=== PATIENT | male | born 1940 | race Caucasian/White ===

== ENCOUNTER 2020-12-01 15:01 | Outpatient (REF) | payer MEDICARE, SELFPAY ==
[2020-12-01 16:00] LABS: Blood Urea Nitrogen 22 mg/dL (9-16); Estimated Glomerular Filt Rate > 60
== END 2020-12-01 15:02 | disposition home or self-care (01) ==
LOC: HO.LAB 15:01
PROVIDERS: PCP Family Medicine; Visit Provider Dentist Pediatric Dentistry
DX: Z13.89 Encounter for screening for other disorder (principal)
CPT/HCPCS: 36415; 82565; 84520

== ENCOUNTER 2020-12-02 18:48 | Outpatient (REF) | payer MEDICARE, SELFPAY ==
--- NOTE | ~2020-12-02 | MR_ITS ---
EXAMINATION: MRI ABDOMEN WITH AND WITHOUT CONTRAST CLINICAL INFORMATION: OTHER SPECIFIED DISEASES OF PANCREAS COMPARISON: Compared to the 10/17/2018 CT scan TECHNIQUE: Multiple routine MRI sequences through the abdomen were obtained on a high-field 1.5Tesla MRI. Pre-and postcontrast images with 7 mL of Gadavist intravenous contrast were obtained. This included a dynamic contrast-enhanced technique. FINDINGS: Visualized lung bases unremarkable. Liver is homogeneous in signal with a small partially exophytic simple appearing 1.5 cm cyst from the lower aspect of segment 5 of the liver. No suspicious hepatic lesions nor biliary ductal dilatation. Gallbladder is partially contracted but otherwise unremarkable. Specific attention was given to the pancreas. Pancreatic parenchyma demonstrates homogeneous precontrast T1 bright signal. There are small T2 bright nonenhancing simple appearing cystic changes seen within the pancreas includes a 1.5 cm cysts along the superior pancreatic neck region, a 0.8 cm cyst in the pancreatic head abutting the pelvic bowel duct and a 1.3 cm cyst in the uncinate process measuring up to 1.3 cm in diameter. In retrospect, these tiny cysts and likely not significantly changed in size from the 2019 CT scan. No intraluminal filling defects, nodularity, or enhancement. The small cyst in the uncinate process does appear to be contiguous with the adjacent pancreatic duct. The cyst in the pancreatic head and neck are in close proximity to the common bile duct but appear to be separate from the hepatic duct. Pancreatic duct in the pancreatic head region measures up to 0.6 cm extending up to the ampulla. I do not appreciate any discrete obstructive changes to the duct in the pancreatic head region. No peripancreatic inflammatory changes or fluid. Negative spleen. Negative adrenals. The left kidney is surgically absent. T2 bright nonenhancing simple appearing cysts incidentally seen in the upper pole of the right kidney. No obstructive changes seen. No bulky retroperitoneal adenopathy. MR/MR abdomen wo/w con IMPRESSION: There are 3 simple appearing small cyst within the pancreas as described above. In retrospect these have likely not significantly changed from the [address] scan although are better delineated on the current MRI. The lesion in the anterior aspect of the uncinate process does appear to be contiguous with the pancreatic duct in this region and a tiny branch duct type IPMN cannot be excluded. Alternatively with the multiplicity, sequela of prior pancreatitis could also have this appearance. The pancreatic duct again measures up to 0.6 cm in the region the pancreatic head extending up to the ampulla without intraluminal filling defects or obvious obstructive changes. Appears similar to the 2019 CT scan as well. Status post left nephrectomy. No obvious mass lesion or adenopathy in the left nephrectomy bed.
== END 2020-12-02 18:49 | disposition home or self-care (01) ==
LOC: HO.MRI 18:48
PROVIDERS: Visit Provider Family Medicine
DX: K86.89 Other specified diseases of pancreas (principal); Z90.5 Acquired absence of kidney
CPT/HCPCS: 74183; A9585

== ENCOUNTER 2022-10-11 17:16 | Emergency (ER) | payer MEDICARE, SELFPAY ==
--- NOTE | 2022-10-11 17:26 | ED_ITS ---
HPI - Eye Problem General Chief complaint: Eye Problems Stated complaint: right eye inj Time Seen by Provider: 10/11/22 19:38 Source: patient and RN notes reviewed Mode of arrival: ambulatory Limitations: no limitations History of Present Illness HPI Narrative: This is a 82-year-old male presenting to the emergency department for right eye irritation which occurred this afternoon. Patient reports that his son was mowing the lawn when suddenly something came up and struck patient into his right eye. He states that his eye watered for several minutes. Patient denies any eye pain, visual changes, blurred vision, or pain to his eye. He noticed some redness in his eye and wanted to ensure he did not have any foreign bodies into his eye. Patient denies any fevers or chills. No headaches or dizziness. No other complaints or concerns at this time. MD chief complaint: eye redness Onset (ago): hour(s) Onset description: sudden Location: right eye Eye Symptoms: redness Place: home Mechanism: none Severity: moderate Associated symptoms: none Treatments Prior to Arrival: none Related Data Patient tetanus UTD: No Previous Rx's Medication Instructions Recorded erythromycin 5 mg/gram (0.5 %) eye 1 appl ophthalmic (eye) QID 7 days 10/11/22 ointment #3.5 grams sulfacetamide sodium 10 % eye drops 1 drp ophthalmic (eye) Q3H 7 days 10/11/22 #15 mL Allergies Allergy/AdvReac Type Severity Reaction Status Date / Time No Known Allergies Allergy Unverified 01/14/20 18:56 [No Known Allergies*] Review of Systems Review of Systems: Constitutional: No Weight loss, No Fever, No Chills, No Night Sweats, No Fatigue, No Malaise ENT/Mouth: No Hearing loss, No Ear Pain, No Nasal Congestion, No Sinus Pain, No Hoarseness, No sore throat, No Rhinorrhea, No Swallowing Difficulty Eyes: No Eye Pain, No Swelling, + Redness, No Foreign Body, No Discharge, No Vision Changes Cardiovascular: No Chest Pain, No SOB, No Dyspnea on Exertion, No Orthopnea, No Edema, No Palpitations Respiratory: No Cough, No Sputum, No Wheezing, No Smoke Exposure, No Dyspnea Gastrointestinal: No Nausea, No Vomiting, No Diarrhea, No Constipation, No Abdominal pain, No Hematochezia, No Melena Genitourinary: No irregular bleeding, No Dysuria, No Urinary Frequency, No Hematuria, No Urinary Incontinence/retention, No Urgency, No Flank Pain, No Urinary Flow Changes, No Hesitancy Musculoskeletal: No joint pain, No Myalgias, No Joint Swelling Skin: No Skin Lesions, No rash Neuro: No Weakness, No Numbness, No Paresthesias, No Loss of Consciousness, No Dizziness, No Headache Psych: No Anxiety/Panic, No Depression, No SI/HI/AH/VH, No Social Issues, Heme/Lymph: No Bruising, No Bleeding,No Lymphadenopathy Endocrine: No Polyuria, No Polydipsia, No Temperature Intolerance [facility] Social History Social History Advance Directives: Yes Advance Directives Information Provided: No Advance Directives on File: No Physical Exam Vital Signs: Vital Signs: Last Vital Signs Temp 97.9 F 10/11/22 17:27 Pulse 79 10/11/22 17:27 Resp 16 10/11/22 17:27 BP 130/76 10/11/22 17:27 Pulse Ox 96 10/11/22 17:27 O2 Del Method Room Air 10/11/22 17:27 BMI result Body Mass Index 25.1 Const: Other: General: Awake, alert, and oriented X3. No acute distress. HEENT: Normal inspection, right eye with subconjunctiva hemorrhage, and conjunctiva injected on the inner portion, just lateral to the medial canthus. No active bleeding or drainage. No foreign body noted. No fluorescein uptake noted. Pupils are equal and reactive. No pain with EOM. CVS: Normal heart rate and rhythm. Pulses normal. Respiratory: No respiratory distress Skin: Warm, dry, no rashes noted to exposed skin. Normal skin color. Normal skin turgor. Extremities: Normal inspection Neuro: Oriented X 3. No motor deficit. No sensory deficit. Course Course Course Narrative: This is a rapid medical exam. Deferred additional HPI, ROS, PE to primary provider. 82 yo male with history of CKD, CAD with stent here with right eye pain, tearing after a piece of wood hit his eye 1 hr [employer]LY[employer]. Tetanus UTD Will need visual exam, eye exam VSS Medications Administered Discontinued Medications Generic Name Dose Route Start Last Admin Trade Name Freq PRN Reason Stop Dose Admin Diphtheria/Tetanus/Acell Pertussis 0.5 ml 10/11/22 20:09 10/11/22 20:14 Naveen Reeves(Acell),Tet Adult 0.5 Ml Syringe IM 10/11/22 20:10 0.5 ml .ONCE ONE Administration Fluorescein Sodium 1 strip 10/11/22 17:28 10/11/22 19:50 Fluorescein Sodium Strip EYE-RIGHT 10/11/22 17:29 1 strip ONCE ONE Administration Tetracaine HCl 1 drop 10/11/22 17:28 10/11/22 19:50 Tetracaine Hcl/Pf 0.5% Oph Sis 4 Ml Drops EYE-RIGHT 10/11/22 17:29 1 drop ONCE ONE Administration Medical Decision Making Medical Decision Making MDM Narrative: 82-year-old male presenting to the emergency department for evaluation of right eye injury. On examination patient has subconjunctiva hemorrhage noted to the inner portion of his right eye. Pupils are reactive. No pain with EOM. Patient has no visual changes. Fluorescein stain achieved with no uptake. Likely consistent with subconjunctiva hemorrhage. Will treat with antibiotic eyedrops for prevention. Patient on lantoprost for chronic glaucoma. Discussed with pharmacist that patient can use antibiotic eyedrops with an hour in between administrations. Tetanus is not up-to-date, will update in department today. Visual acuity intact. Patient does not wear contact lenses. All vital signs within normal limits. Patient is stable for discharge. Differential Diagnosis Differential Diagnoses: The differential diagnosis associated with the presentation includes Subconjunctival hemorrhage, corneal abrasion, corneal laceration, foreign body Discharge Plan Discharge Clinical Impression: Subconjunctival hemorrhage Patient Disposition: Home, Self-Care Instructions: Subconjunctival Hemorrhage (ED) Additional Instructions: No foreign body was seen on your exam today. We are placing you on antibiotic eyedrops for prevention of infection. Please use these eyedrops spacing 1 hour between Lantoprost eyedrops. We updated your tetanus vaccine today. Please call your eye doctor tomorrow for follow-up. If any new or worsening symptoms occur, including visual changes, eye pain, or any other concerning symptoms, please return for re-evaluation. Prescriptions: New sulfacetamide sodium 10 % drops 1 drp ophthalmic (eye) Q3H 7 Days Qty: 15 0RF erythromycin 5 mg/gram (0.5 %) ointment 1 appl ophthalmic (eye) QID 7 Days Qty: 3.5 0RF Interventions: ED Discharge Assessment Last Done: 10/11/22 20:22 Discharge Date/Time: 10/11/22 20:25
[2022-10-11 17:27] VITALS: BP 130/76; PULSE 79; RESP 16; TEMP 36.6; O2SAT 96; BMI 25.1
[2022-10-11] MEDS: Fluorescein Sodium STRIP 1 STRIP EYE-RIGHT (19:50)
[2022-10-11] MEDS: Tetracaine HCl/PF 0.5% Oph Sol 4 ML DROPS 1 DROP EYE-RIGHT (19:50)
[2022-10-11] MEDS: Diphth,Pertus(ACell),Tet Adult 0.5 ML SYRINGE IM (20:14)
== END 2022-10-11 20:25 | disposition home or self-care (01) ==
PROVIDERS: Emergency Provider Student in an Organized Health Care Education/Training Program; PCP Family Medicine
DX: S05.01XA Injury of conjunctiva and corneal abrasion without foreign body, right eye, initial encounter (principal); H11.31 Conjunctival hemorrhage, right eye; X58.XXXA Exposure to other specified factors, initial encounter; Y93.9 Activity, unspecified; Y92.9 Unspecified place or not applicable; Y99.9 Unspecified external cause status; Z79.899 Other long term (current) drug therapy; Z23 Encounter for immunization
CPT/HCPCS: 90471; 90715; 99284

== ENCOUNTER 2023-09-27 10:00 | Outpatient (RCR) | payer MEDICARE, SELFPAY | END 2023-10-02 06:54 | disposition home health service (06) | LOC: HO.CR 10:00 | PROVIDERS: PCP Family Medicine; Visit Provider Internal Medicine Cardiovascular Disease | DX: Z95.5 Presence of coronary angioplasty implant and graft (principal) | CPT/HCPCS: 93798 ==

== ENCOUNTER 2023-09-29 10:57 | Emergency (ER) | payer MEDICARE, SELFPAY ==
--- NOTE | ~2023-09-29 | CT_ITS ---
EXAMINATION: CT HEAD WITHOUT CONTRAST CLINICAL INFORMATION: Fall. Anticoagulated. COMPARISON: None available. TECHNIQUE: Contiguous axial imaging was performed from the skull base to vertex without intravenous administration of contrast. This CT examination was performed using dose optimization techniques as appropriate, variously including the following: *Automated exposure control *Adjustment of mA and/or kV according to patient size (this includes techniques or standardized protocols for targeted exams where dose is matched to indication/reason for exam; i.e. extremities or head) *Use of iterative reconstruction technique DLP: 674 mGy-cm FINDINGS: There is no evidence of an extra-axial collection. There is no evidence of intra or extra-axial hemorrhage. The ventricles and extra-axial CSF spaces are prominent suggestive of mild generalized atrophy. There is nonspecific periventricular white matter disease. No mass, mass effect or infarct. No skull fracture. Visualized sinuses and mastoid air cells and middle ears are clear. Degenerative changes of the left temporomandibular joint. CT/CT head/brain wo IV con IMPRESSION: No acute findings. Mild generalized atrophy and nonspecific periventricular white matter disease.
--- NOTE | ~2023-09-29 | XR_ITS ---
EXAMINATION: XR TIBIA AND FIBULA, RIGHT CLINICAL INFORMATION: Fall COMPARISON: None available. TECHNIQUE: AP and lateral views of the right tibia and fibula were obtained. FINDINGS: The bones and soft tissues are normal. No fracture. No osseous lesions. XR/XR tibia fibula RT 2V IMPRESSION: Normal right tibia and fibula.
--- NOTE | ~2023-09-29 | CT_ITS ---
EXAMINATION: CT CERVICAL SPINE WITHOUT CONTRAST CLINICAL INFORMATION: Fall COMPARISON: None available. TECHNIQUE: Axial images through the cervical spine without contrast. Sagittal and coronal reconstructions. This CT examination was performed using dose optimization techniques as appropriate, variously including the following: *Automated exposure control *Adjustment of mA and/or kV according to patient size (this includes techniques or standardized protocols for targeted exams where dose is matched to indication/reason for exam; i.e. extremities or head) *Use of iterative reconstruction technique DLP: 398 mGy-cm FINDINGS: Well corticated transverse lucency of the dens suggestive of old ununited fracture versus ununited accessory ossification center. No acute fracture or dislocation. There is mild curvature of the lower cervical and upper thoracic spine to the left. Bone alignment is otherwise normal. There are degenerative changes at the C1 dens articulation. There is thickening of the atlantoaxial ligament. There is mild multilevel degenerative spondylosis. There is disc space narrowing at C6-C7. There is mild bilateral facet arthritis, left side greater than right. Prevertebral soft tissues are normal. Visualized lung apices are clear. CT/CT cervical spine wo IV con IMPRESSION: Well corticated transverse lucency in the dens suggestive of old ununited fracture versus accessory ossification center. No acute fracture or dislocation. Degenerative changes. Fleischner guidelines were followed.
--- NOTE | ~2023-09-29 | CT_ITS ---
EXAMINATION: CT FOOT WITHOUT CONTRAST, RIGHT CT ANKLE WITHOUT CONTRAST, RIGHT CLINICAL INFORMATION: Calcaneal fracture. COMPARISON: None available. TECHNIQUE: Multidetector volumetric imaging was obtained through the right ankle and right foot without contrast. Multiplanar reformatted images in coronal and sagittal orientations were submitted. This CT examination was performed using dose optimization techniques as appropriate, variously including the following: *Automated exposure control *Adjustment of mA and/or kV according to patient size (this includes techniques or standardized protocols for targeted exams where dose is matched to indication/reason for exam; i.e. extremities or head) *Use of iterative reconstruction technique DLP: 334 mGy-cm FINDINGS: There is a nondisplaced fracture of the calcaneal body and tuberosity with a dominant oblique coronal component. The fracture line extends into the sustentaculum talus to the articular surface of the middle facet without articular cortical step-off. No no appreciable involvement of the posterior facet of the calcaneocuboid joint. Minimal osteoarthritis in the talocrural, subtalar, and Chopart joint is characterized primarily by small marginal osteophytes. Joint spaces appear well-preserved. No erosions. 3 small avulsion fracture is suspected at the dorsolateral margin of the cuboid at the fourth TMT joint. No additional fractures are identified at the TMT joint. Lisfranc joint alignment is appropriate. There is mild osteoarthritis at the first MTP joint and a few interphalangeal joints. There is soft tissue swelling at the ankle diffusely with associated subcutaneous edema. Tendons are intact. Small ankle joint effusion. No atrophy of the intrinsic foot musculature. CT/CT ankle RT wo IV con IMPRESSION: 1. Nondisplaced fracture of the calcaneal body and tuberosity with a dominant oblique coronal component. The fracture line extends to the articular surface of the middle facet without articular cortical step-off. 2. Small avulsion fracture at the dorsolateral margin of the cuboid at the fourth TMT joint. No additional fractures of the TMT joints. Lisfranc alignment is normal. 3. Minimal osteoarthritis in the hindfoot and midfoot.
--- NOTE | ~2023-09-29 | XR_ITS ---
EXAMINATION: XR ANKLE, RIGHT CLINICAL INFORMATION: Right ankle pain after injury. COMPARISON: None available. TECHNIQUE: AP, lateral, and mortise views of the right ankle. FINDINGS: Ankle mortise is intact. As seen on the on the lateral view note is made of a an obliquely oriented linear lucency through the mid body of the calcaneus extending into the subtalar joint space, highly concerning for nondisplaced fracture. No additional acute fractures are noted. Ankle mortise is intact. Mild soft tissue swelling is noted over the lateral malleolus. Arterial calcification is seen. Normal osseous mineralization. Posterior calcaneal spur at the insertion of Achilles tendon. Mild degenerative changes are noted at talonavicular and mid tarsal articulations. XR/XR ankle RT min 3V IMPRESSION: Oblique nondisplaced fracture of the right calcaneus with intra-articular extension is suspected as detailed above. Ankle mortise is intact.
--- NOTE | ~2023-09-29 | XR_ITS ---
EXAMINATION: XR FEMUR, LEFT CLINICAL INFORMATION: Fall COMPARISON: None available. TECHNIQUE: AP and lateral views of the left femur were obtained. FINDINGS: Bone alignment is normal. No fracture or dislocation. Mild degenerative changes at the left hip joint and knee joint with small osteophytes. Soft tissues are unremarkable. XR/XR femur LT 2V IMPRESSION: No fracture or dislocation. Mild degenerative changes.
--- NOTE | ~2023-09-29 | CT_ITS ---
EXAMINATION: CT ABDOMEN AND PELVIS WITH CONTRAST CLINICAL INFORMATION: Fall COMPARISON: Previous CT of the abdomen and pelvis October 2018 and MR of the abdomen 2020 TECHNIQUE: Multidetector volumetric images were obtained from the superior aspect of the liver through the pubic symphysis following administration 85 mL of Omnipaque 350 intravenous contrast. Sagittal and coronal reformatted images were obtained on the technologist's workstation. Oral contrast: Yes This CT examination was performed using dose optimization techniques as appropriate, variously including the following: *Automated exposure control *Adjustment of mA and/or kV according to patient size (this includes techniques or standardized protocols for targeted exams where dose is matched to indication/reason for exam; i.e. extremities or head) *Use of iterative reconstruction technique DLP: 490 mGy-cm FINDINGS: LUNG BASES: The visualized lung bases are unremarkable. LIVER, GALLBLADDER, AND BILIARY TREE: The liver is normal in size, shape, and attenuation. No focal hepatic lesion or biliary ductal dilatation is present. The gallbladder is unremarkable with no evidence of radiopaque gallstones, gallbladder wall thickening, or obvious pericholecystic inflammatory changes. PANCREAS: There is a 1.4 cm cyst seen in the uncinate process of the head of the pancreas. 1 cm cyst exophytic to the anterior head of the pancreas. There is mild dilatation of the main pancreatic duct measuring up to 7 mm in the head of the pancreas. These findings are similar to previous exams. SPLEEN: Unremarkable. ADRENAL GLANDS: Unremarkable. 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 There is mild right hydronephrosis and right ureteral dilatation. This may be secondary to well-distended bladder. BLADDER: The bladder is very dilated. The prostate gland is enlarged and protrudes into the base of the bladder. There may be mild diffuse bladder wall thickening. GASTROINTESTINAL TRACT: The small and large bowel are unremarkable. The appendix is unremarkable. ABDOMINAL WALL: Small left inguinal hernia containing fat. There is asymmetric enlargement of the left gluteal muscles compared to the right. There is a high attenuation soft tissue mass and stranding of the subcutaneous fat in the left buttock suggestive of hematoma. There is extension of the hematoma into the lower left extraperitoneal pelvis and perineal region. LYMPH NODES: Normal. VASCULAR: Atherosclerotic disease. No aneurysm. PELVIC VISCERA: The prostate gland is enlarged and protrudes into the base of the bladder. The prostate gland measures 6 cm in AP and transverse dimension. OSSEOUS STRUCTURES: Degenerative changes of the spine and bilateral hip joints. No fracture seen. CT/CT abdomen pelvis w IV con IMPRESSION: Large left buttock hematoma and small amount of blood in the left lower extraperitoneal pelvis. No fracture seen. Enlarged prostate gland that protrudes into the base of the bladder. The bladder is very distended. Mild right hydronephrosis and ureteral dilatation. This may be due to bladder distention. Post left nephrectomy. Small cysts in the head of the pancreas and prominence of the main pancreatic duct. These findings are similar to previous exams. Fleischner guidelines were followed.
--- NOTE | ~2023-09-29 | CT_ITS ---
EXAMINATION: CT CHEST WITH CONTRAST CLINICAL INFORMATION: Fall COMPARISON: None available. TECHNIQUE: Multidetector volumetric CT imaging of the chest was obtained after the administration of 85 mL of Omnipaque 350 intravenous contrast without immediate adverse reactions. Axial MIP volume rendering provided. Sagittal and coronal reformatted images were obtained. This CT examination was performed using dose optimization techniques as appropriate, variously including the following: *Automated exposure control *Adjustment of mA and/or kV according to patient size (this includes techniques or standardized protocols for targeted exams where dose is matched to indication/reason for exam; i.e. extremities or head) *Use of iterative reconstruction technique DLP: 264 mGy-cm FINDINGS: LUNGS: The lungs are clear with no evidence of inflammation or nodules. MEDIASTINUM: Enlarged heart. No pericardial effusion. Mild coronary artery calcification. Normal caliber thoracic aorta. No enlarged hilar or mediastinal lymph nodes. PLEURA: There is no pleural effusion. No pleural mass or thickening. No pneumothorax. AXILLA: No lymphadenopathy. No chest wall mass. UPPER ABDOMEN: See abdominal and pelvic CT from the same day OSSEOUS STRUCTURES: Degenerative changes of the spine. No fracture. CT/CT chest w IV con IMPRESSION: No acute posttraumatic findings. Enlarged heart. Fleischner guidelines were followed.
--- NOTE | ~2023-09-29 | XR_ITS ---
EXAMINATION: XR FEMUR, RIGHT CLINICAL INFORMATION: Fall COMPARISON: None available. TECHNIQUE: AP and lateral views of the right femur were obtained. FINDINGS: Bone alignment is normal. No fracture or dislocation. Mild degenerative changes at the right hip joint and patellofemoral joint. Atherosclerotic disease. XR/XR femur RT 2V IMPRESSION: No fracture or dislocation seen.
[2023-09-29 11:00] VITALS: BP 98/49; PULSE 81; RESP 20; TEMP 36.7; O2SAT 98; BMI 25.4
[2023-09-29 13:19] VITALS: BP 123/63; PULSE 82; RESP 17; RESP 18
--- NOTE | 2023-09-29 13:20 | ED_ITS ---
HPI - Fall General Chief Complaint: Fall Stated Complaint: R foot inj/L buttock pain Time Seen by Provider: 09/29/23 13:20 Source: patient, RN notes reviewed and old records reviewed Mode of arrival: ambulatory Limitations: no limitations History of Present Illness ED Provider: DANA KENT PA-C HPI Narrative: 83-year-old male with past medical history significant for atrial fibrillation on both Eliquis and Plavix presents to the emergency department today for evaluation of right ankle pain after falling off ladder approximately 8 ft yesterday at 3:00 p.m.. Patient states that he was attempting to clean his gutters when the ladder slipped down along side of the house. Reports landing on his right foot and falling back onto his buttocks. Denies head strike or LOC. reports immediate pain to right ankle/foot. He has been icing it with minimal relief. Took 1 dose of Motrin yesterday at present admits to continued right ankle/foot pain and neck stiffness. He also endorses large area of bruising to his left buttock. Denies headache, dizziness, vision changes, confusion, numbness/tingling/weakness of LEs, bowel/bladder incontinence, saddle anesthesia. Related Data Previous Rx's ?Medication ?Instructions ?Recorded erythromycin 5 mg/gram (0.5 %) eye 1 appl ophthalmic (eye) QID 7 days 10/11/22 ointment #3.5 grams sulfacetamide sodium 10 % eye drops 1 drp ophthalmic (eye) Q3H 7 days 10/11/22 #15 mL Allergies Allergy/AdvReac Type Severity Reaction Status Date / Time No Known Allergies Allergy Verified 09/29/23 11:05 [No Known Allergies*] Review of Systems 2 Review of Systems: Constitutional: No fever, chills, fatigue, night sweats, weight changes ENT/Mouth: No ear pain, hearing loss, nasal congestion, sinus pain, rhinorrhea, sore throat Eyes: No eye pain, swelling, redness, vision changes, discharge Cardio: No chest pain, palpitations, KENNEDY, orthopnea, peripheral edema Pulm: No SOB, cough, sputum, wheezing, dyspnea, hemoptysis GI: No nausea, vomiting, hematemesis, abdominal pain, diarrhea, constipation, hematochezia, melena : No irregular bleeding, dysuria, frequency, urgency, hesitancy, hematuria, flank pain, urinary flow changes, urinary incontinence or retention MSK: No back pain, neck pain, joint pain, myalgias, +heel pain Skin: No lesions, rashes Neuro: No weakness, numbness, paresthesias, LOC, dizziness, headache Psych: No anxiety/panic, depression, SI/HI, AH/VH All other systems reviewed and are negative. [facility] Past Medical History Attestation statement: The following information was validated with the patient. Source: old records reviewed and nursing notes reviewed Social History Social History Unable to assess alcohol history related to: Unable to respond Alcohol intake: current Alcohol intake frequency: 0-2 drinks per day Alcohol type: wine Smoked in Last 30 Days: No Use of substances other than those prescribed or required for medical reasons: No Advance Directives: No Advance Directives Information Provided: Yes Physical Exam 2 Vital Signs: Vital Signs: Last Vital Signs Temp 97.4 F 09/29/23 18:59 Pulse 100 09/29/23 18:59 Resp 16 09/29/23 18:59 BP 125/60 09/29/23 18:59 Pulse Ox 97 09/29/23 18:59 O2 Del Method Room Air 09/29/23 18:59 BMI result Body Mass Index 25.4 Vital signs stable Const: General: cooperative, healthy appearing, comfortable and no acute distress Orientation/consciousness: patient oriented x3 Limitations: no limitations HEENT: Head: Yes normal to inspection, Yes No palpable skull fracture present, Yes normocephalic, Yes atraumatic, No Lomax's sign, No palpable skull fracture, No raccoon eyes and No periorbital ecchymosis Eyes: General: appearance normal, both eyes and all related structures C onjunctivae: conjunctivae normal Sclerae: sclerae normal Pupils: Equal, round and reactive pupils present EOM: EOMs intact bilaterally Neck: Other: No midline cervical spinous tenderness or step-off deformity. Full ROM intact Neck: Yes normal visual inspection, Yes full ROM and Yes no lymphadenopathy Chest: Chest palpation & inspection: normal inspection of the chest, normal palpation of entire chest wall, no crepitus, localized rib tenderness with anteroposterior compression and no tenderness Resp: Effort & Inspection: normal respiratory effort, able to speak in complete sentences and symmetric chest movement Auscultation: clear to auscultation bilaterally Cardio: Rate: regular rate Rhythm: regular rhythm GI: Inspection: Yes normal to inspection and No abdominal wall ecchymosis P alpation (GI): Soft to palpation and nontender : Meatus: meatus normal Scrotum: scrotum normal Back/Spine/Pelvis: Other: No midline spinous tenderness or step off deformity. No paraspinal muscle tenderness. Pelvis: no pain with anterior-posterior compression and no pain with lateral compression Back/spine/pelvis image: 1. Large hematoma noted to left buttock, TTP, minimal firmness Skin: Other: + see above Neuro: Other: Strength 5/5 intact throughout.? No saddle anesthesia.? Sensation intact to light touch.? Neurovascular intact distally.?unable to assess gait due to heel pain General: patient oriented x3, tone normal, no focal motor deficits and deep tendon reflexes 2+ bilaterally Cranial nerves: Yes Equal, round and reactive pupils present Motor exam (neuro): 5/5 motor strength present throughout P upils: Normal pupillary reactivity/response: bilateral Extrem: Other: + unable to assess gait d/t heel pain. r ight ankle with noted swelling, ttp. no palpable deformity, warmth, fluctuance, crepitus. ROM of ankle limited. 2+ pt/dp pulses intact. Course Course Course Narrative: 1810-- X-ray of right ankle showing oblique nondisplaced fracture of the right calcaneus with intra-articular extension. Mortise intact. I did discuss these findings with orthopedic IDALMIS Major who recommended CT of right ankle/foot. CT showing redemonstration of right calcaneal fracture extending to articular surface of the middle facet without articular cortical step-off. There is also a small avulsion fracture at the dorsal lateral margin of the cuboid at the 4th TMT joint without any additional fractures of the TMT joint. Lisfranc alignment is normal. Patient splinted with posterior and stirrup splint. status is NWB. he has been provided with crutches. > CT head/brain does not demonstrate bleed. CT cervical spine does not demonstrate new fracture. CT chest without intrathoracic bleed. CT abdomen showing large left buttock hematoma and small amount of blood in the left lower extraperitoneal pelvis. I discussed this finding with my my attending Dr. Villa who, after review of CT scan, recommends repeat H&H. XRs of bilateral femurs and right tib/fib are normal. 1844-- Repeat CBC showing H&H of 12.2/37.4. No concern for acute blood loss. Patient is stable for discharge. Patient has remained stable throughout ED visit today. Discussed worrisome signs and symptoms and when to return to the ED. All questions answered at this time. Patient is agreeable with disposition and stable for discharge. Medications Administered Discontinued Medications Generic Name Dose Route Start Last Admin Trade Name Freq PRN Reason Stop Dose Admin Sodium Chloride 1,000 mls @ 999 mls/hr 09/29/23 13:30 09/29/23 16:51 Ns IV 09/29/23 14:30 Infused .Q1H1M CECILIA Infusion Procedures Orthopedic Splinting/Casting Injury #1: Side: right Lower Extremity Injury Location: ankle and foot Lower Extremity Immobilizer: posterior splint and stirrup splint Other Orthopedic Equipment: crutches Medical Decision Making Medical Decision Making [facility] Narrative: 83-year-old male with past medical history significant for atrial fibrillation on both Eliquis and Plavix presents to the emergency department today for evaluation of right ankle pain after falling off ladder approximately 8 ft yesterday at 3:00 p.m.. exam non focal. perrla. unable to assess gait d/t heel pain. right ankle with noted swelling, ttp. no palpable deformity, warmth, fluctuance, crepitus. ROM of ankle limited. 2+ pt/dp pulses intact. no abdominal ecchymosis. No midline spinous tenderness or step off deformity. No paraspinal muscle tenderness. Strength 5/5 intact throughout.? No saddle anesthesia.? Sensation intact to light touch.? Neurovascular intact distally.?large hematoma noted to left buttock, slightly firm. ttp. Differential diagnosis includes contusion, fracture, MSK sprain/strain, dislocation, ICH, concussion, hematoma. Unlikely cord compression, cauda equina, epidural abscess, NV compromise, threat to limb, compartment syndrome. Plan for panscan, labs, coags, re-evaluation. Differential Diagnosis Differential Diagnoses: The differential diagnosis associated with the presentation includes as above Admission/Observation Consideration of admission/observation: Escalation of care including admission/observation considered Admission considered on presentation Lab Data [facility] Lab Attestation statement: I reviewed the patient's lab results. As above 09/29/23 18:18 09/29/23 13:46 Labs: Lab Results 09/29/23 09/29/23 09/29/23 Range/Units 13:46 15:43 18:18 WBC 8.4 6.7 (4.8-10.8) X10*3/uL RBC 3.93 L 3.91 L (4.60-5.80) X10*6/uL Hgb 12.3 L 12.2 L (14.0-18.0) g/dl Hct 37.6 L 37.4 L (42.0-52.0) % MCV 95.7 95.7 (80.0-98.0) fL MCH 31.3 31.2 (27.0-33.0) pg MCHC 32.7 32.6 (31.0-36.0) g/dl RDW 13.5 13.5 (11.0-16.0) % Plt Count 145 L 124 L (160-400) X10*3/uL MPV 10.8 10.4 (9.4-12.4) fL Immature Gran % (Auto) 0.4 0.3 (0.0-0.4) % Neut % (Auto) 83.9 H 74.4 H (45-73) % Lymph % (Auto) 6.6 L 12.8 L (20-40) % Page % (Auto) 8.8 11.6 H (2-11) % Eos % (Auto) 0.1 0.6 (0-4) % Baso % (Auto) 0.2 0.3 (0-2) % Lymph # (Auto) 0.6 L 0.9 L (1.2-4.9) X10*3/uL Page # (Auto) 0.7 0.8 (0.1-1.2) X10*3/uL Eos # (Auto) 0.0 0.0 (0.0-0.4) X10*3/uL Baso # (Auto) 0.0 0.0 (0.0-0.2) X10*3/uL Abs Immat Gran (auto) 0.03 0.02 (0.00-0.03) X10*3/uL Absolute Neuts (auto) 7.0 5.0 (2.0-8.3) x10*3/uL Absolute Nucleated RBC 0.000 0.000 (0.0-0.012) X10*3/uL Nucleated RBC % (auto) 0.0 0.0 (0.0-0.2) /100WBC Hold Purple Top SEE NOTE PT 13.7 H (11.1-13.3) SEC INR 1.1 (0.9-1.1) Sodium 140 (135-145) mmol/L Potassium 4.2 (3.3-5.1) mmol/L Chloride 107 (96-108) mmol/L Carbon Dioxide 25 (22-29) mmol/L Anion Gap 12 (12-20) BUN 15 (9-16) mg/dL Creatinine 1.00 (0.5-1.4) mg/dL Estim Creat Clear Calc 52.3 Estimated GFR > 60 Random Glucose 112 (60-115) mg/dL Calcium 9.1 (8.4-10.2) mg/dL Magnesium 1.9 (1.6-2.6) mg/dL Total Bilirubin 1.0 (0.0-1.0) mg/dL AST 30 (5-37) U/L ALT 20 (0-40) U/L Alkaline Phosphatase 89 (39-117) U/L Total Protein 6.8 (6.5-8.0) g/dL Albumin 4.0 (3.5-5.0) g/dL Lipase 48 (8-78) U/L Urine Color Yellow Urine Appearance Clear Urine pH 7.0 (5.0-9.0) Ur Specific [place] 1.020 (1.005-1.025) Urine Protein Negative (Neg-Trace) mg/dL Urine Glucose (UA) Negative (Negative) mg/dL Urine Ketones Negative (Negative) mg/dL Urine Blood Negative (Negative) Urine Nitrite Positive H (Negative) Ur Leukocyte Esterase Moderate (2+) H (Negative) Urine RBC 0-2 (0-2) /HPF Urine WBC 6-10 H (0-5) /HPF Ur Squamous Epith Cells 0-2 (0-2) /HPF Urine Bacteria 4+ (None Seen) Hyaline Casts 0-2 (0-2) /LPF Independent Interpretation I performed an independent interpretation of an: Plain X-Ray and CT Scan Interpretation: XR right ankle with calcaneal fracture, agree with radiologist's interpretation. XR right femur and right tib/fib without fracture, agree with radiologist's interpretation. XR left femur without fracture, agree with radiologist's interpretation. CT head/brain without bleed, agree with radiologist's interpretation. CT c spine without acute fracture, agree with radiologist's interpretation. CT chest without intrathoracic bleed, agree with radiologist's interpretation. CT abd/pelvis without acute extravisation, agree with radiologist's interpretation. Radiology Impression Discussion of test interpretation with radiology: I have reviewed the radiologist's reading. Radiologist Impression: EXAMINATION: CT HEAD WITHOUT CONTRAST CLINICAL INFORMATION: Fall. Anticoagulated. COMPARISON: None available. TECHNIQUE: Contiguous axial imaging was performed from the skull base to vertex without intravenous administration of contrast. This CT examination was performed using dose optimization techniques as appropriate, variously including the following: *Automated exposure control *Adjustment of mA and/or kV according to patient size (this includes techniques or standardized protocols for targeted exams where dose is matched to indication/reason for exam; i.e. extremities or head) *Use of iterative reconstruction technique DLP: 674 mGy-cm FINDINGS: There is no evidence of an extra-axial collection. There is no evidence of intra or extra-axial hemorrhage. The ventricles and extra-axial CSF spaces are prominent suggestive of mild generalized atrophy. There is nonspecific periventricular white matter disease. No mass, mass effect or infarct. No skull fracture. Visualized sinuses and mastoid air cells and middle ears are clear. Degenerative changes of the left temporomandibular joint. CT/CT head/brain wo IV con IMPRESSION: No acute findings. Mild generalized atrophy and nonspecific periventricular white matter disease. EXAMINATION: CT CERVICAL SPINE WITHOUT CONTRAST CLINICAL INFORMATION: Fall COMPARISON: None available. TECHNIQUE: Axial images through the cervical spine without contrast. Sagittal and coronal reconstructions. This CT examination was performed using dose optimization techniques as appropriate, variously including the following: *Automated exposure control *Adjustment of mA and/or kV according to patient size (this includes techniques or standardized protocols for targeted exams where dose is matched to indication/reason for exam; i.e. extremities or head) *Use of iterative reconstruction technique DLP: 398 mGy-cm FINDINGS: Well corticated transverse lucency of the dens suggestive of old ununited fracture versus ununited accessory ossification center. No acute fracture or dislocation. There is mild curvature of the lower cervical and upper thoracic spine to the left. Bone alignment is otherwise normal. There are degenerative changes at the C1 dens articulation. There is thickening of the atlantoaxial ligament. There is mild multilevel degenerative spondylosis. There is disc space narrowing at C6-C7. There is mild bilateral facet arthritis, left side greater than right. Prevertebral soft tissues are normal. Visualized lung apices are clear. CT/CT cervical spine wo IV con IMPRESSION: Well corticated transverse lucency in the dens suggestive of old ununited fracture versus accessory ossification center. No acute fracture or dislocation. Degenerative changes. Fleischner guidelines were followed. EXAMINATION: CT CHEST WITH CONTRAST CLINICAL INFORMATION: Fall COMPARISON: None available. TECHNIQUE: Multidetector volumetric CT imaging of the chest was obtained after the administration of 85 mL of Omnipaque 350 intravenous contrast without immediate adverse reactions. Axial MIP volume rendering provided. Sagittal and coronal reformatted images were obtained. This CT examination was performed using dose optimization techniques as appropriate, variously including the following: *Automated exposure control *Adjustment of mA and/or kV according to patient size (this includes techniques or standardized protocols for targeted exams where dose is matched to indication/reason for exam; i.e. extremities or head) *Use of iterative reconstruction technique DLP: 264 mGy-cm FINDINGS: LUNGS: The lungs are clear with no evidence of inflammation or nodules. MEDIASTINUM: Enlarged heart. No pericardial effusion. Mild coronary artery calcification. Normal caliber thoracic aorta. No enlarged hilar or mediastinal lymph nodes. PLEURA: There is no pleural effusion. No pleural mass or thickening. No pneumothorax. AXILLA: No lymphadenopathy. No chest wall mass. UPPER ABDOMEN: See abdominal and pelvic CT from the same day OSSEOUS STRUCTURES: Degenerative changes of the spine. No fracture. CT/CT chest w IV con IMPRESSION: No acute posttraumatic findings. Enlarged heart. Fleischner guidelines were followed. EXAMINATION: CT ABDOMEN AND PELVIS WITH CONTRAST CLINICAL INFORMATION: Fall COMPARISON: Previous CT of the abdomen and pelvis October 2018 and MR of the abdomen 2020 TECHNIQUE: Multidetector volumetric images were obtained from the superior aspect of the liver through the pubic symphysis following administration 85 mL of Omnipaque 350 intravenous contrast. Sagittal and coronal reformatted images were obtained on the technologist's workstation. Oral contrast: Yes This CT examination was performed using dose optimization techniques as appropriate, variously including the following: *Automated exposure control *Adjustment of mA and/or kV according to patient size (this includes techniques or standardized protocols for targeted exams where dose is matched to indication/reason for exam; i.e. extremities or head) *Use of iterative reconstruction technique DLP: 490 mGy-cm FINDINGS: LUNG BASES: The visualized lung bases are unremarkable. LIVER, GALLBLADDER, AND BILIARY TREE: The liver is normal in size, shape, and attenuation. No focal hepatic lesion or biliary ductal dilatation is present. The gallbladder is unremarkable with no evidence of radiopaque gallstones, gallbladder wall thickening, or obvious pericholecystic inflammatory changes. PANCREAS: There is a 1.4 cm cyst seen in the uncinate process of the head of the pancreas. 1 cm cyst exophytic to the anterior head of the pancreas. There is mild dilatation of the main pancreatic duct measuring up to 7 mm in the head of the pancreas. These findings are similar to previous exams. SPLEEN: Unremarkable. ADRENAL GLANDS: Unremarkable. 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 There is mild right hydronephrosis and right ureteral dilatation. This may be secondary to well-distended bladder. BLADDER: The bladder is very dilated. The prostate gland is enlarged and protrudes into the base of the bladder. There may be mild diffuse bladder wall thickening. GASTROINTESTINAL TRACT: The small and large bowel are unremarkable. The appendix is unremarkable. ABDOMINAL WALL: Small left inguinal hernia containing fat. There is asymmetric enlargement of the left gluteal muscles compared to the right. There is a high attenuation soft tissue mass and stranding of the subcutaneous fat in the left buttock suggestive of hematoma. There is extension of the hematoma into the lower left extraperitoneal pelvis and perineal region. LYMPH NODES: Normal. VASCULAR: Atherosclerotic disease. No aneurysm. PELVIC VISCERA: The prostate gland is enlarged and protrudes into the base of the bladder. The prostate gland measures 6 cm in AP and transverse dimension. OSSEOUS STRUCTURES: Degenerative changes of the spine and bilateral hip joints. No fracture seen. CT/CT abdomen pelvis w IV con IMPRESSION: Large left buttock hematoma and small amount of blood in the left lower extraperitoneal pelvis. No fracture seen. Enlarged prostate gland that protrudes into the base of the bladder. The bladder is very distended. Mild right hydronephrosis and ureteral dilatation. This may be due to bladder distention. Post left nephrectomy. Small cysts in the head of the pancreas and prominence of the main pancreatic duct. These findings are similar to previous exams. Fleischner guidelines were followed. EXAMINATION: CT FOOT WITHOUT CONTRAST, RIGHT CT ANKLE WITHOUT CONTRAST, RIGHT CLINICAL INFORMATION: Calcaneal fracture. COMPARISON: None available. TECHNIQUE: Multidetector volumetric imaging was obtained through the right ankle and right foot without contrast. Multiplanar reformatted images in coronal and sagittal orientations were submitted. This CT examination was performed using dose optimization techniques as appropriate, variously including the following: *Automated exposure control *Adjustment of mA and/or kV according to patient size (this includes techniques or standardized protocols for targeted exams where dose is matched to indication/reason for exam; i.e. extremities or head) *Use of iterative reconstruction technique DLP: 334 mGy-cm FINDINGS: There is a nondisplaced fracture of the calcaneal body and tuberosity with a dominant oblique coronal component. The fracture line extends into the sustentaculum talus to the articular surface of the middle facet without articular cortical step-off. No no appreciable involvement of the posterior facet of the calcaneocuboid joint. Minimal osteoarthritis in the talocrural, subtalar, and Chopart joint is characterized primarily by small marginal osteophytes. Joint spaces appear well-preserved. No erosions. 3 small avulsion fracture is suspected at the dorsolateral margin of the cuboid at the fourth TMT joint. No additional fractures are identified at the TMT joint. Lisfranc joint alignment is appropriate. There is mild osteoarthritis at the first MTP joint and a few interphalangeal joints. There is soft tissue swelling at the ankle diffusely with associated subcutaneous edema. Tendons are intact. Small ankle joint effusion. No atrophy of the intrinsic foot musculature. CT/CT ankle RT wo IV con IMPRESSION: 1. Nondisplaced fracture of the calcaneal body and tuberosity with a dominant oblique coronal component. The fracture line extends to the articular surface of the middle facet without articular cortical step-off. 2. Small avulsion fracture at the dorsolateral margin of the cuboid at the fourth TMT joint. No additional fractures of the TMT joints. Lisfranc alignment is normal. 3. Minimal osteoarthritis in the hindfoot and midfoot. EXAMINATION: XR FEMUR, LEFT CLINICAL INFORMATION: Fall COMPARISON: None available. TECHNIQUE: AP and lateral views of the left femur were obtained. FINDINGS: Bone alignment is normal. No fracture or dislocation. Mild degenerative changes at the left hip joint and knee joint with small osteophytes. Soft tissues are unremarkable. XR/XR femur LT 2V IMPRESSION: No fracture or dislocation. Mild degenerative changes. EXAMINATION: XR FEMUR, RIGHT CLINICAL INFORMATION: Fall COMPARISON: None available. TECHNIQUE: AP and lateral views of the right femur were obtained. FINDINGS: Bone alignment is normal. No fracture or dislocation. Mild degenerative changes at the right hip joint and patellofemoral joint. Atherosclerotic disease. XR/XR femur RT 2V IMPRESSION: No fracture or dislocation seen. EXAMINATION: XR TIBIA AND FIBULA, RIGHT CLINICAL INFORMATION: Fall COMPARISON: None available. TECHNIQUE: AP and lateral views of the right tibia and fibula were obtained. FINDINGS: The bones and soft tissues are normal. No fracture. No osseous lesions. XR/XR tibia fibula RT 2V IMPRESSION: Normal right tibia and fibula. EXAMINATION: XR ANKLE, RIGHT CLINICAL INFORMATION: Right ankle pain after injury. COMPARISON: None available. TECHNIQUE: AP, lateral, and mortise views of the right ankle. FINDINGS: Ankle mortise is intact. As seen on the on the lateral view note is made of a an obliquely oriented linear lucency through the mid body of the calcaneus extending into the subtalar joint space, highly concerning for nondisplaced fracture. No additional acute fractures are noted. Ankle mortise is intact. Mild soft tissue swelling is noted over the lateral malleolus. Arterial calcification is seen. Normal osseous mineralization. Posterior calcaneal spur at the insertion of Achilles tendon. Mild degenerative changes are noted at talonavicular and mid tarsal articulations. XR/XR ankle RT min 3V IMPRESSION: Oblique nondisplaced fracture of the right calcaneus with intra-articular extension is suspected as detailed above. Ankle mortise is intact. Critical Care Time Critical Care Time Critical Care Time: No Discharge Plan Discharge Clinical Impression: Closed right calcaneal fracture, Hematoma of left buttock, Fall (on)(from) incline, initial encounter Patient Disposition: Home, Self-Care Instructions: Crutch Instructions (ED), Calcaneal Fracture (ED), Splint Care (ED), Fall Prevention (ED) Additional Instructions: You were seen in the ED today following a fall. The CT of your head/brain does not demonstrate bleed or fracture. The CT of your neck does not demonstrate new fracture. The CT of your chest does not demonstrate acute intrathoracic bleed. The CT of your abdomen/pelvis shows The x-rays of both femurs and right tibia/fibia are normal. The x-ray of your right ankle showed fracture of your calcaneus (heel bone) which was redmonstrated on CT scan. A splint was placed. Keep this clean dry and intact until you follow-up with our orthopedic team. You were also provided with crutches to ambulate. You are to be non weight bearing on the right leg. Take tylenol at home for pain control. Please follow up [facility] [place] Ortho team. [phone] Call them tomorrow morning to schedule an appointment this week. As discussed, please return with new or worsening symptoms such as increased swelling, increased pain, inability to move the toes or fever. In the case of an emergency. Prescriptions: No Action sulfacetamide sodium 10 % drops 1 drp ophthalmic (eye) Q3H 7 Days Qty: 15 0RF erythromycin 5 mg/gram (0.5 %) ointment 1 appl ophthalmic (eye) QID 7 Days Qty: 3.5 0RF Referrals: [facility] [place] Orthopedic Surgeons [Provider Group] Gertrude Kendall MD [Primary Care Provider] - Interventions: ED Discharge Assessment Last Done: 09/29/23 18:59 Discharge Date/Time: 09/29/23 19:01 Print Language: Korean
[2023-09-29] MEDS: 0.9 % Sodium Chloride 1,000 ML 999 ML IV (13:52)
[2023-09-29 13:53] LABS: MANUAL DIFF FLAG NO
[2023-09-29 13:59] LABS: Basophils Percent Auto 0.2 % (0-2); Eosinophils Percent Auto 0.1 % (0-4); Hematocrit 37.6 % (42.0-52.0); Hemoglobin 12.3 g/dl (14.0-18.0); INTERNATIONAL NORM RATIO 1.1 (0.9-1.1); Imm Gran Abs Auto 0.03 X10*3/uL (0.00-0.03); Imm Gran Pct Auto 0.4 % (0.0-0.4); Lymphocytes Absolute Auto 0.6 X10*3/uL (1.2-4.9); Lymphocytes Percent Auto 6.6 % (20-40); Mean Corpuscular HGB Conc 32.7 g/dl (31.0-36.0); Mean Corpuscular Hemoglobin 31.3 pg (27.0-33.0); Mean Corpuscular Volume 95.7 fL (80.0-98.0); Mean Platelet Volume 10.8 fL (9.4-12.4); Monocytes Absolute Auto 0.7 X10*3/uL (0.1-1.2); Monocytes Percent Auto 8.8 % (2-11); Neutrophils Percent Auto 83.9 % (45-73); Platelet Count 145 X10*3/uL (160-400); Prothrombin Time 13.7 SEC (11.1-13.3); Red Blood Count 3.93 X10*6/uL (4.60-5.80); Red Cell Distribution Width 13.5 % (11.0-16.0); White Blood Count 8.4 X10*3/uL (4.8-10.8)
[2023-09-29 14:09] LABS: Alanine Aminotransferase 20 U/L (0-40); Alkaline Phosphatase 89 U/L (39-117); Anion Gap 12 (12-20); Aspartate Amino Transferase 30 U/L (5-37); Blood Urea Nitrogen 15 mg/dL (9-16); Calcium 9.1 mg/dL (8.4-10.2); Carbon Dioxide 25 mmol/L (22-29); Chloride 107 mmol/L (96-108); Creatinine Clr Calc Pharmacy 52.3; Estimated Glomerular Filt Rate > 60; Glucose Random 112 mg/dL (60-115); Lipase 48 U/L (8-78); Magnesium 1.9 mg/dL (1.6-2.6); Potassium 4.2 mmol/L (3.3-5.1); Sodium 140 mmol/L (135-145); Total Protein 6.8 g/dL (6.5-8.0)
[2023-09-29 15:40] VITALS: BP 123/60; PULSE 95; RESP 16; TEMP 36.6; O2SAT 97
--- NOTE | 2023-09-29 15:44 | MHC.EDTECH ---
THIS PCT ASSUMED CARE OF PATIENT AT 1500 ,VITALS TAKEN ,URINE SAMPLE COLLECTED AND SENT TO LAB ,PATIENT AT BED SIDE ,CALL EVANS WITHIN PATIENT REACH .
[2023-09-29 15:55] LABS: Appearance Urine Clear; Color Urine Yellow; Glucose Urine UA Negative (Negative); Leukocyte Esterase Urine Moderate (2+) (Negative); Nitrite Urine Positive (Negative); UMIC TRIGGER UACC YES; Urine Blood Negative (Negative); Urine Ketones Negative (Negative); Urine Protein Negative (Neg-Trace)
[2023-09-29 15:59] LABS: Bacteria Urine 4+ (None Seen); Hyaline Casts Urine 0-2 /LPF (0-2); RBC Urine 0-2 /HPF (0-2); Squamous Epithelial Cell Urine 0-2 /HPF (0-2); UACC Culture Trigger YES
[2023-09-29 18:00] VITALS: BP 125/60; PULSE 100; RESP 16; TEMP 36.3; O2SAT 97
[2023-09-29 18:21] LABS: MANUAL DIFF FLAG NO
[2023-09-29 18:33] LABS: Basophils Percent Auto 0.3 % (0-2); Eosinophils Percent Auto 0.6 % (0-4); Hematocrit 37.4 % (42.0-52.0); Hemoglobin 12.2 g/dl (14.0-18.0); Imm Gran Abs Auto 0.02 X10*3/uL (0.00-0.03); Imm Gran Pct Auto 0.3 % (0.0-0.4); Lymphocytes Absolute Auto 0.9 X10*3/uL (1.2-4.9); Lymphocytes Percent Auto 12.8 % (20-40); Mean Corpuscular HGB Conc 32.6 g/dl (31.0-36.0); Mean Corpuscular Hemoglobin 31.2 pg (27.0-33.0); Mean Corpuscular Volume 95.7 fL (80.0-98.0); Mean Platelet Volume 10.4 fL (9.4-12.4); Monocytes Absolute Auto 0.8 X10*3/uL (0.1-1.2); Monocytes Percent Auto 11.6 % (2-11); Neutrophils Percent Auto 74.4 % (45-73); Platelet Count 124 X10*3/uL (160-400); Red Blood Count 3.91 X10*6/uL (4.60-5.80); Red Cell Distribution Width 13.5 % (11.0-16.0); White Blood Count 6.7 X10*3/uL (4.8-10.8)
[2023-09-29 18:59] VITALS: BP 125/60; PULSE 100; RESP 16; TEMP 36.3; O2SAT 97
== END 2023-09-29 19:01 | disposition home or self-care (01) ==
PROVIDERS: Physician Assistant Medical; Emergency Provider Emergency Medicine; PCP Family Medicine
DX: S92.041A Displaced other fracture of tuberosity of right calcaneus, initial encounter for closed fracture (principal); S30.0XXA Contusion of lower back and pelvis, initial encounter; W11.XXXA Fall on and from ladder, initial encounter; Y93.H9 Activity, other involving exterior property and land maintenance, building and construction; Y92.007 Garden or yard of unspecified non-institutional (private) residence as the place of occurrence of the external cause; Y99.9 Unspecified external cause status; R35.0 Frequency of micturition; R30.0 Dysuria; M25.571 Pain in right ankle and joints of right foot; I48.91 Unspecified atrial fibrillation; Z79.01 Long term (current) use of anticoagulants
CPT/HCPCS: 36415; 70450; 71260; 72125; 73552; 73590; 73610; 73700; 74177; 80053; 81001; 83690; 83735; 85025; 85610; 87086; 87088; 87186; 96360; 96361; 99284

== ENCOUNTER 2023-10-02 09:27 | Outpatient (AMB) | payer MEDICARE, SELFPAY ==
--- NOTE | 2023-10-02 09:31 | A.OFFVIS_ITS ---
Intake Visit Reasons: ER F/U Closed r calcaneal fracture Intake Note: Jax an 83 year old male who presents today for an ER follow up of right calcaneal fracture, DOI 09/28/23. Patient reports right ankle pain and swelling after falling off ladder, approximately 8 ft. Patient states that he was attempting to clean his gutters when the ladder slipped causing him to fall landing on his right foot and falling back onto his buttocks. He presented to [facility] the following day where xrays were taken and placed in a splint. Currently pain wiht laying down radiating pain in her small toe that radiates up the lateral aspect of leg. States avoiding bearing weight on his heel. Finds relief with Tylenol. Allergies shellfish derived Allergy (Verified 10/02/23 09:36) Unknown Medication List - Last Reconciled 10/02/23 by Moriah Angel PA-C alfuzosin ER 10 mg PO DAILY apixaban (Eliquis) 2.5 mg PO BID atorvastatin 40 mg PO DAILY clopidogrel 75 mg PO DAILY digoxin PO diltiazem HCl CD 240 mg PO DAILY erythromycin 1 appl ophthalmic (eye) QID 7 days latanoprost 0.005% drps ophthalmic (eye) nitroglycerin mg sublingual sulfacetamide sodium 10% 1 drp ophthalmic (eye) Q3H 7 days HPI HPI ER F/U Closed r calcaneal fracture: Details: 83-year-old male who presents to the office today for an ER follow-up of right foot injury while attempting to clean his gutters when the ladder slipped causing him to fall landing on his right foot and falling back onto his buttocks, 09/28/23. He was seen at ER the following day where x-rays were performed and he was placed in a splint. He currently states he has pain in his foot with laying down that radiates from his small toe to the lateral aspect of his leg. He denies any numbness or tingling. He reports he is avoiding to weight bear on his heel. He finds relief with Tylenol. 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 Review of Systems Const All systems reviewed & are unremarkable except as noted in HPI and below Physical Exam Const General: cooperative, healthy appearing, comfortable, no acute distress, well developed and alert Orientation/consciousness: patient oriented x3 HEENT Head: Yes normal to inspection, Yes normocephalic and Yes atraumatic Eyes General: appearance normal, both eyes and all related structures Resp Effort & Inspection: normal respiratory effort and able to speak in complete sentences Cardio Rate: regular rate Peripheral pulses: Peripheral pulses 2+ throughout GI Palpation (GI): Soft to palpation Skin Lesions: no lesions Rashes: no rashes Neuro General: patient oriented x3 Extrem Other: Right foot: Normal to inspection. He has diffused swelling through the foot. No tenderness to palpation over the foot or body of the calcaneus. He has slight bruising over the body of the heel. NVI. Office Procedures Casting/Splints 68143-Rwahr Leg Cast Application Procedure code (CPT) selection complete Fracture Care Fracture Billing Code: Fracture Billing Code Results Reviewed Results Reviewed: XR RT ankle 08/29/23 IMPRESSION: Oblique nondisplaced fracture of the right calcaneus with intra-articular extension is suspected as detailed above. Ankle mortise is intact. CT scan Rt fooot IMPRESSION: 1. Nondisplaced fracture of the calcaneal body and tuberosity with a dominant oblique coronal component. The fracture line extends to the articular surface of the middle facet without articular cortical step-off. 2. Small avulsion fracture at the dorsolateral margin of the cuboid at the fourth TMT joint. No additional fractures of the TMT joints. Lisfranc alignment is normal. 3. Minimal osteoarthritis in the hindfoot and midfoot. Assessment & Plan Assessment & Plan (1) Closed right calcaneal fracture: Code(s): S92.001A - Unspecified fracture of right calcaneus, initial encounter for closed fracture Category: Medical Plan We discussed the extent of her injury and given the articular surface of calcaneus is not significantly depressed, we can treat this without surgery in a short leg cast which he placed today. He will remain non weight bearing for 12 weeks and see me back in 6 weeks with cast off and x-rays for reevaluation. An order for kneeling scooter was also placed today. If symptoms persist or worsen, he will contact the office, otherwise follow-up as needed. Patient Instructions: Scribed for Moriah Angel PA-C, by Luis Alberto Rivers medical auditor, on 10/02/2023 at 9:30 AM EST.? I, Moriah Angel PA-C, have personally reviewed and agree with the information entered by the scribe. Coding Level of Care Code New Pt Level 3 (80704) Diagnoses Closed right calcaneal fracture S92.001A CPT Codes Casting - CPT: 83648-Jnvjh Leg Cast Application ([id number]) Fracture Care - Fracture Billing Code: Fracture Billing Code ([id number])
== END 2023-10-02 10:46 | disposition home or self-care (01) ==
PROVIDERS: PCP Family Medicine; Visit Provider Physician Assistant
DX: S92.001A Unspecified fracture of right calcaneus, initial encounter for closed fracture (principal)
CPT/HCPCS: 28400; 99203

== ENCOUNTER → 2023-10-02 09:27 | Outpatient (BNVA) | payer MEDICARE, SELFPAY | PROVIDERS: PCP Family Medicine; Visit Provider Physician Assistant | DX: S92.001A Unspecified fracture of right calcaneus, initial encounter for closed fracture (principal) | CPT/HCPCS: 28400; 99202 ==

== ENCOUNTER 2023-11-13 09:21 | Outpatient (AMB) | payer MEDICARE, SELFPAY ==
--- NOTE | 2023-11-13 09:25 | MHC.OFFVIS ---
Intake Visit Reasons: OV-6wk f/u Rt calcaneus fx-cast off w xrays Intake Note: Jax an 83 year old male who presents today for a follow up of right calcaneal fracture, DOI 09/28/23. Cast off and xrays updated. Patient reports he is doing well, he denies any pain or discomfort. Allergies shellfish derived Allergy (Verified 11/13/23 09:53) Unknown HPI HPI OV-6wk f/u Rt calcaneus fx-cast off w xrays: Details: 83-year-old male who returns to the office today for a follow-up of right foot fracture, 09/28/23. He currently states he has no pain or discomfort and is doing well overall. He has no concerns today. 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 No swelling, no ecchymosis, no tenderness over the body of calcaneus. He has full sensation and pulses are intact. Office Procedures Casting/Splints [id number] Leg Cast Application Procedure code (CPT) selection complete Results Reviewed Results Reviewed: Xrays were obtained in the office today and personally reviewed by me of the right calcaneus show stable fracture through thebody of the calcaneus Assessment & Plan Assessment & Plan (1) Closed right calcaneal fracture: Code(s): S92.001A - Unspecified fracture of right calcaneus, initial encounter for closed fracture Category: Medical Qualifiers: Encounter type: subsequent encounter Calcaneus location: body Fracture alignment: nondisplaced Fracture healing: with routine healing Qualified Code(s): S92.014D - Nondisplaced fracture of body of right calcaneus, subsequent encounter for fracture with routine healing Plan I stressed the importance of non-weight bearing with the cast to ensure full healing over the next 6 weeks. He does express understanding but he is noncompliant, states he is walking on the toes of his feet. He was also placed in a short leg cast and I again stress the importance of non-weight bearing. I would like to see him back in 6 weeks with cast off and new x-rays, sooner if needed. Orders: Orders XR calcaneus RT min 2V Today S92.001A - Unspecified fracture of right calcaneus, initial encounter for closed fracture Patient Instructions: Scribed for Moriah Angel PA-C, by Luis Alberto Rivers medical billing supervisor, on 11/13/2023 at 9:30 AM EST.? I, Moriah Angel PA-C, have personally reviewed and agree with the information entered by the scribe. Coding Level of Care Code Global (47742) Diagnoses Closed nondisplaced fracture of body of right calcaneus with routine healing, subsequent encounter S92.014D Encounter type: subsequent encounter Calcaneus location: body Fracture alignment: nondisplaced Fracture healing: with routine healing CPT Codes Casting - CPT: 66260-Qujnw Leg Cast Application ([id number])
== END 2023-11-13 10:41 | disposition home or self-care (01) ==
PROVIDERS: PCP Family Medicine; Visit Provider Physician Assistant
DX: S92.014D Nondisplaced fracture of body of right calcaneus, subsequent encounter for fracture with routine healing (principal)
CPT/HCPCS: 29405; 99024

== ENCOUNTER 2023-11-13 10:02 | Outpatient (REF) | payer MEDICARE, SELFPAY ==
--- NOTE | ~2023-11-13 | XR_ITS ---
EXAMINATION: XR CALCANEUS, RIGHT CLINICAL INFORMATION: Unspecified fracture of right calcaneus. COMPARISON: CT right foot and ankle 09/29/2023, right ankle x-ray 09/29/2023. TECHNIQUE: Lateral and axial views of the right calcaneus were obtained. FINDINGS: Extensive vascular calcifications. Soft tissue swelling. Joint effusion. Diffuse demineralization. Redemonstration of oblique nondisplaced fracture of the calcaneal body and tuberosity. Degenerative changes in the midfoot. Avulsion fracture at the dorsal lateral margin of the cuboid at the fourth TMT joint was better characterized on the CT scan. XR/XR calcaneus RT min 2V IMPRESSION: 1. Redemonstration of oblique nondisplaced fracture of the calcaneal body and tuberosity. 2. Avulsion fracture at the dorsal lateral margin of the cuboid at the fourth TMT joint was better characterized on the CT scan.
== END 2023-11-13 10:03 | disposition home or self-care (01) ==
LOC: HO.HOSX 10:02
PROVIDERS: Visit Provider Physician Assistant
DX: S92.041D Displaced other fracture of tuberosity of right calcaneus, subsequent encounter for fracture with routine healing (principal)
CPT/HCPCS: 29405; 73650; 99212

== ENCOUNTER 2023-11-20 09:38 | Outpatient (REF) | payer MEDICARE, SELFPAY ==
--- NOTE | ~2023-11-20 | US_ITS ---
EXAMINATION: US PELVIS LIMITED (BLADDER) CLINICAL INFORMATION: History of malignant neoplasm of the bladder and renal pelvis. COMPARISON: CT 09/29/2023. TECHNIQUE: Real-time imaging of the bladder. FINDINGS: BLADDER: The bladder is moderately distended. Prevoid bladder volume 251.0 mL and postvoid volume 215.7 mL. Bilateral ureteral jets are demonstrated. Diffuse thickening and trabeculation of the bladder wall. Per drying room operator, patient states he self-catheterizes 3 times a day. Enlarged prostate with volume of 65.2 mL. US/US bladder IMPRESSION: 1. Diffuse thickening and trabeculation of the bladder wall. Per drying room operator, patient states he self-catheterizes 3 times a day. 2. Enlarged prostate with volume of 65.2 mL.
== END 2023-11-20 09:39 | disposition home or self-care (01) ==
LOC: HO.US 09:38
PROVIDERS: Visit Provider Physician Assistant
DX: N13.39 Other hydronephrosis (principal); R33.8 Other retention of urine; Z85.51 Personal history of malignant neoplasm of bladder; Z85.53 Personal history of malignant neoplasm of renal pelvis; Z87.442 Personal history of urinary calculi
CPT/HCPCS: 76857

== ENCOUNTER 2023-12-17 10:11 | Outpatient (REF) | payer MEDICARE, SELFPAY ==
--- NOTE | ~2023-12-17 | US_ITS ---
EXAMINATION: US RETROPERITONEAL COMPLETE (RENAL) CLINICAL INFORMATION: Malignant neoplasm of bladder, renal and pelvis. COMPARISON: Bladder ultrasound 11/20/2023, CT abdomen and pelvis of 09/29/2023 and 10/17/2018. MRI abdomen 12/02/2020. Ultrasound kidneys 08/03/2016. TECHNIQUE: Real-time imaging of the kidneys and bladder. Limited visualization due to bowel gas. FINDINGS: RIGHT KIDNEY: 12.1 x 5.3 x 6.2 cm (SAG x AP x TRV). No hydronephrosis. No renal calculi. Renal cortical thickness is normal. Limited visualization. A 1.3 cm lower pole, 0.6 cm upper pole and 5.0 cm upper pole cysts with benign features. There is no indication for additional imaging at this time. LEFT KIDNEY: The left kidney is surgically absent. US/US renal BI IMPRESSION: 1. Left kidney is surgically absent. 2. No right renal calculi. No hydronephrosis. Electronically signed by: Elenita Alvarado MD 01/01/2024 05:34 AM EDT
== END 2023-12-17 10:12 | disposition home or self-care (01) ==
LOC: HO.US 10:11
PROVIDERS: PCP Family Medicine; Visit Provider Physician Assistant
DX: N13.39 Other hydronephrosis (principal); R33.8 Other retention of urine; Z85.51 Personal history of malignant neoplasm of bladder; Z85.53 Personal history of malignant neoplasm of renal pelvis; Z87.442 Personal history of urinary calculi
CPT/HCPCS: 76775

== ENCOUNTER 2023-12-26 09:01 | Outpatient (REF) | payer MEDICARE, SELFPAY ==
--- NOTE | ~2023-12-26 | XR_ITS ---
EXAMINATION: XR CALCANEUS, RIGHT CLINICAL INFORMATION: Calcaneal fracture COMPARISON: Radiographs 11/13/2023 TECHNIQUE: Lateral and axial views of the right calcaneus were obtained. FINDINGS: Increased sclerosis along the fracture extending along the posterior superior aspect of the calcaneus. Persistent lucency of the longitudinal fracture extending obliquely toward the calcaneal sulcus. No new abnormality. XR/XR calcaneus RT min 2V IMPRESSION: Partial healing of the calcaneal fractures. Stable alignment. Electronically signed by: Cheng Davis MD 01/01/2024 10:00 AM EDT
== END 2023-12-26 09:02 | disposition home or self-care (01) ==
LOC: HO.HOSX 09:01
PROVIDERS: Visit Provider Physician Assistant
DX: S92.014D Nondisplaced fracture of body of right calcaneus, subsequent encounter for fracture with routine healing (principal); X58.XXXD Exposure to other specified factors, subsequent encounter
CPT/HCPCS: 73650; 99212

== ENCOUNTER 2023-12-26 09:36 | Outpatient (AMB) | payer MEDICARE, SELFPAY ==
--- NOTE | 2023-12-26 09:40 | MHC.OFFVIS ---
Intake Visit Reasons: OV-6wk f/u Rt calcaneus fx-cast off w xrays Intake Note: Jax an 83 year old male who presents today for a follow up of right calcaneal fracture, DOI 09/28/23. Cast off and xrays updated. Patient reports he is doing well, he denies any pain or discomfort. Allergies shellfish derived Allergy (Verified 12/26/23 09:46) Unknown Medication List - Last Reconciled 12/26/23 by Moriah Angel PA-C alfuzosin ER 10 mg PO DAILY apixaban (Eliquis) 2.5 mg PO BID atorvastatin 40 mg PO DAILY clopidogrel 75 mg PO DAILY digoxin PO diltiazem HCl CD 240 mg PO DAILY erythromycin 1 appl ophthalmic (eye) QID 7 days [Kneeling Scooter As directed] latanoprost 0.005% drps ophthalmic (eye) nitroglycerin mg sublingual sulfacetamide sodium 10% 1 drp ophthalmic (eye) Q3H 7 days HPI HPI OV-6wk f/u Rt calcaneus fx-cast off w xrays: Details: 83-year-old male who returns to the office today for a follow-up of right calcaneus fracture, 09/28/23. He denies any pain or discomfort however he is doing well overall. He has no concerns today. 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 No swelling, no ecchymosis, no tenderness over the body of calcaneus. He has full sensation and pulses are intact. Results Reviewed Results Reviewed: Xrays were obtained today and personally reviewed by me of the right calcaneus show stable fracture through thebody of the calcaneus Assessment & Plan Assessment & Plan (1) Closed right calcaneal fracture: Code(s): S92.001A - Unspecified fracture of right calcaneus, initial encounter for closed fracture Category: Medical Qualifiers: Calcaneus location: body Encounter type: subsequent encounter Fracture alignment: nondisplaced Fracture healing: with routine healing Qualified Code(s): S92.014D - Nondisplaced fracture of body of right calcaneus, subsequent encounter for fracture with routine healing Plan He was transitioned to a short boot weight bearing as tolerated. He should wear this at all times and weight bearing as tolerated. He can remove the boot for hygiene, resting, showering, and driving. He will also begin a course of physical therapy to work on ROM, strength training and gait training. I would like to see him back in 4-6 weeks with new x-rays, sooner if needed. Orders: Orders XR calcaneus RT min 2V Today S92.001A - Unspecified fracture of right calcaneus, initial encounter for closed fracture PT Evaluation and Treatment Today S92.014D - Nondisplaced fracture of body of right calcaneus, subsequent encounter for fracture with routine healing Patient Instructions: Scribed for Moriah Angel PA-C, by Luis Alberto Rivers regional medical director, on 12/26/2023 at 9:30 AM EST.? I, Moriah Angel PA-C, have personally reviewed and agree with the information entered by the scribe. Coding Level of Care Code Global (21646) Diagnoses Closed nondisplaced fracture of body of right calcaneus with routine healing, subsequent encounter S92.014D Calcaneus location: body Encounter type: subsequent encounter Fracture alignment: nondisplaced Fracture healing: with routine healing
== END 2023-12-26 10:28 | disposition home or self-care (01) ==
PROVIDERS: PCP Family Medicine; Visit Provider Physician Assistant
DX: S92.014D Nondisplaced fracture of body of right calcaneus, subsequent encounter for fracture with routine healing (principal)
CPT/HCPCS: 99024

== ENCOUNTER 2023-12-31 09:51 | Outpatient (AMB) | payer MEDICARE, SELFPAY ==
--- NOTE | 2023-12-31 10:01 | MHC.OFFVIS ---
Intake Visit Reasons: ov-RT calcaneal fracture, DOI 09/28/23 Intake Note: Jax a 83 year old male who presents today for a boot check of his right calcaneal fracture, DOI 09/28/23. Patient reports his boot is irritating his leg and the right side won't inflate. He has a red sore on the medial aspect of his right lower leg. He would like to adjust or replaced this boot. Allergies shellfish derived Allergy (Verified 01/03/24 11:22) Unknown HPI HPI ov-RT calcaneal fracture, DOI 09/28/23: Details: Patient is an 83 YO M who presents for boot change s/p right calcaneal fracture DOI 09/28/23 after he noticed that the inflation button on the right side does not work. Patient reports that the boot has been causing irritation on his lateral ankle and RLE. No other acute complaints or concerns at this time. 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 Some very mild erythema just around the abrasion No edema, ecchymosis noted No drainage noted No evidence of infection Patient is able to dorsiflex and plantar flex the R foot without difficulty Able to flex and extend toes without difficulty Distal sensation intact Capillary refill brisk Assessment & Plan Assessment & Plan (1) Right calcaneal fracture: Code(s): S92.001A - Unspecified fracture of right calcaneus, initial encounter for closed fracture Category: Medical Plan Boot exchanged today Patient advised to wear some padding over the abrasion site to prevent further irritation and encourage healing Patient is advised to keep previously scheduled f/u for right calcaneal fracture Patient is amenable to this plan Patient will follow up on 01/03/24 with TM for reassessment of R calcaneal fracture, sooner with any acute concerns. Coding Level of Care Code Est Pt Level 3 (17779) Diagnoses Right calcaneal fracture S92.001A
== END 2023-12-31 10:28 | disposition home or self-care (01) ==
LOC: HO.HOS 09:51
PROVIDERS: PCP Family Medicine
DX: S92.001A Unspecified fracture of right calcaneus, initial encounter for closed fracture (principal)
CPT/HCPCS: 99024

== ENCOUNTER → 2023-12-31 09:51 | Outpatient (BNVA) | payer MEDICARE, SELFPAY | PROVIDERS: PCP Family Medicine | DX: S92.001A Unspecified fracture of right calcaneus, initial encounter for closed fracture (principal) | CPT/HCPCS: 99212 ==

== ENCOUNTER 2024-01-03 10:55 | Outpatient (AMB) | payer MEDICARE, SELFPAY ==
--- NOTE | 2024-01-03 11:15 | MHC.OFFVIS ---
Intake Visit Reasons: ov-RT calcaneal fracture, DOI 09/28/23-open wound Intake Note: Jax an 83 year old male who presents today for a wound check s/p right calcaneal fracture, DOI 09/28/23. Patient reports a sore on the lateral aspect of his right lower leg, that may been caused from the boot rubbing. He notices a oozing discharge. He has concerns of redness around the wound. Allergies shellfish derived Allergy (Verified 01/03/24 11:22) Unknown HPI HPI ov-RT calcaneal fracture, DOI 09/28/23-open wound: Details: 83-year-old male who returns to the office today for a follow-up of right ankle fracture, 09/28/23. He reports his wound opened up and is oozing and his skin feels like tissue paper. He also states he has mild discomfort in his ankle. He is doing well otherwise and has no concerns today. 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 No swelling, no ecchymosis, no tenderness over the body of calcaneus. Superficial skin tear along the lateral side of the lara. He has full sensation and pulses are intact. Assessment & Plan Assessment & Plan (1) Closed right calcaneal fracture: Code(s): S92.001A - Unspecified fracture of right calcaneus, initial encounter for closed fracture Category: Medical Qualifiers: Calcaneus location: body Encounter type: subsequent encounter Fracture alignment: nondisplaced Fracture healing: with routine healing Qualified Code(s): S92.014D - Nondisplaced fracture of body of right calcaneus, subsequent encounter for fracture with routine healing Plan He does have a superficial skin tear with the use of boot. I did explain the importance of boot to support with ambulation but he states he has no pain with walking so I did give him an option to wear a regular street shoe with walking to avoid skin irritation. If he experiences any pain, he will use the boot with well-padded socks for skin protection. He will schedule an appointment as needed with repeat x-rays, sooner if needed. Patient Instructions: Scribed for Moriah Angel PA-C, by Luis Alberto Rivers nuclear medical tech, on 01/03/2024 at 11:15 AM EST.? I, Moriah Angel PA-C, have personally reviewed and agree with the information entered by the scribe. Coding Level of Care Code Est Pt Level 3 (17925) Complex EM visit Add On G2211 Diagnoses Closed nondisplaced fracture of body of right calcaneus with routine healing, subsequent encounter S92.014D Calcaneus location: body Encounter type: subsequent encounter Fracture alignment: nondisplaced Fracture healing: with routine healing
== END 2024-01-03 12:18 | disposition home or self-care (01) ==
LOC: HO.HOS 10:55
PROVIDERS: PCP Family Medicine; Visit Provider Physician Assistant
DX: S92.014D Nondisplaced fracture of body of right calcaneus, subsequent encounter for fracture with routine healing (principal)
CPT/HCPCS: 99213; G2211

== ENCOUNTER → 2024-01-03 10:55 | Outpatient (BNVA) | payer MEDICARE, SELFPAY | PROVIDERS: PCP Family Medicine; Visit Provider Physician Assistant | DX: S92.014D Nondisplaced fracture of body of right calcaneus, subsequent encounter for fracture with routine healing (principal); S91.311D Laceration without foreign body, right foot, subsequent encounter; L08.9 Local infection of the skin and subcutaneous tissue, unspecified; X50.3XXD Overexertion from repetitive movements, subsequent encounter | CPT/HCPCS: 99212 ==

== ENCOUNTER 2024-01-24 12:48 | Outpatient (REF) | payer MEDICARE, SELFPAY ==
--- NOTE | ~2024-01-24 | XR_ITS ---
EXAMINATION: XR CALCANEUS, RIGHT CLINICAL INFORMATION: S92.001A - Unspecified fracture of right calcaneus, initial encounter fo... COMPARISON: None available. TECHNIQUE: Lateral and axial views of the right calcaneus were obtained. FINDINGS: Normal bone mineralization. No acute fracture, dislocation, or suspicious bone lesion. Redemonstration of sclerotic transverse healing fracture traversing the calcaneus with very indistinct fracture lines in appearance most consistent with healing. Oblique component again noted traversing the calcaneal sulcus, less distinct when compared with the prior exam indicating continued healing. Small dorsal plantar spur. Mild dorsal spurring of the calcaneonavicular joint. Normal-appearing subtalar joints. Bohler's angle is normal. Vascular calcifications in the soft tissues. XR/XR calcaneus RT min 2V IMPRESSION: Continued healing of calcaneal fractures. Stable alignment. Electronically signed by: Larry Sun MD 04/05/2024 02:45 PM GOGO
== END 2024-01-24 12:49 | disposition home or self-care (01) ==
LOC: HO.XRAY 12:48
PROVIDERS: PCP Family Medicine; Visit Provider Physician Assistant
DX: S92.001A Unspecified fracture of right calcaneus, initial encounter for closed fracture (principal)
CPT/HCPCS: 73650; 99212

== ENCOUNTER → 2024-01-24 12:53 | Outpatient (BNV) | payer MEDICARE, SELFPAY | PROVIDERS: PCP Family Medicine; Visit Provider Radiology Diagnostic Radiology | DX: S92.001A Unspecified fracture of right calcaneus, initial encounter for closed fracture (principal) | CPT/HCPCS: 73650 ==

== ENCOUNTER 2024-01-24 13:21 | Outpatient (AMB) | payer MEDICARE, SELFPAY ==
--- NOTE | 2024-01-24 13:30 | A.OFFVIS_ITS ---
Vital Signs 01/24/24 13:32 Height 5 ft 7 in Weight 160 lb BMI 25.1 Intake Visit Reasons: OV-f/u Rt calcaneus fx w xrays Intake Note: Jax an 83 year old male who presents today for a wound check s/p right calcaneal fracture, DOI 09/28/23. Patient reports he is doing well, he does complain of intermittent heel pain. Allergies shellfish derived Allergy (Verified 01/24/24 13:34) Unknown Medication List - Last Reconciled 01/24/24 by Moriah Angel PA-C alfuzosin ER 10 mg PO DAILY apixaban (Eliquis) 2.5 mg PO BID ascorbate calcium (vitamin C) 500 mg PO BID atorvastatin 40 mg PO DAILY clopidogrel 75 mg PO DAILY digoxin PO diltiazem HCl CD 240 mg PO DAILY erythromycin 1 appl ophthalmic (eye) QID 7 days [Kneeling Scooter As directed] latanoprost 0.005% drps ophthalmic (eye) methenamine hippurate 1 g PO BID nitrofurantoin monohyd/m-cryst 100 mg 1 cap PO BID nitroglycerin mg sublingual sulfacetamide sodium 10% 1 drp ophthalmic (eye) Q3H 7 days HPI HPI OV-f/u Rt calcaneus fx w xrays: Details: 83-year-old male who returns to the office today for a follow-up of right ankle fracture, 09/28/23. He continues to have intermittent pain in his heel that comes with getting up to go to the bathroom and disappears till he gets back to bed. He has been working on foot exercises with benefits. He has no other concerns today. 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 No swelling, no ecchymosis, no tenderness over the body of calcaneus. Superficial skin tear along the lateral side of the lara. He has full sensation and pulses are intact. Results Reviewed Results Reviewed: Xrays were obtained today and personally reviewed by me of the right calcaneus show stable fracture through thebody of the calcaneus Assessment & Plan Assessment & Plan (1) Closed right calcaneal fracture: Code(s): S92.001A - Unspecified fracture of right calcaneus, initial encounter for closed fracture Category: Medical Qualifiers: Calcaneus location: body Encounter type: subsequent encounter Fracture alignment: nondisplaced Fracture healing: with routine healing Qualified Co de(s): S92.014D - Nondisplaced fracture of body of right calcaneus, subsequent encounter for fracture with routine healing Plan He will resume all activities as tolerated without limitations. If symptoms persist or worsen, patient will contact the office, otherwise follow-up as needed. Orders: Orders XR calcaneus RT min 2V Today S92.001A - Unspecified fracture of right calcaneus, initial encounter for closed fracture Patient Instructions: Scribed for Moriah Angel PA-C, by Luis Alberto Rivers medical front desk coordinator, on 01/24/2024 at 1:15 PM EST.? I, Moriah Angel PA-C, have personally reviewed and agree with the information entered by the scribe. Coding Level of Care Code Est Pt Level 3 (77716) Complex EM visit Add On G2211 Diagnoses Closed nondisplaced fracture of body of right calcaneus with routine healing, subsequent encounter S92.014D Calcaneus location: body Encounter type: subsequent encounter Fracture alignment: nondisplaced Fracture healing: with routine healing
[2024-01-24 13:32] VITALS: BMI 25.1
== END 2024-01-24 13:50 | disposition home or self-care (01) ==
PROVIDERS: PCP Family Medicine; Visit Provider Physician Assistant
DX: S92.014D Nondisplaced fracture of body of right calcaneus, subsequent encounter for fracture with routine healing (principal)
CPT/HCPCS: 99213

== ENCOUNTER 2024-02-17 10:00 | Outpatient (RCR) | payer MEDICARE, SELFPAY ==
--- NOTE | 2024-01-10 13:36 | MHC.PT.EP ---
[facility] [place] Office [place] Office [place] Office [address] [phone] F: [phone] F: [phone] F: [phone] F: [phone] Physical Therapy Plan of Care Date of Evaluation: 01/10/24 Date of Surgery: N/A Diagnosis: fracture of body of R calcaneus Assessment: Pt is an 83yo male referred to PT for fracture of body of R calcaneus s-p fall off of a ladder on 09/29/23. Pt presents to PT out of walking boot and reports minimal pain overall. Pt is limited in ankle range of motion, and lower extremity flexibility, shows some strength deficits, gait impairments, and limitations in his ability to access parts of his yard and perform his usual outdoor activities. He also presents with superficial abrasions from contact with walking boot. Erythema of periwound and scar tissue are present, indicating signs of healing. Pt instructed to continue using foam barrier in boot to protect skin. Pt is a good candidate for physical therapy due to his motivation to improve, prior level of activity, modifiable nature of his impairments, and typical prognosis of his condition. Pt would benefit from a progressive strengthening/stretching program, balance/proprioception training, gait/stair training, and functional task training for safety while performing yardwork. Frequency and Duration: The patient will be seen 2x/wk for 4 weeks Short Term Goals: Pt will increase DF by 10deg to improve anterior tibial translation during stair climbing Pt will be independent with [facility] for self management of condition [place] Goals: Pt will ambulate 100' on incline with <=2/10 pain to promote ease in hill climbing Pt will perform 10 SL calf raises with <=2/10 pain to demonstrate functional GS power for activities in yard Treatment Plan: Modalities to reduce pain, spasms and effusion. Manual therapy to restore motion and function. Therapeutic exercise to improve strength and flexibility. Neuromuscular re-education for posture and balance. Therapeutic activities to return to functional activities of daily living. Electronically signed by: Danay Winters, PT, DPT Please sign and return to therapist. Thank you for your referral.
--- NOTE | 2024-02-17 10:57 | MHC.PT.DC ---
[facility] [place] Office [place] Office [place] Office [address] [phone] F: [phone] F: [phone] F: [phone] F: [phone] Physical Therapy Discharge Report Diagnosis: fracture of body of R calcaneus Date of Surgery: N/A Date of Evaluation: 01/10/24 Date of Discharge: 02/17/24 Treatments to Date: 9 Cancellations to Date: 0 No Shows to Date: 0 Discharge Status: Improved Function Independent with HEP Discharge Summary: Overall, the patient has done very well regarding his physical therapy participation and improvement of symptoms. He has been pain free for several sessions. He is independent with his home exercise program. Updated handout provided at discharge. He is discharged from this physical therapy plan of care to his HEP. Electronically signed by: Danay Winters PT, DPT Please sign and return to therapist. Thank you for your referral.
== END 2024-02-17 10:57 | disposition home or self-care (01) ==
LOC: HO.PT 10:00
PROVIDERS: PCP Family Medicine; Visit Provider Physician Assistant
DX: S92.014D Nondisplaced fracture of body of right calcaneus, subsequent encounter for fracture with routine healing (principal)
CPT/HCPCS: 97110; 97161; 97530

== ENCOUNTER 2024-03-25 16:12 | Emergency (ER) | payer MEDICARE, SELFPAY ==
--- NOTE | ~2024-03-25 | XR_ITS ---
EXAMINATION: XR HAND/WRIST, LEFT CLINICAL INFORMATION: avulsion to index, middle fingers, r/o fracture COMPARISON: None available. TECHNIQUE: PA, lateral, and oblique views of the left hand and wrist. FINDINGS: There is absence of a portion of the distal tuft of the distal phalanx of the index finger. A soft tissue defect is seen. No other fractures are identified. XR/XR hand wrist LT IMPRESSION: Avulsion fracture distal tuft of the distal phalanx of the index finger. Electronically signed by: Rodrigo Cantu MD 03/25/2024 10:36 PM [facility]
[2024-03-25 16:56] VITALS: BP 128/62; PULSE 86; RESP 16; TEMP 36.6; O2SAT 97; BMI 26.0
--- NOTE | 2024-03-25 16:57 | ED_ITS ---
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 He is unsure of tetanus status. Related Data Home Medications ?Medication ?Instructions ?Recorded ?Confirmed alfuzosin 10 mg tablet,extended 10 mg PO DAILY 10/02/23 01/24/24 release 24 hr apixaban 2.5 mg tablet (Eliquis) 2.5 mg PO BID 10/02/23 01/24/24 atorvastatin 40 mg tablet 40 mg PO DAILY 10/02/23 01/24/24 clopidogrel 75 mg tablet 75 mg PO DAILY 10/02/23 01/24/24 digoxin 125 mcg (0.125 mg) tablet PO 10/02/23 01/24/24 diltiazem HCl 240 mg 240 mg PO DAILY 10/02/23 01/24/24 capsule,extended release 24 hr latanoprost 0.005 % eye drops drp ophthalmic (eye) 10/02/23 01/24/24 nitroglycerin 0.4 mg sublingual mg sublingual 10/02/23 01/24/24 tablet ascorbate calcium (vitamin C) 500 500 mg PO BID 01/03/24 01/24/24 mg tablet methenamine hippurate 1 gram tablet 1 g PO BID 01/03/24 01/24/24 nitrofurantoin 1 cap PO BID 01/24/24 01/24/24 monohydrate/macrocrystals 100 mg capsule Previous Rx's ?Medication ?Instructions ?Recorded erythromycin 5 mg/gram (0.5 %) eye 1 appl ophthalmic (eye) QID 7 days 10/11/22 ointment #3.5 grams sulfacetamide sodium 10 % eye drops 1 drp ophthalmic (eye) Q3H 7 days 10/11/22 #15 mL Kneeling Scooter #1 ea 10/02/23 cephalexin 500 mg capsule 500 mg PO TID 7 days #21 caps 11/27/24 Allergies Allergy/AdvReac Type Severity Reaction Status Date / Time shellfish derived Allergy Unknown Verified 03/25/24 16:59 Review of Systems Review of Systems: Constitutional: No fever, chills, fatigue, night sweats, weight changes ENT/Mouth: No ear pain, hearing loss, nasal congestion, sinus pain, rhinorrhea, sore throat Eyes: No eye pain, swelling, redness, vision changes, discharge Cardio: No chest pain, palpitations, KENNEDY, orthopnea, peripheral edema Pulm: No SOB, cough, sputum, wheezing, dyspnea, hemoptysis GI: No nausea, vomiting, hematemesis, abdominal pain, diarrhea, constipation, hematochezia, melena : No irregular bleeding, dysuria, frequency, urgency, hesitancy, hematuria, flank pain, urinary flow changes, urinary incontinence or retention MSK: No back pain, neck pain, joint pain, myalgias Skin: No lesions, rashes, +lacerations to left 2nd/3rd digits Neuro: No weakness, numbness, paresthesias, LOC, dizziness, headache Psych: No anxiety/panic, depression, SI/HI, AH/VH All other systems reviewed and are negative. [facility] Past Medical History Attestation statement: The following information was validated with the patient. Source: old records reviewed and nursing notes reviewed Medical History Bladder cancer Cancer of kidney A-fib High blood pressure Surgical History Stented coronary artery Social History Social History Unable to assess alcohol history related to: Unable to respond Alcohol intake: current Alcohol intake frequency: 0-2 drinks per day Alcohol type: wine Patient Tobacco Use Status: Former Tobacco user Smoked in Last 30 Days: No Use of substances other than those prescribed or required for medical reasons: No Advance Directives: No Advance Directives Information Provided: Yes Current occupational status: employed 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 Skin: +see below Head: Normocephalic, atraumatic. EENT: Hearing is intact b/l. Conjunctiva clear. PERRLA. EOM intact. Moist mucous membranes.? Cardiac: Chest wall symmetric. RRR Lungs: Normal respiratory effort without accessory muscle use. CTA bilaterally Back: No midline spinous or paraspinal tenderness. No step off deformity. Ext: +skin avulsion to left index and middle fingers, minimal active bleeding, FROM intact to MCP/PIP/DIP of all digits. Strength intact. Ihfjsh-pd-bphok opposition intact. 2+radial pulse intact. Neuro: AOx3. Normal speech. Ambulating with steady gait. Psych: Appropriate mood and affect. Responds appropriately to questions. Course Course Course Narrative: This is a Rapid Medical Exam performed in triage by Mary Dunham PA-C. Full HPI, ROS and PE to be performed by primary ED provider. 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 tetanus unknown PE: +avulsion to left index finger & lac to 3rd & 4th digits Plan: Tetanus, wound repair Reevaluation(s) Reevaluation #1: 1047 -- Avulsion injuries soaked in iodine and saline for 30 minutes. Surgicel applied to left 1st and 2nd digits. Noted coagulated blood. No active bleeding. Digits dressed with nonstick dressing. X-ray of left hand showing avulsion fracture to distal tuft of the distal phalanx of the index finger. No other fractures. patient treated with Tylenol for 4/10 pain with improvement. Dose of Keflex given in the ED for open fracture. Cephalexin pharmacy for treatment. Advised patient that he needs to follow up with our hand surgeon, Dr. Neri after the holiday. Advised him to call her Saturday morning to schedule an appointment. Patient has remained stable throughout ED visit today. Discussed worrisome signs and symptoms and when to return to the ED. All questions answered at this time. Patient is agreeable with disposition and stable for discharge. Medications Administered Discontinued Medications Generic Name Dose Route Start Last Admin Trade Name Juan PRN Reason Stop Dose Admin Acetaminophen 975 mg 03/25/24 19:48 03/25/24 19:56 Acetaminophen 325 Mg Tablet PO 03/25/24 19:49 975 mg ONCE ONE Administration Cephalexin HCl 500 mg 03/25/24 22:23 03/25/24 22:26 Cephalexin 500 Mg Capsule PO 03/25/24 22:24 500 mg ONCE ONE Administration Diphtheria/Tetanus/Acell Pertussis 0.5 ml 03/25/24 16:59 03/25/24 21:12 Diphth,Pertus(Acell),Tet Adult 0.5 Ml Syringe IM 03/25/24 17:00 0.5 ml .ONCE ONE Administration Silver Nitrate 1 appl 03/25/24 22:03 03/25/24 22:20 Silver Nitrate Applicator Stick..Ea. 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 Vital signs stable. he is nontoxic appearing and in NAD. on exam, there are skin avulsions to left index and middle fingers, minimal active bleeding, FROM intact to MCP/PIP/DIP of all digits. Strength intact. Rfrhtj-lk-ocpvn opposition intact. 2+radial pulse intact. Differential diagnosis includes avulsion skin injury, laceration, fracture, open fracture, retained foreign body Plan for tdap booster, xr, re-evaluation. Differential Diagnosis Differential Diagnoses: The differential diagnosis associated with the presentation includes as above. Admission/Observation not indicated Independent Interpretation I performed an independent interpretation of an: Plain X-Ray Interpretation: xr left hand with avulsion fracture to distal left 2nd phalanx Radiology Impression Discussion of test interpretation with radiology: I have reviewed the radiologist's reading. Radiologist Impression: EXAMINATION: XR HAND/WRIST, LEFT CLINICAL INFORMATION: avulsion to index, middle fingers, r/o fracture COMPARISON: None available. TECHNIQUE: PA, lateral, and oblique views of the left hand and wrist. FINDINGS: There is absence of a portion of the distal tuft of the distal phalanx of the index finger. A soft tissue defect is seen. No other fractures are identified. XR/XR hand wrist LT IMPRESSION: Avulsion fracture distal tuft of the distal phalanx of the index finger. Electronically signed by: Rodrigo Cantu MD 03/25/2024 10:36 PM [facility] External Record Review External record reviewed: Inpatient record Prescription Management I considered prescription management with: Pain Medication and Antibiotic (Keflex) Chronic Conditions Patient?s care impacted by: Other (AFib on Eliquis) Social Determinants Patient?s care significantly limited by Social Determinants of Health including: Other Social Determinant of Health Critical Care Time Critical Care Time Critical Care Time: No Discharge Plan Discharge Clinical Impression: Avulsion of skin of finger Avulsion fracture of distal phalanx of finger Qualifiers: Encounter type: initial encounter Fracture type: open Qualified Code(s): S62.639B - Displaced fracture of distal phalanx of unspecified finger, initial encounter for open fracture Patient Disposition: Home, Self-Care Instructions: Finger Fracture (ED), Finger Laceration (ED), Skin Avulsion (ED) Additional Instructions: You were evaluated in the ED today for avulsion injury to your 2-4th digit on your left hand. Bleeding controlled in the ED today. Xrays show an avulsion fracture at the tip of your left index finger. This is considered an open fracture and requires treatment with antibiotics. Keflex is an antibiotic that has been sent to your pharmacy. You received a dose of this in the ED today. A course has been sent to your pharmacy for you to take as directed at home. Do not skip any doses or stop taking these early. Your tetanus vaccine was updated today and will be valid for 10 years. You were given Tylenol in the ED today. I advised to take tylenol at home for pain. I also want to you to follow up with our hand surgeon, Dr. Neri. You have been provided with a referral. Call them Saturday morning to make an appointment. They will not call you. Return with new or worsening symptoms. In the case of an emergency call 911. Prescriptions: New cephalexin 500 mg capsule 500 mg PO TID 7 Days Qty: 21 0RF No Action sulfacetamide sodium 10 % drops 1 drp ophthalmic (eye) Q3H 7 Days Qty: 15 0RF erythromycin 5 mg/gram (0.5 %) ointment 1 appl ophthalmic (eye) QID 7 Days Qty: 3.5 0RF nitrofurantoin monohyd/m-cryst 100 mg capsule 1 cap PO BID diltiazem HCl 240 mg capsule,extended release 24hr 240 mg PO DAILY latanoprost 0.005 % drops ophthalmic (eye) atorvastatin 40 mg tablet 40 mg PO DAILY digoxin 125 mcg (0.125 mg) tablet PO Eliquis 2.5 mg tablet 2.5 mg PO BID clopidogrel 75 mg tablet 75 mg PO DAILY nitroglycerin 0.4 mg tablet, sublingual sublingual alfuzosin 10 mg tablet extended release 24 hr 10 mg PO DAILY (DME) Kneeling Scooter See Rx Instructions .ROUTE .MEDSUPPLY Qty: 1 0RF Rx Instructions: As directed methenamine hippurate 1 gram tablet 1 g PO BID ascorbate calcium (vitamin C) 500 mg tablet 500 mg PO BID Referrals: Gertrude Kendall MD [Primary Care Provider] - Jossy Neri MD [Physician] - 2 days (open avulsion fracture to distal tuft of 2nd phalanx ) Print Language: Estonian
[2024-03-25 19:50] VITALS: BP 129/74; PULSE 78; RESP 16; TEMP 36.8; O2SAT 96
[2024-03-25] MEDS: Acetaminophen 325 MG TABLET 975 MG PO (19:56)
[2024-03-25] MEDS: Diphth,Pertus(ACell),Tet Adult 0.5 ML SYRINGE IM (21:12)
[2024-03-25] MEDS: cephALEXin 500 MG CAPSULE PO (22:26)
[2024-03-25 22:53] VITALS: BP 132/66; PULSE 78; RESP 20; TEMP 36.9; O2SAT 97
== END 2024-03-25 22:56 | disposition home or self-care (01) ==
PROVIDERS: Emergency Provider Emergency Medicine; PCP Family Medicine
DX: S62.631B Displaced fracture of distal phalanx of left index finger, initial encounter for open fracture (principal); W31.2XXA Contact with powered woodworking and forming machines, initial encounter; Y93.89 Activity, other specified; Y92.9 Unspecified place or not applicable; Y99.9 Unspecified external cause status
CPT/HCPCS: 73110; 73130; 90471; 90715; 99284

== ENCOUNTER 2024-03-28 15:08 | Emergency (ER) | payer MEDICARE, SELFPAY ==
[2024-03-28 15:21] VITALS: BP 119/59; PULSE 74; RESP 20; TEMP 36.8; O2SAT 98; BMI 26.2
--- NOTE | 2024-03-28 15:33 | ED_ITS ---
HPI - Wound/Laceration General Chief Complaint: Wound/Laceration Stated Complaint: left finger(s) wound check/injury Time Seen by Provider: 03/28/24 16:28 Source: patient Mode of arrival: ambulatory Limitations: no limitations History of Present Illness ED Provider: Savannah Villegas NP HPI narrative: Patient is an 83-year-old male who presents emergency department for a wound check with avulsion injuries to the distal tips of the left 2nd and 3rd digit. He is right-hand dominant. He was seen in the emergency department 03/25/24. Found to have an avulsion fractures of the distal tuft of the left 2nd digit. Tetanus vaccine was updated, Surgicel had to be placed to the 2nd digit for hemostasis, he was given a prescription for Keflex and advised to follow up outpatient with hand surgery. He reports upon returning home the dressing fell off. He rewrap the fingers and covered them with a plastic bag and had not looked at it since. states that she checked it today and was concerned based on its appearance that it should be re-evaluated. On Saturday due to the holiday the orthopedic office was closed and they were unable to make a follow- up appointment. Denies any pus-like drainage, fevers, chills, inability to bend the fingers, pain. No active bleeding He has been taking Keflex 500 mg 3 times daily as prescribed though as mentioned in the initial RME note there was a delay in picking up his own personal prescription for 2 days due to the holiday (his had full prescription of Keflex at home from a prior treatment that her doctor ultimately advised her to stop taking but she never got rid of it. Therefore he has had adequate antibiotic coverage Related Data Home Medications ?Medication ?Instructions ?Recorded ?Confirmed alfuzosin 10 mg tablet,extended 10 mg PO DAILY 10/02/23 01/24/24 release 24 hr apixaban 2.5 mg tablet (Eliquis) 2.5 mg PO BID 10/02/23 01/24/24 atorvastatin 40 mg tablet 40 mg PO DAILY 10/02/23 01/24/24 clopidogrel 75 mg tablet 75 mg PO DAILY 10/02/23 01/24/24 digoxin 125 mcg (0.125 mg) tablet PO 10/02/23 01/24/24 diltiazem HCl 240 mg 240 mg PO DAILY 10/02/23 01/24/24 capsule,extended release 24 hr latanoprost 0.005 % eye drops drp ophthalmic (eye) 10/02/23 01/24/24 nitroglycerin 0.4 mg sublingual mg sublingual 10/02/23 01/24/24 tablet ascorbate calcium (vitamin C) 500 500 mg PO BID 01/03/24 01/24/24 mg tablet methenamine hippurate 1 gram tablet 1 g PO BID 01/03/24 01/24/24 nitrofurantoin 1 cap PO BID 01/24/24 01/24/24 monohydrate/macrocrystals 100 mg capsule Previous Rx's ?Medication ?Instructions ?Recorded erythromycin 5 mg/gram (0.5 %) eye 1 appl ophthalmic (eye) QID 7 days 10/11/22 ointment #3.5 grams sulfacetamide sodium 10 % eye drops 1 drp ophthalmic (eye) Q3H 7 days 10/11/22 #15 mL Kneeling Scooter #1 ea 10/02/23 cephalexin 500 mg capsule 500 mg PO TID 7 days #21 caps 03/25/24 Allergies Allergy/AdvReac Type Severity Reaction Status Date / Time shellfish derived Allergy Unknown Verified 03/28/24 15:24 Review of Systems Review of Systems: Yes all other systems are reviewed and are negative PMFSH Past Medical History Attestation statement: The following information was validated with the patient. 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 No acute distress.?Normal affect.? CVS: Heart sounds normal. Normal heart rate and rhythm.? Pulses normal.?? Respiratory: No respiratory distress.? Lung sounds clear to auscultation bilaterally?? Skin: Skin warm and dry.? Normal skin color.? ??Scabbed avulsion to the distal tip of the left 2nd in 3rd digit, no active bleeding, full range of motion to MCP/PIP/IP. No surrounding erythema or warmth. No purulence. Extremities: No lower extremity edema.? Neuro: Moves all extremities spontaneously. Sensation intact bilaterally. Ambulates with normal steady gait. Course Course Course Narrative: This is a Rapid Medical Examination (RME) performed by Lyndon Greenberg PA-C in triage. Full HPI, ROS, assessment and treatment plan per primary provider in the Main ED. 83 yo male on eliquis here for wound check. pt seen in ED 3 days ago w/ avulsion injuries to left 2/3 digits sustained while using a table saw. diagnosed w/ avulsion fx to distal tuft of 2nd digit. given abx, tetanus. discharged w/ abx and hand surgery f/u. states that upon returning home, his dressing immediately fell off. he attempted to redress the fingers and placed a plastic baggy around them. has not looked at them since. was unable to worm picker his prescription for 2 days d/t the holiday. has been taking his 's old keflex prescription. called dr. leonard office yesterday however was unable to make an appointment. Plan: further eval in back Medical Decision Making Medical Decision Making MDM Narrative: Patient is an 83-year-old male who presents emergency department for wound evaluation due to avulsion injury of the digits of the left hand as per HPI. Pertinent physical exam findings per PE portion of this note. Avulsion injury appears well his healing, there is slight maceration to the skin just below the avulsion on the finger pad of the left 2nd digit. Full range of motion, no erythema or warmth. Does not appear to be evidence of septic joints or localized cellulitis. Neurovascularly intact distally. Advised to continue remainder of course of antibiotics. Recommend outpatient follow-up with hand specialist as previously recommended, advised to contact their office 1st thing Saturday morning to arrange for follow-up. Discussed worrisome signs and symptoms that would warrant re-evaluation in the emergency department. All questions answered. Differential Diagnosis Differential Diagnoses: The differential diagnosis associated with the presentation includes (See narrative above) Independent Historian Clinical information obtained from an independent historian. History obtained from or confirmed by: Spouse External Record Review External record reviewed: Outpatient record Prescription Management I considered prescription management with: Antibiotic (As previously prescribed) Discharge Plan Discharge Clinical Impression: Avulsion of fingertip Patient Disposition: Home, Self-Care Instructions: Finger Laceration (ED) Additional Instructions: I advised that you stay the current course. Complete your entire course of an tibiotics. Monitor for signs of infection including redness, pain, swelling, pus-like discharge, foul smell, fevers, chills. On Saturday with the orthopedic office is open I recommend that you contact their office to arrange for follow-up with hand specialist; Dr. Leonard. Apply new clean dry dressing twice daily Return to emergency department any new or worsening symptoms or concerns. Prescriptions: No Action sulfacetamide sodium 10 % drops 1 drp ophthalmic (eye) Q3H 7 Days Qty: 15 0RF erythromycin 5 mg/gram (0.5 %) ointment 1 appl ophthalmic (eye) QID 7 Days Qty: 3.5 0RF cephalexin 500 mg capsule 500 mg PO TID 7 Days Qty: 21 0RF nitrofurantoin monohyd/m-cryst 100 mg capsule 1 cap PO BID diltiazem HCl 240 mg capsule,extended release 24hr 240 mg PO DAILY latanoprost 0.005 % drops ophthalmic (eye) atorvastatin 40 mg tablet 40 mg PO DAILY digoxin 125 mcg (0.125 mg) tablet PO Eliquis 2.5 mg tablet 2.5 mg PO BID clopidogrel 75 mg tablet 75 mg PO DAILY nitroglycerin 0.4 mg tablet, sublingual sublingual alfuzosin 10 mg tablet extended release 24 hr 10 mg PO DAILY (DME) Kneeling Scooter See Rx Instructions .ROUTE .MEDSUPPLY Qty: 1 0RF Rx Instructions: As directed methenamine hippurate 1 gram tablet 1 g PO BID ascorbate calcium (vitamin C) 500 mg tablet 500 mg PO BID Referrals: Gertrude Kendall MD [Primary Care Provider] - Jossy Leonard MD [Physician] - Print Language: Polish
--- NOTE | 2024-03-28 17:19 | PC.NURSE ---
WOUNDS WERE CLEANSED WITH NS AND HYDROGEB PEROXIDE, LEFT OPEN TO AIR- NO ACTIVE BLEEDING. LEFT INDEX, MIDDLE AND RING FINGERS COVERED WITH BANDAIDS- EDUCATED PT ON IMPORTANCE OF CHANGING BANDAGES BID AND MONITORING FOR S/SX OF INFECTION
[2024-03-28 17:24] VITALS: BP 119/59; PULSE 74; RESP 20; TEMP 36.8; O2SAT 98
== END 2024-03-28 17:24 | disposition home or self-care (01) ==
PROVIDERS: Emergency Provider Emergency Medicine Emergency Medical Services; PCP Family Medicine
DX: Z48.01 Encounter for change or removal of surgical wound dressing (principal); S61.211D Laceration without foreign body of left index finger without damage to nail, subsequent encounter; S61.213D Laceration without foreign body of left middle finger without damage to nail, subsequent encounter; X58.XXXD Exposure to other specified factors, subsequent encounter
CPT/HCPCS: 99282

== ENCOUNTER 2024-03-31 09:49 | Outpatient (AMB) | payer MEDICARE, SELFPAY ==
[2024-03-31 09:53] VITALS: BMI 25.1
--- NOTE | 2024-03-31 09:53 | A.OFFVIS_ITS ---
Vital Signs 03/31/24 09:53 Height 5 ft 7 in Weight 160 lb BMI 25.1 Intake Visit Reasons: FC- LT index distal tuft avulsion fx, DOI 03/25/24 Intake Note: Jax 83 yr old right hand dominant male presents today with his Celeste for a new problem for his left index, middle finger and thumb. States while working with a table saw on 03/25/24, the wood he was working on kicked back and his hand was pulled forward into the blade. Seen in ED same day where xrays were taken and wounds were clean and wrapped. Reports he returned to ED on 03/28/24 due to his dressing falling off. Currently states he has numbness due to an old injury also some soreness. Currently taking ABX. Patient recalls about 50 yrs ago he had a similar injury with a table saw injury his left index finger. Allergies shellfish derived Allergy (Verified 03/31/24 09:58) Unknown HPI HPI FC- LT index distal tuft avulsion fx, DOI 03/25/24: Details: Jax is an 83 year old right hand dominant man who presents for a left index finger fracture, and finger lacerations, S/P table saw injury, DOI: 03/25/24. He was seen in the ED the same day and referred here. He says he is doing okay. He complains of some pain & soreness in his hand, but says this is tolerable with Tylenol. He has been taking his Abx as instructed. He denies any numbness or tingling. He says he had a previous injury to his index finger when in his 30's, from a table saw. He says he was missing a chunk of his index finger since this injury, and his current injury occurred in the same place. He is on Eliquis. His says they are planning a vacation in [place], starting next week. 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 Review of Systems Const All systems reviewed & are unremarkable except as noted in HPI and below Physical Exam Vital Signs: BMI result Body Mass Index 25.1 Const General: cooperative, healthy appearing and no acute distress Orientation/consciousness: patient oriented x3 HEENT Head: Yes normocephalic and Yes atraumatic Eyes EOM: EOMs intact bilaterally Resp Effort & Inspection: normal respiratory effort and able to speak in complete sentences Cardio Jugular venous distension: no JVD Skin General skin exam: turgor normal Rashes: no rashes Neuro General: patient oriented x3 Extrem Other: Evaluation of Left Upper Extremity: The patient is alert, oriented, and in no acute distress Neuro: Median, Ulnar, Radial nerves motor and sensory intact and sensation is normal to the tips of all digits Vascular: Cap refill brisk ROM: With encouragement can bring his fingers close towards a fist Skin: There is a wound on the ulnar side of the index finger, adjacent to the nail extending to the tip, along with a partial nail injury No exposed bone, and some granulation tissue already forming The nail is angled radially, however this was the result of the table saw injury he had about 50 years ago. The patient and his say that this is the way his nail has been for a long time. The nail appears to be a fixed to the underlying sterile matrix and beneath the eponychial fold proximally. There is a soft tissue wound to the middle fingertip. This appears to be healing, and likely does not extend to bone. No injury to the ring finger seen today, though he does report having had a small amount of bleeding the 1st few days. Radiographs: 3 views of the left hand from 03/25/24 were reviewed by me today in clinic. They show an open fracture of the ulnar side of the index finger distal phalanx tuft with some bone loss from this area. However, it is difficult to tell whether the bone loss is acute or chronic. Based on the wound, I would surmise that the bone losses more likely chronic. Psych Appearance: grossly normal Affect: normal affect Attitude: cooperative Office Procedures AMB Fracture Care Details: Fracture care [id number] Fracture Billing Code: Fracture Billing Code Assessment & Plan Assessment & Plan (1) Open fracture of distal phalanx of left index finger: Code(s): S62.631B - Displaced fracture of distal phalanx of left index finger, initial encounter for open fracture Category: Medical (2) Laceration of finger of left hand: Code(s): S61.219A - Laceration without foreign body of unspecified finger without damage to nail, initial encounter Category: Medical Plan Assessment & Plan: 1. Left index finger distal phalanx tuft fracture, open From a table saw injury, DOI: 03/25/24 Please note he suffered a previous finger injury ~50 years ago, which resulted in nailbed deviation 2. Left hand lacerations To the index & middle fingertips, From a table saw injury, DOI: 03/25/24 I educated him about this condition I believe we manage this non-operatively, and he is in agreement I explained the signs and symptoms of infection, if the patient develops any new or worsening erythema, drainage, pain, or warmth they should contact the clinic or attend the ED. He is travelling to [facility] on 04/09/24 for vacation. He will be on a [place] cruise with his to celebrate their anniversary. To treat the open fracture, out of an abundance of caution I ordered a new 7-day course of PO Augmentin for him to bring on his trip. He will finish his keflex and start Augmentin . Activity modification rather than splinting is best for the treatment of this fracture. I educated him on proper wound care, he will perform daily dressing changes at home I discussed activity modifications, he is to lift nothing heavier than a cellphone for the next 3 weeks He should wash his hands with soap & water daily, but avoid any underwater activities or dirty for at least the next week As he will be gone, he will follow up in 4-5 weeks for a wound check, range of motion check and to see how he is doing. No radiographs are necessary unless he is having difficulty. Please note that greater than 30 minutes was spent with this patient going over the history, evaluating the patient and radiographs, formulating possible treatment options, discussing them with the patient, and documenting the visit. Scribed for Jossy Neri MD by Diego Ortiz, medical donation professional, on 12/3/24 a t 10:20 AM, EST. Medications: New amoxicillin-pot clavulanate 875-125 mg 1 tab PO Q12H 14 tabs 0RF Coding Level of Care Code New Pt Level 4 (87181) Diagnoses Open fracture of distal phalanx of left index finger S62.631B Laceration of finger of left hand S61.219A CPT Codes Fracture Care - Fracture Billing Code: Fracture Billing Code ([id number])
== END 2024-03-31 11:01 | disposition home or self-care (01) ==
PROVIDERS: PCP Family Medicine; Visit Provider Orthopaedic Surgery
DX: S62.631B Displaced fracture of distal phalanx of left index finger, initial encounter for open fracture (principal)
CPT/HCPCS: 99214

== ENCOUNTER → 2024-03-31 09:49 | Outpatient (BNVA) | payer MEDICARE, SELFPAY | PROVIDERS: PCP Family Medicine; Visit Provider Orthopaedic Surgery | DX: S62.631B Displaced fracture of distal phalanx of left index finger, initial encounter for open fracture (principal); S61.213A Laceration without foreign body of left middle finger without damage to nail, initial encounter; W31.2XXA Contact with powered woodworking and forming machines, initial encounter; Y93.9 Activity, unspecified; Y92.9 Unspecified place or not applicable; Y99.9 Unspecified external cause status | CPT/HCPCS: 99212 ==

== ENCOUNTER 2024-04-28 08:26 | Outpatient (AMB) | payer MEDICARE, SELFPAY ==
--- OUTSIDE RECORDS SUMMARY | 2024-04-28 08:30 | XMS_ITS | Data Portability ---
Author Organization [place] [facility] Address [address] [place] [id number] Care Team Providers Care Chemical Production Engineer Name Role Phone SHALA CURRANFER Primary Care Provider [phone] Assessment Encounter Date Assessment Date Assessment LastModified by Organization Details LastModified Time 01/21/2022 01/21/2022 Overview/History : 81 yo m new to and this provider has a PMH of afib, hx bladder CA, CAD, HLD present with sore throat and body aches 2 days. Tested postive for COVID 19 today. Has been febrile as high as 103 but responsive to Tylenol. Had a few bouts of diarrhea that have subsided. Currently taking Vitamin C and Zinc lozenges, and emergen C. Exam: General Appearance: non-toxic, well appearing, in no acute distress Mental Status: active and alert, follows commands appropriately Head: normocephalic Ears: external ears normal, no discharge bilaterally, EAC occluded cerumen right Nose: nares patent, no nasal discharge, no septal deviation Sinuses: no sinus tenderness to palpation Mouth and Throat: moist mucous membranes, no hoarseness, no drooling, uvula midline, tonsils not enlarged, erythema posterior oropharynx right Neck: supple, FROM, no lymphadenopathy Pulmonary: normal effort, no respiratory distress, no tachypnea, no accessory muscle use, lungs sound clear to auscultation bilaterally Cardiovascular: no murmurs, no rubs, no gallops, no peripheral edema, irregular Gastrointestinal: no abdominal distention, normal bowels sounds, no tenderness to palpation, no guarding, no rigidity Urinary: no suprapubic tenderness Musculoskeletal: moves all extremities normally, no deformity, no extremity swelling, AROM WNL, normal muscle tone throughout Psychologic: normal mood, normal affect Skin: no rash, no lesions, no swelling, no ecchymosis, no erythema, no warmth Vital Signs:VSS DDx considered, but not limited to: viral syndrome, PNA, GAS, post nasal drip This is a 81 yo m who appears younger than stated age who has started to feel fatigue with body aches 2 days ago woke with a sore throat the next morning. Experience diarrhea and fever and tested positive for COVID 19. He has since developed a sore throat. The diarrhea has subsided. Wanted lungs to be evaluated as he has had an occasional cough no shortness of breath and assess his sore throat. Symptoms are consistent with COVID 19. LS are clear and VS are stable low suspicion of PNA. There is mild erythema to the right posterior oropharynx no exudate there is low suspicion of GAS. He has had some sinus/nasal congestion and post nasal drip contributing to his sore throat. Will recommend symptom treatment. Work up/Results: none Plan/Discussion: Patient advised: -cepacol sore throat throat lozenges 3x daily as needed -Tylenol 650 mg every 4 hours as needed -Flonase 50 mcg 1 spray each nostril twice a day -Zyrtec 10 mg daily -CDC quarantine guidelines discussed. The patient is advised to make an appt with PCP in 3-5 days to discuss ongoing symptoms/ further management. The patient is also advised to contact or go to the ED immediately for any worsening symptoms. The patient understood and agreed with this plan. The patient was given discharge instructions and all questions were answered prior to DH team departure. Proper Personal Protective Equipment (PPE), including gloves, eye protection, N95 mask, were donned and doffed appropriately and all equipment cleaned using approved technique with germicidal disposable wipes prior to and after care of this patient according to [facility]'s infection prevention protocols. [email or web address] Not available 01/21/2022 18:58:50 Plan of Treatment Reminders Order Date Submit Date Provider Last Modified By Organization Details Last Modified Time Details Appointments None record ed. Lab None record ed. Referral None record ed. Procedures None record ed. Surgeries None record ed. Imaging None record ed. Medication Orders None record ed. Patient TargetsNo targets recorded. Patient Instructions Encounter Date Encounter Id Patient Instructions Last Modified By Organization Details Last Modified Time 01/21/2022 [id number] sore throat: car e instructions lnovia Not available 01/21/2022 18:58:17 Viral Illness Discharge Instructions BASIC INFORMATION A viral infection can range anywhere between a common cold and influenza. Most viruses will respond to a combination of time and supportive care. Viruses are eliminated by the bodies immune system and do not respond to antibiotics. Viruses can cause many different symptoms including runny stuffy nose, sore throat, headache, fever, body aches, cough, nausea, vomiting,diarrhea. Most of the viral illnesses are spread by hand to face contact, and the rest are spread through sneezing and coughing which releases virus into the air. Over the counter medications can help to relieve annoying symptoms. Occasionally having a virus may cause a secondary bacterial infection such as ear infections, pneumonia, sinusitis. INSTRUCTIONS Keeping your body as healthy as possible will help to limit your illness. Get plenty of rest Drink lots of fluids (water, herbal tea, gatorade) Reduce your risk of getting or giving a cold by avoiding touching your face with your hands. When you cough and sneeze cover your mouth/nose by placing your elbow or upper arm over the area rather than using your hand. Use a teaspoon of honey(avoid organic honey in infants and small children < 1 year) at bedtime to soothe your throat and ease cough. Sleep with head of bed elevated to promote drainage of secretions. Hot showers and humidifiers can help to loosen secretions. Tylenol over the counter can be helpful for aches and fever. Suck on hard, sugar-free candy during the day to keep the throat moist. MEDICATIONS Over the counter remedies are not recommended for young children, but can help relieve symptoms temporarily in adults. In general it is better to take only the medication you need rather than using combination products that contain ingredients that are unnecessary and may cause side effects. 1. Antihistamines (Benadryl, Chlor-Trimeton, Zyrtec, Claritin, Tiffanie) reduce secretions, but can cause drowsiness and sedation, do not drink alcohol or drive while taking these medications. 2. Decongestants (Phenylephrine, Sudafed) can help to shrink swollen nasal passages and dry secretions, but may cause palpitations, anxiety,and are not safe for people with High blood pressure or heart arrhythmias. 3. Topical Decongestants (Afrin/Chris-synephr ine) can be very helpful for acute relief of nasal swelling and runny nose, HOWEVER they should not be used regularly for more than 3 days as they will cause rebound congestion if over-used. 4. Cough aids generally contain DM( Dextromethorphan) which is a cough suppressant and Guaifenesin which is an expectorant. While the DM portion can be helpful for suppressing the cough, guaifenesin, particularly as dosed in Mucinex like products has minimal effect and may cause nausea. 5. Tamiflu an anti-viral agent may be prescribed if you are diagnosed with influenza. Viral symptoms usually last between 5-10 days, it is not uncommon to have a mild cough for up to 6 weeks afterward. If you have been diagnosed with influenza you should minimize your contact with others. You may return to work/school after 24 hours of being fever free without medication (usually 5-10 days). FOLLOW UP if your symptoms are not improving in 7-10 days If you have severe ear pain, sinus pain, cough productive large amounts of mucus, wheezing. You have underlying medical problems that may become worse as a result of your viral illness (asthma, diabetes, COPD) and need to follow up to ensure you are improving. SEEK CARE IMMEDIATELY IF 1 Severe headache unresponsive to Tylenol or severe neck stiffness 2. Confusion 3. Severe chest pain 4. Difficulty breathing 5. Persistent vomiting 6. Cough productive large amounts of sputum or blood 7. Inability to keep liquids down 8. Fever unresponsive to medication over 102 If you develop any new or worsening symptoms and need after hours care, please go to nearest ER and/or call 911. If you have additional concerns or develop a change in your condition between 8am-10pm, please call [facility] at [phone] to help navigate your care. [email or web address] Not available 01/21/2022 18:57:04 Reason for Referral None Reported. Procedures Surgical History Date Name Laterality Status Provider Name and Address Organization Details Recorded Time total nephrectomy completed Elsi Stafford NP [facility] [address], [place], [address], [place] [facility] 01/21/2022 17:59:15 Imaging Results None recorded. Procedure Notes None recorded. Medical Equipment None Reported. Allergies Allergen ID Allergen Name Allergen Category Reaction Reaction Severity Criticality Documentation Date Start Date Code Code System Note Provider Name and Address Organization Details Recorded Time 668104 shellfish derived food,medi cation Not available Not available Not available 01/21/2022 Elsi Stafford NP [address], [place], [address], [place] [facility] 17:56:51 Medications Name Sig Start Date Stop Date Status Note LastModified by Organization Details LastModified Time latanoprost 0.005 % eye drops active Not Available Not Available Not Available atorvastatin 40 mg tablet active Not Available Not Available Not Available diltiazem CD 120 mg capsule,exten ded release 24 hr TAKE ONE CAPSULE BY MOUTH EVERY DAY active Not Available Not Available No t Available digoxin 125 mcg (0.125 mg) tablet active Not Available Not Available N ot Available alfuzosin ER 10 mg tablet,extend ed release 24 hr TAKE ONE TABLET BY MOUTH AT BEDTIME START WITH 1 TABLET EVERY OTHER NIGHT FOR 2 WEEKS THEN TAKE ONE TABLET BY MOUTH AT BEDTIME INSTRUCTE active Not Available Not Available No t Available Vitamin D3 active Not Available Not Av ailable Not Available multivitamin active Not Available Not Available Not Available ICaps AREDS active Not Available Not A vailable Not Available Eliquis 2.5 mg tablet active Not Available Not Available No t Available Vitals Date Recorded Body temperature Respiratory rate Oxygen saturation Oxygen saturation in Arterial blood by Pulse oximetry Heart rate Systolic blood pressure Diastolic blood pressure Provider Name and Address Organization Details Last Updated DateTime 98 [degF] 18 /min 98 % 98 % 86 /min 118 mm[Hg] 62 mm[Hg] Not Available [facility] 18:01:52 Social History Question Answer Notes LastModified by Organizat ion Details LastModified Time Tobacco Smoking Status Former Smoker Elsi Stafford NP [address], [place], [address], [place] [facility] 01/21/2022 18:00:12 What Is Your Level Of Alcohol Consumption? Moderate Daily Wine Information not available 01/21/2022 Within The Past 12 Months, Has It Happened That The Food You Bought Just Didn't Last And You Didn't Have Money To Get More. No Information not available 01/21/2022 Within The Past 12 Months, Have You Worried That Your Food Would Run Out Before You Got Money To Buy More. No Information not available 01/21/2022 Fall Risk: Do You Feel Unsteady When Standing Or Walking? No Information not available 01/21/2022 We Know That How And When People Interact With Friends And Family Can Be Very Different From Person To Person. How Often Do You Have The Opportunity To See Or Talk To People That You Care About And Feel Close To? (Ex: Talking To Friends On The Phone Or Visiting Friends Or Family Or Going To Temple Or Club Meetings) 3 Or 4 Times Per Week Information not available 01/21/2022 Excessive Alcohol Or Drug Use No Information not available 01/21/2022 Does This Patient Have A PCP? Yes Information not available 01/21/2022 Has The Patient Seen Their PCP In The Past 6 Months? Yes Information not available 01/21/2022 Is This Patient In Hospice? No Information not available 01/21/2022 We Know From Many Of Our Patients That Covering All Of Their Costs Can Be Difficult At Times. This Can Cause Stress And Impact Health. In The Past Year, Have You Been Unable To Get Any Of The Following When It Was Really Needed? No Information not available 01/21/2022 What Is Your Housing Situation Today? I Have Housing Information not available 01/21/2022 Would You Like Help Connecting To Resources? None Information not available 01/21/2022 How Many Years Have You Smoked Tobacco? 6 Information not available 01/21/2022 Sex: Unknown Functional Status None recorded. Mental Status None recorded. Family History Nothing Reported. Medical History Condition Response Coronary Artery Disease Y Cancer High Cholesterol Y A-fib Y Past Encounters Encounter ID Performer Location Encounter Start Date Encounter Closed Date Diagnosis/Indication Diagnosis SNOMED-CT Code Diagnosis ICD10 Code [id number] Elsi Stafford NP [facility] [address] [facility] [address] 01/21/2022 17:48:56 01/22/2022 10:25:02 COVID-19 [id number] U07.1 Posterior rhinorrhea 758 [id number] R09.82 Health Concerns Section Related Observation LastModified by Organization Detai ls LastModified Time None Recorded Concern Status LastModified by Organization Details LastModified Time None Recorded Advance Directives Directive None Recorded Payers Encounter Date Sequence Insurance Name Policy Number Policy Almendarez Covered Member ID Almendarez Member ID Guarantor Name 01/21/2022 1 [place]: [employer] Jax Márquez [id number] Jax Reich. 01/21/2022 2 [place] [id number] Jax Márquez [id number] Jax Reich. Notes Date Note Type Note Provider Name and Address Organization Details Recorded Time 01/21/2022 text/html 81 yo m started with sore throat and body aches 2 days ago. Tested postive for COVID 19 today. Has been febrile as high as 103 but responsive to Tylenol. Had a few bouts of diarrhea that have subsided. Currently taking Vitamin C and Zinc lozenges, and emergen CCharla Stafford NP [address], [place], [address], [place] [facility] 01/21/2022 19:08:09
--- NOTE | 2024-04-28 08:35 | MHC.OFFVIS ---
Intake Visit Reasons: O/V LT index distal tuft avulsion fx, DOI 03/25/24 Intake Note: Jax 83 yr old right hand dominant male presents today for a follow up visit for his left hand lacerations to the index & middle fingertips & left index distal tuft avulsion fx from a table saw injury, DOI: 03/25/24. States he has been working on his ROM and noticed it has approved. Allergies shellfish derived Allergy (Verified 04/28/24 08:35) Unknown HPI HPI O/V LT index distal tuft avulsion fx, DOI 03/25/24: Details: The patient is a very pleasant 83-year-old evzcj-ddyq-pkaablkv man who was seen today with his . He sustained a table saw injury to the left index finger on 03/25/2024. Of note, he had had a previous significant table saw injury to the tip of the same finger when he was in his 30s. At that time he reported that he had been missing a portion of the tip of the finger including part of the nail since that time. He was seen by me on 03/31/2024. At that time it was felt that he had some granulation tissue and soft tissue covering the bone and we have been treating this non operatively. He and his just returned from a river cruise through [place], where they had a good time. He feels like his fingers improving. 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 He can make a fist and extend all of his digits, including with the index finger. Again we see that he is missing some tissue from the ulnar tip of the index finger including some of the nail. Again, some of this was from his injury in his 30s, and some of this is from his newer injury. The wound is mostly healed, but not fully healed. There is a small sharp piece of something that measures a few mm on the volar aspect of this wound. It did not appear to be bone, and could be a thickened piece of skin versus possibly even a small piece of nail. He has no swelling or erythema. Finger is not painful, and he has full range of motion. There is a subungual hematoma which appears to be growing out. I can not say that the wound is well healed with skin that is ultimately going to be satisfactory. It may continue to heal and improve but I am not certain that it will definitely do so. Assessment & Plan Assessment & Plan (1) Open fracture of distal phalanx of left index finger: Code(s): S62.631B - Displaced fracture of distal phalanx of left index finger, initial encounter for open fracture Category: Medical (2) Laceration of finger of left hand: Code(s): S61.219A - Laceration without foreign body of unspecified finger without damage to nail, initial encounter Category: Medical Plan Assessment & Plan: 1. Left index finger distal phalanx tuft fracture, open From a table saw injury, DOI: 03/25/24 Please note he suffered a previous finger injury ~50 years ago, which resulted in nailbed deviation 2. Left hand more superficial lacerations To the index & middle fingertips, From a table saw injury, DOI: 03/25/24 These have healed fully I educated him about this condition We have thus far manage this non operatively. He has no evidence of infection at this time. He in his have returned from [place], and are headed to [place] for 4 weeks. Again he does appear to have some tissue healing over the ulnar aspect of the tip of the index finger, but it is not completely clear to me whether this is ultimately going to be successful. He is going to keep his finger clean and avoid dirty activities. If he does get into trouble with increasing pain redness etc. in [place] he knows to see a doctor there and get put on antibiotics. Follow up with me when he gets back in mid May. Hopefully the wound will be fully healed by then. However, If it has not healed well by that time, we might consider a revision amputation with some shortening of the bone for coverage, and possibly removal of the nail apparatus if needed. They are happy with the current plan. Coding Level of Care Code Global (20520) Diagnoses Open fracture of distal phalanx of left index finger S62.631B Laceration of finger of left hand S61.219A
== END 2024-04-28 09:30 | disposition home or self-care (01) ==
PROVIDERS: PCP Family Medicine; Visit Provider Orthopaedic Surgery
DX: S62.631B Displaced fracture of distal phalanx of left index finger, initial encounter for open fracture (principal)
CPT/HCPCS: 99213

== ENCOUNTER → 2024-04-28 08:26 | Outpatient (BNVA) | payer MEDICARE, SELFPAY | PROVIDERS: PCP Family Medicine; Visit Provider Orthopaedic Surgery | DX: S62.631D Displaced fracture of distal phalanx of left index finger, subsequent encounter for fracture with routine healing (principal); S61.219D Laceration without foreign body of unspecified finger without damage to nail, subsequent encounter | CPT/HCPCS: 99212 ==

== ENCOUNTER 2024-06-10 09:35 | Outpatient (REF) | payer MEDICARE, SELFPAY ==
--- OUTSIDE RECORDS SUMMARY | 2024-06-11 10:17 | XMS_ITS | Clinical Summary ---
Author Organization [facility] Address [address] [place] [address] Care Team Providers Care Pilot Can Router Name Role Phone Unavailable Primary Care Provider Unavailabl e Source Comments PLEASE NOTE, if this patient is a minor, it may be UNLAWFUL to discuss sensitive information that is contained in these records (such as FAMILY PLANNING, MENTAL HEALTH or SUBSTANCE ABUSE) with the minor patient's parent or other person without the patient's specific authorization.[facility] Medications sulfamethoxazole -trimethoprim (BACTRIM DS) 800-160 mg per tabletIndication s:Urine frequency Take 1 Tablet by mouth 2 (two) times daily 20 Tablet 08/26/2023 Active Social History Tobacco Use Types Packs/Day Years Used Date Smoking Tobacco: Never Assessed Social Connections Answer Date Recorded Connectedness 0 01/13/2024 Financial Resource Strain Answer Date R ecorded Financial Resource Strain 0 2023 Stress Answer Date Recorded Stress 0 08/26/2023 Physical Activity Answer Date Recorded Physical Activity 0 08/26/2023 Food Insecurity Answer Date Recorded Food 0 01/23/2024 Transportation Needs Answer Date Record ed Transportation 0 08/26/2023 Housing Stability Answer Date Recorded Housing 0 08/26/2023 Safety and Environment Answer Date Alex rded Safety 0 08/26/2023 Utilities Answer Date Recorded Utilities 0 08/26/2023 Employment Answer Date Recorded Stress 0 01/13/2024 Sex and Gender Information Value Date Recorded Sex Assigned at Not on file Legal Sex Male 9:49 AM PDT Gender Identity Not on file Sexual Orientation Not on file Plan of Treatment Health Maintenance Due Date Last Done Comments Tobacco Screening 1940 Advanced Care Planning 1940 Medicare Annual Wellness Visit 1958 Imm-Zoster, Recombinant (1 of 2) 1990 Falls Prevention 2005 [id number] ( season) 2023 021, 06/13/2020 Imm-Influenza (#1) 2023 04/04/2012, 0 01/23/2011, 03/20/2010, Additional history exists Alcohol and Drug Screen 04/29/2024 Depression Annual Screen 04/29/2024 Hypertension Screening (#1) 08/25/2024 Imm-DTaP/Tdap/Td (2 - Td or Tdap) 10/11/2032 10/11/2022, 04/10/2021, 08/06/2017, Additional history exists Imm-Pneumococcal 65+ Completed 07/19/2015, 03/31/20 10 Insurance [place]ICARE - [place] [facility] Member Subscriber Plan / Payer (Ef fective 2005-Present) Name:Jax Márquez Relation to Subscriber:Self Name:Jax Márquez Payer ID:[id number] Type:Indemnity Address: [facility] [address] [place] [id number]
--- OUTSIDE RECORDS SUMMARY | 2024-06-11 10:17 | XMS_ITS | Data Portability ---
Author Organization [place] [facility] Address [address] [place] [id number] Care Team Providers Care Safety Teacher Name Role Phone SHALA CURRANFER Primary Care Provider [phone] Assessment Encounter Date Assessment Date Assessment LastModified [...] after care of this patient according to [facility]'s infection prevention protocols. lnovia Not available [...] By Organization Details Last Modified Time 01/21/2022 [id number] sore throat: car e instructions lnovia Not [...] in your condition between 8am-10pm, please call [facility] at [phone] to help navigate your care. lnovia Not available 01/21/2022 18:57:04 Reason for Referral None Reported. Procedures Surgical History Date Name Laterality Status Provider Name and Address Organization Details Recorded Time total nephrectomy completed Elsi Stafford NP [facility] [address], [place], [address], [place] [facility] 01/21/2022 17:59:15 Imaging Results None recorded. Procedure Notes None recorded. Medical Equipment None Reported. Allergies Allergen ID Allergen Name Allergen Category Reaction Reaction Severity Criticality Documentation Date Start Date Code Code System Note Provider Name and Address Organization Details Recorded Time [id number] shellfish derived food,medi cation Not available Not available Not available 01/21/2022 [id number] UNK Elsi Stafford NP [address], [place], [address], [place] [facility] 17:56:51 Medications Name [...] /min 118 mm[Hg] 62 mm[Hg] Not Available [facility] 18:01:52 Social History Question Answer Notes LastModified by Organizat ion Details LastModified Time Tobacco Smoking Status Former Smoker Elsi Stafford NP [address], [place], [address], [place] [facility] 01/21/2022 18:00:12 What Is Your Level [...] Visiting Friends Or Family Or Going To [employer] Or Club Meetings) 3 Or 4 Times [...] History Condition Response Coronary Artery Disease Y A-fib Y Cancer High Cholesterol Y Past Encounters Encounter ID Performer Location Encounter Start Date Encounter Closed Date Diagnosis/Indication Diagnosis SNOMED-CT Code Diagnosis ICD10 Code Diagnosis Note [id number] Elsi Stafford NP [facility] [address] [place] [address] 01/21/2022 17:48:56 01/22/2022 10:25:02 COVID-19 [id number] U07.1 Posterior rhinorrhea [id number] R09.82 Health Concerns Section Related Observation LastModified by Organization Detai ls LastModified Time None Recorded Concern Status LastModified by Organization Details LastModified Time None Recorded Advance Directives Directive None Recorded Payers Encounter Date Sequence Insurance Name Policy Number Policy Almendarez Covered Member ID Almendarez Member ID Guarantor Name 01/21/2022 1 [place] [employer] Jax Márquez [id number] Jax Reich. 01/21/2022 2 [place] [id number] Jax Márquez [id number] Jax Reich. Notes Date Note Type [...] C and Zinc lozenges, and emergen C. Elsi Stafford NP [address], [place], [address], [place] [facility] 01/21/2022 19:08:09
== END 2024-06-10 09:36 | disposition home or self-care (01) ==
LOC: HO.HOSX 09:35
PROVIDERS: Visit Provider Orthopaedic Surgery
DX: Z13.89 Encounter for screening for other disorder (principal)

== ENCOUNTER 2024-06-20 19:03 | Emergency (ER) | payer MEDICARE, SELFPAY ==
[2024-06-20 19:06] VITALS: BP 138/70; PULSE 75; RESP 18; TEMP 36.7; O2SAT 99; BMI 25.1
--- NOTE | 2024-06-20 19:06 | ED_ITS ---
HPI - General Adult General Chief complaint: Urogenital-Male Stated complaint: unable to void/UTI-seems like meds aren't working Time Seen by Provider: 06/20/24 20:46 Source: patient Limitations: no limitations History of Present Illness ED Provider: Rajwinder Dawn PA-C HPI narrative: 83-year-old male now status post bladder biopsy 1 week ago, presents with urinary retention. Patient states that following his biopsy, he had a Dawn catheter in place which was removed a few days ago; it was supposed to be kept in place until Saturday the . Since, he has been having difficulty fully emptying his bladder, passing clots at times; the patient has been self catheterizing. The patient was also started on Bactrim yesterday. The patient was also advised to use an oaly-rqo-qamxqwu azo product for his bladder spasm. Denies fever. Related Data Home Medications ?Medication ?Instructions ?Recorded ?Confirmed alfuzosin 10 mg tablet,extended 10 mg PO DAILY 10/02/23 01/24/24 release 24 hr apixaban 2.5 mg tablet (Eliquis) 2.5 mg PO BID 10/02/23 01/24/24 atorvastatin 40 mg tablet 40 mg PO DAILY 10/02/23 01/24/24 digoxin 125 mcg (0.125 mg) tablet PO 10/02/23 01/24/24 diltiazem HCl 240 mg 240 mg PO DAILY 10/02/23 01/24/24 capsule,extended release 24 hr latanoprost 0.005 % eye drops drp ophthalmic (eye) 10/02/23 01/24/24 nitroglycerin 0.4 mg sublingual mg sublingual 10/02/23 01/24/24 tablet ascorbate calcium (vitamin C) 500 500 mg PO BID 01/03/24 01/24/24 mg tablet nitrofurantoin 1 cap PO BID 01/24/24 01/24/24 monohydrate/macrocrystals 100 mg capsule Previous Rx's ?Medication ?Instructions ?Recorded erythromycin 5 mg/gram (0.5 %) eye 1 appl ophthalmic (eye) QID 7 days 10/11/22 ointment #3.5 grams sulfacetamide sodium 10 % eye drops 1 drp ophthalmic (eye) Q3H 7 days 10/11/22 #15 mL Kneeling Scooter #1 ea 10/02/23 cephalexin 500 mg capsule 500 mg PO TID 7 days #21 caps 03/25/24 amoxicillin 875 mg-potassium 1 tab PO Q12H #14 tabs 03/31/24 clavulanate 125 mg tablet phenazopyridine 200 mg tablet 200 mg PO TID PRN pain #9 tabs 06/20/24 (Pyridium) sulfamethoxazole 800 1 tab PO BID #13 tabs 06/20/24 mg-trimethoprim 160 mg tablet (Bactrim DS) Allergies Allergy/AdvReac Type Severity Reaction Status Date / Time shellfish derived Allergy Unknown Verified 06/20/24 19:11 Review of Systems 2 Review of Systems: Yes all other systems are reviewed and are negative Constitutional: Constitutional: Denies fatigue and Denies fever(s) Cardiovascular: Cardiovascular: Denies chest pain Gastrointestinal: Gastrointestinal: Denies abdominal pain, Denies nausea and Denies vomiting Genitourinary: Genitourinary: Reports difficulty urinating, Reports dysuria and Reports urinary hesitancy Endocrine: Endocrine: Denies fatigue PMFSH Past Medical History Attestation statement: The following information was validated with the patient. 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 Physical Exam ED Vital Signs: Vital Signs - 24 hr 06/20/24 19:06 06/20/24 21:39 Temperature 98.0 F 99.5 F Pulse Rate 75 97 Respiratory Rate 18 16 Blood Pressure 138/70 112/61 Pulse Oximetry 99 97 Oxygen Delivery Method Room Air Room Air BMI result Body Mass Index 25.1 Const Other: Alert well-appearing Orientation/consciousness: patient oriented x3 Resp Effort & Inspection: normal respiratory effort Cardio Other: Normal peripheral perfusion Skin Other: Warm dry no rash Neuro General: patient oriented x3, gait normal, no focal motor deficits and CN's II- XI intact bilaterally Psych Other: Calm cooperative Course Course Course Narrative: RME performed by Yoly Martinez PA-C. Patient is an 83 year old assigned male at presenting to the emergency department with difficulty urinating. Patient states that he had a cancer biopsy 2 weeks ago and has been having issues with urinating ever since. Detailed physical exam and review of systems are deferred to the folder taper operator. Labs ordered. Patient placed back in the waiting room pending room availability and results. Reevaluation(s) Reevaluation #1: At the time of discharge, the patient started to discuss posterior head pain that has been going on for weeks, he rates the discomfort 4/10. The nurse relayed to the patient that he was already discharged, that she would be happy to let me know about his new medical complaint. He was advised that I would loop back around with him. Time: 21:55 Reevaluation #2: The patient was not happy about waiting, he wanted to be discharged, he did not want to wait until I was able to address his new medical complaint. His nurse relayed to him that I am seeing multiple patients simultaneously, and he was free to go if he so chooses. Time: 22:35 Medications Administered Discontinued Medications Generic Name Dose Route Start Last Admin Trade Name Juan PRN Reason Stop Dose Admin Phenazopyridine HCl 200 mg 06/20/24 21:15 06/20/24 21:37 Phenazopyridine Hcl 200 Mg Tablet PO 06/20/24 21:16 200 mg ONCE ONE Administration Trimethoprim/Sulfamethoxazole 1 tab 06/20/24 21:14 06/20/24 21:37 Sulfamethox/Trimeth 800/160 Tablet PO 06/20/24 21:15 1 tab ONCE ONE Administration Medical Decision Making Medical Decision Making MDM Narrative: 83-year-old male now status post bladder biopsy 1 week ago, presents with urinary retention. Patient states that following his biopsy, he had a Dawn catheter in place which was removed a few days ago; it was supposed to be kept in place until Saturday the . Since, he has been having difficulty fully emptying his bladder, passing clots at times; the patient has been self catheterizing. The patient was also started on Bactrim yesterday. The patient was also advised to use an udrh-pma-mfwgtoa azo product for his bladder spasm. Denies fever. Problem recent bladder biopsy History: Per patient I have considered the following differential diagnoses: Urinary retention, clot burden requiring CBI, urinary tract infection, urethral stricture Plan: The patient was retaining, we will place a Dawn catheter. The patient has evidence of a urinary tract infection. I reviewed his last culture and sensitivity, the patient is sensitive to Bactrim. I will make sure he has Bactrim double strength, this is the antibiotic that his urologist prescribed, his can not recall what the dosage was. They can confirm this tomorrow at their pharmacy, in the meantime I will send an additional script to the pharmacy and medicate him tonight. Also giving Pyridium, we will send a script to their pharmacy, we have explained to the patient and his that the qaws-yil-iatewgw product is not prescription strength. There was no issue passing the Dawn catheter, there was not excessive clot burden that would indicate need for CBI. The patient will keep the Dawn catheter in place until he follows up with his urologist this week. I have independently reviewed the following tests: Labs: Slight leukocytosis, not anemic, no electrolyte abnormality, creatinine subtly elevated from his baseline, urine infected Lab Data 06/20/24 20:15 06/20/24 20:15 Labs: Lab Results 06/20/24 Range/Units 20:15 WBC 12.3 H (4.8-10.8) X10*3/uL RBC 4.56 L (4.60-5.80) X10*6/uL Hgb 13.8 L (14.0-18.0) g/dl Hct 42.3 (42.0-52.0) % MCV 92.8 (80.0-98.0) fL MCH 30.3 (27.0-33.0) pg MCHC 32.6 (31.0-36.0) g/dl RDW 13.2 (11.0-16.0) % Plt Count 184 D (160-400) X10*3/uL MPV 10.0 (9.4-12.4) fL Immature Gran % (Auto) 0.3 (0.0-0.4) % Neut % (Auto) 83.8 H (45-73) % Lymph % (Auto) 5.5 L (20-40) % Early % (Auto) 9.2 (2-11) % Eos % (Auto) 0.8 (0-4) % Baso % (Auto) 0.4 (0-2) % Lymph # (Auto) 0.7 L (1.2-4.9) X10*3/uL Early # (Auto) 1.1 (0.1-1.2) X10*3/uL Eos # (Auto) 0.1 (0.0-0.4) X10*3/uL Baso # (Auto) 0.1 (0.0-0.2) X10*3/uL Abs Immat Gran (auto) 0.04 H (0.00-0.03) X10*3/uL Absolute Neuts (auto) 10.3 H (2.0-8.3) x10*3/uL Absolute Nucleated RBC 0.000 (0.0-0.012) X10*3/uL Nucleated RBC % (auto) 0.0 (0.0-0.2) /100WBC Sodium 142 (135-145) mmol/L Potassium 4.3 (3.3-5.1) mmol/L Chloride 110 H (96-108) mmol/L Carbon Dioxide 22 (22-29) mmol/L Anion Gap 14 (12-20) BUN 17 H (9-16) mg/dL Creatinine 1.35 (0.5-1.4) mg/dL Estim Creat Clear Calc 38.7 Estimated GFR 50 Random Glucose 111 (60-115) mg/dL Calcium 9.2 (8.4-10.2) mg/dL Magnesium 2.0 (1.6-2.6) mg/dL Total Bilirubin 0.7 (0.0-1.0) mg/dL AST 20 (5-37) U/L ALT 12 (0-40) U/L Alkaline Phosphatase 98 (39-117) U/L Total Protein 7.1 (6.5-8.0) g/dL Albumin 3.8 (3.5-5.0) g/dL Urine Color [place] Urine Appearance Cloudy Urine pH 6.0 (5.0-9.0) Ur Specific [place] 1.010 (1.005-1.025) Urine Protein 100 (2+) H (Neg-Trace) mg/dL Urine Glucose (UA) 100 H (Negative) mg/dL Urine Ketones Negative (Negative) mg/dL Urine Blood Large (3+) H (Negative) Urine Nitrite Positive H (Negative) Ur Leukocyte Esterase Large (3+) H (Negative) Urine RBC >20 H (0-2) /HPF Urine WBC >50 H (0-5) /HPF Ur Squamous Epith Cells 0-2 (0-2) /HPF Urine Bacteria None Seen (None Seen) Hyaline Casts 0-2 (0-2) /LPF Discharge Plan Discharge Clinical Impression: Acute urinary retention, Urinary tract infection Patient Disposition: Home, Self-Care Instructions: Urinary Retention in Men (ED), Urinary Tract Infection in Men (ED), Dawn Catheter Placement and Care (ED) Additional Instructions: You were found to have a urinary tract infection. A Dawn catheter was placed, keep it in place until you follow up with your urologist this week. I am sending you with an additional prescription for Bactrim DS; you can verify with the pharmacy tomorrow if this is the same prescription that you were given by your urologist. I am also giving you a prescription for prescription strength Pyridium, which is a urinary antispasmodic. To note this medication we will change your urine to a bright, orange fluorescent color, , this will resolve. Be sure to drink plenty of water. Prescriptions: New phenazopyridine [Pyridium] 200 mg tablet 200 mg PO TID PRN (Reason: pain) Qty: 9 0RF sulfamethoxazole-trimethoprim [Bactrim DS] 800-160 mg tablet 1 tab PO BID Qty: 13 0RF No Action sulfacetamide sodium 10 % drops 1 drp ophthalmic (eye) Q3H 7 Days Qty: 15 0RF erythromycin 5 mg/gram (0.5 %) ointment 1 appl ophthalmic (eye) QID 7 Days Qty: 3.5 0RF cephalexin 500 mg capsule 500 mg PO TID 7 Days Qty: 21 0RF nitrofurantoin monohyd/m-cryst 100 mg capsule 1 cap PO BID amoxicillin-pot clavulanate 875-125 mg tablet 1 tab PO Q12H Qty: 14 0RF diltiazem HCl 240 mg capsule,extended release 24hr 240 mg PO DAILY latanoprost 0.005 % drops ophthalmic (eye) atorvastatin 40 mg tablet 40 mg PO DAILY digoxin 125 mcg (0.125 mg) tablet PO Eliquis 2.5 mg tablet 2.5 mg PO BID nitroglycerin 0.4 mg tablet, sublingual sublingual alfuzosin 10 mg tablet extended release 24 hr 10 mg PO DAILY (DME) Kneeling Scooter See Rx Instructions .ROUTE .MEDSUPPLY Qty: 1 0RF Rx Instructions: As directed ascorbate calcium (vitamin C) 500 mg tablet 500 mg PO BID Print Language: Estonian
--- NOTE | 2024-06-20 20:16 | MHC.EDTECH ---
Patient brought into triage area,patient bladder scanned 347MLS,patient straight cathed himself,( pt straight cathes at home) 220MLS of orange urine,post void bladder scanned 84MLS, triage provider Yoly cerda, labs and urine obtained and sent to lab.
[2024-06-20 20:27] LABS: Basophils Absolute Auto 0.1 X10*3/uL (0.0-0.2); Basophils Percent Auto 0.4 % (0-2); Eosinophils Absolute Auto 0.1 X10*3/uL (0.0-0.4); Eosinophils Percent Auto 0.8 % (0-4); Hematocrit 42.3 % (42.0-52.0); Hemoglobin 13.8 g/dl (14.0-18.0); Imm Gran Abs Auto 0.04 X10*3/uL (0.00-0.03); Imm Gran Pct Auto 0.3 % (0.0-0.4); Lymphocytes Absolute Auto 0.7 X10*3/uL (1.2-4.9); Lymphocytes Percent Auto 5.5 % (20-40); MANUAL DIFF FLAG NO; Mean Corpuscular HGB Conc 32.6 g/dl (31.0-36.0); Mean Corpuscular Hemoglobin 30.3 pg (27.0-33.0); Mean Corpuscular Volume 92.8 fL (80.0-98.0); Monocytes Absolute Auto 1.1 X10*3/uL (0.1-1.2); Monocytes Percent Auto 9.2 % (2-11); Neutrophils Absolute Auto 10.3 x10*3/uL (2.0-8.3); Neutrophils Percent Auto 83.8 % (45-73); Platelet Count 184 X10*3/uL (160-400); Red Blood Count 4.56 X10*6/uL (4.60-5.80); Red Cell Distribution Width 13.2 % (11.0-16.0); White Blood Count 12.3 X10*3/uL (4.8-10.8)
[2024-06-20 20:34] LABS: Appearance Urine Cloudy; Color Urine Orange; Glucose Urine UA 100 mg/dL (Negative); Leukocyte Esterase Urine Large (3+) (Negative); Nitrite Urine Positive (Negative); UMIC TRIGGER UACC YES; Urine Blood Large (3+) (Negative); Urine Ketones Negative (Negative); Urine Protein 100 (2+) mg/dL (Neg-Trace)
[2024-06-20 20:46] LABS: Bacteria Urine None Seen (None Seen); Hyaline Casts Urine 0-2 /LPF (0-2); RBC Urine >20 /HPF (0-2); Squamous Epithelial Cell Urine 0-2 /HPF (0-2); UACC Culture Trigger YES; WBC Urine >50 /HPF (0-5)
[2024-06-20 20:49] LABS: Alanine Aminotransferase 12 U/L (0-40); Albumin Level 3.8 g/dL (3.5-5.0); Alkaline Phosphatase 98 U/L (39-117); Anion Gap 14 (12-20); Aspartate Amino Transferase 20 U/L (5-37); Bilirubin Total 0.7 mg/dL (0.0-1.0); Blood Urea Nitrogen 17 mg/dL (9-16); Calcium 9.2 mg/dL (8.4-10.2); Carbon Dioxide 22 mmol/L (22-29); Chloride 110 mmol/L (96-108); Creatinine Clr Calc Pharmacy 38.7; Estimated Glomerular Filt Rate 50; Glucose Random 111 mg/dL (60-115); Potassium 4.3 mmol/L (3.3-5.1); Sodium 142 mmol/L (135-145); Total Protein 7.1 g/dL (6.5-8.0)
--- OUTSIDE RECORDS SUMMARY | 2024-06-20 21:02 | XMS_ITS | Clinical Summary ---
Author Organization 299 [facility] Address [address] [place] [address] Phone Care Team Providers Care Lamp Mechanic Name Role Phone Physician, Pcp Unknown Primary Care Provider Jennifer vailable Encounters Date Type Department Care Team Description 06/18/2024 Lab Requisition [facility] - Main Lab [address] [facility] [place] [address] Gael Minor PA Gross hematuria; Dysuria from Last 3 Months Social History Tobacco Use Types Packs/Day Years Used Date Smoking Tobacco: Never Assessed Sex and Gender Information Value Date Recorded Sex Assigned at Not on file Legal Sex Male 10:36 AM EST Gender Identity Not on file Sexual Orientation Not on file Plan of Treatment Health Maintenance Due Date Last Done Comments DTaP,Tdap,and Td Vaccines (1 - Tdap) 06/30/1959 Pneumococcal Vaccine: 50+ Ye ars (1 of 1 - PCV) 1990 Zoster Vaccines (1 of 2) 1990 RSV Immunization Patients 60 + Years Old (1 - 1-dose 75+ series) 06/30/2015 COVID-19 Vaccine ( - 2023-2 5 season) 2023 Influenza Vaccine (#1) 2023 Cholesterol Screening (Lipid Panel) 06/18/2024 Depression Screening 06/18/2024 Falls Risk Assessment 06/18/2024 Medicare Annual Wellness Visit 06/18/2024 Social Influencers of Health Screening 06/18/2024 HIB Vaccines Aged Out No longer eligi ble based on patient's age to complete this topic HPV Vaccines Aged Out No longer eligi ble based on patient's age to complete this topic Hepatitis A Vaccines Aged Out No long er eligible based on patient's age to complete this topic Hepatitis B Vaccines Aged Out No long er eligible based on patient's age to complete this topic IPV Vaccines Aged Out No longer eligi ble based on patient's age to complete this topic MMR Vaccines Aged Out No longer eligi ble based on patient's age to complete this topic Meningococcal ACWY Vaccine Aged Out N o longer eligible based on patient's age to complete this topic Meningococcal B Vacine Aged Out No lo nger eligible based on patient's age to complete this topic RSV Immunization Patients Un elizabeth 20 months Aged Out No longer eligible b ased on patient's age to complete this topic Varicella Vaccines Aged Out No longer eligible based on patient's age to complete this topic Procedures Procedure Name Priority Date/Time Associated Diagnosis Comments URINALYSIS WITH REFLEX MICROSCOPIC Routine 06/18/2024 11:10 AM EST Gross hematuria Dysuria URINALYSIS WITH REFLEX MICROSCOPIC Routine 06/18/2024 11:10 AM EST Gross hematuria Dysuria CULTURE URINE Routine 06/18/2024 11:10 AM EST Gross hematuria Dysuria from Last 3 Months Results * (ABNORMAL) Urinalysis with reflex microscopic (06/18/2024 11:10 AM EST) Specific [place] Urine 1.017 1.003 - 1.030 LAB URINALYSIS - AUTOMATED METHOD 06/18/2024 3:01 PM [facility] pH, Urine 6.0 5.0 - 8.0 pH LAB URINALYSIS - AUTOMATED METHOD 06/18/2024 3:01 PM [facility] Leukocytes, Urine Large(A) Negative LAB URINALYSIS - AUTOMATED METHOD 06/18/2024 3:01 PM [facility] Nitrite, Urine Negative Negative LAB URINALYSIS - AUTOMATED METHOD 06/18/2024 3:01 PM [facility] Protein, Urine 300(A) <=Trace mg/dL LAB URINALYSIS - AUTOMATED METHOD 06/18/2024 3:01 PM [facility] Glucose, Urine Negative Negative mg/dL LAB URINALYSIS - AUTOMATED METHOD 06/18/2024 3:01 PM [facility] Ketones, Urine Negative Negative mg/dL LAB URINALYSIS - AUTOMATED METHOD 06/18/2024 3:01 PM [facility] Urobilinogen , Urine 0.2 0.2 - 1.0 mg/dL LAB URINALYSIS - AUTOMATED METHOD 06/18/2024 3:01 PM [facility] Bilirubin, Urine Negative Negative LAB URINALYSIS - AUTOMATED METHOD 06/18/2024 3:01 PM [facility] Blood, Urine Large(A) Negative LAB URINALYSIS - AUTOMATED METHOD 06/18/2024 3:01 PM [facility] RBC, Urine 3,958.6(H) 0 - 4 /HPF LAB URINALYSIS - AUTOMATED METHOD 06/18/2024 3:01 PM [facility] WBC, Urine 629.1(H) 0 - 4 /HPF LAB URINALYSIS - AUTOMATED METHOD 06/18/2024 3:01 PM [facility] Squamous Epithelial, Urine 0 0 - 60 /LPF LAB URINALYSIS - AUTOMATED METHOD 06/18/2024 3:01 PM [facility] Bacteria, Urine Negative Negative /HPF LAB URINALYSIS - AUTOMATED METHOD 06/18/2024 3:01 PM [facility] Hyaline Casts, Urine 0.0 0 - 3 /LPF LAB URINALYSIS - AUTOMATED METHOD 06/18/2024 3:01 PM [facility] Urine Urine specimen from urinary conduit / Unknown 06/18/2024 11:10 AM EST 06/18/2024 2:31 PM EST us Gael RAYGOZA LAB URINE ORDERABLES Final Resul t [facility] [address] [place] [address], * (ABNORMAL) Culture urine (06/18/2024 11:10 AM EST) Culture, Urine >100,000 CFU/mL Staphylococcus epidermidis(A) JAMES 06/20/2024 11:44 AM EST [facility] Comment: Edited result: Previously reported as Gram Positive Cocci on 06/19/2024 at 0843 EST. Urine Urine specimen from urinary conduit / Unknown 06/18/2024 11:10 AM EST 06/18/2024 2:31 PM EST Narrative Organism Antibiotic Method Susceptibility Staphylococcus epidermidis Benzylpenicillin JAMES >=0.5 ug/ml: Resistant Staphylococcus epidermidis Oxacillin JAMES >=4 ug/ml: Resistant Staphylococcus epidermidis Gentamicin JAMES <=0.5 ug/ml: Susceptible Staphylococcus epidermidis Ciprofloxacin JAMES >=8 ug/ml: Resistant Staphylococcus epidermidis Levofloxacin JAMES >=8 ug/ml: Resistant Staphylococcus epidermidis Quinupristin/Dalfopristin M IC <=0.25 ug/ml: Susceptible Staphylococcus epidermidis Linezolid JAMES 1 ug/ml: Susceptible Staphylococcus epidermidis Vancomycin JAMES 1 ug/ml: Susceptible Staphylococcus epidermidis Tetracycline JAMES >=16 ug/ml: Resistant Staphylococcus epidermidis Nitrofurantoin JAMES <=16 ug/ml: Susceptible Staphylococcus epidermidis Rifampin JAMES <=0.5 ug/ml: Susceptible Gael RAYGOZA LAB MICROBIOLOGY - GENERAL ORDER SANDIP Final Result [facility] [address] [place] [address], from Last 3 Months Insurance MEDICARE Member Subscriber Plan / Payer (Ef fective 2005-Present) Name:Jax Márquez Member ID:[id number] Relation to Subscriber:Self Name:Jax Márquez Subscriber ID:[id number] Payer ID:Not on file Group ID:Not on file Type:Medicare Address: [place] [phone] [facility] Care Teams Lamp Mechanic Relationship Specialty Start Date End Date Physician, Pcp Unknown PCP - General 06/18/24
--- OUTSIDE RECORDS SUMMARY | 2024-06-20 21:03 | XMS_ITS | Clinical Summary ---
Author Organization [facility] Address [address] [place] [address] Care Team Providers Care Manager Client Service Name Role Phone Unavailable Primary Care Provider [...] (1 of 2) 1990 Falls Prevention 2005 [id number] ( season) 2023 021, 06/13/2020 Imm-Influenza (#1) 2023 04/04/2012, 0 01/23/2011, 03/20/2010, Additional history exists Alcohol and Drug Screen 04/29/2024 Depression Annual Screen 04/29/2024 Hypertension Screening (#1) 08/25/2024 Imm-DTaP/Tdap/Td (2 - Td or Tdap) 10/11/2032 10/11/2022, 04/10/2021, 08/06/2017, Additional history exists Imm-Pneumococcal 65+ Completed 07/19/2015, 03/31/20 10 Insurance [place]ARE - [place] [facility] Member Subscriber Plan / Payer (Ef fective 2005-Present) Name:Jax Márquez Relation to Subscriber:Self Name:Jax Márquez Payer ID:[id number] Type:Indemnity Address: [facility] [address] [place] [id number]
[2024-06-20] MEDS: Phenazopyridine HCL 200 MG TABLET PO (21:37)
[2024-06-20] MEDS: Sulfamethox/Trimeth 800/160 TABLET 1 TAB PO (21:37)
[2024-06-20 21:39] VITALS: BP 112/61; PULSE 97; RESP 16; TEMP 37.5; O2SAT 97
--- NOTE | 2024-06-20 22:02 | PC.NURSE ---
Went into patient's room to discharge patient, upon entering, patient states he forgot to mention to PA that he's been having intermittent pain in the back of his head x weeks 08/06, denies head strike, requesting tylenol. No brusing, induration, or erethema noted. Informed patient he is currently discharged, will have to wait longer for provider to reassess him. Patient verbalized understanding. Provider Mabel RAYGOZA made aware, will assess patient.
--- NOTE | 2024-06-20 22:30 | PC.NURSE ---
Pt rang again. Now feels as if his head pain isn't that bad and the provider has not been quick enough in returning and I would just like to go home . Informed patient that provider is occupied seeing other patients, and this RN could not just discharge him after him an additional complaint was lodged. Confirmed with Mabel provider that he awas good to go. Discharge paperwork reviewed with patient, all questions answered, patient verbalized understanding.
[2024-06-20 22:34] VITALS: BP 112/61; PULSE 97; RESP 16; TEMP 37.5; O2SAT 97
== END 2024-06-20 22:35 | disposition home or self-care (01) ==
PROVIDERS: Physician Assistant Medical; Emergency Provider Emergency Medicine; PCP Family Medicine
DX: R33.9 Retention of urine, unspecified (principal); N39.0 Urinary tract infection, site not specified; B95.7 Other staphylococcus as the cause of diseases classified elsewhere; I10 Essential (primary) hypertension; I48.91 Unspecified atrial fibrillation; C67.9 Malignant neoplasm of bladder, unspecified; C79.00 Secondary malignant neoplasm of unspecified kidney and renal pelvis; Z87.891 Personal history of nicotine dependence
CPT/HCPCS: 36415; 51702; 51798; 80053; 81001; 83735; 85025; 87086; 87088; 87186; 99284

== ENCOUNTER 2024-06-30 09:57 | Outpatient (AMB) | payer MEDICARE, SELFPAY ==
--- NOTE | 2024-06-30 10:01 | MHC.OFFVIS ---
Vital Signs 06/30/24 10:24 Height 5 ft 7 in Weight 160 lb BMI 25.1 Intake Visit Reasons: O/V LT IF distal tuft avulsion DOI 03/25/24-w/xray Intake Note: Jax 84 yr old right hand dominant male presents today for a follow up visit for his left hand lacerations to the index & middle fingertips & left index distal tuft avulsion fx from a table saw injury, DOI: 03/25/24. States his ROM has improved and has no concerns for today. Allergies shellfish derived Allergy (Verified 06/30/24 10:02) Unknown HPI HPI O/V LT IF distal tuft avulsion DOI 03/25/24-w/xray: Details: Jax is an 84 year old right hand dominant man who was seen today with his . He sustained a table saw injury to the left index finger on 03/25/2024. Of note, he had had a previous significant table saw injury to the tip of the same finger when he was in his 30s. At that time he reported that he had been missing a portion of the tip of the finger including part of the nail since that time. He says he is doing well overall, without complaint, and his wound has healed. He had a good time on his trip to the [facility], and denies any symptoms of infection. His says they both had some other health issues while on vacation, which they are recovering from. 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 Vascular: Cap refill brisk ROM: He can make a fist and extend all of his digits, including with the index finger. Good soft tissue coverage Wound completely healed The nail is growing in well He has no swelling or erythema. Radiographs: 3 views of the left hand were taken and viewed by me today in clinic. They show a healed fracture of the ulnar side of the index finger distal phalanx tuft with some bone loss from this area. Based on the wound, I would surmise that the bone losses more likely chronic. Psych Appearance: grossly normal Affect: normal affect Attitude: cooperative Assessment & Plan Assessment & Plan (1) Open fracture of distal phalanx of left index finger: Code(s): S62.631B - Displaced fracture of distal phalanx of left index finger, initial encounter for open fracture Category: Medical (2) Laceration of finger of left hand: Code(s): S61.219A - Laceration without foreign body of unspecified finger without damage to nail, initial encounter Category: Medical Plan Assessment & Plan: 1. Left index finger distal phalanx tuft fracture, open From a table saw injury, DOI: 03/25/24 Please note he suffered a previous finger injury ~50 years ago, which resulted in nailbed deviation 2. Left hand more superficial lacerations To the index & middle fingertips, From a table saw injury, DOI: 03/25/24 These have healed fully I educated him about this condition He has gone on to heal well without any complications He can return to all normal activities He will follow up prn Scribed for Jossy Neri MD by Diego Ortiz, rn medical inpatient services, on 06/30/24 at 10:30 AM, EST. Orders: Orders XR hand LT min 3V Today M79.642 - Pain in left hand Coding Level of Care Code Est Pt Level 3 (93275) Diagnoses Open fracture of distal phalanx of left index finger S62.631B Laceration of finger of left hand S61.219A
[2024-06-30 10:24] VITALS: BMI 25.1
--- OUTSIDE RECORDS SUMMARY | 2024-06-30 11:52 | XMS_ITS | Clinical Summary ---
Author Organization 299 [facility] Address [address] [place] [address] Phone Care Team Providers Care Academic Support Director Name Role Phone Physician, Pcp Unknown Primary Care Provider Jennifer vailable Encounters Date Type Department Care Team Description 06/18/2024 Lab Requisition [facility] - Main Lab [address] [facility] [place] [address] Gael Minor PA Gross hematuria; [...] Health Maintenance Due Date Last Done Comments COVID-19 Vaccine (#1) 1945 DTaP,Tdap,and Td Vaccines (1 - Tdap) 06/30/1959 Pneumococcal Vaccine: 50+ Years (1 of 2 - PCV) 06/30/1959 Zoster Vaccines (1 of 2) 06/30/1959 RSV Immunization Patients 60 + Years Old (1 - 1-dose 75+ series) 06/30/2015 Influenza Vaccine (#1) 2023 Cholesterol Screening (Lipid Panel) 06/18/2024 Depression Screening 06/18/2024 Falls Risk Assessment 06/18/2024 Medicare Annual Wellness Visit 06/18/2024 Social Influencers of Health Screening 06/18/2024 Hypertension/CHF/CAD Annual BMP Blood Test 06/25/2024 07/02/2022, 10/25/2020, 11/18/2018 HIB Vaccines Aged Out No longer eligi [...] to complete this topic RSV Immunization Patients Under 20 months Aged Out No longer eligible [...] reflex microscopic (06/18/2024 11:10 AM EST) Specific [place] Urine 1.017 1.003 - 1.030 LAB URINALYSIS - AUTOMATED METHOD 06/18/2024 3:01 PM [facility] pH, Urine 6.0 5.0 - 8.0 pH LAB URINALYSIS - AUTOMATED METHOD 06/18/2024 3:01 PM [facility] Leukocytes, Urine Large(A) Negative LAB URINALYSIS - AUTOMATED METHOD 06/18/2024 3:01 PM [facility] Nitrite, Urine Negative Negative LAB URINALYSIS - AUTOMATED METHOD 06/18/2024 3:01 PM [facility] Protein, Urine 300(A) <=Trace mg/dL LAB URINALYSIS - AUTOMATED METHOD 06/18/2024 3:01 PM [facility] Glucose, Urine Negative Negative mg/dL LAB URINALYSIS - AUTOMATED METHOD 06/18/2024 3:01 PM [facility] Ketones, Urine Negative Negative mg/dL LAB URINALYSIS - AUTOMATED METHOD 06/18/2024 3:01 PM [facility] Urobilinogen , Urine 0.2 0.2 - 1.0 mg/dL LAB URINALYSIS - AUTOMATED METHOD 06/18/2024 3:01 PM [facility] Bilirubin, Urine Negative Negative LAB URINALYSIS - AUTOMATED METHOD 06/18/2024 3:01 PM [facility] Blood, Urine Large(A) Negative LAB URINALYSIS - AUTOMATED METHOD 06/18/2024 3:01 PM [facility] RBC, Urine 3,958.6(H) 0 - 4 /HPF LAB URINALYSIS - AUTOMATED METHOD 06/18/2024 3:01 PM [facility] WBC, Urine 629.1(H) 0 - 4 /HPF LAB URINALYSIS - AUTOMATED METHOD 06/18/2024 3:01 PM [facility] Squamous Epithelial, Urine 0 0 - 60 /LPF LAB URINALYSIS - AUTOMATED METHOD 06/18/2024 3:01 PM [facility] Bacteria, Urine Negative Negative /HPF LAB URINALYSIS - AUTOMATED METHOD 06/18/2024 3:01 PM [facility] Hyaline Casts, Urine 0.0 0 - 3 /LPF LAB URINALYSIS - AUTOMATED METHOD 06/18/2024 3:01 PM [facility] Urine Urine specimen from urinary conduit / Unknown 06/18/2024 11:10 AM EST 06/18/2024 2:31 PM EST us Gael RAYGOZA LAB URINE ORDERABLES Final Resul t [facility] [address] [place] [address], [place] [phone] * (ABNORMAL) Culture urine (06/18/2024 11:10 AM EST) Culture, Urine >100,000 CFU/mL Staphylococcus epidermidis(A) JAMES 06/20/2024 11:44 AM EST [facility] Comment: Edited result: Previously reported [...] MICROBIOLOGY - GENERAL ORDER SANDIP Final Result [facility] [address] [place] [address], [place] [phone] from Last 3 Months Insurance MEDICARE [facility] Care Teams Academic Support Director Relationship Specialty Start Date End Date Physician, Pcp Unknown PCP - General 06/18/24
--- OUTSIDE RECORDS SUMMARY | 2024-06-30 11:52 | XMS_ITS | Encounter Summary ---
Author Organization [facility] Address [address] [place] [address] Care Team Providers Care Natural Gas Basis Trader Name Role Phone Physician, Pcp Unknown Primary Care Provider Jennifer vailable Encounter Details Date Type Department Care Team (Late st Contact Info) Description 06/18/2024 Lab Requisition [facility] [address] [place] [address] Gael Minor PA [address] [facility] [address] [place] [address] Gross hematuria; Dysuria Social History Tobacco Use Types Packs/Day Years Used Date Smoking Tobacco: Never Assessed Sex and Gender Information Value Date Recorded Sex Assigned at Not on file Legal Sex Male 10:36 AM EST Gender Identity Not on file Sexual Orientation Not on file documented as of this encounter Plan of Treatment Not on file documented as of this encounter Procedures Procedure Name Priority Date/Time Associated Diagnosis Comments URINALYSIS WITH REFLEX MICROSCOPIC Routine 06/18/2024 11:10 AM EST Gross hematuria Dysuria URINALYSIS WITH REFLEX MICROSCOPIC Routine 06/18/2024 11:10 AM EST Gross hematuria Dysuria CULTURE URINE Routine 06/18/2024 11:10 AM EST Gross hematuria Dysuria documented in this encounter Results * (ABNORMAL) Urinalysis with reflex microscopic (06/18/2024 11:10 AM EST) Specific [place] Urine 1.017 1.003 - 1.030 LAB URINALYSIS - AUTOMATED METHOD 06/18/2024 3:01 PM EST [facility] pH, Urine 6.0 5.0 - 8.0 pH LAB URINALYSIS - AUTOMATED METHOD 06/18/2024 3:01 PM [facility] Leukocytes, Urine Large(A) Negative LAB URINALYSIS - AUTOMATED METHOD 06/18/2024 3:01 PM [facility] Nitrite, Urine Negative Negative LAB URINALYSIS - AUTOMATED METHOD 06/18/2024 3:01 PM [facility] Protein, Urine 300(A) <=Trace mg/dL LAB URINALYSIS - AUTOMATED METHOD 06/18/2024 3:01 PM [facility] Glucose, Urine Negative Negative mg/dL LAB URINALYSIS - AUTOMATED METHOD 06/18/2024 3:01 PM [facility] Ketones, Urine Negative Negative mg/dL LAB URINALYSIS - AUTOMATED METHOD 06/18/2024 3:01 PM [facility] Urobilinogen , Urine 0.2 0.2 - 1.0 mg/dL LAB URINALYSIS - AUTOMATED METHOD 06/18/2024 3:01 PM [facility] Bilirubin, Urine Negative Negative LAB URINALYSIS - AUTOMATED METHOD 06/18/2024 3:01 PM [facility] Blood, Urine Large(A) Negative LAB URINALYSIS - AUTOMATED METHOD 06/18/2024 3:01 PM [facility] RBC, Urine 3,958.6(H) 0 - 4 /HPF LAB URINALYSIS - AUTOMATED METHOD 06/18/2024 3:01 PM [facility] WBC, Urine 629.1(H) 0 - 4 /HPF LAB URINALYSIS - AUTOMATED METHOD 06/18/2024 3:01 PM [facility] Squamous Epithelial, Urine 0 0 - 60 /LPF LAB URINALYSIS - AUTOMATED METHOD 06/18/2024 3:01 PM [facility] Bacteria, Urine Negative Negative /HPF LAB URINALYSIS - AUTOMATED METHOD 06/18/2024 3:01 PM EST [facility] Hyaline Casts, Urine 0.0 0 - 3 /LPF LAB URINALYSIS - AUTOMATED METHOD 06/18/2024 3:01 PM EST [facility] Urine Urine specimen from urinary conduit / Unknown 06/18/2024 11:10 AM EST 06/18/2024 2:31 PM EST Gael RAYGOZA LAB URINE ORDERABLES Final Resul t Performing Organization Address [facility]/State/ZIP Co de Phone Number [facility] [address] [place] [address], [place] [phone] * (ABNORMAL) Culture urine (06/18/2024 11:10 AM EST) Culture, Urine >100,000 CFU/mL Staphylococcus epidermidis(A) JAMES 06/20/2024 11:44 AM EST [facility] Comment: Edited result: Previously reported [...] MICROBIOLOGY - GENERAL ORDER SANDIP Final Result [facility] [address] [place] [address], documented in this encounter Visit Diagnoses Diagnosis Gross hematuria Dysuria documented in this encounter Care Teams Natural Gas Basis Trader Relationship Specialty Start Date End Date Physician, Pcp Unknown PCP - General 06/18/24 documented as of this encounter
--- OUTSIDE RECORDS SUMMARY | 2024-06-30 11:53 | XMS_ITS | Clinical Summary ---
Author Organization [facility] Address [address] [place] [address] Care Team Providers Care Snack Bar Attendant Name Role Phone Unavailable Primary Care Provider [...] (1 of 2) 1990 Falls Prevention 2005 [id number] ( season) 2023 021, 06/13/2020 Imm-Influenza (#1) 2023 04/04/2012, 0 01/23/2011, 03/20/2010, Additional history exists Alcohol and Drug Screen 04/29/2024 Depression Annual Screen 04/29/2024 Hypertension Screening (#1) 08/25/2024 Imm-DTaP/Tdap/Td (2 - Td or Tdap) 10/11/2032 10/11/2022, 04/10/2021, 08/06/2017, Additional history exists Imm-Pneumococcal 65+ Completed 07/19/2015, 03/31/20 10 Insurance [place]ARE - [place] [facility] Member Subscriber Plan / Payer (Ef fective 2005-Present) Name:Jax Márquez Relation to Subscriber:Self Name:Jax Márquez Payer ID:[id number] Type:Indemnity Address: [facility] [address] [place] [id number]
== END 2024-06-30 10:45 | disposition home or self-care (01) ==
PROVIDERS: PCP Family Medicine; Visit Provider Orthopaedic Surgery
DX: S62.631B Displaced fracture of distal phalanx of left index finger, initial encounter for open fracture (principal)
CPT/HCPCS: 99213

== ENCOUNTER → 2024-06-30 10:03 | Outpatient (BNV) | payer MEDICARE, SELFPAY | PROVIDERS: Visit Provider Radiology Diagnostic Radiology | DX: M79.642 Pain in left hand (principal) | CPT/HCPCS: 73130 ==

== ENCOUNTER 2024-06-30 12:29 | Outpatient (REF) | payer MEDICARE, SELFPAY ==
--- NOTE | ~2024-06-30 | XR_ITS ---
EXAMINATION: XR HAND, LEFT CLINICAL INFORMATION: M79.642 - Pain in left hand COMPARISON: March 25, 2024. TECHNIQUE: PA, lateral, and oblique views of the left hand. FINDINGS: There is volume loss involving the soft tissues distal tip second digit and the ulnar aspect phalangeal tip of the second digit. No acute cortical disruption. No gross malalignment. Osteopenia versus osteoporosis. Soft tissue calcification in the radial aspect distal interphalangeal joint third digit. Mild joint space narrowing involving the distal and middle interphalangeal joints. XR/XR hand LT min 3V IMPRESSION: Stable appearance of the tip/distal phalanx second digit. Mild osteoarthrosis. Electronically signed by: Marquise Tipton MD 07/02/2024 11:20 AM [facility]
--- OUTSIDE RECORDS SUMMARY | 2024-07-01 14:49 | XMS_ITS | Encounter Summary ---
Author Organization [facility] Address [address] [place] [address] Care Team Providers Care Supplier Quality Manager Name Role Phone Physician, Pcp Unknown Primary Care Provider Jennifer vailable Encounter Details Date Type Department Care Team (Late st Contact Info) Description 06/18/2024 Lab Requisition [facility] Lab [address] [place] [address] Gael Minor PA [address] [facility] [address] [place] [address] Gross hematuria; Dysuria Social History Tobacco Use [...] reflex microscopic (06/18/2024 11:10 AM EST) Specific [place] Urine 1.017 1.003 - 1.030 LAB URINALYSIS - AUTOMATED METHOD 06/18/2024 3:01 PM EST [facility] pH, Urine 6.0 5.0 - [...] - AUTOMATED METHOD 06/18/2024 3:01 PM EST [facility] Hyaline Casts, Urine 0.0 0 - 3 /LPF LAB URINALYSIS - AUTOMATED METHOD 06/18/2024 3:01 PM EST [facility] Urine Urine specimen from urinary conduit / Unknown 06/18/2024 11:10 AM EST 06/18/2024 2:31 PM EST Gael RAYGOZA LAB URINE ORDERABLES Final Resul t Performing Organization Address [facility]/State/ZIP Co de Phone Number [facility] LAB [address] [place] [address], [place] [phone] * (ABNORMAL) Culture urine (06/18/2024 11:10 AM EST) Culture, Urine >100,000 CFU/mL Staphylococcus epidermidis(A) JAMES 06/20/2024 11:44 AM EST [facility] Comment: Edited result: Previously reported [...] MICROBIOLOGY - GENERAL ORDER SANDIP Final Result [facility] [address] [place] [address], documented in this encounter Visit Diagnoses Diagnosis Gross hematuria Dysuria documented in this encounter Care Teams Supplier Quality Manager Relationship Specialty Start Date End Date Physician, Pcp Unknown PCP - General 06/18/24 documented as of this encounter
--- OUTSIDE RECORDS SUMMARY | 2024-07-01 14:49 | XMS_ITS | Clinical Summary ---
Author Organization [facility] Address [address] [place] [address] Care Team Providers Care Ophthalmic Technologist Name Role Phone Unavailable Primary Care Provider [...] (1 of 2) 1990 Falls Prevention 2005 [id number] ( season) 2023 021, 06/13/2020 Imm-Influenza (#1) 2023 04/04/2012, 0 01/23/2011, 03/20/2010, Additional history exists Alcohol and Drug Screen 04/29/2024 Depression Annual Screen 04/29/2024 Hypertension Screening (#1) 08/25/2024 Imm-DTaP/Tdap/Td (2 - Td or Tdap) 10/11/2032 10/11/2022, 04/10/2021, 08/06/2017, Additional history exists Imm-Pneumococcal 65+ Completed 07/19/2015, 03/31/20 10 Insurance MEDICARE - [place] [facility] Member Subscriber Plan / Payer (Ef fective 2005-Present) Name:Jax Márquez Relation to Subscriber:Self Name:Jax Márquez Payer ID:[id number] Type:Indemnity Address: [facility] [address] [place] [id number]
--- OUTSIDE RECORDS SUMMARY | 2024-07-01 14:49 | XMS_ITS | Clinical Summary ---
Author Organization [address] [facility] Address [address] [place] [address] Phone Care Team Providers Care Secretary Name Role Phone Physician, Pcp Unknown Primary Care Provider Jennifer vailable Encounters Date Type Department Care Team Description 06/18/2024 Lab Requisition [facility] Lab [address] [facility] [place] [address] Gael Minor PA Gross hematuria; [...] reflex microscopic (06/18/2024 11:10 AM EST) Specific [place] Urine 1.017 1.003 - 1.030 LAB URINALYSIS - AUTOMATED METHOD 06/18/2024 3:01 PM [facility] LAB pH, Urine 6.0 5.0 - 8.0 pH LAB URINALYSIS - AUTOMATED METHOD 06/18/2024 3:01 PM [facility] LAB Leukocytes, Urine Large(A) Negative LAB URINALYSIS - AUTOMATED METHOD 06/18/2024 3:01 PM [facility] Nitrite, Urine Negative Negative LAB URINALYSIS - AUTOMATED METHOD 06/18/2024 3:01 PM [facility] Protein, Urine 300(A) <=Trace mg/dL LAB URINALYSIS - AUTOMATED METHOD 06/18/2024 3:01 PM [facility] Glucose, Urine Negative Negative mg/dL LAB URINALYSIS - AUTOMATED METHOD 06/18/2024 3:01 PM [facility] Ketones, Urine Negative Negative mg/dL LAB URINALYSIS - AUTOMATED METHOD 06/18/2024 3:01 PM [facility] Urobilinogen , Urine 0.2 0.2 - 1.0 mg/dL LAB URINALYSIS - AUTOMATED METHOD 06/18/2024 3:01 PM [facility] Bilirubin, Urine Negative Negative LAB URINALYSIS - AUTOMATED METHOD 06/18/2024 3:01 PM [facility] Blood, Urine Large(A) Negative LAB URINALYSIS - AUTOMATED METHOD 06/18/2024 3:01 PM [facility] RBC, Urine 3,958.6(H) 0 - 4 /HPF LAB URINALYSIS - AUTOMATED METHOD 06/18/2024 3:01 PM [facility] WBC, Urine 629.1(H) 0 - 4 /HPF LAB URINALYSIS - AUTOMATED METHOD 06/18/2024 3:01 PM [facility] Squamous Epithelial, Urine 0 0 - 60 /LPF LAB URINALYSIS - AUTOMATED METHOD 06/18/2024 3:01 PM [facility] Bacteria, Urine Negative Negative /HPF LAB URINALYSIS - AUTOMATED METHOD 06/18/2024 3:01 PM [facility] Hyaline Casts, Urine 0.0 0 - 3 /LPF LAB URINALYSIS - AUTOMATED METHOD 06/18/2024 3:01 PM [facility] Urine Urine specimen from urinary conduit / Unknown 06/18/2024 11:10 AM EST 06/18/2024 2:31 PM EST us Gael RAYGOZA LAB URINE ORDERABLES Final Resul t [facility] [address] [place] [address], [place] [phone] * (ABNORMAL) Culture urine (06/18/2024 11:10 AM EST) Culture, Urine >100,000 CFU/mL Staphylococcus epidermidis(A) JAMES 06/20/2024 11:44 AM EST [facility] Comment: Edited result: Previously reported as Gram Positive Cocci on 06/19/2024 at 0843 EST. Urine Urine specimen from urinary conduit / Unknown 06/18/2024 11:10 AM EST 06/18/2024 2:31 PM EST Narrative Organism Antibiotic Method Susceptibility Staphylococcus epidermidis Benzylpenicillin JAMES >=0.5 ug/ml: Resistant Staphylococcus epidermidis Oxacillin JAMES >=4 ug/ml: Resistant Staphylococcus epidermidis Gentamicin JMAES <=0.5 ug/ml: Susceptible Staphylococcus epidermidis Ciprofloxacin JAMES [...] MICROBIOLOGY - GENERAL ORDER SANDIP Final Result [facility] [address] [place] [address], [place] [phone] from Last 3 Months Insurance MEDICARE [facility] Care Teams Secretary Relationship Specialty Start Date End Date Physician, Pcp Unknown PCP - General 06/18/24
== END 2024-06-30 12:30 | disposition home or self-care (01) ==
LOC: HO.HOSX 12:29
PROVIDERS: Visit Provider Orthopaedic Surgery
DX: M79.672 Pain in left foot (principal); S62.631B Displaced fracture of distal phalanx of left index finger, initial encounter for open fracture
CPT/HCPCS: 73130; 99212

== ENCOUNTER 2024-12-25 16:15 | Inpatient (IN) | payer MEDICARE, SELFPAY ==
--- OUTSIDE RECORDS SUMMARY | 2024-12-24 11:13 | XMS_ITS | Encounter Summary ---
Author Organization [facility] Address [address] [facility] [address] [place] [address] Phone Care Team Providers Care Stretcher Leveler Operator Name Role Phone Margaret Chavis MD Unavailable Gertrude Kendall MD Primary Care Provider [phone] Encounter Details Date Type Department Care Team (Latest Contact Info) Description 12/24/2024 11:13 AM EDT - 12/24/2024 11:39 AM EDT Hospital Encounter [facility] [address] [place] [address] Margaret Chavis MD [address] [place] [address] [phone] Discharge Disposition: Home or Self Care Social History Tobacco Use Types Packs/Day Years Used Date Smoking Tobacco: Former Cigarettes 0.8 6 Smokeless Tobacco: Never Comments:quit 45 yrs ago Alcohol Use Standard Drinks/Week Comments Not Currently 7 (1 standard drink = 0.6 oz pur e alcohol) Education Answer Date Recorded Are you interested in more education? Not on drake e 08/27/2022 Are you concerned about learning? Not on file 08/27/2022 No 08/27/2022 No 08/27/2022 Digital Access Answer Date Recorded No 09/23/2022 No 09/23/2022 Reliable internet access at home? Not on file 09/23/2022 Device with a working camera? Not on file Intimate Partner Violence Answer Date R ecorded Are you denied basic needs s uch as food, clothing, or medical care? No 07/21/2022 In the past 12 months have y ou been in a relationship with a person who hurts, threatens, or tries to control you? No 07/21/2022 Are you denied basic needs s [facility] as food, clothing, or medical care? No 07/21/2022 In the past 12 months have y ou been in a relationship with a person who hurts, threatens, or tries to control you? No 07/21/2022 Sex and Gender Information Value Date Recorded Sex Assigned at Male 12/18/2018 12:56 PM EDT Legal Sex Male 5:22 PM EST Gender Identity Male 12/18/2018 12:56 PM EDT Sexual Orientation Straight 12/18/2018 12 :56 PM EDT documented as of this encounter Medications at Time of Discharge acetaminophen (TYLENOL) 325 mg tablet Take 2 tablets (650 mg total) by mouth every 6 (six) hours. 0 01/16/2019 alfuzosin (UROXATRAL) 10 mg 24 hr tablet Take 10 mg by mouth nightly at bedtime. at bedtime. apixaban (ELIQUIS) 5 mg tablet Take 5 mg by mouth 2 (two) times a day. atorvastatin (LIPITOR) 40 MG tablet Take 1 tablet by mouth nightly at bedtime. coenzyme Q10 100 mg capsule Take 100 mg by mouth daily. digoxin (LANOXIN) 125 mcg tablet Take 125 mcg by mouth every other day. Orally Once a day dilTIAZem (CARDIZEM LA) 240 mg 24 hr tablet Take 120 mg by mouth daily. tablet daily latanoprost (XALATAN) 0.005 % ophthalmic solution 1 drop into affected eye in the evening Ophthalmic Once a day methenamine (HIPREX) 1 gram tablet TAKE ONE TABLET BY MOUTH TWICE A DAY WITH VITAMINC TABLET. STOP IF ON ANY ANTIBIOTICS MULTIVITS/IRON FUM/FA/D3/LYCOP (MULTI FOR HIM ORAL) nitroglycerin (NITROSTAT) 0.4 MG SL tablet DISSOLVE ONE TABLET UNDER THE TOUNGE EVERY FIVE MINUTES FOR UP TO THREE DOSES NEEDED FOR CHEST PAIN. *CALL 911 IF PAIN PERSISTS tamsulosin (FLOMAX) 0.4 mg Cap Take 1 capsule (0.4 mg total) by mouth nightly at bedtime. 30 capsule 5 07/25/2022 vitamins A,C,G-eavj-cioye r (PRESERVISION AREDS) 14,320226-200 czws-ei-golj Cap Take 1 capsule by mouth 2 (two) times a day with meals. documented as of this encounter Plan of Treatment Upcoming Encounters Date Type Department Care Team (Late st Contact Info) Description 12/25/2024 Procedure Pass [facility] Echo Lab [address] [place] [address] 01/28/2025 1:30 PM EDT Appointment [facility] Echo Lab [address] [place] [address] Margaret Chavis MD [address] [address] documented as of this encounter Procedures Procedure Name Priority Date/Time Associated Diagnosis Comments COMPREHENSIVE METABOLIC PANEL Routine 12/24/2024 11:29 AM EDT Shortness of breath CBC AND DIFFERENTIAL Routine 12/24/2024 11:29 AM EDT Shortness of breath NT-PROBNP Routine 12/24/2024 11:29 AM EDT Shortness of breath documented in this encounter Results * (ABNORMAL) NT-proBNP (12/24/2024 11:29 AM EDT) NT-PROBNP 867(H) 0 - 450 pg/mL [facility] Blood 12/24/2024 11:2 9 AM EDT 12/24/2024 11:31 AM EDT us Margaret Chavis MD LAB BLOOD ORDERABLES Final R esult [facility] [address] [place] [address] * (ABNORMAL) CBC and differential (12/24/2024 11:29 AM EDT) WBC 4.87 4.00 - 11.00 K/uL [facility] RBC 4.63 4.50 - 5.90 M/uL [facility] HGB 13.5 13.5 - 17.5 g/dL [facility] HCT 43.9 41.0 - 53.0 % [facility] PLT 144(L) 150 - 450 K/uL [facility] MCV 94.8 80.0 - 100.0 fL [facility] MCH 29.2 27.0 - 31.0 pg [facility] MCHC 30.8(L) 32.0 - 36.0 g/dL [facility] RDW 14.0 11.5 - 14.5 % [facility] MPV 10.4 8.4 - 12.0 fL [facility] NRBC 0.00 0.00 /100 WBCs [facility] ABSOLUTE NRBC 0.00 0.00 K/uL [facility] DIFF METHOD Auto [facility] NEUTS 54.2 48.0 - 76.0 % [facility] LYMPHS 21.4 18.0 - 41.0 % [facility] MONOS 12.9(H) 4.0 - 11.0 % [facility] EOS 10.5(H) 0.0 - 5.0 % [facility] BASOS 0.6 0.0 - 1.5 % [facility] Granulocytes, immature (%) 0.4 0.0 - 0.9 % [facility] ABSOLUTE NEUTS 2.64 1.92 - 7.60 K/uL [facility] ABSOLUTE LYMPHS 1.04 0.72 - 4.10 K/uL [facility] ABSOLUTE MONOS 0.63 0.16 - 1.10 K/uL [facility] ABSOLUTE EOS 0.51(H) 0.00 - 0.50 K/uL [facility] ABSOLUTE BASOS 0.03 0.00 - 0.15 K/uL [facility] Granulocytes, immature 0.02 0.00 - 0.09 K/uL [facility] Blood 12/24/2024 11:2 9 AM EDT 12/24/2024 11:31 AM EDT us Margaret Chavis MD LAB BLOOD ORDERABLES Final R esult [address] [address] * Comprehensive metabolic panel (12/24/2024 11:29 AM EDT) SODIUM 142 133 - 146 mmol/L [facility] POTASSIUM 4.6 3.3 - 5.1 mmol/L [facility] CHLORIDE 106 96 - 108 mmol/L [facility] CO2 27 21 - 35 mmol/L [facility] BUN 17 6 - 19 mg/dL [facility] CREATININE 0.90 0.5 - 1.5 mg/dL [facility] GLUCOSE 97 70 - 99 mg/dL [facility] ALBUMIN 4.0 3.9 - 4.8 g/dL [facility] TOTAL PROTEIN 7.0 6.5 - 8.0 g/dL [facility] CALCIUM 9.5 8.4 - 10.3 mg/dL [facility] ALKALINE PHOSPHATASE 100 39 - 117 U/L [facility] TOTAL BILIRUBIN 0.5 0.0 - 1.2 mg/dL [facility] AST 19 0 - 37 U/L [facility] ALT 15 0 - 40 U/L [facility] GLOBULIN 3.0 1 - 4.8 g/dL [facility] EGFR 84 >59 mL/min/1.7 3m2 [facility] Comment:Estimated glomerular filtration rate calculated using the CKD-EPI refit equation. ANION GAP 14 10 - 20 mmol/L [facility] Blood 12/24/2024 11:2 9 AM EDT 12/24/2024 11:31 AM EDT us Margaret Chavis MD LAB BLOOD ORDERABLES Final R esult [address] [address] documented in this encounter Visit Diagnoses Diagnosis Shortness of breath documented in this encounter Care Teams Stretcher Leveler Operator Relationship Specialty Start Date End Date Gertrude Kendall MD [address] [place] [address] PCP - General Family Medicine 04/06/22 Margaret Chavis MD [address] [place] [address] Cardiology 01/07/19 documented as of this encounter Additional Source Comments The information contained in this document represents components of the legal health record. It is not the complete legal health record.[facility]
--- OUTSIDE RECORDS SUMMARY | 2024-12-24 11:40 | XMS_ITS | Encounter Summary ---
Author Organization [facility] Address [address] [facility] [address] [place] [address] Phone Care Team Providers Care Drawing Tender Name Role Phone Margaret Chavis MD Unavailable [phone] Gertrude Kendall MD Primary Care Provider [phone] Encounter Details Date Type Department Care Team (Latest Contact Info) Description 12/24/2024 11:40 AM EDT - 12/24/2024 11:59 PM EDT Hospital Encounter [facility], X-Ray - [address] [address] Margaret Chavis MD [address] [place] [phone] Arrived Discharge Disposition: Home or Self Care Social [...] ecorded Are you denied basic needs s [facility] as food, clothing, or medical care? No 07/21/2022 In the past 12 months have y ou been in a relationship with a person who hurts, threatens, or tries to control you? No 07/21/2022 Are you denied basic needs s [facility] as food, clothing, or medical care? No [...] at bedtime. 30 capsule 5 07/25/2022 vitamins A,C,S-ogjy-vyfwg r (PRESERVISION AREDS) 14320-731-200 pewn-cm-ejgf Cap Take 1 capsule by mouth 2 (two) times a day with meals. documented as of this encounter Plan of Treatment Upcoming Encounters Date Type Department Care Team (Late st Contact Info) Description 12/25/2024 Procedure Pass [facility] Echo Lab [address] [place] [address] 01/28/2025 1:30 PM EDT Appointment [facility] Echo Lab [address] [place] [address] Margaret Chavis MD [address] [place] [address] [phone] documented as of this encounter Procedures Procedure Name Priority Date/Time Associated Diagnosis Comments XR CHEST PA AND LATERAL 2 VIEWS Routine 12/24/2024 11:47 AM EDT H/O shortness of breath documented in this encounter Results * XR CHEST PA AND LATERAL 2 VIEWS (12/24/2024 11:47 AM EDT) Anatomical Region Laterality Modality Chest Computed Radiogr aphy 12/24/2024 12:2 8 PM EDT Impressions 12/24/2024 12:36 PM EDT No evidence of acute cardiopulmonary process. Narrative 12/24/2024 12:36 PM EDT XR CHEST PA AND LATERAL 2 VIEWS Referring clinician's provided indication for this examination in [facility]: Dyspnea (Shortness of Breath) COMPARISON: 07/08/2023, 07/21/2022 FINDINGS: Devices/Tubes/Lines: None. Lungs: Rounded opacity overlying the mid to lower lung zone bilaterally, favored to represent prominent nipple contour. No focal airspace consolidation or evidence of pulmonary edema. Pleura: No pleural effusion or pneumothorax. Heart/Mediastinum: Stable size and contour of the cardiomediastinal silhouette. Bones/Soft Tissues: Multilevel spondylosis. Right acromioclavicular arthropathy. Anterior wedging of several mid thoracic vertebral bodies. Procedure Note Dali Martin MD - 12/24/2024 XR CHEST PA AND LATERAL 2 VIEWS Referring clinician's provided indication for this examination in [facility]:Dyspnea (Shortness of Breath) COMPARISON: 07/08/2023, 07/21/2022 FINDINGS: Devices/Tubes/Lines: None. Lungs: Rounded opacity overlying the mid to lower lung zone bilaterally,favored to represent prominent nipple contour. No focal airspaceconsolidation or evidence of pulmonary edema. Pleura: No pleural effusion or pneumothorax. Heart/Mediastinum: Stable size and contour of the cardiomediastinalsilhouette. Bones/Soft Tissues: Multilevel spondylosis. Right acromioclaviculararthropathy. Anterior wedging of several mid thoracic vertebral bodies. IMPRESSION: No evidence of acute cardiopulmonary process. Margaret Chavis MD IMG XR CHEST Final Result documented in this encounter Visit Diagnoses Diagnosis H/O shortness of breath documented in this encounter Care Teams Drawing Tender Relationship Specialty Start Date End Date Gertrude Kendall MD [address] [place] [id number] PCP - General Family Medicine 04/06/22 Margaret Chavis MD [address] [place] [address] Cardiology 01/07/19 documented as of this encounter Additional Source Comments The information contained in this document represents components of the legal health record. It is not the complete legal health record.[facility]
[2024-12-25] VITALS (12 sets, daily range): BP systolic 91–115; BP diastolic 43–55; PULSE 68–100; RESP 12–22; TEMP 36.7–38.2; O2SAT 73–99; BMI 25.3
--- NOTE | ~2024-12-25 | XR_ITS ---
CLINICAL HISTORY: cough, fever 1 view chest x-ray Comparison: None provided Findings: Lungs are clear without acute infiltrates. No pneumothorax. Heart size normal. No acute bony abnormalities. Impression: No acute processes This document has been electronically signed by: Sher Chen MD on 12/25/2024 19:12:52
--- NOTE | 2024-12-25 16:22 | ECG_ITS ---
Test Reason : SOB Blood Pressure : */* mmHG Vent. Rate : 92 BPM Atrial Rate : * BPM P-R Int : * ms QRS Dur : 88 ms QT Int : 344 ms P-R-T Axes : * -30 -19 degrees QTcB Int : 425 ms Atrial fibrillation with premature ventricular or aberrantly conducted complexes Left axis deviation Anterior infarct , age undetermined Abnormal ECG When compared with ECG of 25-Dec-2014 23:22, Nonspecific T wave abnormality now evident in Lateral leads Referred By: Generic ED Physician Electronically Signed By: NORY HARRIS
--- OUTSIDE RECORDS SUMMARY | 2024-12-25 16:50 | XMS_ITS | Encounter Summary ---
Author Organization [facility] Address [address] [place] [address] Phone Care Team Providers Care Perishable Fruit Inspector Name Role Phone Shahab Perkins MD Primary Care Provider [phone] Margaret Chavis MD Unavailable [phone] Gertrude Kendall MD Primary Care Provider [phone] Encounter Details Date Type Department Care Team (Late st Contact Info) Description 12/26/2021 Procedure Pass [facility]-In[facility]iology [address] [place] [address] Social History Tobacco Use Types Packs/Day Years Used Date Smoking Tobacco: Former Cigarettes 0.8 6 Smokeless Tobacco: Never Comments:quit 45 yrs ago Alcohol Use Standard Drinks/Week Comments Yes 7 (1 standard drink = 0.6 oz pur e alcohol) Sex and Gender Information Value Date Recorded Sex Assigned at Male 12/18/2018 12:56 PM EDT Legal Sex Male 5:22 PM EST Gender Identity Male 12/18/2018 12:56 PM EDT Sexual Orientation Straight 12/18/2018 12 :56 PM EDT documented as of this encounter Plan of Treatment Upcoming Encounters Date Type Department Care Team (Late st Contact Info) Description 12/25/2024 Procedure Pass [facility] Echo Lab [address] [place] [address] 01/28/2025 1:30 PM EDT Appointment [facility] Lab [address] [place] [address] Margaret Chavis MD [address] [place] [address] documented as of this encounter Visit Diagnoses Not on filedocumented in this encounter Additional Health Concerns Infection Onset Date Last Indicated Resolved Time CoV-Risk 07/21/2022 07/21/2022 07/23/2022 9:59 AM EDT documented as of this encounter Care Teams Perishable Fruit Inspector Relationship Specialty Start Date End Date Shahab Perkins MD [address] [facility] [address] [place] [address] [email or web address] PCP - General Family Medicine 08/13/17 04/05/22 Gertrude Kendall MD [address] [place] [address] [email or web address] PCP - General Family Medicine 04/06/22 Margaret Chavis MD [address] [address] Cardiology 01/07/19 documented as of this encounter Additional Source Comments The information contained in this document represents components of the legal health record. It is not the complete legal health record.[facility]
--- OUTSIDE RECORDS SUMMARY | 2024-12-25 16:50 | XMS_ITS | Clinical Summary ---
Author Organization [facility] Address [address] [place] [address] Care Team Providers Care Store Person Name Role Phone Unavailable Primary Care Provider [...] (1 of 2) 1990 Falls Prevention 2005 Imm-RSV (adult) (1 - 1-dose 75+ series) 06/30/2015 [id number] ( - season) 2023 021, 06/13/2020 Alcohol and Drug Screen 04/29/2024 Depression Annual Screen 04/29/2024 Hypertension Screening (#1) 08/25/2024 Imm-Influenza (#1) 2024 04/04/2012, 0 01/23/2011, 03/20/2010, Additional history exists Imm-DTaP/Tdap/Td (2 - Td or Tdap) 10/11/2032 10/11/2022, 04/10/2021, 08/06/2017, Additional history exists Imm-Pneumococcal 50+ Completed 07/19/2015, 03/31/20 10 Insurance MEDICARE - [place] [facility]
--- OUTSIDE RECORDS SUMMARY | 2024-12-25 16:50 | XMS_ITS | Encounter Summary ---
Author Organization [facility] Address [address] [facility] [address] [place] [address] Phone Care Team Providers Care Aircraft Structural Repairer Name Role Phone Margaret Chavis MD Unavailable [phone] Gertrude Kendall MD Primary Care Provider [phone] Encounter Details Date Type Department Care Team (Late st Contact Info) Description 06/08/2024 Procedure Pass [place] Admitting Dept - Virtual Department [address] [place] [address] Social History Tobacco Use Types Packs/Day Years [...] 07/21/2022 Are you denied basic needs s uch [...] 12/25/2024 Procedure Pass [facility] Echo Lab [address] [place] [address] 01/28/2025 1:30 PM EDT Appointment [facility] Echo Lab [address] [place] [address] Margaret Chavis MD [address] [place] [address] documented as of this encounter Visit Diagnoses Not on filedocumented in this encounter Care Teams Aircraft Structural Repairer Relationship Specialty Start Date End Date Gertrude Kendall MD [address] [place] [address] PCP - General Family Medicine 04/06/22 Margaret Chavis MD [address] [place] [address] Cardiology 01/07/19 documented as of this encounter Additional Source Comments The information contained in this document represents components of the legal health record. It is not the complete legal health record.[facility]
--- OUTSIDE RECORDS SUMMARY | 2024-12-25 16:50 | XMS_ITS | Encounter Summary ---
Author Organization [facility] Address [address] [place] [address] Phone Care Team Providers Care Precision Lens Generator Name Role Phone Shahab Perkins MD Primary Care Provider [phone] Margaret Chavis MD Unavailable [phone] Gertrude Kendall MD Primary Care Provider + [phone] Encounter Details Date Type Department Care Team (Late Contact Info) Description 12/01/2019 Procedure Pass OR Admitting Dept - Virtual Department [address] [place] [address] Social History Tobacco Use Types Packs/Day Years Used Date Smoking Tobacco: Former Cigarettes Smokeless Tobacco: Never Comments:quit 45 yrs ago Alcohol Use Standard Drinks/Week Comments Yes 0 (1 standard drink = 0.6 oz pur e alcohol) 1-2 glasses of wine daily Sex and Gender Information Value Date Recorded Sex Assigned at Male 12/18/2018 12:56 PM EDT Legal Sex Male 5:22 PM EST Gender Identity Male 12/18/2018 12:56 PM EDT Sexual Orientation Straight 12/18/2018 12 :56 PM EDT documented as of this encounter Plan of Treatment Upcoming Encounters Date Type Department Care Team (Late Contact Info) Description 12/25/2024 Procedure Pass [facility] Echo Lab [address] [place] [address] 01/28/2025 1:30 PM EDT Appointment [facility] Echo Lab [address] [place] [address] Margaret Chavis MD [address] [place] [address], [place] [address] documented as of this encounter Visit Diagnoses Not on filedocumented in this encounter Additional Health Concerns Infection Onset Date Last Indicated Resolved Time CoV-Risk 07/21/2022 07/21/2022 07/23/2022 9:59 AM EDT documented as of this encounter Care Teams Precision Lens Generator Relationship Specialty Start Date End Date Shahab Perkins MD 230 [facility] [address] [place] [address] [email or web address] PCP - General Family Medicine 08/13/17 04/05/22 Gertrude Kendall MD [address] [place] [address] PCP - General Family Medicine 04/06/22 Margaret Chavis MD [address] [address] Cardiology 01/07/19 documented as of this encounter Additional Source Comments The information contained in this document represents components of the legal health record. It is not the complete legal health record.[facility]
--- OUTSIDE RECORDS SUMMARY | 2024-12-25 16:50 | XMS_ITS | Encounter Summary ---
Author Organization [facility] Address [address] [place] [address] Phone Care Team Providers Care Pipe Layer Name Role Phone Margaret Chavis MD Unavailable Gertrude Kendall MD Primary Care Provider [phone] Encounter Details Date Type Department Care Team (Late st Contact Info) Description 12/24/2024 Ancillary Orders [facility] [address] [place] [address] Margaret Chavis MD [address] [id number] H/O shortness of breath (Primary Dx) Social History Tobacco Use Types Packs/Day Years [...] 12/25/2024 Procedure Pass [facility] Echo Lab [address] [place] [address] 01/28/2025 1:30 PM EDT Appointment [facility] Echo Lab [address] [place] [address] Margaret Chavis MD [address] [address] documented as of this encounter Results * XR CHEST PA AND LATERAL 2 VIEWS (12/24/2024 11:47 AM EDT) Anatomical Region Laterality Modality Chest Computed Radiogr aphy 12/24/2024 12:2 8 PM EDT Impressions 12/24/2024 12:36 PM EDT No evidence of acute cardiopulmonary process. Narrative 12/24/2024 12:36 PM EDT XR CHEST PA AND LATERAL 2 VIEWS Referring clinician's provided indication for this examination in [facility]: Dyspnea (Shortness of Breath) COMPARISON: 07/08/2023, 07/21/2022 [...] clinician's provided indication for this examination in [facility]:Dyspnea (Shortness of Breath) COMPARISON: 07/08/2023, 07/21/2022 FINDINGS: [...] encounter Visit Diagnoses Diagnosis H/O shortness of breath- Primary H/O shortness of breath documented in this encounter Care Teams Pipe Layer Relationship Specialty Start Date End Date Gertrude Kendall MD [address] [place] [address] PCP - General Family Medicine 04/06/22 Margaret Chavis MD [address] [place] [address] Cardiology 01/07/19 documented as of this encounter Additional Source Comments The information contained in this document represents components of the legal health record. It is not the complete legal health record.[facility]
--- OUTSIDE RECORDS SUMMARY | 2024-12-25 16:50 | XMS_ITS | Encounter Summary ---
Author Organization [facility] Address [address] [place] [address] Care Team Providers Care Employment Appeals Examiner Name Role Phone Physician, Pcp Unknown Primary Care Provider Jennifer vailable Encounter Details Date Type Department Care Team (Late st Contact Info) Description 07/16/[address] [facility] [address] [facility] [place] [address] Yudy Lock PA [address] [facility] [address] [place] [address] Feeling of incomplete bladder emptying Social History Tobacco Use Types Packs/Day Years [...] Procedure Name Priority Date/Time Associated Diagnosis Comments BACTERIAL IDENTIFICATION AND SUSCEPTIBILITY, AEROBIC Routine 07/15/2024 12:00 AM EDT Feeling of incomplete bladder emptying documented in this encounter Results * (ABNORMAL) Bacterial identification and susceptibility, aerobic (07/15/2024 12:00 AM EDT) Culture, Bacterial ID and Sensitivity Klebsiella pneumoniae ssp pneumoniae(A) JAMES 07/17/2024 11:07 AM EDT [facility] Comment: This is an edited result. Previous organism was Gram negative bacilli on 07/16/2024 at 1413 EDT. Other Urinary bladder structure / Unknown 07/15/2024 07/16/2024 1:14 PM EDT Narrative Organism Antibiotic Method Susceptibility Klebsiella pneumoniae ssp pneumoniae Amoxicillin/Clavulanate JAMES 4 ug/ml: Susceptible Klebsiella pneumoniae ssp pneumoniae Ampicillin/Sulbactam JAMES 8 ug/ml: Susceptible Klebsiella pneumoniae ssp pneumoniae Piperacillin/Tazobactam JAMES 8 ug/ml: Susceptible Klebsiella pneumoniae ssp pneumoniae Cefazolin (Urine) JAMES 2 ug/ml: Susceptible Klebsiella pneumoniae ssp pneumoniae Cefoxitin JAMES <=4 ug/ml: Susceptible Klebsiella pneumoniae ssp pneumoniae Ceftazidime JAMES <=0.5 ug/ml: Susceptible Klebsiella pneumoniae ssp pneumoniae Ceftriaxone JAMES <=0.25 ug/ml: Susceptible Klebsiella pneumoniae ssp pneumoniae Cefepime JAMES <=0.12 ug/ml: Susceptible Klebsiella pneumoniae ssp pneumoniae Meropenem JAMES <=0.25 ug/ml: Susceptible Klebsiella pneumoniae ssp pneumoniae Amikacin JAMES 2 ug/ml: Susceptible Klebsiella pneumoniae ssp pneumoniae Gentamicin JAMES <=1 ug/ml: Susceptible Klebsiella pneumoniae ssp pneumoniae Ciprofloxacin JAMES 1 ug/ml: Resistant Klebsiella pneumoniae ssp pneumoniae Levofloxacin JAMES 1 ug/ml: Intermediate Klebsiella pneumoniae ssp pneumoniae Nitrofurantoin JAMES 128 ug/ml: Resistant Klebsiella pneumoniae ssp pneumoniae Trimethoprim/Sulfamethoxazo le JAMES 40 ug/ml: Susceptible us Yudy [facility] MICROBIOLOGY - GENERAL ORDER SANDIP Final Result [facility] [address] [place] [address], documented in this encounter Visit Diagnoses Diagnosis Feeling of incomplete bladder emptying documented in this encounter Care Teams Employment Appeals Examiner Relationship Specialty Start Date End Date Physician, Pcp Unknown PCP - General 06/18/24 documented as of this encounter
--- OUTSIDE RECORDS SUMMARY | 2024-12-25 16:50 | XMS_ITS | Encounter Summary ---
Author Organization [facility] Address [address] [place] [address] [place] [address] Phone Care Team Providers Care A Class Lineman Name Role Phone Shahab Perkins MD Primary Care Provider [phone] Margaret Chavis MD Unavailable [phone] Gertrude Kendall MD Primary Care Provider + [phone] Encounter Details Date Type Department Care Team (Late Contact Info) Description 11/15/2020 Procedure Pass OR Admitting Dept - Virtual Department [address] [place] [address] Social History Tobacco Use Types Packs/Day Years [...] (Late Contact Info) Description 12/25/2024 Procedure Pass [facility] Echo Lab [address] [place] [address] 01/28/2025 1:30 PM EDT Appointment [facility] Echo Lab [address] [place] [address] Margaret Chavis MD [address] [place] [address] documented as of this encounter Visit Diagnoses Not on filedocumented in this encounter Additional Health Concerns Infection Onset Date Last Indicated Resolved Time CoV-Risk 07/21/2022 07/21/2022 07/23/2022 9:59 AM EDT documented as of this encounter Care Teams A Class Lineman Relationship Specialty Start Date End Date Shahab Perkins MD 230 [facility] [address] [place] [address] [email or web address] PCP - General Family Medicine 08/13/17 04/05/22 Gertrude Kendall MD [address] [place] [address] PCP - General Family Medicine 04/06/22 Margaret Chavis MD [address] [address] Cardiology 01/07/19 documented as of this encounter Additional Source Comments The information contained in this document represents components of the legal health record. It is not the complete legal health record.[facility]
--- OUTSIDE RECORDS SUMMARY | 2024-12-25 16:50 | XMS_ITS | Encounter Summary ---
Author Organization [facility] Address [address] [place] [address] Phone Care Team Providers Care Jeep Mechanic Name Role Phone Shahab Perkins MD Primary Care Provider [phone] Margaret Chavis MD Unavailable [phone] Gertrude Kendall MD Primary Care Provider + [phone] Reason for Referral * MRI/CAT Scan - Closed Specialty Diagnoses / Procedures Referred By Contmaxim mac Referred To Contact Radiology Diagnoses LLQ pain Procedures CT Abdomen/Pelvis Shahab Perkins MD Phone: tel: fax: [email or web address] Referral ID Status Reason Start Date Expiration Date Visits Re quested Visits Authorized [id number] Closed 09/23/2019 09/22/2020 1 1 Encounter Details Date Type Department Care Team (Latest Contact Info) Description 09/23/2019 Transcribe Orders Virtual Department [address] [place] [address] Shahab Perkins MD 230 [facility] [address] [place] [phone] [email or web address] LLQ pain (Primary Dx) Social History Tobacco Use Types [...] Contact Info) Description 12/25/2024 Procedure Pass [facility] Echo Lab [address] [place] [address] 01/28/2025 1:30 PM EDT Appointment [facility] Echo Lab [address] [place] [address] Margaret Chavis MD [address] [place] [address] documented as of this encounter Results * CT ABDOMEN/PELVIS WITH CONTRAST (09/25/2019 4:15 PM EDT) Anatomical Region Laterality Modality Abdomen, Pelvis Computed Tomogra phy 09/25/2019 5:21 PM EDT Impressions 09/25/2019 5:36 PM EDT 1. No acute findings in the abdomen/pelvis. 2. Additional chronic findings as described above. TOTAL CTDIvol: 6.5 mGy POS - [id number] Narrative 09/25/2019 5:36 PM EDT EXAM: CT ABDOMEN/PELVIS WITH CONTRAST CT OF ABDOMEN AND PELVIS WITH INTRAVENOUS CONTRAST COMPARISON: March 16, 2019 INDICATION: LLQ PAIN , HX KIDNEY CANCER , S/P LEFT NEPHRECTOMY TECHNIQUE: CT scan of the abdomen and pelvis was performed following the intravenous administration of 100 cc of Omnipaque 240 and oral contrast. Coronal and sagittal reformatted images were generated. Automated exposure control utilized. FINDINGS: LOWER THORAX: Mild cardiomegaly. Stable focal peripheral atelectasis in the right middle lobe. No pleural effusion. HEPATOBILIARY: There is a 1.0 cm hypodensity at the inferior tip of the right hepatic lobe (6:30, 3:33) that is essentially stable from 2015. No extra- or intrahepatic ductal dilatation. Gallbladder is not distended. No calcified gallstones. SPLEEN: No splenomegaly. PANCREAS: Unremarkable. ADRENAL GLANDS: No mass. KIDNEYS AND URETERS: Right: No renal stone. No hydronephrosis. Stable Bosniak I cyst in the upper pole of the right kidney measures 4.8 x 3.7 cm. No solid renal masses identified. Left: Status post radical nephroureterectomy. STOMACH/GI TRACT: Oral contrast reaches the sigmoid colon without obstruction. Stomach is decompressed. Small bowel loops are unremarkable. Moderate amount of fecal load within the colonic loops. Normal appendix is identified on the axial 3:53. PELVIC ORGANS/BLADDER: Urinary bladder is partially distended and grossly unremarkable. Enlarged prostate gland. PERITONEUM AND RETROPERITONEUM: No free fluid, fluid collection or free air. LYMPH NODES: No enlarged retroperitoneal, mesenteric or pelvic lymph nodes. VESSELS: Abdominal aorta and iliac arteries are normal in caliber. Moderate amount of atherosclerotic calcifications. Inferior vena cava is unremarkable. BONES AND SOFT TISSUES: Very minimal residual soft tissue stranding in the left anterior abdominal wall. No acute or suspicious osseous abnormality. Degenerative changes throughout the spine, more prominent at L5-S1. Procedure Note Jessi Amaya MD - 09/25/2019 EXAM: CT ABDOMEN/PELVIS WITH CONTRAST CT OF ABDOMEN AND PELVIS WITH INTRAVENOUS CONTRAST COMPARISON: March 16, 2019 INDICATION: LLQ PAIN , HX KIDNEY CANCER , S/P LEFT NEPHRECTOMY TECHNIQUE: CT scan of the abdomen and pelvis was performed following theintravenous administration of 100 cc of Omnipaque 240 and oral contrast.Coronal and sagittal reformatted images were generated. Automatedexposure control utilized. FINDINGS: LOWER THORAX: Mild cardiomegaly. Stable focal peripheral atelectasis inthe right middle lobe. No pleural effusion. HEPATOBILIARY: There is a 1.0 cm hypodensity at the inferior tip of theright hepatic lobe (6:30, 3:33) that is essentially stable from 2015. Noextra- or intrahepatic ductal dilatation. Gallbladder is not distended.No calcified gallstones. SPLEEN: No splenomegaly. PANCREAS: Unremarkable. ADRENAL GLANDS: No mass. KIDNEYS AND URETERS: Right: No renal stone. No hydronephrosis. Stable Bosniak I cyst in theupper pole of the right kidney measures 4.8 x 3.7 cm. No solid renalmasses identified. Left: Status post radical nephroureterectomy. STOMACH/GI TRACT: Oral contrast reaches the sigmoid colon withoutobstruction. Stomach is decompressed. Small bowel loops are unremarkable.Moderate amount of fecal load within the colonic loops. Normal appendix isidentified on the axial 3:53. PELVIC ORGANS/BLADDER: Urinary bladder is partially distended and grosslyunremarkable. Enlarged prostate gland. PERITONEUM AND RETROPERITONEUM: No free fluid, fluid collection or freeair. LYMPH NODES: No enlarged retroperitoneal, mesenteric or pelvic lymphnodes. VESSELS: Abdominal aorta and iliac arteries are normal in caliber.Moderate amount of atherosclerotic calcifications. Inferior vena cava isunremarkable. BONES AND SOFT TISSUES: Very minimal residual soft tissue stranding inthe left anterior abdominal wall. No acute or suspicious osseousabnormality. Degenerative changes throughout the spine, more prominent atL5-S1. IMPRESSION: 1. No acute findings in the abdomen/pelvis. 2. Additional chronic findings as described above. TOTAL CTDIvol: 6.5 mGy POS - [id number] Shahab Perkins MD IM CT ABD/PELVIS Final Result documented in this encounter Visit Diagnoses Diagnosis LLQ pain- Primary Abdominal pain, left lower quadrant LLQ pain Abdominal pain, left lower quadrant documented in this encounter Additional Health Concerns Infection Onset Date Last Indicated Resolved Time CoV-Risk 07/21/2022 07/21/2022 07/23/2022 9:59 AM EDT documented as of this encounter Care Teams Jeep Mechanic Relationship Specialty Start Date End Date Shahab Perkins MD 230 [facility] [address] [place] [phone] [email or web address] PCP - General Family Medicine 08/13/17 04/05/22 Gertrude Kendall MD [address] [place] [address] PCP - General Family Medicine 04/06/22 Margaret Chavis MD [address] [place] [address] Cardiology 01/07/19 documented as of this encounter Additional Source Comments The information contained in this document represents components of the legal health record. It is not the complete legal health record.[facility]
--- OUTSIDE RECORDS SUMMARY | 2024-12-25 16:50 | XMS_ITS | Encounter Summary ---
Author Organization [facility] Address [address] [place] [address] Phone Care Team Providers Care Candlemaking Laborer Name Role Phone Margaret Chavis MD Unavailable [phone] Gertrude Kendall MD Primary Care Provider [phone] Encounter Details Date Type Department Care Team (Late st Contact Info) Description 10/13/2024 Procedure Pass [facility], Ct Scan - [facility] [address] [place] [address] Social History Tobacco Use Types Packs/Day Years [...] 12/25/2024 Procedure Pass [facility] Echo Lab [address] [place] [address] 01/28/2025 1:30 PM EDT Appointment [facility] Echo Lab [address] [place] [address] Margaret Chavis MD [address] [place] [address] documented as of this encounter Visit Diagnoses Not on filedocumented in this encounter Care Teams Candlemaking Laborer Relationship Specialty Start Date End Date Gertrude Kendall MD [address] [place] [address] PCP - General Family Medicine 04/06/22 Margaret Chavis MD [address] [place] [address] Cardiology 01/07/19 documented as of this encounter Additional Source Comments The information contained in this document represents components of the legal health record. It is not the complete legal health record.[facility]
--- OUTSIDE RECORDS SUMMARY | 2024-12-25 16:50 | XMS_ITS | Encounter Summary ---
Author Organization [facility] Address [address] [place] [address] [place] [address] Phone Care Team Providers Care Cheese Weigher Name Role Phone Margaret Chavis MD Unavailable [phone] Gertrude Kendall MD Primary Care Provider [phone] Encounter Details Date Type Department Care Team (Latest Contact Info) Description 05/08/2022 Transcribe Orders Virtual Department [address] [place] [address] Hosea Lao MD [address] [place] [address], [address] [place] [address] [email or web address] Personal history of malignant neoplasm of renal pelvis (Primary Dx) Social History Tobacco Use Types [...] 12/25/2024 Procedure Pass [facility] Echo Lab [address] [place] [address] 01/28/2025 1:30 PM EDT Appointment [facility] [address] [place] [address] Margaret Chavis MD [address] [address] documented as of this encounter Results * XR CHEST PA AND LATERAL 2 VIEWS (06/25/2022 10:56 AM EST) Anatomical Region Laterality Modality Chest Computed Radiogr aphy 06/25/2022 6:4 2 PM EST Impressions 06/25/2022 6:43 PM EST No acute findings. Please note that radiography is not the most sensitive modality to assess for pulmonary nodules. If there is continued clinical concern, then chest CT is advised. Narrative 06/25/2022 6:43 PM EST XR CHEST PA AND LATERAL 2 VIEWS COMPARISON: November 16, 2019 FINDINGS: Lungs: Clear lungs. Pleura: No pleural effusion. No pneumothorax Heart/Mediastinum: Heart size normal. Bones/Soft Tissues: No acute finding Procedure Note Nathan Daniels MD, JORGE LUIS - 06/25/2022 XR CHEST PA AND LATERAL 2 VIEWS COMPARISON: November 16, 2019 FINDINGS: Lungs: Clear lungs. Pleura: No pleural effusion. No pneumothorax Heart/Mediastinum: Heart size normal. Bones/Soft Tissues: No acute finding IMPRESSION: No acute findings. Please note that radiography is not the most sensitive modality to assessfor pulmonary nodules. If there is continued clinical concern, then chestCT is advised. us Hosea Lao MD IMG XR CHEST Final Result * US Kidneys (06/25/2022 10:35 AM EST) Anatomical Region Laterality Modality Abdomen, Kidney Ultrasound 06/25/2022 1:39 PM EST Impressions 06/25/2022 1:44 PM EST 1. Left kidney is surgically absent. 2. Redemonstration of a cyst arising from the upper pole the right kidney. Narrative 06/25/2022 1:44 PM EST US KIDNEYS History: Status post left nephrectomy TECHNIQUE: Kidney Ultrasound. COMPARISON: MRI abdomen 12/02/2020 FINDINGS: Right Kidney: Size: 13.0 cm Normal corticomedullary differentiation and cortical thickness. There is redemonstration of a 5.5 cm cyst arising from upper pole of the kidney. No stones or hydronephrosis. 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 No focal lesion demonstrated sonographically. Procedure Note Maine Rubio MD - 06/25/2022 US KIDNEYS History: Status post left nephrectomy TECHNIQUE: Kidney Ultrasound. COMPARISON: MRI abdomen 12/02/2020 FINDINGS: Right Kidney: Size: 13.0 cm Normal corticomedullary differentiation and cortical thickness. There isredemonstration of a 5.5 cm cyst arising from upper pole of the kidney. Nostones or hydronephrosis. 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 No focal lesiondemonstrated sonographically. IMPRESSION: 1. Left kidney is surgically absent. 2. Redemonstration of a cyst arising from the upper pole the rightkidney. Hosea Lao MD [facility] Final Result documented in this encounter Visit Diagnoses Diagnosis Personal history of malignant neoplasm of renal pelvis- Primary Personal history of malignant neoplasm, renal pelvis Personal history of malignant neoplasm of renal pelvis Personal history of malignant neoplasm, renal pelvis Personal history of malignant neoplasm of renal pelvis Personal history of malignant neoplasm, renal pelvis documented in this encounter Additional Health Concerns Infection Onset Date Last Indicated Resolved Time CoV-Risk 07/21/2022 07/21/2022 07/23/2022 9:59 AM EDT documented as of this encounter Care Teams Cheese Weigher Relationship Specialty Start Date End Date Gertrude Kendall MD [address] [place] [address] PCP - General Family Medicine 04/06/22 Margaret Chavis MD [address] [place] [address] Cardiology 01/07/19 documented as of this encounter Additional Source Comments The information contained in this document represents components of the legal health record. It is not the complete legal health record.[facility]
--- OUTSIDE RECORDS SUMMARY | 2024-12-25 16:50 | XMS_ITS | Encounter Summary ---
Author Organization [facility] Address [address] [place] [phone] Phone Care Team Providers Care Claim Processor Name Role Phone Margaret Chavis MD Unavailable [phone] Gertrude Kendall MD Primary Care Provider + [phone] Reason for Referral * MRI/CAT Scan - Closed Specialty Diagnoses / Procedures Referred By Chidi mac Referred To Contact Radiology Diagnoses Abnormal stress test Dyspnea, unspecified type Atrial fibrillation, unspecified type Procedures NC Stress Result for Nuclear Stress Test Margaret Chavis MD 780 [facility] [address] [place] [address] Phone: tel: fax: Referral ID Status Reason Start Date Expiration Date Visits Re quested Visits Authorized [id number] Closed 06/14/2022 06/14/2023 1 1 Encounter Details Date Type Department Care Team (Late st Contact Info) Description 06/14/2022 Ancillary Orders Non-Invasive Cardiology [address] [place], [place] [phone] Margaret Chavis MD 241 [facility] [address] [place], [place] [phone] Abnormal stress test; Dyspnea, unspecified type; Atrial fibrillation, unspecified type Social History Tobacco Use Types Packs/Day Years [...] st Contact Info) Description 12/25/2024 Procedure Pass [facility] [address] [place] [address] 01/28/2025 1:30 PM EDT Appointment [facility] [address] [place] [address] Margaret Chavis MD [address] [place] [phone] documented as of this encounter Results * NC Stress Result for Nuclear Stress Test (06/14/2022 10:53 AM EST) Max BP Systolic 142 mmHg [facility] Max BP Diastolic 64 mmHg [facility] Max HR 157 BPM [facility] Resting HR 137 BPM [facility] Resting BP Systolic 120 mmHg [facility] Resting BP Diastolic 62 mmHg [facility] Peak METS 4.2 METS [facility] Peak HR 146 BPM [facility] Peak BP Systolic 134 mmHg [facility] Peak BP Diastolic 62 mmHg [facility] Anatomical Region Laterality Modality Heart Other 06/14/2022 9:54 AM EST 06/14/2022 10:51 AM EST Narrative 06/15/2022 6:59 AM EST Response to Stress The patient exercised for minutes seconds, achieving 4.2 METS at peak exercise. Baseline blood pressure was 120/62 mmHg, and baseline heart rate was 137 bpm. Peak blood pressure was 134/62 mmHg. The patient achieved a peak heart rate of 146 bpm, which is% of their maximum predicted heart rate. Rate pressure product was [address]. REPORT- Patient exercised for 4:00 minutes on a STONE protocol achieving 4.6 METS. Test terminated due to tachycardia. Baseline resting heart rate was 113 bpm. Maximum heart rate achieved was 157 bpm (112% MPHR). 1. EKG - Baseline EKG showed atrial fibrillation with non-specific ST/T wave abnormalities. During exercise, there was an exaggeration of baseline abnormalities that did not meet strict criteria for ischemia. 2. SYMPTOMS - No chest pain. 3. EXERCISE PHYSIOLOGY - Average functional capacity for age. BP 118/62 at rest, 140/70 during exercise, and 122/60 upon discharge from stress lab. 4. ARRHYTHMIAS - Atrial fibrillation with rapid ventricular response both at rest and with exercise. Rare PVCs. Conclusion - No EKG evidence of ischemia or symptoms concerning for angina. Patient was tachycardic throughout testing (asymptomatic in this regard); he had held AM diltiazem dose as instructed prior to testing. Took his usual dose of diltiazem prior to leaving stress lab. Nuclear images pending and will be reported separately. Lydia Oneill MAGAZINE FILLER with Dr Bruno . Margaret Chavis MD CV NM CARDIAC Final Result documented in this encounter Visit Diagnoses Diagnosis Abnormal stress test Other nonspecific abnormal cardiovascular system function study Dyspnea, unspecified type Atrial fibrillation, unspecified type Abnormal stress test Other nonspecific abnormal cardiovascular system function study Dyspnea, unspecified type Atrial fibrillation, unspecified type documented in this encounter Additional Health Concerns Infection Onset Date Last Indicated Resolved Time CoV-Risk 07/21/2022 07/21/2022 07/23/2022 9:59 AM EDT documented as of this encounter Care Teams Claim Processor Relationship Specialty Start Date End Date Gertrude Kendall MD [address] [phone] [email or web address] PCP - General Family Medicine 04/06/22 Margaret Chavis MD [address] [phone] Cardiology 01/07/19 documented as of this encounter Additional Source Comments The information contained in this document represents components of the legal health record. It is not the complete legal health record.[facility]
--- OUTSIDE RECORDS SUMMARY | 2024-12-25 16:50 | XMS_ITS | Encounter Summary ---
Author Organization [facility] Address [address] [place] [address] Care Team Providers Care Salon Customer Experience Specialist Name Role Phone Physician, Pcp Unknown Primary Care Provider Jennifer vailable Encounter Details Date Type Department Care Team (Late st Contact Info) Description 08/04/2024 Lab Requisition [facility] [address] [facility] [place] [address] Cleo Griffin NP 36[address] [facility] [address] [place], [place] [phone] Frequency of micturition Social History Tobacco Use Types Packs/Day Years [...] Comments BACTERIAL IDENTIFICATION AND SUSCEPTIBILITY, AEROBIC Routine 08/03/2024 12:00 AM EDT Frequency of micturition documented in this encounter Results * (ABNORMAL) Bacterial identification and susceptibility, aerobic (08/03/2024 12:00 AM EDT) Culture, Bacterial ID and Sensitivity Klebsiella pneumoniae ssp pneumoniae(A) JAMES 08/05/2024 8:05 AM EDT [facility] Comment: This is an edited result. Previous organism was Gram negative bacilli on 08/04/2024 at 1117 EDT. Other Urine specimen from urethra / Unknown 08/03/2024 08/04/2024 10:00 AM EDT Narrative Organism Antibiotic Method Susceptibility Klebsiella pneumoniae ssp pneumoniae Amoxicillin/Clavulanate JAMES <=2 ug/ml: Susceptible Klebsiella pneumoniae ssp pneumoniae Ampicillin/Sulbactam [...] Susceptible Klebsiella pneumoniae ssp pneumoniae Amikacin JAMES <=1 ug/ml: Susceptible Klebsiella pneumoniae ssp pneumoniae Gentamicin JAMES <=1 ug/ml: Susceptible Klebsiella pneumoniae ssp pneumoniae Ciprofloxacin JAMES 1 ug/ml: Resistant Klebsiella pneumoniae ssp pneumoniae Levofloxacin JAMES 1 ug/ml: Intermediate Klebsiella pneumoniae ssp pneumoniae Nitrofurantoin JAMES 128 ug/ml: Resistant Klebsiella pneumoniae ssp pneumoniae Trimethoprim/Sulfamethoxazo le JAMES <=20 ug/ml: Susceptible us Cleo Griffin CERTIFIED MEDICATION TECHNICIAN LAB MICROBIOLOGY - GENERA L ORDERABLES Final Result [facility] [address] [place] [address], documented in this encounter Visit Diagnoses Diagnosis Frequency of micturition Urinary frequency documented in this encounter Care Teams Salon Customer Experience Specialist Relationship Specialty Start Date End Date Physician, Pcp Unknown PCP - General 06/18/24 documented as of this encounter
--- OUTSIDE RECORDS SUMMARY | 2024-12-25 16:50 | XMS_ITS | Encounter Summary ---
Author Organization [facility] Address [address] [place] [phone] Phone Care Team Providers Care Shactor Helper Name Role Phone Margaret Chavis MD Unavailable [phone] Gertrude Kendall MD Primary Care Provider [phone] Encounter Details Date Type Department Care Team (Latest Contact Info) Description 12/24/2024 Transcribe Orders [facility] [address] [place] [address] Margaret Chavis MD [address] [place] [phone] Shortness of breath (Primary Dx) Social History Tobacco [...] st Contact Info) Description 12/25/2024 Procedure Pass [facility] [address] [place] [phone] 01/28/2025 1:30 PM EDT Appointment [facility] [address] [place] [phone] Margaret Chavis MD [address] [place] [phone] documented as of this encounter Results * (ABNORMAL) NT-proBNP (12/24/2024 11:29 AM EDT) NT-PROBNP 867(H) 0 - 450 pg/mL [facility] Blood 12/24/2024 11:2 9 AM EDT 12/24/2024 11:31 AM EDT us Margaret Chavis MD LAB BLOOD ORDERABLES Final R esult [address] [address] * (ABNORMAL) CBC and differential (12/24/2024 11:29 AM EDT) WBC 4.87 4.00 - 11.00 K/uL [facility] RBC 4.63 4.50 - 5.90 M/uL [facility] HGB 13.5 13.5 - 17.5 g/dL [facility] HCT 43.9 41.0 - 53.0 % [facility] PLT 144(L) 150 - 450 K/uL [facility] MCV 94.8 80.0 - 100.0 fL [facility] MCH 29.2 27.0 - 31.0 pg [facility] MCHC 30.8(L) 32.0 - 36.0 g/dL [facility] RDW 14.0 11.5 - 14.5 % [facility] MPV 10.4 8.4 - 12.0 fL [facility] NRBC 0.00 0.00 /100 WBCs [facility] ABSOLUTE NRBC 0.00 0.00 K/uL [facility] DIFF METHOD Auto [facility] NEUTS 54.2 48.0 - 76.0 % [facility] LYMPHS 21.4 18.0 - 41.0 % [facility] MONOS 12.9(H) 4.0 - 11.0 % [facility] EOS 10.5(H) 0.0 - 5.0 % [facility] BASOS 0.6 0.0 - 1.5 % [facility] Granulocytes, immature (%) 0.4 0.0 - 0.9 % [facility] ABSOLUTE NEUTS 2.64 1.92 - 7.60 K/uL [facility] ABSOLUTE LYMPHS 1.04 0.72 - 4.10 K/uL [facility] ABSOLUTE MONOS 0.63 0.16 - 1.10 K/uL [facility] ABSOLUTE EOS 0.51(H) 0.00 - 0.50 K/uL [facility] ABSOLUTE BASOS 0.03 0.00 - 0.15 K/uL [facility] Granulocytes, immature 0.02 0.00 - 0.09 K/uL [facility] Blood 12/24/2024 11:2 9 AM EDT 12/24/2024 11:31 AM EDT us Margaret Chavis MD LAB BLOOD ORDERABLES Final R esult [facility] [address] [place] [address] * Comprehensive metabolic panel (12/24/2024 11:29 AM EDT) SODIUM 142 133 - 146 mmol/L [facility] POTASSIUM 4.6 3.3 - 5.1 mmol/L [facility] CHLORIDE 106 96 - 108 mmol/L [facility] CO2 27 21 - 35 mmol/L [facility] BUN 17 6 - 19 mg/dL [facility] CREATININE 0.90 0.5 - 1.5 mg/dL [facility] GLUCOSE 97 70 - 99 mg/dL [facility] ALBUMIN 4.0 3.9 - 4.8 g/dL [facility] TOTAL PROTEIN 7.0 6.5 - 8.0 g/dL [facility] CALCIUM 9.5 8.4 - 10.3 mg/dL [facility] ALKALINE PHOSPHATASE 100 39 - 117 U/L [facility] TOTAL BILIRUBIN 0.5 0.0 - 1.2 mg/dL [facility] AST 19 0 - 37 U/L [facility] ALT 15 0 - 40 U/L [facility] GLOBULIN 3.0 1 - 4.8 g/dL [facility] EGFR 84 >59 mL/min/1.7 3m2 [facility] Comment:Estimated glomerular filtration rate calculated using the CKD-EPI refit equation. ANION GAP 14 10 - 20 mmol/L [facility] Blood 12/24/2024 11:2 9 AM EDT 12/24/2024 11:31 AM EDT us Margaret Chavis MD LAB BLOOD ORDERABLES Final R esult [address] [address] documented in this encounter Visit Diagnoses Diagnosis Shortness of breath- Primary documented in this encounter Care Teams Shactor Helper Relationship Specialty Start Date End Date Gertrude Kendall MD [address] [place] [phone] PCP - General Family Medicine 04/06/22 Margaret Chavis MD [address] [place] [address] Cardiology 01/07/19 documented as of this encounter Additional Source Comments The information contained in this document represents components of the legal health record. It is not the complete legal health record.[facility]
--- OUTSIDE RECORDS SUMMARY | 2024-12-25 16:50 | XMS_ITS | Clinical Summary ---
Author Organization [facility] Address [address] [place] [id number] Phone Care Team Providers Care Casual Shoe Inspector Name Role Phone Margaret Chavis MD Unavailable [phone] Gertrude Kendall MD Primary Care Provider Allergies Active Allergy Reactions Criticality Noted Date Comments Other Nausea and/or Vomiting 10/02/2016 Clams; oysters; mussels, scallops Medications latanoprost (XALATAN) 0.005 % ophthalmic solution 1 drop into affected eye in the evening Ophthalmic Once a day Active atorvastatin (LIPITOR) 40 MG tablet Take 1 tablet by mouth nightly at bedtime. Active digoxin (LANOXIN) 125 mcg tablet Take 125 mcg by mouth every other day. Orally Once a day Active MULTIVITS/IRON FUM/FA/D3/LYCOP (MULTI FOR HIM ORAL) Active dilTIAZem (CARDIZEM LA) 240 mg 24 hr tablet Take 120 mg by mouth daily. tablet daily Active coenzyme Q10 100 mg capsule Take 100 mg by mouth daily. Active acetaminophen (TYLENOL) 325 mg tablet Take 2 tablets (650 mg total) by mouth every 6 (six) hours. 0 9 Active vitamins A,C,E-zinc-jeanne er (PRESERVISION AREDS) [id number],[id number] amah-jo-odcg Cap Take 1 capsule by mouth 2 (two) times a day with meals. Active apixaban (ELIQUIS) 5 mg tablet Take 5 mg by mouth 2 (two) times a day. Active tamsulosin (FLOMAX) 0.4 mg Cap Take 1 capsule (0.4 mg total) by mouth nightly at bedtime. 30 capsule 5 3 Active alfuzosin (UROXATRAL) 10 mg 24 hr tablet Take 10 mg by mouth nightly at bedtime. at bedtime. Active methenamine (HIPREX) 1 gram tablet TAKE ONE TABLET BY MOUTH TWICE A DAY WITH VITAMINC TABLET. STOP IF ON ANY ANTIBIOTICS Active nitroglycerin (NITROSTAT) 0.4 MG SL tablet DISSOLVE ONE TABLET UNDER THE TOUNGE EVERY FIVE MINUTES FOR UP TO THREE DOSES NEEDED FOR CHEST PAIN. *CALL 911 IF PAIN PERSISTS Active Active Problems Problem Noted Date Diagnosed Date History of bladder cancer 06/08/2024 History of urinary tract infection 06/08/2024 Urinary retention 06/08/2024 History of heart artery stent 06/06/2024 Anticoagulated 06/06/2024 Erythema 07/24/2022 Assessment & Plan (07/24/2022 7:07 PM EDT): New redness, warmth and pain left lara Appearance is concerning for cellulitis though he has been on ceftriaxone which would cover usual pathogens. There are no pustules, ulcerations or underlying fluctuance Would also wonder about the possibility of a contact reaction given localization of the redness to the anterior lara -- Continue IV ceftriaxone. 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 He is undergoing treatment with intravesicular BCG, last received several days prior to admission Presented to the ED with fever and lethargy. Patient reported temp to 104 at home. Blood and urine cultures have remained negative. He does have some pyuria suggesting UTI and clinically seems to be responding to antibiotics with defervescence and resolving leukocytosis. New left lower extremity redness raises concern for the possibility of cellulitis though he has been on IV ceftriaxone which would typically cover skinl pathogens. 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/01/2019 Coronary arteriosclerosis 11/19/2019 Urothelial carcinoma of kidney, left 01/14/2019 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 11/11/2018 Hydronephrosis of left kidney 11/11/2018 Laceration of right palm without complication Benign neoplasm of colon 09/02/2014 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 Mixed hyperlipidemia 04/04/2004 Benign neoplasm of skin of face 12/06/2003 Benign essential hypertension 03/16/2003 Congestive heart failure 12/16/2000 Encounters Date Type Department Care Team Description 12/25/2024 Transcribe Orders Virtual Department [address] [place] [address] Margaret Chavis MD Dyspnea, unspecified type (Primary Dx) 12/24/2024 11:40 AM EDT - 12/24/2024 11:59 PM EDT Hospital Encounter [facility], X-Ray - Main Hospital [address] [place] [address] Margaret Chavis MD Arrived Discharge Disposition: Home or Self Care 12/24/2024 11:13 AM EDT - 12/24/2024 11:39 AM EDT Hospital Encounter [facility] [address] [place] [address] Margaret Chavis MD Discharge Disposition: Home or Self Care 12/24/2024 Ancillary Orders [address] [address] Margaret Chavis MD H/O shortness of breath (Primary Dx) 12/24/2024 Transcribe Orders [facility] [address] [place] [address] Margaret Chavis MD Shortness of breath (Primary Dx) 10/26/2024 8:22 AM EDT - 10/26/2024 11:59 PM EDT Hospital Encounter [facility], [address] [address] Hosea Lao MD Discharge Disposition: Home or Self Care 10/13/2024 Procedure Pass [address] [address] 10/13/2024 Transcribe Orders Virtual Department [address] [place] [address] Hosea Lao MD Other specified disorders of bladder (Primary Dx); Personal history of malignant neoplasm of bladder; Personal history of malignant neoplasm of renal pelvis; Other retention of urine 10/13/2024 Transcribe Orders Virtual Department [address] [place] [address] Hosea Lao MD from Last 3 Months Immunizations Immunization Administration Dates Next Due Pneumococcal conjugate PCV13 01/15/2019(Deferred : Patient Refused) Social History Tobacco Use Types Packs/Day Years Used Date Smoking Tobacco: Former Cigarettes 0.8 6 Smokeless Tobacco: Never Tobacco Cessation:Counseling Given: Not Answered Comments:quit 45 yrs ago Alcohol Use Standard [...] Orientation Straight 12/18/2018 12 :56 PM EDT Last Filed Vital Signs Vital Sign Reading Time Taken Comments Blood Pressure 124/86 06/08/2024 9:45 AM EST Pulse 70 06/08/2024 9:45 AM EST Temperature 36.1 C (97 F) 06/08/2024 9:08 AM EST Respiratory Rate 13 06/08/2024 9:45 AM EST Oxygen Saturation 96% 06/08/2024 9:45 AM EST Inhaled Oxygen Concentration - - Weight 75.7 kg (166 lb 14.4 oz) 07/21/2022 7:05 PM EDT Height 170.2 cm (5' 7 ) 07/21/2022 7:05 PM EDT Body Mass Index 26.14 07/21/2022 7:05 PM EDT Plan of Treatment Upcoming Encounters Date Type Department Care Team (Late st Contact Info) Description 12/25/2024 Procedure Pass [facility] Echo Lab [address] [place] [address] 01/28/2025 1:30 PM EDT Appointment [facility] Echo [facility] [address] [place] [address] Margaret Chavis MD [address] [place] [address] Health Maintenance Due Date Last Done Comments DEPRESSION SCREENING 1952 ZOSTER VACCINES (1 of 2) 06/30/1959 RSV VACCINE (1 - 1-dose 75+ series) 06/30/2015 COVID-19 VACCINE ( season) 2023 07/05/2020, 06/13/2020 BLOOD PRESSURE 10/17/2024 04/18/2024 INFLUENZA VACCINE (#1) 2024 2, 01/23/2011, 03/20/2010, Additional history exists CREATININE LEVEL 12/24/2025 12/24/2024, , 07/23/2022, Additional history exists POTASSIUM LEVEL 12/24/2025 12/24/2024, 06/28, 07/23/2022, Additional history exists Adult Td,Tdap Booster 03/25/2034 03/25/2024 , 10/11/2022, 04/10/2021, Additional history exists PNEUMOCOCCAL VACCINES (50+ years) Completed 07/19/2015, 03/31/2010 HEPATITIS A VACCINES Aged Out No long er eligible based on patient's age to complete this topic HIB VACCINES Aged Out No longer eligi ble based on patient's age to complete this topic MENINGOCOCCAL VACCINES (ACWY) Aged Out No longer eligible based on patient's age to complete this topic MENINGOCOCCAL VACCINES (B) Aged Out N o longer eligible based on patient's age to complete this topic Medical Devices Implanted Type Area Cooking Chef Device Identifier Shelf Expiration Date Model / Serial / Lot Lens Lens Bilateral: Eye Stent Heart Explanted Type Area Cooking Chef Device Identifier Shelf Expiration Date Model / Serial / Lot Stent Ureteral 6fr 22 To 30cm Stretch Coated Kiana - [id number] Implanted:Qty: 1 on 11/11/2018 by Hosea Lao MD at [facility] Explanted:Qty: 1 on 01/14/2019 by Blaise Montes MD at [facility] Left: Ureter [employer] MELINDA 06/01/2021 [id number] / / [id number] Description:Out with Left ki dney and ureter Procedures Procedure Name Priority Date/Time Associated Diagnosis Comments XR CHEST PA AND LATERAL 2 VIEWS Routine 12/24/2024 11:47 AM EDT H/O shortness of breath NT-PROBNP Routine 12/24/2024 11:29 AM EDT Shortness of breath CBC AND DIFFERENTIAL Routine 12/24/2024 11:29 AM EDT Shortness of breath COMPREHENSIVE METABOLIC PANEL Routine 12/24/2024 11:29 AM EDT Shortness of breath CT ABDOMEN/PELVIS WITHOUT CONTRAST Routine 10/26/2024 8:35 AM EDT Other specified disorders of bladder Personal history of malignant neoplasm of bladder Personal history of malignant neoplasm of renal pelvis Other retention of urine from Last 3 Months Results * XR CHEST PA AND LATERAL 2 VIEWS (12/24/2024 11:47 AM EDT) Anatomical Region Laterality Modality Chest Computed Radiogr aphy 12/24/2024 12:2 8 PM EDT Impressions 12/24/2024 12:36 PM EDT No evidence of acute cardiopulmonary process. Narrative 12/24/2024 12:36 PM EDT XR CHEST PA AND LATERAL 2 VIEWS Referring clinician's provided indication for this examination in [facility]: Dyspnea (Shortness of Breath) COMPARISON: [...] clinician's provided indication for this examination in [facility]:Dyspnea (Shortness of Breath) COMPARISON: 07/08/2023, [...] Chavis MD IMG XR CHEST Final Result * Comprehensive metabolic panel (12/24/2024 11:29 AM EDT) SODIUM 142 133 - 146 mmol/L [facility] POTASSIUM 4.6 3.3 - 5.1 mmol/L [facility] CHLORIDE 106 96 - 108 mmol/L [facility] CO2 27 21 - 35 mmol/L [facility] BUN 17 6 - 19 mg/dL [facility] CREATININE 0.90 0.5 - 1.5 mg/dL [facility] GLUCOSE 97 70 - 99 mg/dL [facility] ALBUMIN 4.0 3.9 - 4.8 g/dL [facility] TOTAL PROTEIN 7.0 6.5 - 8.0 g/dL [facility] CALCIUM 9.5 8.4 - 10.3 mg/dL [facility] ALKALINE PHOSPHATASE 100 39 - 117 U/L [facility] TOTAL BILIRUBIN 0.5 0.0 - 1.2 mg/dL [facility] AST 19 0 - 37 U/L [facility] ALT 15 0 - 40 U/L [facility] GLOBULIN 3.0 1 - 4.8 g/dL [facility] EGFR 84 >59 mL/min/1.7 3m2 [facility] Comment:Estimated glomerular filtration rate calculated using the CKD-EPI refit equation. ANION GAP 14 10 - 20 mmol/L [facility] Blood 12/24/2024 11:2 9 AM EDT 12/24/2024 11:31 AM EDT Margaret Chavis MD LAB BLOOD ORDERABLES Final R esult [facility] [address] [place] [address] * (ABNORMAL) CBC and differential (12/24/2024 11:29 AM EDT) WBC 4.87 4.00 - 11.00 K/uL [facility] RBC 4.63 4.50 - 5.90 M/uL [facility] HGB 13.5 13.5 - 17.5 g/dL [facility] HCT 43.9 41.0 - 53.0 % [facility] PLT 144(L) 150 - 450 K/uL [facility] MCV 94.8 80.0 - 100.0 fL [facility] MCH 29.2 27.0 - 31.0 pg [facility] MCHC 30.8(L) 32.0 - 36.0 g/dL [facility] RDW 14.0 11.5 - 14.5 % [facility] MPV 10.4 8.4 - 12.0 fL [facility] NRBC 0.00 0.00 /100 WBCs [facility] ABSOLUTE NRBC 0.00 0.00 K/uL [facility] DIFF METHOD Auto [facility] NEUTS 54.2 48.0 - 76.0 % [facility] LYMPHS 21.4 18.0 - 41.0 % [facility] MONOS 12.9(H) 4.0 - 11.0 % [facility] EOS 10.5(H) 0.0 - 5.0 % [facility] BASOS 0.6 0.0 - 1.5 % [facility] Granulocytes, immature (%) 0.4 0.0 - 0.9 % [facility] ABSOLUTE NEUTS 2.64 1.92 - 7.60 K/uL [facility] ABSOLUTE LYMPHS 1.04 0.72 - 4.10 K/uL [facility] ABSOLUTE MONOS 0.63 0.16 - 1.10 K/uL [facility] ABSOLUTE EOS 0.51(H) 0.00 - 0.50 K/uL [facility] ABSOLUTE BASOS 0.03 0.00 - 0.15 K/uL [facility] Granulocytes, immature 0.02 0.00 - 0.09 K/uL [facility] Blood 12/24/2024 11:2 9 AM EDT 12/24/2024 11:31 AM EDT us Margaret Chavis MD LAB BLOOD ORDERABLES Final R esult Performing Organization Address [facility] Co de Phone Number [address] [address] * (ABNORMAL) NT-proBNP (12/24/2024 11:29 AM EDT) NT-PROBNP 867(H) 0 - 450 pg/mL [facility] Blood 12/24/2024 11:2 9 AM EDT 12/24/2024 11:31 AM EDT us Margaret Chavis MD LAB BLOOD ORDERABLES Final R esult Performing Organization Address [facility] de Phone Number [address] [address] * CT ABDOMEN/PELVIS WITHOUT CONTRAST (10/26/2024 8:35 AM EDT) Anatomical Region Laterality Modality Abdomen, Pelvis Computed Tomogra phy 10/27/2024 11:4 6 AM EDT Impressions 10/27/2024 12:13 PM EDT 1. Chronic right renal cortical cyst without hydronephrosis, perirenal stranding, or urinary calculi apparent on this non-contrast study. Left nephrectomy bed unremarkable. 2. Tiny gallbladder calculus. Chronic pancreatic cystic lesions better assessed on previous contrast-enhanced CT and MR studies. Narrative 10/27/2024 12:[address] ABDOMEN/PELVIS WITHOUT CONTRAST Referring clinician's provided indication for this examination in Epic: Outside Radiology Order; CRI, pt has lynn TECHNIQUE: Multidetector-row CT of the abdomen and pelvis was performed without intravenous contrast using tailored dose modulation techniques. Images were reconstructed in the axial, coronal, and sagittal planes. COMPARISON: 11/11/2020 CT and 12/02/2020 MR ABSENCE OF INTRAVENOUS CONTRAST DECREASES SENSITIVITY FOR DETECTION OF FOCAL LESIONS AND VASCULAR PATHOLOGY. FINDINGS: Lower Chest: Chronic pleural-parenchymal scarring at the base of the right middle lobe. No focal airspace infiltrate or pleural effusion. Liver: Stable in overall size and configuration. Biliary: No extrahepatic duct dilatation. Tiny gallbladder calculus versus wall calcification (3:102) without other interval change. Spleen: Stable in size and contour. Pancreas: No pancreatic enlargement or peripancreatic fatty infiltration. Grossly stable 1.5 cm cystic lesion in the superior pancreatic head and 1.3 cm cystic lesion along the ventral margin of the head/uncinate process, better visualized on MR. Adrenal Glands: No nodules. Kidneys/Ureters: Chronic right upper pole cortical cyst. No right-sided hydronephrosis, progressive perirenal stranding, or intrarenal or ureteral calculi. No mass lesion identified in the left nephrectomy bed. Bowel: No evidence of small bowel obstruction. Moderate colonic stool burden without paracolic fat infiltration. Peritoneum/Retroperitoneum: No free fluid or mass. Lymph Nodes: No pathologically enlarged mesenteric, para-aortic, iliac chain, or inguinal nodes detected. Pelvic Organs/Bladder: Bladder decompressed by indwelling balloontipped catheter. No free fluid or mass. Chronic prostate calcifications. Vessels: Aortoiliac atherosclerotic plaquing without focal aneurysm. Bones/Soft Tissues: No abdominal wall mass or bowel containing hernia. Small chronic left inguinal fat-containing hernia. Lumbar degenerative disc and facet changes with minimal grade 1 anterolisthesis of L3 on L4. No destructive bony abnormality. Procedure Note Chris Klein MD - 10/27/2024 CT ABDOMEN/PELVIS WITHOUT CONTRAST Referring clinician's provided indication for this examination in Epic:Outside Radiology Order; CRI, pt has lynn TECHNIQUE: Multidetector-row CT of the abdomen and pelvis was performedwithout intravenous contrast using tailored dose modulation techniques.Images were reconstructed in the axial, coronal, and sagittal planes. COMPARISON: 11/11/2020 CT and 12/02/2020 MR ABSENCE OF INTRAVENOUS CONTRAST DECREASES SENSITIVITY FOR DETECTION OFFOCAL LESIONS AND VASCULAR PATHOLOGY. FINDINGS: Lower Chest: Chronic pleural-parenchymal scarring at the base of the rightmiddle lobe. No focal airspace infiltrate or pleural effusion. Liver: Stable in overall size and configuration. Biliary: No extrahepatic duct dilatation. Tiny gallbladder calculus versuswall calcification (3:102) without other interval change. Spleen: Stable in size and contour. Pancreas: No pancreatic enlargement or peripancreatic fatty infiltration.Grossly stable 1.5 cm cystic lesion in the superior pancreatic head and1.3 cm cystic lesion along the ventral margin of the head/uncinateprocess, better visualized on MR. Adrenal Glands: No nodules. Kidneys/Ureters: Chronic right upper pole cortical cyst. No right-sidedhydronephrosis, progressive perirenal stranding, or intrarenal or ureteralcalculi. No mass lesion identified in the left nephrectomy bed. Bowel: No evidence of small bowel obstruction. Moderate colonic stoolburden without paracolic fat infiltration. Peritoneum/Retroperitoneum: No free fluid or mass. Lymph Nodes: No pathologically enlarged mesenteric, para-aortic, iliacchain, or inguinal nodes detected. Pelvic Organs/Bladder: Bladder decompressed by indwelling balloontippedcatheter. No free fluid or mass. Chronic prostate calcifications. Vessels: Aortoiliac atherosclerotic plaquing without focal aneurysm. Bones/Soft Tissues: No abdominal wall mass or bowel containing hernia.Small chronic left inguinal fat-containing hernia. Lumbar degenerativedisc and facet changes with minimal grade 1 anterolisthesis of L3 on L4.No destructive bony abnormality. IMPRESSION: 1. Chronic right renal cortical cyst without hydronephrosis, perirenalstranding, or urinary calculi apparent on this non-contrast study. Leftnephrectomy bed unremarkable. 2. Tiny gallbladder calculus. Chronic pancreatic cystic lesions betterassessed on previous contrast-enhanced CT and MR studies. Hosea Lao MD IM CT ABD/PELVIS Final Result from Last 3 Months Insurance MEDICARE PART A & B [employer] SUPPLEMENT MEDICARE PART A & B [employer] SUPPLEMENT MEDICARE PART A & B [employer] SUPPLEMENT MEDICARE PART A & B [employer] SUPPLEMENT MEDICARE PART A & B [employer] SUPPLEMENT MEDICARE PART A & B [employer] SUPPLEMENT MEDICARE PART A & B [employer] SUPPLEMENT MEDICARE PART A & B [employer] SUPPLEMENT MEDICARE PART A & B [employer] SUPPLEMENT Advance Directives For more information, please contact: [phone] (9AM - 5PM [facility], Saturday-Saturday) Documents on File Type Date Recorded Patient Sizing Machine Tender Expl anation Healthcare Proxy 06/09/2024 12:25 PM * Full Code (Latest Code Status on File) Date Activated Date Inactivated Comments 07/21/2022 7:55 PM Question Answer Comments Code Status Confirmed With: Patient * Full Code (Presumed) Date Activated Date Inactivated Comments 01/14/2019 3:24 PM 01/16/2019 5:36 PM Care Teams Casual Shoe Inspector Relationship Specialty Start Date End Date Gertrude Kendall MD [address] [place] [id number] PCP - General Family Medicine 04/06/22 Margaret Chavis MD [address] [address] Cardiology 01/07/19 Additional Source Comments The information contained in this document represents components of the legal health record. It is not the complete legal health record.[facility]
--- OUTSIDE RECORDS SUMMARY | 2024-12-25 16:50 | XMS_ITS | Encounter Summary ---
Author Organization [facility] Address [address] [address] Phone Care Team Providers Care Framing Mechanic Name Role Phone Margaret Chavis MD Unavailable [phone] Gertrude Kendall MD Primary Care Provider [phone] Reason for Referral * Outpatient Procedure - Authorized Specialty Diagnoses / Procedures Referred By Chidi mac Referred To Contact Diagnoses Dyspnea, unspecified type Procedures Adult Echo TTE Margaret Chavis MD [address] [address] Phone: tel: fax: Referral ID Status Reason Start Date Expiration Date V isits Requested Visits Authorized [id number] Authorized 12/25/2024 1 1 Encounter Details Date Type Department Care Team (Latest Contact Info) Description 12/25/2024 Transcribe Orders Virtual Department [address] [place] [address] Margaret Chavis MD [address] [id number] Dyspnea, unspecified type (Primary Dx) Social History Tobacco Use Types [...] 12/25/2024 Procedure Pass [facility] [address] [place] [address] 01/28/2025 1:30 PM EDT Appointment [facility] [address] [place] [address] Margaret Chavis MD [address] [place] [phone] Scheduled Orders Name Type Priority Associated Diagnoses Orde r Schedule Adult Echo TTE Echocardiography Routine Dyspnea, unspecified type Expected: 12/25/2024, Expires: 12/25/2025 documented as of this encounter Visit Diagnoses Diagnosis Dyspnea, unspecified type- Primary documented in this encounter Care Teams Framing Mechanic Relationship Specialty Start Date End Date Gertrude Kendall MD [address] [place] [id number] [email or web address] PCP - General Family Medicine 04/06/22 Margaret Chavis MD [address] [place] [phone] Cardiology 01/07/19 documented as of this encounter Additional Source Comments The information contained in this document represents components of the legal health record. It is not the complete legal health record.[facility]
--- OUTSIDE RECORDS SUMMARY | 2024-12-25 16:50 | XMS_ITS | Encounter Summary ---
Author Organization [facility] Address [address] [place] [address] Phone Care Team Providers Care Bag Bundler Name Role Phone Shahab Perkins MD Primary Care Provider Margaret Chavis MD Unavailable [phone] Gertrude Kendall MD Primary Care Provider + [phone] Encounter Details Date Type Department Care Team (Late Contact Info) Description 11/16/2019 Ancillary Orders Virtual Department [address] [place] [address] Hosea Lao MD [address] [place] [address], [address] [address] [email or web address] Personal history of malignant neoplasm of renal pelvis; Malignant neoplasm of left kidney Social History Tobacco Use Types Packs/Day Years [...] 12/25/2024 Procedure Pass [facility] [address] [place] [address] 01/28/2025 1:30 PM EDT Appointment [facility] [address] [place] [address] Margaret Chavis MD 241 [facility] [address] [place] [address] documented as of this encounter Results * XR CHEST PA AND LATERAL 2 VIEWS (11/16/2019 11:10 AM EDT) Anatomical Region Laterality Modality Chest Computed Radiogr aphy 11/16/2019 11:2 2 AM EDT Impressions 11/16/2019 11:22 AM EDT No evidence of active cardiopulmonary disease. POS [id number] Narrative 11/16/2019 11:22 AM EDT No comparison studies are available. Frontal and lateral views reveal the lungs to be well-expanded and overall clear without focal infiltrates or pleural effusions present. No metastatic nodules identified. The heart and pulmonary vessels are within normal limits in size and the visualized bony thorax appears intact. Procedure Note Chris Klein MD - 11/16/2019 No comparison studies are available. Frontal and lateral views reveal thelungs to be well-expanded and overall clear without focal infiltrates orpleural effusions present. No metastatic nodules identified. The heart andpulmonary vessels are within normal limits in size and the visualized bonythorax appears intact. IMPRESSION: No evidence of active cardiopulmonary disease. POS [id number] Hosea Lao MD IMG XR CHEST Final Result documented in this encounter Visit Diagnoses Diagnosis Personal history of malignant neoplasm of renal pelvis Personal history of malignant neoplasm, renal pelvis Malignant neoplasm of left kidney Personal history of malignant neoplasm of renal pelvis Personal history of malignant neoplasm, renal pelvis Malignant neoplasm of left kidney documented in this encounter Additional Health Concerns Infection Onset Date Last Indicated Resolved Time CoV-Risk 07/21/2022 07/21/2022 07/23/2022 9:59 AM EDT documented as of this encounter Care Teams Bag Bundler Relationship Specialty Start Date End Date Shahab ePrkins MD [address] [facility] [address] [place] [address] [email or web address] PCP - General Family Medicine 08/13/17 04/05/22 Gertrude Kendall MD [address] [place] [id number] PCP - General Family Medicine 04/06/22 Margaret Chavis MD [address] [place] [address] Cardiology 01/07/19 documented as of this encounter Additional Source Comments The information contained in this document represents components of the legal health record. It is not the complete legal health record.[facility]
--- OUTSIDE RECORDS SUMMARY | 2024-12-25 16:50 | XMS_ITS | Encounter Summary ---
Author Organization [facility] Address [address] [facility] [address] [place] [address] Phone Care Team Providers Care Manager Of Applications Development Name Role Phone Shahab Perkins MD Primary Care Provider [phone] Margaret Chavis MD Unavailable [phone] Gertrude Kendall MD Primary Care Provider + [phone] Encounter Details Date Type Department Care Team (Late Contact Info) Description 01/14/2019 Procedure Pass [facility] PER[facility]IVE DEPT [address] [place] [phone] Social History Tobacco Use Types Packs/Day Years [...] (Late Contact Info) Description 12/25/2024 Procedure Pass [facility] Echo [facility] [address] [place] [address] 01/28/2025 1:30 PM EDT Appointment [facility] Echo Lab [address] [place] [address] Margaret Chavis MD [address] [place] [address] documented as of this encounter Visit Diagnoses Not on filedocumented in this encounter Additional Health Concerns Infection Onset Date Last Indicated Resolved Time CoV-Risk 07/21/2022 07/21/2022 07/23/2022 9:59 AM EDT documented as of this encounter Care Teams Manager Of Applications Development Relationship Specialty Start Date End Date Shahab Perkins MD 230 [facility] [address] [place] [address] [email or web address] PCP - General Family Medicine 08/13/17 04/05/22 Gertrude Kendall MD [address] [place] [address] PCP - General Family Medicine 04/06/22 Margaret Chavis MD [address] [place] [address] Cardiology 01/07/19 documented as of this encounter Additional Source Comments The information contained in this document represents components of the legal health record. It is not the complete legal health record.[facility]
--- OUTSIDE RECORDS SUMMARY | 2024-12-25 16:50 | XMS_ITS | Encounter Summary ---
Author Organization [facility] Address [address] [place] [address] [place] [address] Phone Care Team Providers Care Business Editor Name Role Phone Shahab Perkins MD Primary Care Provider [phone] Margaret Chavis MD Unavailable [phone] Gertrude Kendall MD Primary Care Provider + [phone] Encounter Details Date Type Department Care Team (Late Contact Info) Description 10/26/2020 Procedure Pass [facility] - [facility] [address] [place] [address] Social History Tobacco Use Types Packs/Day Years [...] 12/25/2024 Procedure Pass [facility] [address] [place] [address] 01/28/2025 1:30 PM EDT Appointment [facility] [address] [place] [address] Margaret Chavis MD [address] [place] [address], [place] [address] documented as of this encounter Visit Diagnoses Not on filedocumented in this encounter Additional Health Concerns Infection Onset Date Last Indicated Resolved Time CoV-Risk 07/21/2022 07/21/2022 07/23/2022 9:59 AM EDT documented as of this encounter Care Teams Business Editor Relationship Specialty Start Date End Date Shahab Perkins MD 230 [facility] [address] [place] [address] [email or web address] PCP - General Family Medicine 08/13/17 04/05/22 Gertrude Kendall MD [address] [place] [address] PCP - General Family Medicine 04/06/22 Margaret Chavis MD [address] [address] Cardiology 01/07/19 documented as of this encounter Additional Source Comments The information contained in this document represents components of the legal health record. It is not the complete legal health record.[facility]
--- OUTSIDE RECORDS SUMMARY | 2024-12-25 16:50 | XMS_ITS | Encounter Summary ---
Author Organization [facility] Address [address] [place] [address] Phone Care Team Providers Care Spa Manager Name Role Phone Shahab Perkins MD Primary Care Provider [phone] Margaret Chavis MD Unavailable [phone] Gertrude Kendall MD Primary Care Provider + [phone] Encounter Details Date Type Department Care Team (Latest Contact Info) Description 12/18/2018 Ancillary Orders Non-Invasive Cardiology [address] [place] [address] Margaret Chavis MD [address] [place] [address] Pre-op exam; Atrial fibrillation, unspecified type; Coronary artery disease without angina pectoris, unspecified vessel or lesion type, unspecified whether northway or transplanted heart; Dyspnea, unspecified type Social History Tobacco Use Types [...] st Contact Info) Description 12/25/2024 Procedure Pass [facility] Echo Lab [address] [place] [address] 01/28/2025 1:30 PM EDT Appointment [facility] Echo Lab [address] [place] [address] Margaret Chavis MD [address] [address] documented as of this encounter Results * NC Stress Result for Nuclear Stress Test (12/18/2018 10:32 AM EDT) Max BP Systolic 166 mmHg [facility] Max BP Diastolic 44 mmHg [facility] Max HR 148 BPM [facility] Resting HR 71 BPM [facility] Resting BP Systolic 102 mmHg [facility] Resting BP Diastolic 50 mmHg [facility] Peak METS 10.1 METS [facility] Peak HR 142 BPM [facility] Anatomical Region Laterality Modality Heart Other 12/18/2018 9:44 AM EDT 12/18/2018 10:31 AM EDT Narrative 12/18/2018 1:23 PM EDT Response to Stress The patient exercised for minutes seconds, achieving 10.1 METS at peak exercise. Baseline blood pressure was 102/50 mmHg, and baseline heart rate was 71 bpm. The patient achieved a peak heart rate of 142 bpm, which is% of their maximum predicted heart rate. Patient exercised for 7:19 minutes on a standard Jaziel protocol achieving 10.1 METs and 104% MPHR (148 BPM). The test was terminated due to fatigue. SUMMARY: 1. RESTING ECG: Atrial fibrillation with a rate of 60 bpm 2. EXERCISE ECG: No ECG changes meeting criteria for ischemia 3. SYMPTOMS: No chest pain 4. PHYSIOLOGY: Appropriate exercise physiology. Resting heart rate of 60 bpm gladys to a max heart rate of 148 bpm, this represents 104% MPHR. Resting BP of 102/50 gladys to a max BP of 44. Vital signs stable and returned to baseline prior to discharge from the lab. Achieved 10.1 METs consistent with good functional capacity for age. 5. ARRHYTHMIA: No ectopy CONCLUSION: Normal ECG portion of exercise stress test without ECG changes suggestive of ischemia and without symptoms concerning for angina. Appropriate exercise physiology. Good functional capacity. Nuclear images and report to follow. See attached stress report for full details. Yash Rubin APRN with Dr. Amezcua . Margaret Chavis MD CV NM CARDIAC Final Result documented in this encounter Visit Diagnoses Diagnosis Pre-op exam Atrial fibrillation, unspecified type Coronary artery disease without angina pectoris, unspecified vessel or lesion type, unspecified whether northway or transplanted heart Dyspnea, unspecified type Pre-op exam Atrial fibrillation, unspecified type Coronary artery disease without angina pectoris, unspecified vessel or lesion type, unspecified whether northway or transplanted heart Dyspnea, unspecified type documented in this encounter Additional Health Concerns Infection Onset Date Last Indicated Resolved Time CoV-Risk 07/21/2022 07/21/2022 07/23/2022 9:59 AM EDT documented as of this encounter Care Teams Spa Manager Relationship Specialty Start Date End Date Shahab Perkins MD [address] [place] [address] [address] [place] [address] [email or web address] PCP - General Family Medicine 08/13/17 04/05/22 Gertrude Kendall MD [address] [address] [email or web address] PCP - General Family Medicine 04/06/22 Margaret Chavis MD [address] [address] Cardiology 01/07/19 documented as of this encounter Additional Source Comments The information contained in this document represents components of the legal health record. It is not the complete legal health record.[facility]
--- OUTSIDE RECORDS SUMMARY | 2024-12-25 16:50 | XMS_ITS | Encounter Summary ---
Author Organization [facility] Address [address] [place] [address] [place] [address] Phone Care Team Providers Care Dtp Operator Name Role Phone Shahab Perkins MD Primary Care Provider [phone] Margaret Chavis MD Unavailable [phone] Gertrude Kendall MD Primary Care Provider + [phone] Encounter Details Date Type Department Care Team (Late Contact Info) Description 12/26/2020 Procedure Pass [facility] [address] [place] [phone] Social History Tobacco Use Types Packs/Day Years [...] 12/25/2024 Procedure Pass [facility] [address] [place] [address] 01/28/2025 1:30 PM EDT Appointment [facility] Echo Lab [address] [place] [address] Margaret Chavis MD [address] [place] [address] documented as of this encounter Visit Diagnoses Not on filedocumented in this encounter Additional Health Concerns Infection Onset Date Last Indicated Resolved Time CoV-Risk 07/21/2022 07/21/2022 07/23/2022 9:59 AM EDT documented as of this encounter Care Teams Dtp Operator Relationship Specialty Start Date End Date Shahab Perkins MD [address] [facility] [address] [place] [address] [email or web address] PCP - General Family Medicine 08/13/17 04/05/22 Gertrude Kendall MD [address] [address] [email or web address] PCP - General Family Medicine 04/06/22 Margaret Chavis MD [address] [address] Cardiology 01/07/19 documented as of this encounter Additional Source Comments The information contained in this document represents components of the legal health record. It is not the complete legal health record.[facility]
--- OUTSIDE RECORDS SUMMARY | 2024-12-25 16:50 | XMS_ITS | Encounter Summary ---
Author Organization [facility] Address [address] [place] [address] Care Team Providers Care [employer] Application Developer Name Role Phone Physician, Pcp Unknown Primary Care Provider Jennifer vailable Encounter Details Date Type Department Care Team (Late st Contact Info) Description 10/09/[address] [facility] [address] [facility] [place] [address] Hosea Lao MD [address] [facility] [address] [place] [phone] Pyuria Social History Tobacco Use Types Packs/Day Years [...] Procedure Name Priority Date/Time Associated Diagnosis Comments CULTURE URINE Routine 10/09/2024 12:00 AM EDT Pyuria documented in this encounter Results * (ABNORMAL) Culture urine (10/09/2024 12:00 AM EDT) Culture, Urine >100,000 CFU/mL Klebsiella pneumoniae ssp pneumoniae(A) JAMES 10/13/2024 9:57 AM EDT [facility] ([facility]) [facility] Comment: This is an edited result. Previous organism was Gram negative bacilli on 10/11/2024 at 1230 EDT. This is an appended report. These results have been appended to a previously final verified report. Culture, Urine >100,000 CFU/mL Klebsiella pneumoniae ssp pneumoniae(A) JAMES 10/13/2024 9:57 AM EDT [facility] Comment: The organism value for this result has been updated. These results have been appended to the previously preliminary verified report. This is an edited result. Previous organism was Gram negative bacilli on 10/12/2024 at 0946 EDT. Culture, Urine 50,000-100,000 CFU/mL Pseudomonas aeruginosa(A) JAMES 10/13/2024 9:57 AM EDT [facility] Comment: The organism value for this result has been updated. These results have been appended to the previously preliminary verified report. Urine Urine specimen from urinary conduit / Unknown 10/09/2024 10/09/2024 6:52 PM EDT Narrative Organism Antibiotic Method Susceptibility [...] Intermediate Klebsiella pneumoniae ssp pneumoniae Nitrofurantoin JAMES 256 ug/ml: Resistant Klebsiella pneumoniae ssp pneumoniae Trimethoprim/Sulfamethoxazo le JAMES 40 ug/ml: Susceptible Klebsiella pneumoniae ssp pneumoniae Amoxicillin/Clavulanate JAMES 8 ug/ml: Susceptible Klebsiella pneumoniae ssp pneumoniae Ampicillin/Sulbactam JAMES 16 ug/ml: Intermediate Klebsiella pneumoniae ssp pneumoniae Piperacillin/Tazobactam JAMES 8 ug/ml: Susceptible Klebsiella pneumoniae ssp pneumoniae Cefazolin (Urine) JAMES 2 ug/ml: Susceptible Klebsiella pneumoniae ssp pneumoniae Cefoxitin JAMES 8 ug/ml: Susceptible Klebsiella pneumoniae ssp pneumoniae Ceftazidime [...] Resistant Klebsiella pneumoniae ssp pneumoniae Levofloxacin JAMES 2 ug/ml: Resistant Klebsiella pneumoniae ssp pneumoniae Nitrofurantoin JAMES 256 ug/ml: Resistant Klebsiella pneumoniae ssp pneumoniae Trimethoprim/Sulfamethoxazo le JAMES 40 ug/ml: Susceptible Pseudomonas aeruginosa Piperacillin/Tazobactam JAMES 16 ug/ml: Susceptible Pseudomonas aeruginosa Ceftazidime JAMES 4 ug/ml: Susceptible Pseudomonas aeruginosa Cefepime JAMES 2 ug/ml: Susceptible Pseudomonas aeruginosa Meropenem JAMES 1 ug/ml: Susceptible Pseudomonas aeruginosa Amikacin JAMES 2 ug/ml: Susceptible Pseudomonas aeruginosa Ciprofloxacin JAMES >=4 ug/ml: Resistant Pseudomonas aeruginosa Levofloxacin JAMES >=8 ug/ml: Resistant us Hosea Lao MD LAB MICROBIOLOGY - GENERAL ORDER SANDIP Final Result [facility] ([facility]) [facility] [address] [place] [address], documented in this encounter Visit Diagnoses Diagnosis Pyuria Other nonspecific finding on examination of urine documented in this encounter Care Teams [employer] Application Developer Relationship Specialty Start Date End Date Physician, Pcp Unknown PCP - General 06/18/24 documented as of this encounter
--- OUTSIDE RECORDS SUMMARY | 2024-12-25 16:50 | XMS_ITS | Encounter Summary ---
Author Organization [facility] Address [address] [place] [address] Care Team Providers Care Pediatric Acute Care Unit Nurse Name Role Phone Physician, Pcp Unknown Primary Care Provider Jennifer vailable Encounter Details Date Type Department Care Team (Late st Contact Info) Description 06/18/2024 Lab Requisition [facility] Lab [address] [place] [address] Gael Minor PA [address] [facility] [address] [place] [address] Gross hematuria; Dysuria Social History Tobacco Use [...] reflex microscopic (06/18/2024 11:10 AM EST) Specific [place] Urine 1.017 1.003 - 1.030 LAB URINALYSIS - AUTOMATED METHOD 06/18/2024 3:01 PM EST [facility] pH, Urine 6.0 5.0 - 8.0 pH LAB URINALYSIS - AUTOMATED METHOD 06/18/2024 3:[address] [facility] Leukocytes, Urine Large(A) Negative LAB URINALYSIS - AUTOMATED METHOD 06/18/2024 3:[address] [facility] Nitrite, Urine Negative Negative LAB URINALYSIS - AUTOMATED METHOD 06/18/2024 3:[address] [facility] Protein, Urine 300(A) <=Trace mg/dL LAB URINALYSIS - AUTOMATED METHOD 06/18/2024 3:[address] [facility] Glucose, Urine Negative Negative mg/dL LAB URINALYSIS - AUTOMATED METHOD 06/18/2024 3:[address] [facility] Ketones, Urine Negative Negative mg/dL LAB URINALYSIS - AUTOMATED METHOD 06/18/2024 3:[address] [facility] Urobilinogen , Urine 0.2 0.2 - 1.0 mg/dL LAB URINALYSIS - AUTOMATED METHOD 06/18/2024 3:[address] [facility] Bilirubin, Urine Negative Negative LAB URINALYSIS - AUTOMATED METHOD 06/18/2024 3:[address] [facility] Blood, Urine Large(A) Negative LAB URINALYSIS - AUTOMATED METHOD 06/18/2024 3:[address] [facility] RBC, Urine 3,958.6(H) 0 - 4 /HPF LAB URINALYSIS - AUTOMATED METHOD 06/18/2024 3:[address] [facility] WBC, Urine 629.1(H) 0 - 4 /HPF LAB URINALYSIS - AUTOMATED METHOD 06/18/2024 3:[address] [facility] Squamous Epithelial, Urine 0 0 - 60 /LPF LAB URINALYSIS - AUTOMATED METHOD 06/18/2024 3:[address] [facility] Bacteria, Urine Negative Negative /HPF LAB URINALYSIS - AUTOMATED METHOD 06/18/2024 3:01 PM EST [facility] Hyaline Casts, Urine 0.0 0 - 3 /LPF LAB URINALYSIS - AUTOMATED METHOD 06/18/2024 3:01 PM EST [facility] Urine Urine specimen from urinary conduit / Unknown 06/18/2024 11:10 AM EST 06/18/2024 2:31 PM EST Gael RAYGOZA LAB URINE ORDERABLES Final Resul t Performing Organization Address [facility]/State/ZIP Co de Phone Number [facility] [address] [place] [address], [place] [phone] * (ABNORMAL) Culture urine (06/18/2024 11:10 AM EST) Culture, Urine >100,000 CFU/mL Staphylococcus epidermidis(A) JAMES 06/20/2024 11:44 AM EST [facility] Comment: Edited result: Previously reported [...] MICROBIOLOGY - GENERAL ORDER SANDIP Final Result [facility] ([facility]) [facility] [address] [place] [address], documented in this encounter Visit Diagnoses Diagnosis Gross hematuria Dysuria documented in this encounter Care Teams Pediatric Acute Care Unit Nurse Relationship Specialty Start Date End Date Physician, Pcp Unknown PCP - General 06/18/24 documented as of this encounter
--- OUTSIDE RECORDS SUMMARY | 2024-12-25 16:50 | XMS_ITS | Encounter Summary ---
Author Organization [facility] Address [address] [place] [address] Phone Care Team Providers Care Cattle Sticker Name Role Phone Margaret Chavis MD Unavailable [phone] Gertrude Kendall MD Primary Care Provider + [phone] Reason for Referral * MRI/CAT Scan - Closed Specialty Diagnoses / Procedures Referred By Chidi mac Referred To Contact Radiology Diagnoses Abnormal stress test Dyspnea, unspecified type Atrial fibrillation, unspecified type Procedures NC Myocardial Perfusion Exercise Multiple Margaret Chavis MD [address] [place] [address] Phone: tel: fax: Referral ID Status Reason Start Date Expiration Date Visits Re quested Visits Authorized [id number] Closed 04/25/2022 04/25/2023 4 4 Encounter Details Date Type Department Care Team (Latest Contact Info) Description 04/25/2022 Transcribe Orders Virtual Department [address] [place] [address] Margaret Chavis MD [address] [id number] Abnormal stress test (Primary Dx); Dyspnea, unspecified type; Atrial fibrillation, unspecified type [...] st Contact Info) Description 12/25/2024 Procedure Pass [facility] Echo Lab [address] [place] [address] 01/28/2025 1:30 PM EDT Appointment [facility] Echo Lab [address] [place] [address] Margaret Chavis MD [address] [address] documented as of this encounter Results * NC Myocardial Perfusion Exercise Multiple (06/14/2022 11:44 AM EST) Anatomical Region Laterality Modality Heart, Vascular Nuclear Medicine 06/14/2022 12:2 5 PM EST Impressions 06/14/2022 12:34 PM EST 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 No new ischemic foci detected. The LVEF was calculated at approximately 51%. POS [id number] Narrative 06/14/2022 12:34 PM EST COMPARISON: 12/18/2018 cardiac scintigraphy DOSE: 10.1 mCi of technetium 99m sestamibi intravenously at rest and 30.7 mCi of technetium 99m sestamibi subsequently in the day during treadmill stress. The patient reportedly achieved 112% of MPHR during stress. SPECT images were obtained, gated at stress. FINDINGS: Left ventricular cavity size appears be upper limits normal. On the stress portion of the examination there is a chronic focus of moderately diminished tracer uptake in the apex which improves peripherally but does not completely normalize at rest. Tracer distribution throughout the remainder the left ventricular myocardium is essentially physiologic and unchanged between stress and rest. There is mild diffusely diminished myocardial thickening. The LVEF was calculated at 51% and the TID ratio at 0.95. Procedure Note Chris Klein MD - 06/14/2022 COMPARISON: 12/18/2018 cardiac scintigraphy DOSE: 10.1 mCi of technetium 99m sestamibi intravenously at rest and 30.7mCi of technetium 99m sestamibi subsequently in the day during treadmillstress. The patient reportedly achieved 112% of MPHR during stress. SPECTimages were obtained, gated at stress. FINDINGS: Left ventricular cavity size appears be upper limits normal. On the stressportion of the examination there is a chronic focus of moderatelydiminished tracer uptake in the apex which improves peripherally but doesnot completely normalize at rest. Tracer distribution throughout theremainder the left ventricular myocardium is essentially physiologic andunchanged between stress and rest. There is mild diffusely diminishedmyocardial thickening. The LVEF was calculated at 51% and the TID ratio at0.95. IMPRESSION: 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 No new ischemicfoci detected. The LVEF was calculated at approximately 51%. POS [id number] Margaret Chavis MD CV NM CARDIAC Final Result documented in this encounter Visit Diagnoses Diagnosis Abnormal stress test- Primary Other nonspecific abnormal cardiovascular system function study Dyspnea, unspecified type Atrial fibrillation, unspecified type Abnormal stress test Other nonspecific abnormal cardiovascular system function study Dyspnea, unspecified type Atrial fibrillation, unspecified type documented in this encounter Additional Health Concerns Infection Onset Date Last Indicated Resolved Time CoV-Risk 07/21/2022 07/21/2022 07/23/2022 9:59 AM EDT documented as of this encounter Care Teams Cattle Sticker Relationship Specialty Start Date End Date Gertrude Kendall MD [address] [address] [email or web address] PCP - General Family Medicine 04/06/22 Margaret Chavis MD [address] [address] Cardiology 01/07/19 documented as of this encounter Additional Source Comments The information contained in this document represents components of the legal health record. It is not the complete legal health record.[facility]
--- OUTSIDE RECORDS SUMMARY | 2024-12-25 16:50 | XMS_ITS | Encounter Summary ---
Author Organization [facility] Address [address] [place] [address] Phone Care Team Providers Care Outside Sales Associate Name Role Phone Shahab Perkins MD Primary Care Provider [phone] Margaret Chavis MD Unavailable [phone] Gertrude Kendall MD Primary Care Provider + [phone] Reason for Referral * MRI/CAT Scan - Closed Specialty Diagnoses / Procedures Referred By Contac t Referred To Contact Radiology Diagnoses Pre-op exam Atrial fibrillation, unspecified type Coronary artery disease without angina pectoris, unspecified vessel or lesion type, unspecified whether [place] or transplanted heart Dyspnea, unspecified type Procedures NC Myocardial Perfusion Exercise Multiple NC Myocardial Perfusion Stress Single NC Myocardial Perfusion Exercise Multiple Margaret Chavis MD [address] [address] Phone: tel: fax: Referral ID Status Reason Start Date Expiration Date Visits Re quested Visits Authorized [id number] Closed 12/10/2018 12/10/2019 1 1 * Outpatient Procedure - Closed Specialty Diagnoses / Procedures Referred By Contac t Referred To Contact Diagnoses Coronary artery disease, angina presence unspecified, unspecified vessel or lesion type, unspecified whether [place] or transplanted heart Pre-op exam Dyspnea, unspecified type Atrial fibrillation, unspecified type Procedures Adult Echo TTE Margaret Chavis MD [address] [address] Phone: tel: fax: Referral ID Status Reason Start Date Expiration Date Visits Re quested Visits Authorized [id number] Closed 12/10/2018 12/10/2019 1 1 Encounter Details Date Type Department Care Team (Latest Contact Info) Description 12/10/2018 Ancillary Orders Virtual Department [address] [place] [address] Margaret Chavis MD [address] [address] Pre-op exam; Atrial fibrillation, unspecified type; Coronary artery disease without angina pectoris, unspecified vessel or lesion type, unspecified whether [place] or transplanted heart; Dyspnea, unspecified type; Coronary artery disease, angina presence unspecified, unspecified vessel or lesion type, unspecified whether y[place] or transplanted heart Social History Tobacco Use Types Packs/Day Years [...] st Contact Info) Description 12/25/2024 Procedure Pass [facility] Echo Lab [address] [place] [address] 01/28/2025 1:30 PM EDT Appointment [facility] Echo Lab [address] [place] [address] Margaret Chavis MD [address] [address] documented as of this encounter Results * TTE COMPREHENSIVE (12/25/2018 11:56 AM EDT) Body Surface Area 1.9 m2 Height 170 cm Weight 76 kg Systolic BP 122 mmHg Diastolic BP 72 mmHg Interventricular Septum Thickness 9 mm Left Ventricle Internal Diameter End Diastole 50 42 - 58 mm Left Ventricle Internal Diameter End Systole 33 25 - 40 mm Left Ventricular Outflow Tract Diameter 20.0 mm LVOT VTI REST 127 mm Left Ventricular Outflow Tract Velocity 0.7 m/s Left Ventricular Outflow Tract Gradient at Rest 2 mmHg Left Ventricular Posterior Wall Thickness 12 mm Left Atrium Dimension Anterior-Posterior 50 15 - 40 mm Aortic Valve Peak Velocity 106.0 cm/s Aortic Valve Peak Gradient 4 mmHg Aortic Sinus Diameter 30 mm Ascending Aorta Diameter 36 mm Inferior Vena Cava Diameter 16 0.0 - 21 mm Mitral Valve Deceleration Time 264 ms Mitral Valve E Wave Speed 72.3 cm/s Right Ventricle Basal Diameter 28 25 - 41 mm Tricuspid Valve Peak Velocity 2.2 m/s Raw LV EF% 56 % Right Ventricle Peak Systolic Pressure 22 mmHg Right Atrium Pressure Estimated 3 mmHg Right Ventricle to Right Atrium Pressure Gradient 19 mmHg Aortic Valve Sinus Index 1 16 20 - 32 mm Ascending Aorta Diameter 19 mm Aortic Sinus Index 16 mm Ascending Aorta Index 19 mm Ejection Fraction 51 50 - 75 % Left Atrial Volume 137 mL Left Atrial Volume Index 72.11 mL/m2 Anatomical Region Laterality Modality Heart Ultrasound Narrative 12/25/2018 7:24 PM EDT The predominant rhythm during the study was atrial fibrillation. The left ventricular cavity size and wall thickness are normal. Left ventricular systolic function is at the lower end of the normal range. There are no segmental left ventricular wall motion abnormalities noted. The estimated ejection fraction is 51% (Normal 50-75%). The left ventricular ejection fraction was measured by the bi-plane method of discs. Left ventricular diastolic function could not be adequately assessed. The left atrium is severely dilated. There is evidence of mild aortic regurgitation by color and spectral Doppler. There is mild to moderate mitral regurgitation detected by spectral and color Doppler. Normal pulmonary pressure. The RV systolic pressure was estimated from the peak TV regurgitant velocity. The estimated RV systolic pressure is 22 mmHg assuming a right atrial pressure of 3 mmHg. No prior studies for comparison. Left Ventricle The left ventricular cavity size and wall thickness are normal. Left ventricular systolic function is at the lower end of the normal range. There are no segmental left ventricular wall motion abnormalities noted. The estimated ejection fraction is 51% (Normal 50-75%). The left ventricular ejection fraction was measured by the bi-plane method of discs. Left ventricular diastolic function could not be adequately assessed. Right Ventricle The right ventricular size is normal. No evidence of right ventricular hypertrophy. The right ventricular systolic function is normal. Left Atrium The left atrium is severely dilated. The left atrial anterior-posterior dimension measures 50 mm (normal 15-40 mm). The LA volume index is 72.11 mL/m2 (normal indexed value is 16-34 mL/m2). Right Atrium The right atrium is normal in size. The IVC is normal in size (2.1cm or less). The IVC measures 16 mm (normal <=21 mm). The IVC demonstrates normal collapse with inspiration which is consistent with normal RA pressure. Mitral Valve The mitral valve appears normal. The Med E' Atul is 8.5 cm/s and the Lat E' Atul is 12.5. The E/E' AVG is 6.9. There is no evidence of mitral stenosis. There is mild to moderate mitral regurgitation detected by spectral and color Doppler. Tricuspid Valve The tricuspid valve appears normal. There is no evidence of tricuspid stenosis. There is evidence of trace tricuspid regurgitation by color and spectral Doppler. Normal pulmonary pressure. The RV systolic pressure was estimated from the peak TV regurgitant velocity. The estimated RV systolic pressure is 22 mmHg assuming a right atrial pressure of 3 mmHg. Aortic Valve The aortic valve appears normal. The aortic valve is tricuspid. There is no evidence of valvular aortic stenosis. The peak aortic valve gradient is 4 mmHg. There is evidence of mild aortic regurgitation by color and spectral Doppler. The visualized portions of the thoracic aorta appear normal. Pulmonic Valve The pulmonary valve appears normal. There is no evidence of pulmonic stenosis. There is evidence of mild pulmonary regurgitation by color and spectral Doppler. Pericardium There is no evidence of pericardial effusion. There no evidence of a pleural effusion. Interatrial Septum The interatrial septum appears normal. Interventricular Septum Interventricular septal motion appears normal. General Findings The image quality was good (2). Technique(s) used in the evaluation: Color flow Doppler and Spectral Doppler. The predominant rhythm during the study was atrial fibrillation. Comparison Findings No prior studies for comparison. us Margaret Chavis MD CV ECHO ORDERABLES Final Res ult * NC Myocardial Perfusion Exercise Multiple (12/18/2018 11:14 AM EDT) Anatomical Region Laterality Modality Heart, Vascular Nuclear Medicine 12/18/2018 11:1 6 AM EDT Impressions 12/18/2018 12:18 PM EDT Small left apical ischemia. No infarction. Critical results were reported to Dr. Cherry in the ED at the time of dictation with a read-back occurring. POS [id number] Narrative 12/18/2018 12:18 PM EDT COMPARISON: None. DOSE: 9.9 mCi at rest and 31.3 mCi at stress of Tc99m Sestamibi TECHNIQUE: Patient underwent an exercise stress test following Jaziel protocol exercising for 7 minutes and 19 seconds reaching 104% of maximal predicted heart rate. Exam terminated due to fatigue. No EKG changes suggestive of ischemia or chest pain. NUCLEAR MEDICINE CARDIAC SPECT FINDINGS: Left ventricle is normal in size from stress to rest. There is a small apical reversible perfusion defect which is of mild intensity. No other perfusion defects. Study was not gated due to patient's atrial fibrillation. T.I.D. ratio 1.1. Procedure Note Filomena David MD - 12/18/2018 COMPARISON: None. DOSE: 9.9 mCi at rest and 31.3 mCi at stress of Tc99m Sestamibi TECHNIQUE: Patient underwent an exercise stress test following Bruceprotocol exercising for 7 minutes and 19 seconds reaching 104% of maximalpredicted heart rate. Exam terminated due to fatigue. No EKG changessuggestive of ischemia or chest pain. NUCLEAR MEDICINE CARDIAC SPECT FINDINGS: Left ventricle is normal in size from stress to rest. There is a smallapical reversible perfusion defect which is of mild intensity. No otherperfusion defects. Study was not gated due to patient's atrialfibrillation. T.I.D. ratio 1.1. IMPRESSION: Small left apical ischemia. No infarction. Critical results were reported to Dr. Cherry in the ED at the time ofdictation with a read-back occurring. POS [id number] Margaret Chavis MD CV NM CARDIAC Final Result documented in this encounter Visit Diagnoses Diagnosis Pre-op exam Atrial fibrillation, unspecified type Coronary artery disease without angina pectoris, unspecified vessel or lesion type, unspecified whether [place] or transplanted heart Dyspnea, unspecified type Pre-op exam Atrial fibrillation, unspecified type Coronary artery disease without angina pectoris, unspecified vessel or lesion type, unspecified whether [place] or transplanted heart Dyspnea, unspecified type Coronary artery disease, angina presence unspecified, unspecified vessel or lesion type, unspecified whether [place] or transplanted heart Pre-op exam Dyspnea, unspecified type Atrial fibrillation, unspecified type documented in this encounter Additional Health Concerns Infection Onset Date Last Indicated Resolved Time CoV-Risk 07/21/2022 07/21/2022 07/23/2022 9:59 AM EDT documented as of this encounter Care Teams Outside Sales Associate Relationship Specialty Start Date End Date Shahab Perkins MD [address] [place] [address] [place] [address] [email or web address] PCP - General Family Medicine 08/13/17 04/05/22 Gertrude Kendall MD [address] [place] [address] [email or web address] PCP - General Family Medicine 04/06/22 Margaret Chavis MD [address] [address] Cardiology 01/07/19 documented as of this encounter Additional Source Comments The information contained in this document represents components of the legal health record. It is not the complete legal health record.[facility]
--- OUTSIDE RECORDS SUMMARY | 2024-12-25 16:50 | XMS_ITS | Encounter Summary ---
Author Organization [facility] Address [address] [place] [address] [place] [address] Phone Care Team Providers Care Carpenter/Labor Name Role Phone Shahab Perkins MD Primary Care Provider [phone] Margaret Chavis MD Unavailable [phone] Gertrude Kendall MD Primary Care Provider [phone] Encounter Details Date Type Department Care Team (Late Contact Info) Description 11/11/2018 Procedure Pass OR Admitting Dept - Virtual Department [address] [place] [address] Social History Tobacco Use Types Packs/Day Years [...] (Late Contact Info) Description 12/25/2024 Procedure Pass [facility] Echo Lab [address] [place] [address] 01/28/2025 1:30 PM EDT Appointment [facility] Echo Lab [address] [place] [address] Margaret Chavis MD [address] [place] [address], [place] [address] documented as of this encounter Visit Diagnoses Not on filedocumented in this encounter Additional Health Concerns Infection Onset Date Last Indicated Resolved Time CoV-Risk 07/21/2022 07/21/2022 07/23/2022 9:59 AM EDT documented as of this encounter Care Teams Carpenter/Labor Relationship Specialty Start Date End Date Shahab Perkins MD [address] [facility] [address] [place] [address] [email or web address] PCP - General Family Medicine 08/13/17 04/05/22 Gertrude Kendall MD [address] [place] [address] PCP - General Family Medicine 04/06/22 Margaret Chavis MD [address] [address] Cardiology 01/07/19 documented as of this encounter Additional Source Comments The information contained in this document represents components of the legal health record. It is not the complete legal health record.[facility]
--- OUTSIDE RECORDS SUMMARY | 2024-12-25 16:50 | XMS_ITS | Encounter Summary ---
Author Organization [facility] Address [address] [place] [address] Phone Care Team Providers Care Fire Behavior Analyst Name Role Phone Shahab Perkins MD Primary Care Provider [phone] Margaret Chavis MD Unavailable [phone] Gerturde Kendall MD Primary Care Provider + [phone] Reason for Referral * Outpatient Procedure - Closed Specialty Diagnoses / Procedures Referred By Contac t Referred To Contact Diagnoses Coronary artery disease, unspecified vessel or lesion type, unspecified whether angina present, unspecified whether tolowa dee-ni' or transplanted heart Procedures Stress Test Exercise Margaret Chavis MD [address] [place] [address] Phone: tel: fax: Referral ID Status Reason Start Date Expiration Date Visits Re quested Visits Authorized [id number] Closed 04/02/2022 04/02/2023 1 1 Encounter Details Date Type Department Care Team (Latest Contact Info) Description 04/02/2022 Transcribe Orders Virtual Department [address] [place] [address] Margaret Chavis MD [address] [place] [phone] Coronary artery disease, unspecified vessel or lesion type, unspecified whether angina present, unspecified whether tolowa dee-ni' or transplanted heart (Primary Dx) Social History Tobacco Use Types [...] st Contact Info) Description 12/25/2024 Procedure Pass [facility] Echo Lab [address] [place] [address] 01/28/2025 1:30 PM EDT Appointment [facility] Echo Lab [address] [place] [address] Margaret Chavis MD [address] [place] [phone] documented as of this encounter Results * Stress Test Exercise (04/06/2022 9:28 AM EST) Max BP Systolic 158 mmHg [facility] Max BP Diastolic 68 mmHg [facility] Max HR 153 BPM [facility] Resting HR 81 BPM [facility] Resting BP Systolic 118 mmHg [facility] Resting BP Diastolic 68 mmHg [facility] Peak METS 7.0 METS [facility] Peak HR 153 BPM [facility] Peak BP Systolic 158 mmHg [facility] Peak BP Diastolic 68 mmHg [facility] Anatomical Region Laterality Modality Heart Other 04/06/2022 8:21 AM EST 04/06/2022 9:26 AM EST Narrative 04/06/2022 9:39 AM EST Response to Stress The patient exercised for minutes seconds, achieving 7.0 METS at peak exercise. Baseline blood pressure was 118/68 mmHg, and baseline heart rate was 81 bpm. Peak blood pressure was 158/68 mmHg. The patient achieved a peak heart rate of 153 bpm, which is% of their maximum predicted heart rate. Rate pressure product was [id number]. REPORT- Patient exercised for 4:51 minutes on a STONE protocol achieving 7.0 METS. Test terminated due to fatigue and tachycardia. Baseline resting heart rate was 91 bpm. Maximum heart rate achieved was 153 bpm (110% MPHR). 1. EKG - Baseline EKG showed atrial fibrillation with a right axis deviation and non-specific ST/T wave abnormalities. During exercise, there was an exaggeration of baseline abnormalities that did not meet strict criteria for ischemia. 2. SYMPTOMS - No chest pain. 3. EXERCISE PHYSIOLOGY - Good functional capacity for age. BP 118/68 at rest, 158/68 during exercise, and 120/62 upon discharge from stress lab. 4. ARRHYTHMIAS - Atrial fibrillation with ventricular rates above 100 bpm through majority of testing, both at rest and with exertion. Occasional multifocal PVCs. Conclusion - No EKG evidence of ischemia or symptoms concerning for angina. Lydia Oneill NP-C with Dr Avila. Margaret Chavis MD CV STRESS ORDERABLES Final R esult documented in this encounter Visit Diagnoses Diagnosis Coronary artery disease, unspecified vessel or lesion type, unspecified whether angina present, unspecified whether [place]lowa dee-ni' or transplanted heart- Primary Coronary artery disease, unspecified vessel or lesion type, unspecified whether angina present, unspecified whether tolowa dee-ni' or transplanted heart documented in this encounter Additional Health Concerns Infection Onset Date Last Indicated Resolved Time CoV-Risk 07/21/2022 07/21/2022 07/23/2022 9:59 AM EDT documented as of this encounter Care Teams Fire Behavior Analyst Relationship Specialty Start Date End Date Shahab Perkins MD [address] [place] [address] [address] [place] [id number] [email or web address] PCP - General Family Medicine 08/13/17 04/05/22 Gertrude Kendall MD [address] [place] [address] [email or web address] PCP - General Family Medicine 04/06/22 Margaret Chavis MD [address] [place] [address] Cardiology 01/07/19 documented as of this encounter Additional Source Comments The information contained in this document represents components of the legal health record. It is not the complete legal health record.[facility]
--- OUTSIDE RECORDS SUMMARY | 2024-12-25 16:50 | XMS_ITS | Encounter Summary ---
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 Cyst of kidney, acquired Personal history of malignant neoplasm of renal pelvis Procedures CT Abdomen/Pelvis Hosea Lao MD Phone: tel: fax: [email or web address] Referral ID Status Reason Start Date Expiration Date Visits Re quested Visits Authorized [id number] Closed 10/26/2020 10/26/2021 1 1 Encounter Details Date Type Department Care Team (Latest Contact Info) Description 10/26/2020 Transcribe Orders Virtual Department [address] [place] [address] Hosea Lao MD Critical access hospital[facility], [address] [id number] [email or web address] 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); Personal history of malignant neoplasm of bladder; Cyst of kidney, acquired; Personal history of malignant neoplasm of renal pelvis Social History Tobacco Use Types Packs/Day Years [...] st Contact Info) Description 12/25/2024 Procedure Pass [facility] [address] [place] [address] 01/28/2025 1:30 PM EDT Appointment [facility] Echo [facility] [address] [place] [address] Margaret Chavis MD [address] [place] [phone] documented as of this encounter Results * CT ABDOMEN/PELVIS WITH CONTRAST (11/11/2020 8:59 AM EDT) Anatomical Region Laterality Modality Abdomen, Pelvis Computed Tomogra phy 11/11/2020 9:45 AM EDT Impressions 11/11/2020 11:55 AM EDT 1.Status post prior left radical nephroureterectomy. 2.Stable simple cyst of the superior pole the right kidney. No other solid mass, upper tract urothelial abnormality, or stone. 3.Generalized posterior bladder wall thickening, without any discrete mass identified. 4.1.4 x 1.1 cm hypodensity of the head of the pancreas, of unclear etiology. If felt clinically indicated and not previously worked up, an MRI of the pancreas could be obtained for better characterization. Narrative 11/11/2020 11:[address] ABDOMEN/PELVIS WITH CONTRAST TECHNIQUE: Multidector-row CT of the abdomen and pelvis was performed before and after administration of intravenous contrast using tailored dose modulation techniques. Images were reconstructed in the axial, coronal, and sagittal planes. COMPARISON: Abdominopelvic CT from 09/25/2019. FINDINGS: Lower Chest: Redemonstrated focal opacity of the right middle lobe, measuring approximately 1.1 x 1.0 cm (3:23). Normal heart size. No effusions. Mild coronary artery calcifications. Liver: There is again seen to be a 0.9 x 1.2 cm hypodensity of the inferiormost liver (3:94), too small to accurately characterize. Biliary: No biliary ductal dilatation. Spleen: No splenomegaly or focal lesions. Pancreas: 1.4 x 1.1 cm hypodensity of the head of the pancreas (3:60). Adrenal Glands: No nodules. Kidneys/Ureters: Status post prior radical left nephroureterectomy. Stable simple cyst of the superior pole of the right kidney, measuring 4.2 x 4.2 cm (3:58). No solid masses, upper track urothelial abnormality, stones or hydronephrosis. Pelvic Organs/Bladder: There is generalized posterior bladder wall thickening, without any discrete mass identified. Prostatomegaly. Bowel: No distention or wall thickening. Peritoneum/Retroperitoneum: No masses, pneumoperitoneum, or fluid. Lymph Nodes: No lymphadenopathy. Vessels: No abdominal aortic aneurysm. Bones/Soft Tissues: No destructive osseous lesions. Multilevel degenerative changes of the spine. Procedure Note Jayant Lowe MD - 11/11/2020 CT ABDOMEN/PELVIS WITH CONTRAST TECHNIQUE: Multidector-row CT of the abdomen and pelvis was performedbefore and after administration of intravenous contrast using tailoreddose modulation techniques. Images were reconstructed in the axial,coronal, and sagittal planes. COMPARISON: Abdominopelvic CT from 09/25/2019. FINDINGS: Lower Chest: Redemonstrated focal opacity of the right middle lobe,measuring approximately 1.1 x 1.0 cm (3:23). Normal heart size. Noeffusions. Mild coronary artery calcifications. Liver: There is again seen to be a 0.9 x 1.2 cm hypodensity of theinferiormost liver (3:94), too small to accurately characterize. Biliary: No biliary ductal dilatation. Spleen: No splenomegaly or focal lesions. Pancreas: 1.4 x 1.1 cm hypodensity of the head of the pancreas (3:60). Adrenal Glands: No nodules. Kidneys/Ureters: Status post prior radical left nephroureterectomy. Stablesimple cyst of the superior pole of the right kidney, measuring 4.2 x 4.2cm (3:58). No solid masses, upper track urothelial abnormality, stones orhydronephrosis. Pelvic Organs/Bladder: There is generalized posterior bladder wallthickening, without any discrete mass identified. Prostatomegaly. Bowel: No distention or wall thickening. Peritoneum/Retroperitoneum: No masses, pneumoperitoneum, or fluid. Lymph Nodes: No lymphadenopathy. Vessels: No abdominal aortic aneurysm. Bones/Soft Tissues: No destructive osseous lesions. Multileveldegenerative changes of the spine. IMPRESSION: 1.Status post prior left radical nephroureterectomy. 2.Stable simple cyst of the superior pole the right kidney. No other solidmass, upper tract urothelial abnormality, or stone. 3.Generalized posterior bladder wall thickening, without any discrete massidentified. 4.1.4 x 1.1 cm hypodensity of the head of the pancreas, of unclearetiology. If felt clinically indicated and not previously worked up, anMRI of the pancreas could be obtained for better characterization. 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 Cyst of kidney, acquired Acquired cyst of kidney Personal history of malignant neoplasm of renal pelvis Personal history of malignant neoplasm, renal pelvis documented in this encounter Additional Health Concerns Infection Onset Date Last Indicated Resolved Time CoV-Risk 07/21/2022 07/21/2022 07/23/2022 9:59 AM EDT documented as of this encounter Care Teams Felt Hat Mellowing Machine Operator Relationship Specialty Start Date End Date Shahab Perkins MD [address] [facility] [address] [place] [address] [email or web address] PCP - General Family Medicine 08/13/17 04/05/22 Gertrude Kendall MD [address] [address] [email or web address] PCP - General Family Medicine 04/06/22 Margaret Chavsi MD [address] [address] Cardiology 01/07/19 documented as of this encounter Additional Source Comments The information contained in this document represents components of the legal health record. It is not the complete legal health record.[facility]
--- OUTSIDE RECORDS SUMMARY | 2024-12-25 16:50 | XMS_ITS | Encounter Summary ---
Author Organization [facility] Address [address] [place] [address] Phone Care Team Providers Care Slot Editor Name Role Phone Shahab Perkins MD Primary Care Provider [phone] Margaret Chavis MD Unavailable [phone] Gertrude Kendall MD Primary Care Provider [phone] Encounter Details Date Type Department Care Team (Latest Contact Info) Description 11/28/2020 Transcribe Orders Virtual Department [address] [place], [place] [id number] Shahab Perkins MD 230 [facility] [address] [place] [phone] [email or web address] Mass of pancreas (Primary Dx) Social History Tobacco Use Types [...] 12/25/2024 Procedure Pass [facility] [address] [place] [address] 01/28/2025 1:30 PM EDT Appointment [facility] [address] [place] [address] Margaret Chavis MD 241 [facility] [address] [place] [address] documented as of this encounter Visit Diagnoses Diagnosis Mass of pancreas- Primary documented in this encounter Additional Health Concerns Infection Onset Date Last Indicated Resolved Time CoV-Risk 07/21/2022 07/21/2022 07/23/2022 9:59 AM EDT documented as of this encounter Care Teams Slot Editor Relationship Specialty Start Date End Date Shahab Perkins MD 230 [facility] [address] [place] [address] [email or web address] PCP - General Family Medicine 08/13/17 04/05/22 Gertrude Kendall MD [address] [place] [address] PCP - General Family Medicine 04/06/22 Margaret Chavis MD [address] [place] [address] Cardiology 01/07/19 documented as of this encounter Additional Source Comments The information contained in this document represents components of the legal health record. It is not the complete legal health record.[facility]
--- OUTSIDE RECORDS SUMMARY | 2024-12-25 16:50 | XMS_ITS | Encounter Summary ---
Author Organization [facility] Address [address] [place] [address] Care Team Providers Care Shipwright Supervisor Name Role Phone Physician, Pcp Unknown Primary Care Provider Jennifer vailable Encounter Details Date Type Department Care Team (Late st Contact Info) Description 09/25/[address] [facility] Lab [address] [facility] [place] [address] Hosea Lao MD [address] [facility] [address] [place] [phone] Pyuria Social History Tobacco Use Types Packs/Day [...] Comments BACTERIAL IDENTIFICATION AND SUSCEPTIBILITY, AEROBIC Routine 09/25/2024 12:00 AM EDT Pyuria documented in this encounter Results * (ABNORMAL) Bacterial identification and susceptibility, aerobic (09/25/2024 12:00 AM EDT) Culture, Bacterial ID and Sensitivity Pseudomonas aeruginosa(A) JAMES 09/28/2024 7:50 AM EDT [facility] Comment: This is an edited result. Previous organism was Gram negative bacilli on 09/26/2024 at 1050 EDT. Culture, Bacterial ID and Sensitivity Enterococcus faecalis(A) JAMES 09/28/2024 7:50 AM EDT [facility] Comment: The organism value for this result has been updated. These results have been appended to the previously preliminary verified report. Edited result: Previously reported as Enterococcus species on 09/27/2024 at 0841 EDT. Other Indwelling urinary catheter / Unknown 09/25/2024 09/25/2024 6:26 PM EDT Narrative Organism Antibiotic Method Susceptibility Pseudomonas aeruginosa Piperacillin/Tazobactam JAMES 8 ug/ml: Susceptible Pseudomonas aeruginosa Ceftazidime JAMES 4 ug/ml: Susceptible Pseudomonas aeruginosa Cefepime JAMES 4 ug/ml: Susceptible Pseudomonas aeruginosa Meropenem JAMES 1 ug/ml: Susceptible Pseudomonas aeruginosa Amikacin JAMES 4 ug/ml: Susceptible Pseudomonas aeruginosa Ciprofloxacin JAMES 0.5 ug/ml: Susceptible Pseudomonas aeruginosa Levofloxacin JAMES 1 ug/ml: Susceptible Enterococcus faecalis Benzylpenicillin JAMES 4 ug/ml: Susceptible Enterococcus faecalis Ampicillin JAMES <=2 ug/ml: Susceptible Enterococcus faecalis Ciprofloxacin JAMES <=0.5 ug/ml: Susceptible Enterococcus faecalis Levofloxacin JAMES 1 ug/ml: Susceptible Enterococcus faecalis Linezolid JAMES 2 ug/ml: Susceptible Enterococcus faecalis Vancomycin JAMES 1 ug/ml: Susceptible Enterococcus faecalis Tetracycline JAMES <=1 ug/ml: Susceptible Enterococcus faecalis Nitrofurantoin JAMES <=16 ug/ml: Susceptible us Hosea Lao MD LAB MICROBIOLOGY - GENERAL ORDER SANDIP Final Result [facility] [address] [place] [address], [place] [phone] documented in this encounter Visit Diagnoses Diagnosis Pyuria Other nonspecific finding on examination of urine documented in this encounter Care Teams Shipwright Supervisor Relationship Specialty Start Date End Date Physician, Pcp Unknown PCP - General 06/18/24 documented as of this encounter
--- OUTSIDE RECORDS SUMMARY | 2024-12-25 16:50 | XMS_ITS | Clinical Summary ---
Author Organization [address] Address [address] [place] [address] Phone Care Team Providers Care Sand Bobber Name Role Phone Physician, Pcp Unknown Primary Care Provider Jennifer vailable Encounters Date Type Department Care Team Description 10/09/2024 Lab Requisition [facility] Lab [address] [place] [address] Hosea Lao MD Pyuria 09/25/2024 Lab Requisition [facility] [address] [place] [address] Hosea Lao MD Pyuria from Last 3 Months Social History Tobacco [...] 06/30/1959 Pneumococcal Vaccine: 50+ Years (1 of 1 - PCV) 1990 Zoster Vaccines (1 of 2) 1990 RSV Immunization Adult Patients (1 - 1-dose 75+ series) 06/30/2015 COVID-19 Vaccine ( - 2023-2 5 season) 2023 Depression Screening 04/29/2024 Cholesterol Screening (Lipid Panel) 06/18/2024 Falls Risk Assessment 06/18/2024 Medicare Annual Wellness Visit 06/18/2024 Social Influencers of Health Screening 06/18/2024 Hypertension/CHF/CAD Annual BMP Blood Test 06/25/2024 07/02/2022, 10/25/2020, 11/18/2018 Influenza Vaccine (#1) 2024 HIB Vaccines Aged Out No longer eligi [...] age to complete this topic Meningococcal B Vaccine Aged Out No l onger eligible based on patient's age to complete this topic RSV Immunization Patients Under 20 months Aged Out No longer eligible b ased on patient's age to complete this topic Varicella Vaccines Aged Out No longer eligible based on patient's age to complete this topic Procedures Procedure Name Priority Date/Time Associated Diagnosis Comments CULTURE URINE Routine 10/09/2024 12:00 AM EDT Pyuria BACTERIAL IDENTIFICATION AND SUSCEPTIBILITY, AEROBIC Routine 09/25/2024 12:00 AM EDT Pyuria from Last 3 Months Results * (ABNORMAL) Culture urine (10/09/2024 12:00 AM EDT) Culture, Urine >100,000 CFU/mL Klebsiella pneumoniae ssp pneumoniae(A) JAMES 10/13/2024 9:57 AM EDT [facility] Comment: This is an edited result. Previous organism was Gram negative bacilli on 10/11/2024 at 1230 EDT. This is an appended report. These results have been appended to a previously final verified report. Culture, Urine >100,000 CFU/mL Klebsiella pneumoniae ssp pneumoniae(A) JAMES 10/13/2024 9:57 AM EDT [facility] Comment: The organism value for this result has been updated. These results have been appended to the previously preliminary verified report. This is an edited result. Previous organism was Gram negative bacilli on 10/12/2024 at 0946 EDT. Culture, Urine 50,000-100,000 CFU/mL Pseudomonas aeruginosa(A) JAMES 10/13/2024 9:57 AM EDT [facility]) [facility] Comment: The organism value for this [...] Final Result [facility] [address] [place] [address], * (ABNORMAL) Bacterial identification and susceptibility, aerobic (09/25/2024 12:00 AM EDT) [facility] Culture, Bacterial ID and Sensitivity Pseudomonas aeruginosa(A) JAMES 09/28/2024 7:50 AM EDT [facility] Comment: This is an edited result. Previous organism was Gram negative bacilli on 09/26/2024 at 1050 EDT. Culture, Bacterial ID and Sensitivity Enterococcus faecalis(A) JAMES 09/28/2024 7:50 AM EDT [facility] Comment: The organism value for this [...] MICROBIOLOGY - GENERAL ORDER SANDIP Final Result [facility] [address] [place] [address], [place] [phone] from Last 3 Months Insurance MEDICARE [facility] Care Teams Sand Bobber Relationship Specialty Start Date End Date Physician, Pcp Unknown PCP - General 06/18/24
--- OUTSIDE RECORDS SUMMARY | 2024-12-25 16:50 | XMS_ITS | Encounter Summary ---
Author Organization [facility] Address [address] [facility] [address] [place] [address] Phone Care Team Providers Care Application Consultant Name Role Phone Shahab Perkins MD Primary Care Provider [phone] Margaret Chavis MD Unavailable [phone] Gertrude Kendall MD Primary Care Provider [phone] Reason for Visit * Reason Onset Date Comments Appointment 11/19/2018 spoke to pt abou t CT Chest, he will have done at [facility] (Pt will schedule) . Also discussed Cardiac Clearance. Will maoil prep instructions.l Encounter Details Date Type Department Care Team (Late st Contact Info) Description 11/19/2018 Telephone Department of Urology [address] [address] Blaise Montes MD [address] [place] [address] [place] [address] [email or web address] Appointment (spoke to pt about CT Chest, he will have done at [facility] (Pt will schedule) . Also discussed Cardiac Clearance. Will maoil prep instructions.l) Social History Tobacco Use Types Packs/Day Years [...] 12/25/2024 Procedure Pass [facility] [address] [place] [address] 01/28/2025 1:30 PM EDT Appointment [facility] Echo Lab [address] [place] [address] Margaret Chavis MD 241 [facility] [address] [place] [address] documented as of this encounter Visit Diagnoses Not on filedocumented in this encounter Additional Health Concerns Infection Onset Date Last Indicated Resolved Time CoV-Risk 07/21/2022 07/21/2022 07/23/2022 9:59 AM EDT documented as of this encounter Care Teams Application Consultant Relationship Specialty Start Date End Date Shahab Perkins MD 230 [facility] [address] [place] [address] [email or web address] PCP - General Family Medicine 08/13/17 04/05/22 Gertrude Kendall MD [address] [place] [address] PCP - General Family Medicine 04/06/22 Margaret Chavis MD [address] [address] Cardiology 01/07/19 documented as of this encounter Additional Source Comments The information contained in this document represents components of the legal health record. It is not the complete legal health record.[facility]
--- NOTE | 2024-12-25 17:11 | ED.SOB ---
HPI - SOB/Dyspnea General Chief Complaint: Fever Stated Complaint: SOB, sent by cardio Time Seen by Provider: 12/25/24 16:33 Source: patient and old records reviewed Mode of arrival: ambulatory Limitations: no limitations History of Present Illness ED Provider: IGNACIO WILSON Narrative: 84 yo male with PMH of CAD s/p stent, afib on dilt and eliquis, chronic lynn s/p L nephrectomy for renal cell cancer 2019 on fosfomycin once weekly to prevent infection, HTN, ANGELLA on CPAP here with c/o waking up yesterday with shortness of breath and not feeling well. They went to the metal fin[facility] in [place] who did an EKG and showed his chronic afib and some labs, they ordered ECHO for 01/28. This AM he woke up c/o shortness of breath and had a fever of 102.2 - his O2 sat was 86% and family put him on CPAP. He last had tylenol at 1230pm. He states he is fine and denies dyspnea, chest pain, n/v, rash or any other complaints. They did go to a family gathering this past weekend with 12 family members but no known sick contacts. No known recent tick bites. MD elicited complaint: shortness of breath (fever) Onset (ago): day(s) (1) Timing: improved Severity: moderate Exacerbating factors: lying flat Relieving factors: rest and medication Associated symptoms: fever and cough Treatment prior to arrival: none Related Data Home Medications ?Medication ?Instructions ?Recorded ?Confirmed alfuzosin 10 mg tablet,extended 10 mg PO DAILY 10/02/23 01/24/24 release 24 hr apixaban 2.5 mg tablet (Eliquis) 2.5 mg PO BID 10/02/23 01/24/24 atorvastatin 40 mg tablet 40 mg PO DAILY 10/02/23 01/24/24 digoxin 125 mcg (0.125 mg) tablet PO 10/02/23 01/24/24 diltiazem HCl 240 mg 240 mg PO DAILY 10/02/23 01/24/24 capsule,extended release 24 hr latanoprost 0.005 % eye drops drp ophthalmic (eye) 10/02/23 01/24/24 nitroglycerin 0.4 mg sublingual mg sublingual 10/02/23 01/24/24 tablet ascorbate calcium (vitamin C) 500 500 mg PO BID 01/03/24 01/24/24 mg tablet nitrofurantoin 1 cap PO BID 01/24/24 01/24/24 monohydrate/macrocrystals 100 mg capsule Previous Rx's ?Medication ?Instructions ?Recorded erythromycin 5 mg/gram (0.5 %) eye 1 appl ophthalmic (eye) QID 7 days 10/11/22 ointment #3.5 grams sulfacetamide sodium 10 % eye drops 1 drp ophthalmic (eye) Q3H 7 days 10/11/22 #15 mL Kneeling Scooter #1 ea 10/02/23 phenazopyridine 200 mg tablet 200 mg PO TID PRN pain #9 tabs 06/20/24 (Pyridium) sulfamethoxazole 800 1 tab PO BID #13 tabs 06/20/24 mg-trimethoprim 160 mg tablet (Bactrim DS) Allergies Allergy/AdvReac Type Severity Reaction Status Date / Time shellfish derived Allergy Unknown Verified 12/25/24 16:33 Review of Systems Review of Systems: Constitutional : pos Fever, No Chills, No Fatigue ENT/Mouth : No sore throat, No Rhinorrhea Eyes: No Eye Pain, No Swelling, No Redness Cardiovascular : No Chest Pain, pos SOB, No Dyspnea on Exertion Respiratory : No Cough, No Sputum Gastrointestinal : No Nausea, No Vomiting, No Diarrhea, No abdominal Pain Genitourinary : No Dysuria, No Urinary Frequency, No Hematuria, Musculoskeletal : No joint pain, No Myalgias, No Joint Swelling Skin : No Skin Lesions, No rash Neuro : No Weakness, No Numbness, No Dizziness, no Headache All other systems reviewed and are negative [facility] Past Medical History Attestation statement: The following information was validated with the patient. 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 Oriented X3. No acute distress. Eyes: Pupils equal, round and reactive to light. ENT: Pharynx normal. Neck: Normal inspection. Neck supple. CVS: irregular heart rate and rhythm. Pulses normal. Respiratory: No respiratory distress. Breath sounds normal. Abdomen: Soft and nontender. Skin: Skin warm and dry. Normal skin color. Extremities: trace symmetric ankle lower extremity edema. No calf ttp Neuro: Oriented X 3. No motor deficit. No sensory deficit. CN2-12 intact Medications Administered Discontinued Medications Generic Name Dose Route Start Last Admin Trade Name Freq PRN Reason Stop Dose Admin Ceftriaxone Sodium 2 gm 12/25/24 16:46 12/25/24 17:07 Ceftriaxone Sodium 2 Gm Vial IVPUSH 12/25/24 16:47 2 gm ONCE ONE Administration Acetaminophen 1,000 mg in 100 mls @ 400 mls/hr 12/25/24 16:47 12/25/24 18:28 Ofirmev IV 12/25/24 17:01 Infused ONCE ONE Infusion Sodium Chloride 500 mls @ 500 mls/hr 12/25/24 18:30 12/25/24 19:20 Ns IV 12/25/24 19:29 Infused .Q1H ONE Infusion Medical Decision Making Medical Decision Making MDM Narrative: 84 yo male with PMH of CAD s/p stent, afib on dilt and eliquis, chronic lynn on fosfomycin once weekly, HTN, ANGELLA on CPAP here with c/o fevers, dyspnea, low O2 sats earlier. He responded to tylenol he has no known source that he reports and walked in on RA with sat of 98. At this time will need labs, viral panel, UA, CXR, will start on empiric ceftriaxone. Given the family event I do suspect possible COVID. He is always compliant with eliquis doubt VTE. Differential Diagnosis Differential Diagnoses: The differential diagnosis associated with the presentation includes COVID, UTI, pneumonia Admission/Observation Consideration of admission/observation: Escalation of care including admission/observation considered admit for IVF, IV abx Consult Healthcare Provider Management of the patient was discussed with: Hospitalist (will admit) Lab Data MDM Lab Attestation statement: I reviewed the patient's lab results. 12/25/24 17:20 12/25/24 17:20 Labs: Lab Results 12/25/24 12/25/24 12/25/24 Range/Units 17:05 17:20 19:26 WBC 14.9 H (4.8-10.8) X10*3/uL RBC 4.14 L (4.60-5.80) X10*6/uL Hgb 12.1 L (14.0-18.0) g/dl Hct 38.7 L (42.0-52.0) % MCV 93.5 (80.0-98.0) fL MCH 29.2 (27.0-33.0) pg MCHC 31.3 (31.0-36.0) g/dl RDW 14.0 (11.0-16.0) % Plt Count 128 L D (160-400) X10*3/uL MPV 10.6 (9.4-12.4) fL Immature Gran % (Auto) 0.5 H (0.0-0.4) % Neut % (Auto) 84.4 H (45-73) % Lymph % (Auto) 5.6 L (20-40) % [place] % (Auto) 7.9 (2-11) % Eos % (Auto) 1.3 (0-4) % Baso % (Auto) 0.3 (0-2) % Lymph # (Auto) 0.8 L (1.2-4.9) X10*3/uL [place] # (Auto) 1.2 (0.1-1.2) X10*3/uL Eos # (Auto) 0.2 (0.0-0.4) X10*3/uL Baso # (Auto) 0.0 (0.0-0.2) X10*3/uL Abs Immat Gran (auto) 0.08 H (0.00-0.03) X10*3/uL Absolute Neuts (auto) 12.6 H (2.0-8.3) x10*3/uL Absolute Nucleated RBC 0.000 (0.0-0.012) X10*3/uL Nucleated RBC % (auto) 0.0 (0.0-0.2) /100WBC Sodium 141 (135-145) mmol/L Potassium 3.8 (3.3-5.1) mmol/L Chloride 108 (96-108) mmol/L Carbon Dioxide 27 (22-29) mmol/L Anion Gap 10 L (12-20) BUN 18 H (9-16) mg/dL Creatinine 1.06 (0.5-1.4) mg/dL Estim Creat Clear Calc 48.5 Estimated GFR > 60 Random Glucose 99 (60-115) mg/dL Lactic Acid 1.6 (0.5-2.0) mmol/L Calcium 8.6 D (8.4-10.2) mg/dL Total Bilirubin 0.9 (0.0-1.0) mg/dL AST 19 (5-37) U/L ALT 15 (0-40) U/L Alkaline Phosphatase 79 (39-117) U/L Troponin I High Sens 11.5 (<3.5-35.0) ng/L C-Reactive Protein 4.92 H (< or = 0.50) mg/dL B-Natriuretic Peptide 234 H (<100) pg/mL Total Protein 6.5 (6.5-8.0) g/dL Albumin 3.9 (3.5-5.0) g/dL Lipase 45 (8-78) U/L Procalcitonin 0.08 ng/mL Urine Color Yellow Urine Appearance Clear Urine pH 6.0 (5.0-9.0) Ur Specific [place] <= 1.005 (1.005-1.025) Urine Protein Negative (Neg-Trace) mg/dL Urine Glucose (UA) Negative (Negative) mg/dL Urine Ketones Negative (Negative) mg/dL Urine Blood Trace (Negative) Urine Nitrite Positive H (Negative) Ur Leukocyte Esterase Small (1+) H (Negative) Urine RBC 0-2 (0-2) /HPF Urine WBC 21-50 H (0-5) /HPF Ur Squamous Epith Cells 0-2 (0-2) /HPF Urine Bacteria 1+ (None Seen) Hyaline Casts 0-2 (0-2) /LPF Influenza Type A (PCR) NEGATIVE (Negative) Influenza Type B (PCR) NEGATIVE (Negative) RSV RNA Qual (PCR) NEGATIVE (Negative) SARS-CoV-2 RNA (RT-PCR) NEGATIVE (Negative) Independent Interpretation I performed an independent interpretation of an: EKG and Plain X-Ray (no pneumonia) Interpretation: Rate: 92 Rhythm: afib with PVCs [place]: left Normal QRS complex. ST T wave : no SKYLA, flat t waves lateral leads, inverted t waves inf leads qTC: 425 prior studies: unchanged from 2015 The study has been interpreted contemporaneously by me. . Radiology Impression Discussion of test interpretation with radiology: I have reviewed the radiologist's reading. Independent Historian Clinical information obtained from an independent historian. History obtained from or confirmed by: Spouse External Record Review External record reviewed: Outpatient record Discharge Plan Discharge Clinical Impression: Acute UTI Elevated WBC count Qualifiers: Leukocytosis type: unspecified Qualified Code(s): D72.829 - Elevated white blood cell count, unspecified Patient Disposition: Admitted As Inpatient Print Language: Telugu
[2024-12-25 17:30] LABS: MANUAL DIFF FLAG NO
[2024-12-25 17:38] LABS: Hematocrit 38.7 % (42.0-52.0); Hemoglobin 12.1 g/dl (14.0-18.0); Imm Gran Abs Auto 0.08 X10*3/uL (0.00-0.03); Imm Gran Pct Auto 0.5 % (0.0-0.4); Lymphocytes Absolute Auto 0.8 X10*3/uL (1.2-4.9); Mean Corpuscular HGB Conc 31.3 g/dl (31.0-36.0); Mean Corpuscular Hemoglobin 29.2 pg (27.0-33.0); Mean Corpuscular Volume 93.5 fL (80.0-98.0); NRBC Abs Auto 0.000 X10*3/uL (0.0-0.012); NRBC Pct Auto 0.0 /100WBC (0.0-0.2); Platelet Count 128 X10*3/uL (160-400); Red Blood Count 4.14 X10*6/uL (4.60-5.80); White Blood Count 14.9 X10*3/uL (4.8-10.8)
[2024-12-25 17:49] LABS: Resp Syncy Virus RNA Qual PCR NEGATIVE (Negative); SARS COV2 PCR INHOUSE NEGATIVE (Negative)
[2024-12-25 17:54] LABS: Alanine Aminotransferase 15 U/L (0-40); Albumin Level 3.9 g/dL (3.5-5.0); Alkaline Phosphatase 79 U/L (39-117); Anion Gap 10 (12-20); Aspartate Amino Transferase 19 U/L (5-37); Blood Urea Nitrogen 18 mg/dL (9-16); Calcium 8.6 mg/dL (8.4-10.2); Carbon Dioxide 27 mmol/L (22-29); Chloride 108 mmol/L (96-108); Creatinine Clr Calc Pharmacy 48.5; Estimated Glomerular Filt Rate > 60; Lipase 45 U/L (8-78); Potassium 3.8 mmol/L (3.3-5.1); Sodium 141 mmol/L (135-145); Total Protein 6.5 g/dL (6.5-8.0)
[2024-12-25 18:02] LABS: Troponin-I High Sensitivity 11.5 ng/L (<3.5-35.0)
[2024-12-25 18:17] LABS: Procalcitonin 0.08 ng/mL
[2024-12-25 19:35] LABS: Appearance Urine Clear; Glucose Urine UA Negative (Negative); PH 6.0 (5.0-9.0); Specific Gravity - Urine <= 1.005 (1.005-1.025); UMIC TRIGGER UACC YES
[2024-12-25 19:35] LABS: B Type Natriuretic Peptide 234 pg/mL (<100)
[2024-12-25 19:38] LABS: UACC Culture Trigger YES
--- NOTE | 2024-12-25 19:43 | PC.NURSE ---
assumed care of pt, at bedside, UA sent down, pt respirations even and unlabored, Sepsis fluids complete.
--- NOTE | 2024-12-25 21:16 | PHA.MEDREC ---
Pharmacy Consult ? Medication Reconciliation Pharmacy has completed the medication reconciliation.
--- NOTE | 2024-12-25 21:48 | PM.IMHP ---
History of Present Illness Date of Service: 12/25/24 Attending physician on admission: Jose Henderson Chief Complaint: fever Patient is an 84-year-old male with a past medical history significant for CAD s/p stents, AFib on Eliquis and diltiazem, HFrEF (echo 10/02/2024 EF 49%) s/p left nephrectomy for renal cancer followed by Urology, chronic Dawn catheter due to BPH and difficulties with intermittent catheterization, chronic UTIs on fosfomycin once weekly (Sundays, started 4 weeks ago), who presented to the ED due to fever of 102.2, fatigue and chills. Patient's oxygen saturation was 86% per the patient's , CPAP seem to help. He had shortness of breath yesterday and saw his Art Glass Designer with a negative workup. He denies cough, neck pain, abdominal pain or sick contacts. He does not have any urinary symptoms including suprapubic pain, change in urine odor/color or difficulties with Dawn catheter draining. Review of Systems Constitutional: Constitutional: Denies body ache(s), Reports chills, Reports fatigue, Reports fever(s) and Denies headache(s) Eyes: Eyes: Denies change in vision ENT: Denies headache(s), Denies nasal congestion, Denies nasal discharge and Denies sore throat Cardiovascular: Cardiovascular: Denies chest pain, Denies syncope, Denies rapid heart rate, Denies leg edema and Reports dyspnea Respiratory: Respiratory: Denies chest congestion, Denies cough, Reports dyspnea and Denies wheezing Gastrointestinal: Gastrointestinal: Denies abdominal pain, Denies diarrhea, Denies nausea and Denies vomiting Genitourinary: Genitourinary: Reports as per HPI Musculoskeletal: Musculoskeletal: Denies back pain Integumentary/Breasts: Skin/Breast: Denies rash Neurologic: Denies confusion, Denies syncope and Denies headache(s) Psychiatric: Psychiatric: Denies confusion Endocrine: Endocrine: Reports fatigue Hematologic/Lymphatic: Hematologic/Lymphatic: Denies easy bleeding and Denies easy bruising Allergic/Immunologic: Allergic/Immunologic: Denies wheezing [facility] Medical History (Updated 12/25/24 @ 22:06 by Mikki Parham PA-C) Chronic anemia Bladder cancer Cancer of kidney A-fib High blood pressure Surgical History Stented coronary artery Social History Unable to assess alcohol history related to: Unable to respond Alcohol intake: current Alcohol intake frequency: 0-2 drinks per day Alcohol type: wine Patient Tobacco Use Status: Former Tobacco user Smoked in Last 30 Days: No Use of substances other than those prescribed or required for medical reasons: No Advance Directives: No Advance Directives Information Provided: Yes Nutrition Risks: No Nutritional Risk Current occupational status: employed 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 Drinks 1 glass of wine most nights Meds Allergies Allergy/AdvReac Type Severity Reaction Status Date / Time shellfish derived Allergy Unknown Verified 12/25/24 16:33 Home Medications ?Medication ?Instructions ?Recorded ?Confirmed ?Last Taken ?Type apixaban 2.5 mg tablet (Eliquis) 2.5 mg PO BID 10/02/23 12/25/24 12/25/24 History atorvastatin 40 mg tablet 40 mg PO DAILY 10/02/23 12/25/24 12/25/24 History digoxin 125 mcg (0.125 mg) tablet 125 mcg PO SUMOWEFR 10/02/23 12/25/24 12/25/24 History diltiazem HCl 240 mg 240 mg PO DAILY 10/02/23 12/25/24 12/25/24 History capsule,extended release 24 hr latanoprost 0.005 % eye drops 1 drp ophthalmic (eye) BEDTIME 10/02/23 12/25/24 12/24/24 History nitroglycerin 0.4 mg sublingual 0.4 mg sublingual Q5M 10/02/23 12/25/24 12/25/24 History tablet fosfomycin tromethamine 3 gram 3 g PO Q7D 12/25/24 12/25/24 12/20/24 History oral packet Physical Exam Vital Signs and Narrative: Vital Signs: Last Vital Signs Temp 98.0 F 12/25/24 20:00 Pulse 68 12/25/24 20:00 Resp 12 12/25/24 20:00 BP 95/50 L 12/25/24 21:11 Pulse Ox 98 12/25/24 20:00 O2 Del Method Room Air 12/25/24 20:00 BMI result Body Mass Index 25.3 General: AOx3, no acute distress, seen with bedside Resp: CTA bilaterally CVS: S1, S2, RRR GI/: +BS, NT, no distention. Dawn catheter draining without difficulty, normal straw colored urine, no purulence Skin: Warm, dry Neuro: Cranial nerves II-XII grossly intact bilaterally. Motor grossly intact bilaterally Extremities: No pitting edema Psych: Appropriate affect Const: General: No confusion Orientation/consciousness: No confusion Neuro: General: No confusion Results Labs 12/25/24 17:20 12/25/24 17:20 Labs: Laboratory Results - last 24 hr 12/25/24 12/25/24 12/25/24 17:05 17:20 19:26 MCV 93.5 MCH 29.2 MCHC 31.3 RDW 14.0 Plt Count 128 L D MPV 10.6 Immature Gran % (Auto) 0.5 H Neut % (Auto) 84.4 H Lymph % (Auto) 5.6 L [place] % (Auto) 7.9 Eos % (Auto) 1.3 Baso % (Auto) 0.3 Lymph # (Auto) 0.8 L [place] # (Auto) 1.2 Eos # (Auto) 0.2 Baso # (Auto) 0.0 Abs Immat Gran (auto) 0.08 H Absolute Neuts (auto) 12.6 H Absolute Nucleated RBC 0.000 Nucleated RBC % (auto) 0.0 Anion Gap 10 L Estim Creat Clear Calc 48.5 Estimated GFR > 60 Random Glucose 99 Lactic Acid 1.6 Calcium 8.6 D Total Bilirubin 0.9 AST 19 ALT 15 Alkaline Phosphatase 79 C-Reactive Protein 4.92 H B-Natriuretic Peptide 234 H Total Protein 6.5 Albumin 3.9 Lipase 45 Procalcitonin 0.08 Urine Color Yellow Urine Appearance Clear Urine pH 6.0 Ur Specific [place] <= 1.005 Urine Protein Negative Urine Glucose (UA) Negative Urine Ketones Negative Urine Blood Trace Urine Nitrite Positive H Ur Leukocyte Esterase Small (1+) H Urine RBC 0-2 Urine WBC 21-50 H Ur Squamous Epith Cells 0-2 Urine Bacteria 1+ Hyaline Casts 0-2 Influenza Type A (PCR) NEGATIVE Influenza Type B (PCR) NEGATIVE RSV RNA Qual (PCR) NEGATIVE SARS-CoV-2 RNA (RT-PCR) NEGATIVE Assessment and Plan (1) Sepsis: Status: Acute (2) Acute UTI: Status: Acute (3) Chronic anemia: Status: Acute Plan Patient is an 84-year-old male with a past medical history significant for CAD s/p stents, AFib on Eliquis and diltiazem, HFrEF (echo 10/02/2024 EF 49%), s/p left nephrectomy for renal cancer followed by Urology, chronic Dawn catheter due to BPH and difficulties with intermittent catheterization, chronic UTIs on fosfomycin once weekly (Sundays, started 4 weeks ago), who presented to the ED due to fever of 102.2, fatigue and chills. Sepsis secondary to UTI - WBC 14.9, febrile, tachycardic, lactic acid normal, blood cultures x2 pending, not severe sepsis - UA positive, culture pending - COVID/flu/RSV negative - chest x-ray negative - CRP elevated at 4, procalcitonin 0.08 - patient received 1 L IV fluids total, blood pressure is low normal, continue to monitor, avoid excess fluid resuscitation due to HFrEF - Dawn catheter last changed 2 weeks ago, changed every 4 weeks. Difficult catheterization per patient, consider catheter change with urologist in AM - started on ceftriaxone, continue pending culture. add doxy due to previous cultures. - ID consult - monitor CBC and BMP Chronic anemia, stable - hemoglobin 12.1, hematocrit 38.7, MCV normal - no need for blood transfusion at this time - monitor CBC CAD s/p stents - continue statin Paroxysmal AFib - continue Eliquis, hold digoxin and diltiazem due to low BP, resume when appropriate Chronic HFrEF, no acute exacerbation - Recent echo from [facility] on 10/02/2024 with EF of 49% History renal cancer - followed by Urology, s/p left nephrectomy Full code VTE prophylaxis: Eliquis Patient with sepsis secondary to UTI, requiring admission for at least 2 midnights stay for IV antibiotics and monitoring. Quality Stroke Does the patient have a stroke diagnosis?: No VTE Prior VTE?: No VTE Risk Level:: Medical - moderate - high VTE Device Contraindication: Treatment Not Indicated VTE Drug Contraindication: N/A - Med Ordered
--- NOTE | 2024-12-25 22:23 | PC.NURSE ---
pt medicated per MAR, pharmacy contacted for eye drops, Sha states they are bringing them down now.
[2024-12-25] MEDS: Latanoprost 0.005 % Ophth Sol 2.5 ML DROPS 1 DROP EYE-BOTH (22:34)
--- NOTE | 2024-12-25 22:39 | PC.NURSE ---
pt medicated per MAR, tolerated well.
[2024-12-26] VITALS (10 sets, daily range): BP systolic 87–116; BP diastolic 51–61; PULSE 71–99; RESP 16–18; TEMP 36.7–37.1; O2SAT 95–98; BMI 25.5
[2024-12-26 06:56] LABS: MANUAL DIFF FLAG NO
[2024-12-26 07:09] LABS: Hematocrit 34.6 % (42.0-52.0); Hemoglobin 11.2 g/dl (14.0-18.0); Imm Gran Abs Auto 0.07 X10*3/uL (0.00-0.03); Imm Gran Pct Auto 0.6 % (0.0-0.4); Lymphocytes Absolute Auto 0.9 X10*3/uL (1.2-4.9); Mean Corpuscular HGB Conc 32.4 g/dl (31.0-36.0); Mean Corpuscular Hemoglobin 29.9 pg (27.0-33.0); Mean Corpuscular Volume 92.5 fL (80.0-98.0); NRBC Abs Auto 0.000 X10*3/uL (0.0-0.012); NRBC Pct Auto 0.0 /100WBC (0.0-0.2); Platelet Count 112 X10*3/uL (160-400); Red Blood Count 3.74 X10*6/uL (4.60-5.80); White Blood Count 12.0 X10*3/uL (4.8-10.8)
[2024-12-26] MEDS: Lactated Ringers 500 ML IVCONT (07:13)
[2024-12-26 07:23] LABS: Anion Gap 11 (12-20); Blood Urea Nitrogen 17 mg/dL (9-16); Calcium 8.2 mg/dL (8.4-10.2); Carbon Dioxide 23 mmol/L (22-29); Chloride 109 mmol/L (96-108); Creatinine Clr Calc Pharmacy 52.4; Estimated Glomerular Filt Rate > 60; Potassium 3.8 mmol/L (3.3-5.1); Sodium 139 mmol/L (135-145)
--- NOTE | 2024-12-26 07:39 | HO.PM.IMPN ---
Subjective Subjective Date of Service: 12/26/24 Interval History: f/u sepsis d/t UTI afebrile, wbc down bp on low side, additonal ivf being given Physical Exam Vital Signs: Vital Signs: Last Vital Signs Temp 98.6 F 12/26/24 06:57 Pulse 76 12/26/24 06:57 Resp 16 12/26/24 06:57 BP 92/52 L 12/26/24 07:07 Pulse Ox 97 12/26/24 06:57 O2 Del Method Room Air 12/26/24 06:57 BMI result Body Mass Index 25.5 General: AO X 3, no acute distress Resp: CTA bilateral CVS: S1,S2,RRR GI: +BS, NT, no distention Skin: No rash Neuro: motor grossly intact Psych: appropriate affect Objective Data Active Medications Acetaminophen (Acetaminophen 325 Mg Tablet) 975 mg PO Q6H PRN PRN Reason: Pain, Mild 1-3,fever,headache Apixaban (Apixaban 2.5 Mg Tablet) 2.5 mg PO BID [facility] Last Admin: 12/25/24 22:20 Dose: 2.5 mg Documented By: VIKTOR Atorvastatin Calcium (Atorvastatin Calcium 40 Mg Tablet) 40 mg PO DAILY [facility] Calcium Carbonate (Calcium Carbonate 750 Mg Tab.Chew) 750 mg PO Q4H PRN PRN Reason: Heartburn Ceftriaxone Sodium (Ceftriaxone Sodium 2 Gm Vial) 2 gm IVPUSH Q24H [facility] Doxycycline Hyclate 100 mg/ (Sodium Chloride) 250 mls @ 166.67 mls/hr IV Q12H [facility] Last Infusion: 12/26/24 01:02 Dose: Infused Documented By: RICHA Lactated Ringer's (Lr) 500 mls @ 500 mls/hr IVCONT .Q1H ONE Stop: 12/26/24 08:04 Last Admin: 12/26/24 07:13 Dose: 500 mls/hr Documented By: RICHA Latanoprost (Latanoprost 0.005 % Ophth Sis 2.5 Ml Drops) 1 drop EYE-BOTH BEDTIME [facility] Last Admin: 12/25/24 22:34 Dose: 1 drop Documented By: VIKTOR Magnesium Hydroxide (Milk Of Magnesia 30 Ml Oral.Susp) 30 ml PO DAILY PRN PRN Reason: Constipation Melatonin (Melatonin 3 Mg Tablet) 6 mg PO BEDTIME PRN PRN Reason: Insomnia Ondansetron HCl (Ondansetron Hcl 4 Mg/2 Ml Vial) 4 mg IVPUSH Q8H PRN PRN Reason: Nausea and Vomiting Sodium Chloride (0.9 % Sodium Chloride Flush 3 Ml Syringe) 3 ml IVFLUSH QSHIFT [facility] Last Admin: 12/26/24 01:02 Dose: Not Given Documented By: RICHA Non-Admin Reason: Previously Administered Labs 12/26/24 06:03 12/26/24 06:03 Labs: Laboratory Results - last 24 hr 12/25/24 12/25/24 12/25/24 17:05 17:20 19:26 MCV 93.5 MCH 29.2 MCHC 31.3 RDW 14.0 Plt Count 128 L D MPV 10.6 Immature Gran % (Auto) 0.5 H Neut % (Auto) 84.4 H Lymph % (Auto) 5.6 L [place] % (Auto) 7.9 Eos % (Auto) 1.3 Baso % (Auto) 0.3 Lymph # (Auto) 0.8 L [place] # (Auto) 1.2 Eos # (Auto) 0.2 Baso # (Auto) 0.0 Abs Immat Gran (auto) 0.08 H Absolute Neuts (auto) 12.6 H Absolute Nucleated RBC 0.000 Nucleated RBC % (auto) 0.0 Anion Gap 10 L Estim Creat Clear Calc 48.5 Estimated GFR > 60 Random Glucose 99 Lactic Acid 1.6 Calcium 8.6 D Total Bilirubin 0.9 AST 19 ALT 15 Alkaline Phosphatase 79 C-Reactive Protein 4.92 H B-Natriuretic Peptide 234 H Total Protein 6.5 Albumin 3.9 Lipase 45 Procalcitonin 0.08 Urine Color Yellow Urine Appearance Clear Urine pH 6.0 Ur Specific [place] <= 1.005 Urine Protein Negative Urine Glucose (UA) Negative Urine Ketones Negative Urine Blood Trace Urine Nitrite Positive H Ur Leukocyte Esterase Small (1+) H Urine RBC 0-2 Urine WBC 21-50 H Ur Squamous Epith Cells 0-2 Urine Bacteria 1+ Hyaline Casts 0-2 Influenza Type A (PCR) NEGATIVE Influenza Type B (PCR) NEGATIVE RSV RNA Qual (PCR) NEGATIVE SARS-CoV-2 RNA (RT-PCR) NEGATIVE 12/26/24 06:03 MCV 92.5 MCH 29.9 MCHC 32.4 RDW 14.2 Plt Count 112 L MPV 11.3 Immature Gran % (Auto) 0.6 H Neut % (Auto) 79.4 H Lymph % (Auto) 7.6 L [place] % (Auto) 8.9 Eos % (Auto) 3.3 Baso % (Auto) 0.2 Lymph # (Auto) 0.9 L [place] # (Auto) 1.1 Eos # (Auto) 0.4 Baso # (Auto) 0.0 Abs Immat Gran (auto) 0.07 H Absolute Neuts (auto) 9.5 H Absolute Nucleated RBC 0.000 Nucleated RBC % (auto) 0.0 Anion Gap 11 L Estim Creat Clear Calc 52.4 Estimated GFR > 60 Random Glucose 103 Lactic Acid Calcium 8.2 L Total Bilirubin AST ALT Alkaline Phosphatase C-Reactive Protein B-Natriuretic Peptide Total Protein Albumin Lipase Procalcitonin Urine Color Urine Appearance Urine pH Ur Specific [place] Urine Protein Urine Glucose (UA) Urine Ketones Urine Blood Urine Nitrite Ur Leukocyte Esterase Urine RBC Urine WBC Ur Squamous Epith Cells Urine Bacteria Hyaline Casts Influenza Type A (PCR) Influenza Type B (PCR) RSV RNA Qual (PCR) SARS-CoV-2 RNA (RT-PCR) Assessment and Plan (1) Acute UTI: Status: Acute (2) Sepsis: Status: Acute Plan Patient is an 84-year-old male with a past medical history significant for CAD s/p stents, AFib on Eliquis and diltiazem, HFrEF (echo 10/02/2024 EF 49%), s/p left nephrectomy for renal cancer followed by Urology, chronic Lynn catheter due to BPH and difficulties with intermittent catheterization, chronic UTIs on fosfomycin once weekly (Sundays, started 4 weeks ago), who presented to the ED due to fever of 102.2, fatigue and chills. Sepsis secondary to UTI associated with indwelling lynn catheter, history of staph epi uti WBC trending down BP on low side IVF to maintain SBP > 90 continue Ceftriaxone and doxy and follow cultures Chronic anemia, stable CAD s/p stents - continue statin Paroxysmal AFib continue Eliquis, continue digoxin, and hold diltiazem due to low BP, resume when appropriate Chronic HFrEF, no acute exacerbation Recent echo from [facility] on 10/02/2024 with EF of 49% History renal cancer followed by Urology, s/p left nephrectomy Full code VTE prophylaxis: Eliquis Quality Stroke Does the patient have a stroke diagnosis?: No VTE Prior VTE?: No VTE Risk Level:: Medical - moderate - high VTE Device Contraindication: Treatment Not Indicated VTE Drug Contraindication: N/A - Med Ordered
--- NOTE | 2024-12-26 16:42 | MHC.CM.PN ---
PT REPORTS HE LIVES WITH HIS AND IS INDEPENDENT WITH CARE HE HAS NO SERVICES AND USES A CPAP FOR DME COPY OF HCP REQUESTED PCP: IRINA CURRAN IMM DELIVERED DCP: HOME VIA PRIVATE TRANSPORT
[2024-12-26] MEDS: 0.9 % Sodium Chloride Flush 3 ML SYRINGE IVFLUSH ×2 (17:45→20:18)
[2024-12-26] MEDS: Latanoprost 0.005 % Ophth Sol 2.5 ML DROPS 1 DROP EYE-BOTH (20:11)
--- NOTE | 2024-12-27 01:01 | PC.NURSE ---
Pt arrived to ED w/ chronic Dawn, admitted for UTI/sepsis on 12/25. Pt has no Dawn cath order in place, Hospitalist MD Henderson notified. Per MD applied via [facility] day team . No orders were provided at this time.
[2024-12-27 04:00] VITALS: BP 140/76; PULSE 101; RESP 16; TEMP 36.6; O2SAT 98
[2024-12-27 06:34] LABS: MANUAL DIFF FLAG NO
[2024-12-27 06:43] LABS: Hematocrit 37.8 % (42.0-52.0); Hemoglobin 12.3 g/dl (14.0-18.0); Imm Gran Abs Auto 0.03 X10*3/uL (0.00-0.03); Imm Gran Pct Auto 0.4 % (0.0-0.4); Lymphocytes Absolute Auto 1.0 X10*3/uL (1.2-4.9); Mean Corpuscular HGB Conc 32.5 g/dl (31.0-36.0); Mean Corpuscular Hemoglobin 30.1 pg (27.0-33.0); Mean Corpuscular Volume 92.6 fL (80.0-98.0); NRBC Abs Auto 0.000 X10*3/uL (0.0-0.012); NRBC Pct Auto 0.0 /100WBC (0.0-0.2); Platelet Count 101 X10*3/uL (160-400); Red Blood Count 4.08 X10*6/uL (4.60-5.80); White Blood Count 8.2 X10*3/uL (4.8-10.8)
[2024-12-27 06:55] LABS: Anion Gap 13 (12-20); Blood Urea Nitrogen 18 mg/dL (9-16); Calcium 8.5 mg/dL (8.4-10.2); Carbon Dioxide 22 mmol/L (22-29); Chloride 111 mmol/L (96-108); Creatinine Clr Calc Pharmacy 52.4; Estimated Glomerular Filt Rate > 60; Potassium 4.0 mmol/L (3.3-5.1); Sodium 142 mmol/L (135-145)
[2024-12-27 08:00] VITALS: BP 134/62; PULSE 102; RESP 16; TEMP 36.5; O2SAT 97
--- NOTE | 2024-12-27 08:34 | HO.PM.IMPN ---
Subjective Subjective Date of Service: 12/27/24 Interval History: f/u sepsis d/t UTI afebrile, wbc down blood pressure is now up reporting no symptoms of uti Physical Exam Vital Signs: Vital Signs: Last Vital Signs Temp 97.7 F 12/27/24 08:00 Pulse 102 H 12/27/24 08:00 Resp 16 12/27/24 08:00 BP 134/62 12/27/24 08:00 Pulse Ox 97 12/27/24 08:00 O2 Del Method CPAP 12/27/24 08:00 BMI result Body Mass Index 25.5 General: AO X 3, no acute distress Resp: CTA bilateral CVS: S1,S2,RRR GI: +BS, NT, no distention Skin: No rash Neuro: motor grossly intact Psych: appropriate affect Objective Data Active Medications Acetaminophen (Acetaminophen 325 Mg Tablet) 975 mg PO Q6H PRN PRN Reason: Pain, Mild 1-3,fever,headache Apixaban (Apixaban 2.5 Mg Tablet) 2.5 mg PO BID [facility] Last Admin: 12/26/24 20:10 Dose: 2.5 mg Documented By: RICHA Atorvastatin Calcium (Atorvastatin Calcium 40 Mg Tablet) 40 mg PO DAILY [facility] Last Admin: 12/26/24 11:15 Dose: 40 mg Documented By: JULIAN Calcium Carbonate (Calcium Carbonate 750 Mg Tab.Chew) 750 mg PO Q4H PRN PRN Reason: Heartburn Ceftriaxone Sodium (Ceftriaxone Sodium 2 Gm Vial) 2 gm IVPUSH Q24H [facility] Last Admin: 12/26/24 17:46 Dose: 2 gm Documented By: JULIAN Doxycycline Hyclate 100 mg/ (Sodium Chloride) 250 mls @ 166.67 mls/hr IV Q12H [facility] Last Infusion: 12/27/24 00:38 Dose: Infused Documented By: RICHA Latanoprost (Latanoprost 0.005 % Ophth Sis 2.5 Ml Drops) 1 drop EYE-BOTH BEDTIME [facility] Last Admin: 12/26/24 20:11 Dose: 1 drop Documented By: RICHA Magnesium Hydroxide (Milk Of Magnesia 30 Ml Oral.Susp) 30 ml PO DAILY PRN PRN Reason: Constipation Melatonin (Melatonin 3 Mg Tablet) 6 mg PO BEDTIME PRN PRN Reason: Insomnia Ondansetron HCl (Ondansetron Hcl 4 Mg/2 Ml Vial) 4 mg IVPUSH Q8H PRN PRN Reason: Nausea and Vomiting Sodium Chloride (0.9 % Sodium Chloride Flush 3 Ml Syringe) 3 ml IVFLUSH QSHIFT [facility] Last Admin: 12/26/24 20:18 Dose: 3 ml Documented By: RICHA Labs 12/27/24 06:01 12/27/24 06:01 Labs: Laboratory Results - last 24 hr 12/27/24 06:01 MCV 92.6 MCH 30.1 MCHC 32.5 RDW 14.0 Plt Count 101 L MPV 10.9 Immature Gran % (Auto) 0.4 Neut % (Auto) 71.1 Lymph % (Auto) 12.1 L [place] % (Auto) 9.9 Eos % (Auto) 6.0 H Baso % (Auto) 0.5 Lymph # (Auto) 1.0 L [place] # (Auto) 0.8 Eos # (Auto) 0.5 H Baso # (Auto) 0.0 Abs Immat Gran (auto) 0.03 Absolute Neuts (auto) 5.8 Absolute Nucleated RBC 0.000 Nucleated RBC % (auto) 0.0 Anion Gap 13 Estim Creat Clear Calc 52.4 Estimated GFR > 60 Random Glucose 101 Calcium 8.5 Microbiology Microbiology Results: Microbiology 12/25/24 17:05 Blood Culture - Preliminary Blood - Venous No growth after 24 hours. 12/25/24 17:05 Blood Culture - Preliminary Blood - Venous No growth after 24 hours. 12/25/24 Unknown Urine Culture - Preliminary Urine clean catch - Clean Catch Midstream Culture in progress. Assessment and Plan (1) Acute UTI: Status: Acute (2) Sepsis: Status: Acute Plan Patient is an 84-year-old male with a past medical history significant for CAD s/p stents, AFib on Eliquis and diltiazem, HFrEF (echo 10/02/2024 EF 49%), s/p left nephrectomy for renal cancer followed by Urology, chronic Lynn catheter due to BPH and difficulties with intermittent catheterization, chronic UTIs on fosfomycin once weekly (Sundays, started 4 weeks ago), who presented to the ED due to fever of 102.2, fatigue and chills. Sepsis secondary to UTI associated with indwelling lynn catheter, history of staph epi uti WBC trending down BP now within normal IVF to maintain SBP > 90 continue Ceftriaxone and doxy and follow cultures Chronic anemia, stable CAD s/p stents - continue statin Paroxysmal AFib continue Eliquis, continue digoxin, and hold diltiazem due to low BP, resume when appropriate Chronic HFrEF, no acute exacerbation Recent echo from [facility] on 10/02/2024 with EF of 49% History renal cancer followed by Urology, s/p left nephrectomy Full code VTE prophylaxis: Eliquis Possible dc later today if urine culture available. Quality Stroke Does the patient have a stroke diagnosis?: No VTE Prior VTE?: No VTE Risk Level:: Medical - moderate - high VTE Device Contraindication: Treatment Not Indicated VTE Drug Contraindication: N/A - Med Ordered
[2024-12-27] MEDS: 0.9 % Sodium Chloride Flush 3 ML SYRINGE IVFLUSH (09:08)
--- NOTE | 2024-12-27 11:06 | P.DS_ITS ---
DS: Providers Provider Date of admission: 12/25/24 20:25 Primary care physician: Gertrude Kendall MD Consults: 12/25/24 22:18 Consult to Infectious Diseases Routine Consulting Provider: [facility] Reason for consultation: chronic UTIs on fosfomycin ppx, current UTI/sepsis Has provider been notified: No DS: Diagnosis Discharge Diagnosis (1) Acute UTI: Status: Acute (2) Sepsis: Status: Acute DS: Summary Hospital Course Hospital Course: Admission HPI Chief Complaint: fever Patient is an 84-year-old male with a past medical history significant for CAD s/p stents, AFib on Eliquis and diltiazem, HFrEF (echo 10/02/2024 EF 49%) s/p left nephrectomy for renal cancer followed by Urology, chronic Dawn catheter due to BPH and difficulties with intermittent catheterization, chronic UTIs on fosfomycin once weekly (Sundays, started 4 weeks ago), who presented to the ED due to fever of 102.2, fatigue and chills. Patient's oxygen saturation was 86% per the patient's , CPAP seem to help. He had shortness of breath yesterday and saw his Compliance Field Technician with a negative workup. He denies cough, neck pain, abdominal pain or sick contacts. He does not have any urinary symptoms including suprapubic pain, change in urine odor/color or difficulties with Dawn catheter draining. Hospital course: Time Attestation Discharge Coordination Time (in mins): 40 Quality: Safe Use of Opioids Does Pt have an Active Cancer Diagnosis on the Problem List?: No Quality: Stroke Does the patient have a stroke diagnosis?: No Physical Exam Vital Signs: Vital Signs: Last Vital Signs Temp 97.7 F 12/27/24 08:00 Pulse 102 H 12/27/24 08:00 Resp 16 12/27/24 08:00 BP 134/62 12/27/24 08:00 Pulse Ox 97 12/27/24 08:00 O2 Del Method CPAP 12/27/24 08:00 BMI result Body Mass Index 25.5 DS: Data Data Completed and Pending Labs on day of discharge: Laboratory Results - last 24 hr 12/27/24 06:01 WBC 8.2 RBC 4.08 L Hgb 12.3 L Hct 37.8 L MCV 92.6 MCH 30.1 MCHC 32.5 RDW 14.0 Plt Count 101 L MPV 10.9 Immature Gran % (Auto) 0.4 Neut % (Auto) 71.1 Lymph % (Auto) 12.1 L [place] % (Auto) 9.9 Eos % (Auto) 6.0 H Baso % (Auto) 0.5 Lymph # (Auto) 1.0 L [place] # (Auto) 0.8 Eos # (Auto) 0.5 H Baso # (Auto) 0.0 Abs Immat Gran (auto) 0.03 Absolute Neuts (auto) 5.8 Absolute Nucleated RBC 0.000 Nucleated RBC % (auto) 0.0 Sodium 142 Potassium 4.0 Chloride 111 H Carbon Dioxide 22 Anion Gap 13 BUN 18 H Creatinine 0.98 Estim Creat Clear Calc 52.4 Estimated GFR > 60 Random Glucose 101 Calcium 8.5 Preliminary micro results at discharge 12/25/24 17:05 Blood Culture - Preliminary Blood - Venous No growth after 24 hours. 12/25/24 17:05 Blood Culture - Preliminary Blood - Venous No growth after 24 hours. Discharge Plan Discharge Anticipated Discharge Date/Time: 12/27/24 11:14 Patient Disposition: Home, Self-Care Discharge Diagnosis: Sepsis due to UTI, Referrals: Gertrude Kendall MD [Primary Care Provider, [facility]] - 1 Week Discharge Medications: Continued fosfomycin tromethamine 3 gram packet 3 g PO Q7D diltiazem HCl 240 mg capsule,extended release 24hr 240 mg PO DAILY latanoprost 0.005 % drops 1 drp ophthalmic (eye) BEDTIME atorvastatin 40 mg tablet 40 mg PO DAILY digoxin 125 mcg (0.125 mg) tablet 125 mcg PO SUMOWEFR Eliquis 2.5 mg tablet 2.5 mg PO BID nitroglycerin 0.4 mg tablet, sublingual 0.4 mg sublingual Q5M (DME) Kneeling Scooter See Rx Instructions .ROUTE .MEDSUPPLY Qty: 1 0RF Rx Instructions: As directed Diet: Advance to usual diet Activity on Discharge: As tolerated Stand Alone Forms: Patient Portal Discharge page Print Language: Prydeinig Care Plan Goals: recovery from uti and sepsis Health Concerns: uti sepsis Plan of Treatment: take doxycyline and cefuroxime as recommended and follow up with your Doctor in a week, call for appointment Assessment: see above
[2024-12-27 12:37] VITALS: BP 132/63; PULSE 110; RESP 14; TEMP 36.9; O2SAT 98
[2024-12-27 13:32] VITALS: PULSE 90
--- NOTE | 2024-12-27 14:14 | MHC.CM.PN ---
PT WILL DC HOME TODAY WITH NO SERVICES VIA PRIVATE TRANSPORT
[2024-12-29 21:49] LABS: Lyme Abs Screen <0.90 index
== END 2024-12-27 18:23 | disposition home or self-care (01) | DRG 698 ==
LOC: HO.ED 19:56 → HO.EDOVER 20:28 → HO.S3 23:50
PROVIDERS: Physician Assistant; Admitting Provider Physician Assistant; Emergency Provider Emergency Medicine; PCP Family Medicine; Visit Provider Internal Medicine
DX: T83.511A Infection and inflammatory reaction due to indwelling urethral catheter, initial encounter (principal); A41.9 Sepsis, unspecified organism; I50.22 Chronic systolic (congestive) heart failure; N39.0 Urinary tract infection, site not specified; Z85.51 Personal history of malignant neoplasm of bladder; Z85.528 Personal history of other malignant neoplasm of kidney; Z90.5 Acquired absence of kidney; I25.10 Atherosclerotic heart disease of native coronary artery without angina pectoris; D64.9 Anemia, unspecified; I48.0 Paroxysmal atrial fibrillation; Z95.5 Presence of coronary angioplasty implant and graft; Z20.822 Contact with and (suspected) exposure to COVID-19; Z87.891 Personal history of nicotine dependence; Z79.2 Long term (current) use of antibiotics; Z79.82 Long term (current) use of aspirin; Z79.899 Other long term (current) drug therapy
CPT/HCPCS: 36415; 71045; 80048; 80053; 81001; 83605; 83690; 83880; 84145; 84484; 85025; 86140; 86617; 86618; 87040; 87086; 87637; 93005; 94660; 99285; J0131; J0696; J1271; J7120

== ENCOUNTER → 2024-12-25 16:22 | Outpatient (BNV) | payer MEDICARE, SELFPAY | PROVIDERS: Admitting Provider Physician Assistant; Emergency Provider Emergency Medicine; PCP Family Medicine; Visit Provider Internal Medicine | DX: I48.91 Unspecified atrial fibrillation (principal) | CPT/HCPCS: 93010 ==

== ENCOUNTER → 2024-12-25 16:47 | Outpatient (BNV) | payer MEDICARE, SELFPAY | PROVIDERS: Emergency Provider Emergency Medicine; PCP Family Medicine; Visit Provider Radiology Diagnostic Radiology | DX: R05.9 Cough, unspecified (principal); R50.9 Fever, unspecified | CPT/HCPCS: 71045 ==

== ENCOUNTER → 2024-12-25 20:25 | Outpatient (BNV) | payer MEDICARE, SELFPAY | PROVIDERS: Admitting Provider Physician Assistant; Emergency Provider Emergency Medicine; PCP Family Medicine; Visit Provider Internal Medicine | DX: N39.0 Urinary tract infection, site not specified (principal); A41.9 Sepsis, unspecified organism | CPT/HCPCS: 99223; 99232; 99233 ==

== ENCOUNTER 2025-01-04 18:48 | Emergency (ER) | payer MEDICARE, SELFPAY ==
--- NOTE | ~2025-01-04 | XR_ITS ---
CLINICAL HISTORY: SOB 2 views of the chest. Comparison 12/25/2024. Findings: Heart size is normal. There is no consolidation. No pleural effusion is seen. Impression: No consolidation. This document has been electronically signed by: Misael Hanson MD on 01/04/2025 19:47:20
[2025-01-04 18:57] VITALS: BP 104/57; PULSE 89; RESP 14; TEMP 36.6; O2SAT 98; BMI 24.4
--- NOTE | 2025-01-04 18:59 | ED_ITS ---
HPI - General Adult General Chief complaint: Dyspnea Stated complaint: SOB Time Seen by Provider: 01/04/25 23:24 Source: patient, family (), RN notes reviewed and old records reviewed Mode of arrival: ambulatory Limitations: no limitations History of Present Illness ED Provider: Sonu HPI narrative: 84-year-old male past medical history significant for coronary artery disease status post stenting, AFib on Eliquis, heart failure with reduced ejection fraction, about 50 percent on last echo in September of this year, left nephrectomy due to renal cancer, chronic Dawn catheter due to BPH presents for evaluation of shortness of breath. The patient was admitted to this hospital on 12/25/2024 and ultimately discharged on 12/27/2024 for complicated UTI He finished a course of both doxycycline and cefuroxime 2 days ago on Saturday. He reports intermittent episodes of shortness of breath. He also has occasional spikes of a heart rate as high as 130. He reports that his primary doctor decreased his diltiazem dosing from 240 milligrams daily to 180 milligrams daily due to low blood pressures The patient feels as though his shortness of breath episode started around the time that this was decreased He denies any chest pain, cough, fevers or chills Related Data Home Medications ?Medication ?Instructions ?Recorded ?Confirmed apixaban 2.5 mg tablet (Eliquis) 2.5 mg PO BID 4 12/25/24 atorvastatin 40 mg tablet 40 mg PO DAILY 10/02/2311/28 digoxin 125 mcg (0.125 mg) tablet 125 mcg PO SUMOWEFR 10/02/23 12/25/24 diltiazem HCl 240 mg 240 mg PO DAILY 10/02/23 capsule,extended release 24 hr latanoprost 0.005 % eye drops 1 drp ophthalmic (eye) B EDTIME 10/02/23 12/25/24 nitroglycerin 0.4 mg sublingual 0.4 mg sublingual Q5M 10/02/23 12/25/24 tablet fosfomycin tromethamine 3 gram 3 g PO Q7D 12/25/24 oral packet Previous Rx's ?Medication ?Instructions ?Recorded Kneeling Scooter #1 ea 10/02/23 cefuroxime axetil 250 mg tablet 250 mg PO BID #10 tabs 12/27/24 doxycycline hyclate 100 mg tablet 100 mg PO BID 5 days #10 tabs 12/27/24 Allergies Allergy/AdvReac Type Severity Reaction Status Date / Time shellfish derived Allergy Unknown Verified 01/04/25 18:59 Review of Systems 2 Constitutional: Constitutional: Denies body ache(s), Denies chills, Denies fever(s), Denies headache(s) and Denies increased appetite Eyes: Eyes: Denies blurry vision ENT: Denies vertigo, Denies dizziness and Denies headache(s) Cardiovascular: Cardiovascular: Denies chest pain and Reports dyspnea Respiratory: Respiratory: Denies cough and Reports dyspnea Gastrointestinal: Gastrointestinal: Denies abdominal pain, Denies nausea and Denies vomiting Musculoskeletal: Musculoskeletal: Denies back pain Integumentary/Breasts: Skin/Breast: Denies rash Neurologic: Denies vertigo, Denies dizziness and Denies headache(s) [facility] Past Medical History Medical History (Updated 01/05/25 @ 00:26 by Dwain Ascencio) Chronic anemia Bladder cancer Cancer of kidney A-fib High blood pressure Surgical History Stented coronary artery Social History Social History Household Members: Spouse Housing: House Do you presently have visiting nurse or other home services: No Unable to assess alcohol history related to: Unable to respond Alcohol intake: current Alcohol intake frequency: 0-2 drinks per day Alcohol type: wine Patient Tobacco Use Status: Former Tobacco user Do you have a plan to hurt others: No Plan service: Yes Current occupational status: employed 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 Physical Exam ED Vital Signs: Vital Signs - 24 hr 01/04/25 18:57 01/04/25 23:59 Temperature 97.9 F 98.1 F Pulse Rate 89 73 Respiratory Rate 14 16 Blood Pressure 104/57 L 120/58 L Pulse Oximetry 98 98 Oxygen Delivery Method Room Air Room Air BMI result Body Mass Index 24.4 Const General: healthy appearing, comfortable, no acute distress, alert and awake Nutritional Appearance: well nourished Orientation/consciousness: patient oriented x3 HENMT Head: Yes normocephalic and Yes atraumatic Eyes Eyelids: Yes eyelids normal Conjunctivae: conjunctivae normal Sclerae: sclerae normal Corneas: corneas normal Pupils: Equal, round and reactive pupils present EOM: EOMs intact bilaterally Neck Neck: Yes full ROM Resp Effort & Inspection: normal respiratory effort, able to speak in complete sentences, no audible wheezes and not labored Auscultation: clear to auscultation bilaterally Cardio Other: No significant lower extremity edema Rhythm: abnormal rhythm irregularly irregular GI Inspection: No distended Palpation (GI): Soft to palpation, not firm, nontender, no guarding and not rigid Skin General skin exam: elasticity normal Neuro General: patient oriented x3 Cranial nerves: Yes Equal, round and reactive pupils present and Yes Bilaterally intact EOM present Cognition (Neuro): normal cognition Extrem Other: Moving all extremities well without any obvious deformities Course Course Course Narrative: Rapid medical examination performed in triage by Yoly Martinez PA-C. Patient is an 84 year old assigned male at presenting to the emergency department with SOB. Detailed physical exam and review of systems are deferred to the pediatric nurse. EKG, labs, imaging, swabs ordered. Patient placed back in the waiting room pending room availability and results. Medical Decision Making Medical Decision Making MDM Narrative: 84-year-old male past medical history as above presents for evaluation of shortness of breath. His symptoms started a few days ago with associated dizziness and increased heart rate. He does have a history of AFib, he is currently in AFib, rate controlled. I reviewed the patient's recent admission, he just finished a course of cefuroxime and doxycycline due to UTI. Therefore he is less likely to have pneumonia. Chest x-ray is also clear without consolidation, pleural effusions. The patient is on Eliquis and has a Wells score of 1.5, he is very low risk for PE. Viral swabs have been negative. The patient has no chest pain and a troponin is 6.4. He has ruled out for ACS with a nonischemic EKG. We ambulated the patient in his heart rate did increase slightly but still under 100, he would not become hypoxic. I suspect that his intermittent episodes of dyspnea and lightheadedness are related to AFib with RVR. Given that this is not a current issue and he is rate controlled in the 70s, plan to discharge the patient and he will follow up with his early head start teacher to discuss his Cardizem dosing. The patient reports feeling well enough to go home today and does not feel the need for case management or physical therapy evaluation Differential Diagnosis Differential Diagnoses: The differential diagnosis associated with the presentation includes Dyspnea on exertion Congestive heart failure Bronchitis Pneumonia Influenza Admission/Observation Consideration of admission/observation: Escalation of care including admission/observation considered Lab Data MDM Lab Attestation statement: I reviewed the patient's lab results. No leukocytosis. The patient has a stable anemia with a hemoglobin of 12.7 hematocrit of 38.8. This is slightly improved compared to his labs from 12/27/2024 on his last discharge. There is no significant left shift. No significant electrolyte abnormalities warranting intervention. BNP is elevated to 209 but this is decreased from his most recent BNP of 234 from his last admission. Troponin is negative 01/04/25 19:12 01/04/25 19:12 Labs: Lab Results 01/04/25 Range/Units 19:12 WBC 6.1 (4.8-10.8) X10*3/uL RBC 4.29 L (4.60-5.80) X10*6/uL Hgb 12.7 L (14.0-18.0) g/dl Hct 38.8 L (42.0-52.0) % MCV 90.4 (80.0-98.0) fL MCH 29.6 (27.0-33.0) pg MCHC 32.7 (31.0-36.0) g/dl RDW 13.7 (11.0-16.0) % Plt Count 204 D (160-400) X10*3/uL MPV 9.8 (9.4-12.4) fL Immature Gran % (Auto) 0.3 (0.0-0.4) % Neut % (Auto) 57.7 (45-73) % Lymph % (Auto) 19.6 L (20-40) % [place] % (Auto) 9.7 (2-11) % Eos % (Auto) 12.2 H (0-4) % Baso % (Auto) 0.5 (0-2) % Lymph # (Auto) 1.2 (1.2-4.9) X10*3/uL [place] # (Auto) 0.6 (0.1-1.2) X10*3/uL Eos # (Auto) 0.7 H (0.0-0.4) X10*3/uL Baso # (Auto) 0.0 (0.0-0.2) X10*3/uL Abs Immat Gran (auto) 0.02 (0.00-0.03) X10*3/uL Absolute Neuts (auto) 3.5 (2.0-8.3) x10*3/uL Absolute Nucleated RBC 0.000 (0.0-0.012) X10*3/uL Nucleated RBC % (auto) 0.0 (0.0-0.2) /100WBC Sodium 143 (135-145) mmol/L Potassium 4.2 (3.3-5.1) mmol/L Chloride 111 H (96-108) mmol/L Carbon Dioxide 23 (22-29) mmol/L Anion Gap 13 (12-20) BUN 16 (9-16) mg/dL Creatinine 1.09 (0.5-1.4) mg/dL Estim Creat Clear Calc 47.1 Estimated GFR > 60 Random Glucose 106 (60-115) mg/dL Calcium 8.8 (8.4-10.2) mg/dL Magnesium 1.9 (1.6-2.6) mg/dL Total Bilirubin 0.4 (0.0-1.0) mg/dL AST 21 (5-37) U/L ALT 20 (0-40) U/L Alkaline Phosphatase 93 (39-117) U/L Troponin I High Sens 6.4 (<3.5-35.0) ng/L B-Natriuretic Peptide 209 H (<100) pg/mL Total Protein 6.8 (6.5-8.0) g/dL Albumin 3.9 (3.5-5.0) g/dL COVID-19 (ANTONIO) Negative (Negative) COVID-19 Clin Com See Note Influenza Type A (DELLA) Negative (Negative) Influenza Type B (DELLA) Negative (Negative) Influenza A & B Note See Note Independent Interpretation I performed an independent interpretation of an: EKG and Plain X-Ray (Agree with Radiology interpretation, no effusions consolidations) Interpretation: AFib with a rate of 80 beats minute P Radiology Impression Discussion of test interpretation with radiology: I have reviewed the radiologist's reading. Radiologist Impression: Findings: Heart size is normal. There is no consolidation. No pleural effusion is seen. Impression: No consolidation. This document has been electronically signed by: Misael Hanson MD on 01/04/2025 19:47:20 Discharge Plan Discharge Clinical Impression: Acute dyspnea Patient Disposition: Home, Self-Care Instructions: Dyspnea (ED) Additional Instructions: Your workup in the ER today was reassuring. This includes your chest x-ray, labs, EKG. I recommend continue her medications as they are currently prescribed. I would call your doctor/early head start teacher in the morning to discuss your Cardizem dosing Prescriptions: No Action fosfomycin tromethamine 3 gram packet 3 g PO Q7D cefuroxime axetil 250 mg tablet 250 mg PO BID Qty: 10 0RF doxycycline hyclate 100 mg tablet 100 mg PO BID 5 Days Qty: 10 0RF diltiazem HCl 240 mg capsule,extended release 24hr 240 mg PO DAILY latanoprost 0.005 % drops 1 drp ophthalmic (eye) BEDTIME atorvastatin 40 mg tablet 40 mg PO DAILY digoxin 125 mcg (0.125 mg) tablet 125 mcg PO SUMOWEFR Eliquis 2.5 mg tablet 2.5 mg PO BID nitroglycerin 0.4 mg tablet, sublingual 0.4 mg sublingual Q5M (DME) Kneeling Scooter See Rx Instructions .ROUTE .MEDSUPPLY Qty: 1 0RF Rx Instructions: As directed Print Language: Azeri
--- NOTE | 2025-01-04 19:00 | ECG_ITS ---
Test Reason : SHORTNESS OF BREATH Blood Pressure : */* mmHG Vent. Rate : 80 BPM Atrial Rate : * BPM P-R Int : * ms QRS Dur : 94 ms QT Int : 376 ms P-R-T Axes : * -33 -33 degrees QTcB Int : 433 ms Atrial fibrillation Left axis deviation Abnormal ECG When compared with ECG of 25-Dec-2024 16:27, No significant change was found Referred By: Yoly Martinez Electronically Signed By: PAMELA CLEMENTS MD
[2025-01-04 19:17] LABS: MANUAL DIFF FLAG NO
[2025-01-04 19:22] LABS: Hematocrit 38.8 % (42.0-52.0); Hemoglobin 12.7 g/dl (14.0-18.0); Imm Gran Abs Auto 0.02 X10*3/uL (0.00-0.03); Imm Gran Pct Auto 0.3 % (0.0-0.4); Lymphocytes Absolute Auto 1.2 X10*3/uL (1.2-4.9); Mean Corpuscular HGB Conc 32.7 g/dl (31.0-36.0); Mean Corpuscular Hemoglobin 29.6 pg (27.0-33.0); Mean Corpuscular Volume 90.4 fL (80.0-98.0); NRBC Abs Auto 0.000 X10*3/uL (0.0-0.012); NRBC Pct Auto 0.0 /100WBC (0.0-0.2); Platelet Count 204 X10*3/uL (160-400); Red Blood Count 4.29 X10*6/uL (4.60-5.80); White Blood Count 6.1 X10*3/uL (4.8-10.8)
[2025-01-04 19:33] LABS: Alanine Aminotransferase 20 U/L (0-40); Albumin Level 3.9 g/dL (3.5-5.0); Alkaline Phosphatase 93 U/L (39-117); Anion Gap 13 (12-20); Aspartate Amino Transferase 21 U/L (5-37); Blood Urea Nitrogen 16 mg/dL (9-16); Calcium 8.8 mg/dL (8.4-10.2); Carbon Dioxide 23 mmol/L (22-29); Chloride 111 mmol/L (96-108); Creatinine Clr Calc Pharmacy 47.1; Estimated Glomerular Filt Rate > 60; Magnesium 1.9 mg/dL (1.6-2.6); Potassium 4.2 mmol/L (3.3-5.1); Sodium 143 mmol/L (135-145); Total Protein 6.8 g/dL (6.5-8.0)
[2025-01-04 19:37] LABS: COVID-19 Test Negative (Negative); IDNOW Serial# 55D5AD1C; IDNOW Serial# 58CA691E; Influenza B2 Negative (Negative)
[2025-01-04 19:39] LABS: B Type Natriuretic Peptide 209 pg/mL (<100)
[2025-01-04 19:40] LABS: Troponin-I High Sensitivity 6.4 ng/L (<3.5-35.0)
[2025-01-04 23:59] VITALS: BP 120/58; PULSE 73; RESP 16; TEMP 36.7; O2SAT 98
--- OUTSIDE RECORDS SUMMARY | 2025-01-05 00:52 | XMS_ITS | Encounter Summary ---
Author Organization [facility] Address [address] [place] [id number] Phone Care Team Providers Care Bench Worker Name Role Phone Shahab Perkins MD Primary Care Provider [phone] Margaret Chavis MD Unavailable [phone] Gertrude Kendall MD Primary Care Provider [phone] Encounter Details Date Type Department Care Team (Latest Contact Info) Description 12/18/2018 Ancillary Orders Non-Invasive Cardiology [address] [place] [address] Margaret Chavis MD [address] [place] [id number] Pre-op exam; Atrial fibrillation, unspecified type; Coronary artery disease without angina pectoris, unspecified vessel or lesion type, unspecified whether [place] or transplanted heart; Dyspnea, unspecified type Social [...] st Contact Info) Description 12/25/2024 Procedure Pass [facility] [address] [place] [address] 01/28/2025 1:30 PM EDT Appointment [facility] [address] [place] [address] Margaret Chavis MD [address] [address] documented as of this encounter Results * NC Stress Result for Nuclear Stress Test (12/18/2018 10:32 AM EDT) Max BP Systolic 166 mmHg [facility] Max BP Diastolic 44 mmHg [facility] Max HR 148 BPM [facility] Resting HR 71 BPM [facility] Resting BP Systolic 102 mmHg [facility] Resting BP Diastolic 50 mmHg [facility] Peak METS 10.1 METS [facility] Peak HR 142 BPM [facility] Anatomical Region Laterality Modality Heart Other 12/18/2018 [...] unspecified vessel or lesion type, unspecified whether [place] or transplanted heart Dyspnea, unspecified type Pre-op exam Atrial fibrillation, unspecified type Coronary artery disease without angina pectoris, unspecified vessel or lesion type, unspecified whether [place] or transplanted heart Dyspnea, unspecified type documented in this encounter Additional Health Concerns Infection Onset Date Last Indicated Resolved Time CoV-Risk 07/21/2022 07/21/2022 07/23/2022 9:59 AM EDT documented as of this encounter Care Teams Bench Worker Relationship Specialty Start Date End Date Shahab Perkins MD [address] [place] [address] [address] [place] [address] [email or web address] PCP - General Family Medicine 08/13/17 04/05/22 Gertrude Kendall MD [address] [address] [email or web address] PCP - General Family Medicine 04/06/22 Margaret Chavis MD [address] [address] Cardiology 01/07/19 documented as of this encounter Additional Source Comments The information contained in this document represents components of the legal health record. It is not the complete legal health record.[facility]
--- OUTSIDE RECORDS SUMMARY | 2025-01-05 00:52 | XMS_ITS | Encounter Summary ---
Author Organization [facility] Address [address] [place] [address] Care Team Providers Care Recreation Activities Coordinator Name Role Phone Physician, Pcp Unknown Primary Care Provider Jennifer vailable Encounter Details Date Type Department Care Team (Late st Contact Info) Description 10/09/2024 Lab Requisition [facility] [address] [facility] [place] [address] Hosea Lao MD [address] [facility] [address] [place] [phone] Pyuria Social History Tobacco Use Types Packs/Day [...] ssp pneumoniae(A) JAMES 10/13/2024 9:57 AM EDT [facility] ([facility]) [facility] Comment: This is an edited result. Previous organism was Gram negative bacilli on 10/11/2024 at 1230 EDT. This is an appended report. These results have been appended to a previously final verified report. Culture, Urine >100,000 CFU/mL Klebsiella pneumoniae ssp pneumoniae(A) JAMES 10/13/2024 9:57 AM EDT [facility] Comment: The organism value for this result has been updated. These results have been appended to the previously preliminary verified report. This is an edited result. Previous organism was Gram negative bacilli on 10/12/2024 at 0946 EDT. Culture, Urine 50,000-100,000 CFU/mL Pseudomonas aeruginosa(A) JAMES 10/13/2024 9:57 AM EDT [facility] Comment: The organism value [...] MICROBIOLOGY - GENERAL ORDER SANDIP Final Result [facility] ([facility]) [facility] [address] [place] [address], documented in this encounter Visit Diagnoses Diagnosis Pyuria Other nonspecific finding on examination of urine documented in this encounter Care Teams Recreation Activities Coordinator Relationship Specialty Start Date End Date Physician, Pcp Unknown PCP - General 06/18/24 documented as of this encounter
--- OUTSIDE RECORDS SUMMARY | 2025-01-05 00:52 | XMS_ITS | Clinical Summary ---
Author Organization [facility] Address [address] [place] [address] Care Team Providers Care Lead Solutions Architect Name Role Phone Unavailable Primary Care Provider [...] (adult) (1 - 1-dose 75+ series) 06/30/2015 Alcohol and Drug Screen 04/29/2024 Depression Annual Screen 04/29/2024 Hypertension Screening (#1) 08/25/2024 [id number] (3 - 2024- season) 2024 021, 06/13/2020 Imm-Influenza (#1) 2024 04/04/2012, 0 01/23/2011, 03/20/2010, Additional history exists Imm-DTaP/Tdap/Td (2 - Td or Tdap) 10/11/2032 10/11/2022, 04/10/2021, 08/06/2017, Additional history exists Imm-Pneumococcal 50+ Completed 07/19/2015, 03/31/20 10 Insurance [place]ARE - [place] [facility]
--- OUTSIDE RECORDS SUMMARY | 2025-01-05 00:52 | XMS_ITS | Encounter Summary ---
Author Organization [facility] Address [address] [facility] [address] [place] [address] Phone Care Team Providers Care Injection Operator Name Role Phone Margaret Chavis MD Unavailable [phone] Gertrude Kendall MD Primary Care Provider + [phone] Reason for Referral * Outpatient Procedure - Authorized Specialty Diagnoses / Procedures Referred By Chidi mac Referred To Contact Diagnoses Dyspnea, unspecified type Procedures Adult Echo TTE Margaret Chavis MD [address] [place] [address] Phone: tel: fax: Referral ID Status Reason Start Date Expiration Date V isits Requested Visits Authorized [id number] Authorized 12/25/2024 1 1 Encounter Details Date Type Department Care Team (Latest Contact Info) Description 12/25/2024 Transcribe Orders Virtual Department 30 [place] [address] Margaret Chavis MD [address] [phone] Dyspnea, unspecified type (Primary Dx) Social History [...] 12/25/2024 Procedure Pass [facility] 30 [place] [address] 01/28/2025 1:30 PM EDT Appointment [facility] Echo Lab [address] [place] [address] Margaret Chvais MD [address] [place] [address] Scheduled Orders Name Type Priority Associated Diagnoses Orde r Schedule Adult Echo TTE Echocardiography Routine Dyspnea, unspecified type Expected: 12/25/2024, Expires: 12/25/2025 documented as of this encounter Visit Diagnoses Diagnosis Dyspnea, unspecified type- Primary documented in this encounter Care Teams Injection Operator Relationship Specialty Start Date End Date Gertrude Kendall MD [address] [place] [address] [email or web address] PCP - General Family Medicine 04/06/22 Margaret Chavis MD [address] [place] [address] Cardiology 01/07/19 documented as of this encounter Additional Source Comments The information contained in this document represents components of the legal health record. It is not the complete legal health record.[facility]
--- OUTSIDE RECORDS SUMMARY | 2025-01-05 00:52 | XMS_ITS | Encounter Summary ---
Author Organization [facility] Address [address] [place] [address] Phone Care Team Providers Care Director Of Real Estate Name Role Phone Shahab Perkins MD Primary Care Provider [phone] Margaret Chavis MD Unavailable [phone] Gertrude Kendall MD Primary Care Provider + [phone] Encounter Details Date Type Department Care Team (Latest Contact Info) Description 11/28/2020 Transcribe Orders Virtual Department 30 [place], [place] [phone] Shahab Perkins MD 230 [facility] [address] [place] [phone] [email or web address] Mass of pancreas (Primary Dx) Social History [...] 12/25/2024 Procedure Pass [facility] 30 [place] [address] 01/28/2025 1:30 PM EDT Appointment [facility] [address] [place] [address] Margaret Chavis MD 241 [facility] [address] [place] [address] documented as of this encounter Visit Diagnoses Diagnosis Mass of pancreas- Primary documented in this encounter Additional Health Concerns Infection Onset Date Last Indicated Resolved Time CoV-Risk 07/21/2022 07/21/2022 07/23/2022 9:59 AM EDT documented as of this encounter Care Teams Director Of Real Estate Relationship Specialty Start Date End Date Shahab Perkins MD 230 [facility] [address] [place] [address] [email or web address] PCP - General Family Medicine 08/13/17 04/05/22 Gertrude Kendall MD [address] [place] [address] PCP - General Family Medicine 04/06/22 Margaret Chavis MD [address] [place] [address] Cardiology 01/07/19 documented as of this encounter Additional Source Comments The information contained in this document represents components of the legal health record. It is not the complete legal health record.[facility]
--- OUTSIDE RECORDS SUMMARY | 2025-01-05 00:52 | XMS_ITS | Encounter Summary ---
Author Organization [facility] Address [address] [place] [address] [place] [address] Phone Care Team Providers Care Freelance Operator Name Role Phone Shahab Perkins MD Primary Care Provider [phone] Margaret Chavis MD Unavailable [phone] Gertrude Kendall MD Primary Care Provider + [phone] Encounter Details Date Type Department Care Team (Late Contact Info) Description 12/01/2019 Procedure Pass [place] Admitting Dept - Virtual Department 30 [place] [address] Social History Tobacco Use Types Packs/Day Years [...] (Late Contact Info) Description 12/25/2024 Procedure Pass [facility] Echo Lab 30 [place] [address] 01/28/2025 1:30 PM EDT Appointment [facility] Echo Lab 30 [place] [address] Margaret Chavis MD [address] [place] [address], [place] [address] documented as of this encounter Visit Diagnoses Not on filedocumented in this encounter Additional Health Concerns Infection Onset Date Last Indicated Resolved Time CoV-Risk 07/21/2022 07/21/2022 07/23/2022 9:59 AM EDT documented as of this encounter Care Teams Freelance Operator Relationship Specialty Start Date End Date Shahab Perkins MD 230 [facility] [address] [place] [address] [email or web address] PCP - General Family Medicine 08/13/17 04/05/22 Gertrude Kendall MD [address] [place] [address] PCP - General Family Medicine 04/06/22 Margaret Chavis MD [address] [address] Cardiology 01/07/19 documented as of this encounter Additional Source Comments The information contained in this document represents components of the legal health record. It is not the complete legal health record.[facility]
--- OUTSIDE RECORDS SUMMARY | 2025-01-05 00:52 | XMS_ITS | Encounter Summary ---
Author Organization [facility] Address [address] [place] [address] [place] [address] Phone Care Team Providers Care Flooring Salesperson Name Role Phone Shahab Perkins MD Primary Care Provider [phone] Margaret Chavis MD Unavailable [phone] Gertrude Kendall MD Primary Care Provider + [phone] Encounter Details Date Type Department Care Team (Late Contact Info) Description 12/26/2020 Procedure Pass [facility] PERIOPERATIVE DEPT [address] [place] [phone] Social History Tobacco Use Types Packs/Day [...] 12/25/2024 Procedure Pass [facility] [address] [place] [address] 01/28/2025 1:30 PM EDT Appointment [facility] Echo Lab [address] [place] [address] Margaret Chavis MD [address] [place] [address] documented as of this encounter Visit Diagnoses Not on filedocumented in this encounter Additional Health Concerns Infection Onset Date Last Indicated Resolved Time CoV-Risk 07/21/2022 07/21/2022 07/23/2022 9:59 AM EDT documented as of this encounter Care Teams Flooring Salesperson Relationship Specialty Start Date End Date Shahab Perkins MD 230 [facility] [address] [place] [address] [email or web address] PCP - General Family Medicine 08/13/17 04/05/22 Gertrude Kendall MD [address] [address] [email or web address] PCP - General Family Medicine 04/06/22 Margaret Chavis MD [address] [address] Cardiology 01/07/19 documented as of this encounter Additional Source Comments The information contained in this document represents components of the legal health record. It is not the complete legal health record.[facility]
--- OUTSIDE RECORDS SUMMARY | 2025-01-05 00:52 | XMS_ITS | Encounter Summary ---
Author Organization [facility] Address [address] [place] [address] [place] [address] Phone Care Team Providers Care Agriculture Teacher Name Role Phone Shahab Perkins MD Primary Care Provider [phone] Margaret Chavis MD Unavailable [phone] Gertrude Kendall MD Primary Care Provider + [phone] Encounter Details Date Type Department Care Team (Late Contact Info) Description 11/11/2018 Procedure Pass [place] Admitting Dept - Virtual Department 30 [place] [address] Social History Tobacco Use Types Packs/Day Years [...] (Late Contact Info) Description 12/25/2024 Procedure Pass [facility] Echo Lab 30 [place] [address] 01/28/2025 1:30 PM EDT Appointment [facility] Echo Lab 30 [place] [address] Margaret Chavis MD [address] [place] [address], [place] [address] documented as of this encounter Visit Diagnoses Not on filedocumented in this encounter Additional Health Concerns Infection Onset Date Last Indicated Resolved Time CoV-Risk 07/21/2022 07/21/2022 07/23/2022 9:59 AM EDT documented as of this encounter Care Teams Agriculture Teacher Relationship Specialty Start Date End Date Shahab Perkins MD 230 [facility] [address] [place] [address] [email or web address] PCP - General Family Medicine 08/13/17 04/05/22 Gertrude Kendall MD [address] [place] [address] PCP - General Family Medicine 04/06/22 Margaret Chavis MD [address] [address] Cardiology 01/07/19 documented as of this encounter Additional Source Comments The information contained in this document represents components of the legal health record. It is not the complete legal health record.[facility]
--- OUTSIDE RECORDS SUMMARY | 2025-01-05 00:52 | XMS_ITS | Encounter Summary ---
Author Organization [facility] Address [address] [facility] [address] [place] [address] Phone Care Team Providers Care Roll Inspector Name Role Phone Shahab Perkins MD Primary Care Provider [phone] Margaret Chavis MD Unavailable [phone] Gertrude Kendall MD Primary Care Provider + [phone] Reason for Visit * Reason Onset Date Comments Appointment 11/19/2018 spoke to pt abou t CT Chest, he will have done at [facility] (Pt will schedule) . Also discussed Cardiac Clearance. Will maoil prep instructions.l Encounter Details Date Type Department Care Team (Late st Contact Info) Description 11/19/2018 Telephone Department of Urology [address] [address] Blaise Montes MD [address] [place] [address] [place] [address] [email or web address] Appointment (spoke to pt about CT Chest, he will have done at [facility] (Pt will schedule) . Also discussed [...] 12/25/2024 Procedure Pass [facility] Echo Lab 30 [place] [address] 01/28/2025 1:30 PM EDT Appointment [facility] Echo Lab 30 [place] [address] Margaret Chavis MD 241 [facility] 219 [place] [address] documented as of this encounter Visit Diagnoses Not on filedocumented in this encounter Additional Health Concerns Infection Onset Date Last Indicated Resolved Time CoV-Risk 07/21/2022 07/21/2022 07/23/2022 9:59 AM EDT documented as of this encounter Care Teams Roll Inspector Relationship Specialty Start Date End Date Shahab Perkins MD 230 [facility] [address] [place] [address] PCP - General Family Medicine 08/13/17 04/05/22 Gertrude Kendall MD [address] [place] [address] PCP - General Family Medicine 04/06/22 Margaret Chavis MD [address] [address] Cardiology 01/07/19 documented as of this encounter Additional Source Comments The information contained in this document represents components of the legal health record. It is not the complete legal health record.[facility]
--- OUTSIDE RECORDS SUMMARY | 2025-01-05 00:52 | XMS_ITS | Encounter Summary ---
Author Organization [facility] Address [address] [place] [address] Care Team Providers Care Application Spec Name Role Phone Physician, Pcp Unknown Primary Care Provider Jennifer vailable Encounter Details Date Type Department Care Team (Late st Contact Info) Description 09/25/2024 Lab Requisition [facility] Lab 299 [facility] [place] [address] Hosea Lao MD 3640 [facility] 103 [place] [phone] Pyuria Social History Tobacco Use Types Packs/Day [...] Pseudomonas aeruginosa(A) JAMES 09/28/2024 7:50 AM EDT [facility] Comment: This is an edited result. Previous organism was Gram negative bacilli on 09/26/2024 at 1050 EDT. Culture, Bacterial ID and Sensitivity Enterococcus faecalis(A) JAMES 09/28/2024 7:50 AM EDT [facility] Comment: The organism value for [...] MICROBIOLOGY - GENERAL ORDER SANDIP Final Result [facility] ([facility] [address] [place] [address], [place] [phone] documented in this encounter Visit Diagnoses Diagnosis Pyuria Other nonspecific finding on examination of urine documented in this encounter Care Teams Application Spec Relationship Specialty Start Date End Date Physician, Pcp Unknown PCP - General 06/18/24 documented as of this encounter
--- OUTSIDE RECORDS SUMMARY | 2025-01-05 00:52 | XMS_ITS | Encounter Summary ---
Author Organization [facility] Address [address] [place] [address] Phone Care Team Providers Care Perinatal Director Name Role Phone Margaret Chavis MD Unavailable [phone] Gertrude Kendall MD Primary Care Provider + [phone] Reason for Referral * MRI/CAT Scan - Closed Specialty Diagnoses / Procedures Referred By Chidi mac Referred To Contact Radiology Diagnoses Abnormal stress test Dyspnea, unspecified type Atrial fibrillation, unspecified type Procedures NC Myocardial Perfusion Exercise Multiple Margaret Chavis MD [address] [place] [address] Phone: tel: fax: Referral ID Status Reason Start Date Expiration Date Visits Re quested Visits Authorized [id number] Closed 04/25/2022 04/25/2023 4 4 Encounter Details Date Type Department Care Team (Latest Contact Info) Description 04/25/2022 Transcribe Orders Virtual Department 30 [place] [address] Margaret Chavis MD [address] [phone] Abnormal stress test (Primary Dx); Dyspnea, unspecified [...] st Contact Info) Description 12/25/2024 Procedure Pass [facility] Echo Lab 30 [place] [address] 01/28/2025 1:30 PM EDT Appointment [facility] Echo Lab 30 [place] [address] Margaret Chavis MD [address] [address] documented as of this encounter Results * NC Myocardial Perfusion Exercise Multiple (06/14/2022 11:44 AM EST) Anatomical Region Laterality Modality Heart, Vascular Nuclear Medicine 06/14/2022 12:2 5 PM EST Impressions 06/14/2022 12:34 PM EST 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 No new ischemic foci detected. The LVEF was calculated at approximately 51%. POS [id number] Narrative 06/14/2022 12:34 PM EST COMPARISON: 12/18/2018 [...] LVEF was calculated at approximately 51%. POS [id number] Margaret Chavis MD CV NM CARDIAC Final [...] documented as of this encounter Care Teams Perinatal Director Relationship Specialty Start Date End Date Gertrude Kendall MD [address] [address] [email or web address] PCP - General Family Medicine 04/06/22 Margaret Chavis MD [address] [address] Cardiology 01/07/19 documented as of this encounter Additional Source Comments The information contained in this document represents components of the legal health record. It is not the complete legal health record.[facility]
--- OUTSIDE RECORDS SUMMARY | 2025-01-05 00:52 | XMS_ITS | Encounter Summary ---
Author Organization [facility] Address [address] [place] [address] Care Team Providers Care Wireline Operator Name Role Phone Physician, Pcp Unknown Primary Care Provider Jennifer vailable Encounter Details Date Type Department Care Team (Late st Contact Info) Description 07/16/2024 Lab Requisition [facility] Lab 299 [facility] [place] [address] Yudy Lock PA 3640 [facility] 103 [place] [address] Feeling of incomplete bladder emptying Social History [...] ssp pneumoniae(A) JAMES 07/17/2024 11:[address] [facility] Comment: This is an edited result. [...] MICROBIOLOGY - GENERAL ORDER SANDIP Final Result [facility] ([facility]) [facility] [address] [place] [address], documented in this encounter Visit Diagnoses Diagnosis Feeling of incomplete bladder emptying documented in this encounter Care Teams Wireline Operator Relationship Specialty Start Date End Date Physician, Pcp Unknown PCP - General 06/18/24 documented as of this encounter
--- OUTSIDE RECORDS SUMMARY | 2025-01-05 00:52 | XMS_ITS | Encounter Summary ---
Author Organization [facility] Address [address] [place] [address] [place] [address] Phone Care Team Providers Care Lime Spreader Name Role Phone Shahab Perkins MD Primary Care Provider [phone] Margaret Chavis MD Unavailable [phone] Gertrude Kendall MD Primary Care Provider + [phone] Encounter Details Date Type Department Care Team (Late Contact Info) Description 11/15/2020 Procedure Pass [place] Admitting Dept - Virtual Department 30 [place] [address] Social History Tobacco Use Types Packs/Day Years [...] 12/25/2024 Procedure Pass [facility] [address] [place] [address] 01/28/2025 1:30 PM EDT Appointment [facility] Echo Lab 30 [place] [address] Margaret Chavis MD [address] [place] [address] documented as of this encounter Visit Diagnoses Not on filedocumented in this encounter Additional Health Concerns Infection Onset Date Last Indicated Resolved Time CoV-Risk 07/21/2022 07/21/2022 07/23/2022 9:59 AM EDT documented as of this encounter Care Teams Lime Spreader Relationship Specialty Start Date End Date Shahab Perkins MD 230 [facility] [address] [place] [address] [email or web address] PCP - General Family Medicine 08/13/17 04/05/22 Gertrude Kendall MD [address] [place] [address] PCP - General Family Medicine 04/06/22 Margaret Chavis MD [address] [address] Cardiology 01/07/19 documented as of this encounter Additional Source Comments The information contained in this document represents components of the legal health record. It is not the complete legal health record.[facility]
--- OUTSIDE RECORDS SUMMARY | 2025-01-05 00:52 | XMS_ITS | Encounter Summary ---
Author Organization [facility] Address [address] [facility] [address] [place] [address] Phone Care Team Providers Care Scallop Raker Name Role Phone Shahab Perkins MD Primary Care Provider [phone] Margaret Chavis MD Unavailable [phone] Gertrude Kendall MD Primary Care Provider + [phone] Encounter Details Date Type Department Care Team (Late Contact Info) Description 01/14/2019 Procedure Pass [facility] PER[facility]IVE DEPT [address] [place] [phone] Social History Tobacco Use Types Packs/Day Years [...] Contact Info) Description 12/25/2024 Procedure Pass [facility] Echo Lab 30 [place] [address] 01/28/2025 1:30 PM EDT Appointment [facility] Echo Lab [address] [place] [address] Margaret Chavis MD [address] [place] [address] documented as of this encounter Visit Diagnoses Not on filedocumented in this encounter Additional Health Concerns Infection Onset Date Last Indicated Resolved Time CoV-Risk 07/21/2022 07/21/2022 07/23/2022 9:59 AM EDT documented as of this encounter Care Teams Scallop Raker Relationship Specialty Start Date End Date Shahab Perkins MD 230 [facility] [address] [place] [address] [email or web address] PCP - General Family Medicine 08/13/17 04/05/22 Gertrude Kendall MD [address] [place] [address] PCP - General Family Medicine 04/06/22 Margaret Chavis MD [address] [place] [address] Cardiology 01/07/19 documented as of this encounter Additional Source Comments The information contained in this document represents components of the legal health record. It is not the complete legal health record.[facility]
--- OUTSIDE RECORDS SUMMARY | 2025-01-05 00:52 | XMS_ITS | Encounter Summary ---
Author Organization [facility] Address [address] [place] [address] Phone Care Team Providers Care Dairy Nutrition Specialist Name Role Phone Margaret Chavis MD Unavailable [phone] Gertrude Kendall MD Primary Care Provider + [phone] Encounter Details Date Type Department Care Team (Late st Contact Info) Description 10/13/2024 Procedure Pass [facility], Ct Scan - [facility] [address] [place] [address] Social History Tobacco Use Types Packs/Day Years [...] 12/25/2024 Procedure Pass [facility] [address] [place] [address] 01/28/2025 1:30 PM EDT Appointment [facility] [address] [place] [address] Margaret Chavis MD [address] [place] [address] documented as of this encounter Visit Diagnoses Not on filedocumented in this encounter Care Teams Dairy Nutrition Specialist Relationship Specialty Start Date End Date Gertrude Kendall MD [address] [place] [address] PCP - General Family Medicine 04/06/22 Margaret Chavis MD [address] [place] [address] Cardiology 01/07/19 documented as of this encounter Additional Source Comments The information contained in this document represents components of the legal health record. It is not the complete legal health record.[facility]
--- OUTSIDE RECORDS SUMMARY | 2025-01-05 00:52 | XMS_ITS | Encounter Summary ---
Author Organization [facility] Address [address] [place] [address] Phone Care Team Providers Care Workforce Manager Name Role Phone Shahab Perkins MD Primary Care Provider Margaret Chavis MD Unavailable [phone] Gertrude Kendall MD Primary Care Provider + [phone] Encounter Details Date Type Department Care Team (Late Contact Info) Description 11/16/2019 Ancillary Orders Virtual Department 30 [place] [address] Hosea Lao MD [address] [place] [address], [address] [address] [email or web address] Personal history of malignant neoplasm [...] 12/25/2024 Procedure Pass [facility] 30 [place] [address] 01/28/2025 1:30 PM EDT Appointment [facility] [address] [place] [address] Margaret Chavis MD 241 [facility] 219 [place] [address] documented as of this encounter Results * [...] documented as of this encounter Care Teams Workforce Manager Relationship Specialty Start Date End Date Shahab Perkins MD 230 [facility] [address] [place] [address] [email or web address] PCP - General Family Medicine 08/13/17 04/05/22 Gertrude Kendall MD [address] [place] [address] PCP - General Family Medicine 04/06/22 Margaret Chavis MD [address] [place] [address] Cardiology 01/07/19 documented as of this encounter Additional Source Comments The information contained in this document represents components of the legal health record. It is not the complete legal health record.[facility]
--- OUTSIDE RECORDS SUMMARY | 2025-01-05 00:52 | XMS_ITS | Encounter Summary ---
Author Organization [facility] Address [address] [place] [address] Phone Care Team Providers Care Environmental Science Technician Name Role Phone Margaret Chavis MD Unavailable Gertrude Kendall MD Primary Care Provider + [phone] Reason for Referral * MRI/CAT Scan - Closed Specialty Diagnoses / Procedures Referred By Chidi mac Referred To Contact Radiology Diagnoses Abnormal stress test Dyspnea, unspecified type Atrial fibrillation, unspecified type Procedures NC Stress Result for Nuclear Stress Test Margaret Chavis MD 780 [facility] 20 [place] [address] Phone: tel: fax: Referral ID Status Reason Start Date Expiration Date Visits Re quested Visits Authorized [id number] Closed 06/14/2022 06/14/2023 1 1 Encounter Details Date Type Department Care Team (Late st Contact Info) Description 06/14/2022 Ancillary Orders Non-Invasive Cardiology 30 [place], [place] [phone] Margaret Chavis MD 241 [facility] 219 [place], [place] [phone] Abnormal stress test; Dyspnea, unspecified type; Atrial [...] st Contact Info) Description 12/25/2024 Procedure Pass [facility] [address] [place] [address] 01/28/2025 1:30 PM EDT Appointment [facility] [address] [place] [address] Margaret Chavis MD [address] [place] [address] documented as of this encounter Results * [...] predicted heart rate. Rate pressure product was 15676. REPORT- Patient exercised for 4:00 minutes on [...] and will be reported separately. Lydia Oneill ENAMEL BURNER with Dr Bruno . Margaret Chavis MD [...] documented as of this encounter Care Teams Environmental Science Technician Relationship Specialty Start Date End Date Gertrude Kendall MD [address] [address] [email or web address] PCP - General Family Medicine 04/06/22 Margaret Chavis MD [address] [address] Cardiology 01/07/19 documented as of this encounter Additional Source Comments The information contained in this document represents components of the legal health record. It is not the complete legal health record.[facility]
--- OUTSIDE RECORDS SUMMARY | 2025-01-05 00:52 | XMS_ITS | Encounter Summary ---
Author Organization [facility] Address [address] [place] [address] Care Team Providers Care Art Class Model Name Role Phone Physician, Pcp Unknown Primary Care Provider Jennifer vailable Encounter Details Date Type Department Care Team (Late st Contact Info) Description 08/04/2024 Lab Requisition [facility] 299 [facility] [place] [address] Cleo Griffin NP 3640 [facility] 103 [place], [place] [phone] Frequency of micturition Social History Tobacco Use [...] pneumoniae(A) JAMES 08/05/2024 8:05 AM EDT [facility] Comment: This is an edited [...] JAMES <=20 ug/ml: Susceptible us Cleo Griffin SKI GUIDE LAB MICROBIOLOGY - GENERA L ORDERABLES Final Result [facility] ([facility]) [facility] 299 [place] [address], documented in this encounter Visit Diagnoses Diagnosis Frequency of micturition Urinary frequency documented in this encounter Care Teams Art Class Model Relationship Specialty Start Date End Date Physician, Pcp Unknown PCP - General 06/18/24 documented as of this encounter
--- OUTSIDE RECORDS SUMMARY | 2025-01-05 00:52 | XMS_ITS | Encounter Summary ---
Author Organization [facility] Address [address] [place] [address] Phone Care Team Providers Care Barrel Waterer Name Role Phone Shahab Perkins MD Primary Care Provider [phone] Margaret Chavis MD Unavailable [phone] Gertrude Kendall MD Primary Care Provider + [phone] Reason for Referral * MRI/CAT Scan - Closed Specialty Diagnoses / Procedures Referred By Contmaxim mac Referred To Contact Radiology Diagnoses LLQ pain Procedures CT Abdomen/Pelvis Shahab Perkins MD Phone: tel: fax: [email or web address] Referral ID Status Reason Start Date Expiration Date Visits Re quested Visits Authorized [id number] Closed 09/23/2019 09/22/2020 1 1 Encounter Details Date Type Department Care Team (Latest Contact Info) Description 09/23/2019 Transcribe Orders Virtual Department 30 [place] [address] Shahab Perkins MD 230 [facility] [address] [place] [phone] [email or web address] LLQ pain (Primary Dx) Social History Tobacco [...] st Contact Info) Description 12/25/2024 Procedure Pass [facility] Echo Lab [address] [place] [address] 01/28/2025 1:30 PM EDT Appointment [facility] Echo Lab [address] [place] [address] Margaret Chavis MD [address] [place] [address] documented as of this encounter Results * CT ABDOMEN/PELVIS WITH CONTRAST (09/25/2019 4:15 PM EDT) Anatomical Region Laterality Modality Abdomen, Pelvis Computed Tomogra phy 09/25/2019 5:21 PM EDT Impressions 09/25/2019 5:36 PM EDT 1. No acute findings in the abdomen/pelvis. 2. Additional chronic findings as described above. TOTAL CTDIvol: 6.5 mGy POS - [id number] Narrative 09/25/2019 5:36 PM EDT EXAM: CT [...] above. TOTAL CTDIvol: 6.5 mGy POS - [id number] Shahab Perkins MD IM CT ABD/PELVIS Final Result documented in this encounter Visit Diagnoses Diagnosis LLQ pain- Primary Abdominal pain, left lower quadrant LLQ pain Abdominal pain, left lower quadrant documented in this encounter Additional Health Concerns Infection Onset Date Last Indicated Resolved Time CoV-Risk 07/21/2022 07/21/2022 07/23/2022 9:59 AM EDT documented as of this encounter Care Teams Barrel Waterer Relationship Specialty Start Date End Date Shahab Perkins MD 230 [facility] [address] [place] [phone] [email or web address] PCP - General Family Medicine 08/13/17 04/05/22 Gertrude Kendall MD [address] [place] [address] PCP - General Family Medicine 04/06/22 Margaret Chavis MD [address] [place] [address] Cardiology 01/07/19 documented as of this encounter Additional Source Comments The information contained in this document represents components of the legal health record. It is not the complete legal health record.[facility]
--- OUTSIDE RECORDS SUMMARY | 2025-01-05 00:52 | XMS_ITS | Encounter Summary ---
Author Organization [facility] Address [address] [place] [address] Care Team Providers Care Time Motion Analyst Name Role Phone Physician, Pcp Unknown Primary Care Provider Jennifer vailable Encounter Details Date Type Department Care Team (Late st Contact Info) Description 06/18/2024 Lab Requisition [facility] [address] [place] [address] Gael Minor PA 3640 [facility] 103 [place] [address] Gross hematuria; Dysuria Social History Tobacco Use [...] reflex microscopic (06/18/2024 11:10 AM EST) Specific [place] Urine 1.017 1.003 - 1.030 LAB URINALYSIS - AUTOMATED METHOD 06/18/2024 3:01 PM EST [facility] pH, Urine 6.0 5.0 - 8.0 pH LAB URINALYSIS - AUTOMATED METHOD 06/18/2024 3:01 PM [facility] Leukocytes, Urine Large(A) Negative LAB URINALYSIS - AUTOMATED METHOD 06/18/2024 3:01 PM [facility] Nitrite, Urine Negative Negative LAB URINALYSIS - AUTOMATED METHOD 06/18/2024 3:01 PM [facility] Protein, Urine 300(A) <=Trace mg/dL LAB URINALYSIS - AUTOMATED METHOD 06/18/2024 3:01 PM [facility] Glucose, Urine Negative Negative mg/dL LAB URINALYSIS - AUTOMATED METHOD 06/18/2024 3:01 PM [facility] Ketones, Urine Negative Negative mg/dL LAB URINALYSIS - AUTOMATED METHOD 06/18/2024 3:01 PM [facility] Urobilinogen , Urine 0.2 0.2 - 1.0 mg/dL LAB URINALYSIS - AUTOMATED METHOD 06/18/2024 3:01 PM [facility] Bilirubin, Urine Negative Negative LAB URINALYSIS - AUTOMATED METHOD 06/18/2024 3:01 PM [facility] Blood, Urine Large(A) Negative LAB URINALYSIS - AUTOMATED METHOD 06/18/2024 3:01 PM [facility] RBC, Urine 3,958.6(H) 0 - 4 /HPF LAB URINALYSIS - AUTOMATED METHOD 06/18/2024 3:01 PM [facility] WBC, Urine 629.1(H) 0 - 4 /HPF LAB URINALYSIS - AUTOMATED METHOD 06/18/2024 3:01 PM [facility] Squamous Epithelial, Urine 0 0 - 60 /LPF LAB URINALYSIS - AUTOMATED METHOD 06/18/2024 3:01 PM [facility] Bacteria, Urine Negative Negative /HPF [...] ORDERABLES Final Resul t Performing Organization Address [facility]/State/ZIP Co de Phone Number [facility] [address] [place] [address], [place] [phone] * (ABNORMAL) Culture urine (06/18/2024 11:10 AM [...] MICROBIOLOGY - GENERAL ORDER SANDIP Final Result [facility] ([facility]) [facility] [address] [place] [address], documented in this encounter Visit Diagnoses Diagnosis Gross hematuria Dysuria documented in this encounter Care Teams Time Motion Analyst Relationship Specialty Start Date End Date Physician, Pcp Unknown PCP - General 06/18/24 documented as of this encounter
--- OUTSIDE RECORDS SUMMARY | 2025-01-05 00:52 | XMS_ITS | Encounter Summary ---
Author Organization [facility] Address [address] [place] [address] Phone Care Team Providers Care Etl Lead Name Role Phone Shahab Perkins MD Primary Care Provider [phone] Margaret Chavis MD Unavailable [phone] Gertrude Kendall MD Primary Care Provider + [phone] Reason for Referral * Outpatient Procedure - Closed Specialty Diagnoses / Procedures Referred By Contac t Referred To Contact Diagnoses Coronary artery disease, unspecified vessel or lesion type, unspecified whether angina present, unspecified whether [place] or transplanted heart Procedures Stress Test Exercise Margaret Chavis MD [address] [place] [address] Phone: tel: fax: Referral ID Status Reason Start Date Expiration Date Visits Re quested Visits Authorized [id number] Closed 04/02/2022 04/02/2023 1 1 Encounter Details Date Type Department Care Team (Latest Contact Info) Description 04/02/2022 Transcribe Orders Virtual Department [address] [place] [address] Margaret Chavis MD [address] [place] [address] Coronary artery disease, unspecified vessel or lesion type, unspecified whether angina present, unspecified whether [place] or transplanted heart (Primary Dx) Social History [...] st Contact Info) Description 12/25/2024 Procedure Pass [facility] Echo Lab [address] [place] [address] 01/28/2025 1:30 PM EDT Appointment [facility] Echo Lab [address] [place] [address] Margaret Chavis MD [address] [place] [address] documented as of this encounter Results * Stress Test Exercise (04/06/2022 9:28 AM EST) Max BP Systolic 158 mmHg [facility] Max BP Diastolic 68 mmHg [facility] Max HR 153 BPM [facility] Resting HR 81 BPM [facility] Resting BP Systolic 118 mmHg [facility] Resting BP Diastolic 68 mmHg [facility] Peak METS 7.0 METS [facility] Peak HR 153 BPM [facility] Peak BP Systolic 158 mmHg [facility] Peak BP Diastolic 68 mmHg [facility] Anatomical Region Laterality Modality Heart Other 04/06/2022 [...] predicted heart rate. Rate pressure product was [address]. REPORT- Patient exercised for 4:51 minutes on [...] type, unspecified whether angina present, unspecified whether [place] or transplanted heart- Primary Coronary artery disease, unspecified vessel or lesion type, unspecified whether angina present, unspecified whether [place] or transplanted heart documented in this encounter Additional Health Concerns Infection Onset Date Last Indicated Resolved Time CoV-Risk 07/21/2022 07/21/2022 07/23/2022 9:59 AM EDT documented as of this encounter Care Teams Etl Lead Relationship Specialty Start Date End Date Shahab Perkins MD [address] [place] [address] [address] [place] [phone] [email or web address] PCP - General Family Medicine 08/13/17 04/05/22 Gertrude Kendall MD [address] [place] [address] [email or web address] PCP - General Family Medicine 04/06/22 Margaret Chavis MD [address] [place] [address] Cardiology 01/07/19 documented as of this encounter Additional Source Comments The information contained in this document represents components of the legal health record. It is not the complete legal health record.[facility]
--- OUTSIDE RECORDS SUMMARY | 2025-01-05 00:52 | XMS_ITS | Encounter Summary ---
Author Organization [facility] Address [address] [facility] [facility] [place] [address] Phone Care Team Providers Care Supervisor Shuttle Fitting Name Role Phone Margaret Chavis MD Unavailable [phone] Gertrude Kendall MD Primary Care Provider [phone] Encounter Details Date Type Department Care Team (Late st Contact Info) Description 12/24/2024 Ancillary Orders [facility] [address] [place] [address] Margaret Chavis MD [address] [id number] H/O shortness of breath (Primary Dx) Social [...] 12/25/2024 Procedure Pass [facility] [address] [place] [address] 01/28/2025 1:30 PM EDT Appointment [facility] [address] [place] [address] Margaret Chavis MD [address] [address] documented as of this encounter Results * XR CHEST PA AND LATERAL 2 VIEWS (12/24/2024 11:47 AM EDT) Anatomical Region Laterality Modality Chest Computed Radiogr aphy 12/24/2024 12:2 8 PM EDT Impressions 12/24/2024 12:36 PM EDT No evidence of acute cardiopulmonary process. Narrative 12/24/2024 12:36 PM EDT XR CHEST PA AND LATERAL 2 VIEWS Referring clinician's provided indication for this examination in [facility]: Dyspnea (Shortness of Breath) COMPARISON: 07/08/2023, [...] clinician's provided indication for this examination in [facility]:Dyspnea (Shortness of Breath) COMPARISON: 07/08/2023, 07/21/2022 [...] breath documented in this encounter Care Teams Supervisor Shuttle Fitting Relationship Specialty Start Date End Date Gertrude Kendall MD [address] [place] [address] PCP - General Family Medicine 04/06/22 Margaret Chavis MD [address] [place] [address] Cardiology 01/07/19 documented as of this encounter Additional Source Comments The information contained in this document represents components of the legal health record. It is not the complete legal health record.[facility]
--- OUTSIDE RECORDS SUMMARY | 2025-01-05 00:52 | XMS_ITS | Encounter Summary ---
Author Organization [facility] Address [address] [place] [address] Phone Care Team Providers Care Joint Maker Machine Name Role Phone Shahab Perkins MD Primary Care Provider [phone] Margaret Chavis MD Unavailable [phone] Gertrude Kendall MD Primary Care Provider + [phone] Encounter Details Date Type Department Care Team (Late st Contact Info) Description 12/26/2021 Procedure Pass Non-Invasive Cardiology 30 [place] [address] Social History Tobacco Use Types Packs/Day Years [...] 12/25/2024 Procedure Pass [facility] [address] [place] [address] 01/28/2025 1:30 PM EDT Appointment [facility] [address] [place] [address] Margaret Chavis MD [address] [place] [address] documented as of this encounter Visit Diagnoses Not on filedocumented in this encounter Additional Health Concerns Infection Onset Date Last Indicated Resolved Time CoV-Risk 07/21/2022 07/21/2022 07/23/2022 9:59 AM EDT documented as of this encounter Care Teams Joint Maker Machine Relationship Specialty Start Date End Date Shahab Perkins MD 230 [facility] [address] [place] [address] [email or web address] PCP - General Family Medicine 08/13/17 04/05/22 Gertrude Kendall MD [address] [place] [address] [email or web address] PCP - General Family Medicine 04/06/22 Margaret Chavis MD [address] [address] Cardiology 01/07/19 documented as of this encounter Additional Source Comments The information contained in this document represents components of the legal health record. It is not the complete legal health record.[facility]
--- OUTSIDE RECORDS SUMMARY | 2025-01-05 00:52 | XMS_ITS | Encounter Summary ---
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, [address] [phone] [email or web address] Neoplasm of uncertain behavior of bladder (Primary [...] st Contact Info) Description 12/25/2024 Procedure Pass [facility] Echo Lab [address] [place] [address] 01/28/2025 1:30 PM EDT Appointment [facility] Echo Lab [address] [place] [address] Margaret Chavis MD [address] [place] [address] documented as of this encounter Results * [...] documented as of this encounter Care Teams Technical Sales Support Specialist Relationship Specialty Start Date End Date Shahab Perkins MD 230 [facility] [address] [place] [address] [email or web address] PCP - General Family Medicine 08/13/17 04/05/22 Gertrude Kendall MD [address] [address] [email or web address] PCP - General Family Medicine 04/06/22 Margaret Chavis MD [address] [address] Cardiology 01/07/19 documented as of this encounter Additional Source Comments The information contained in this document represents components of the legal health record. It is not the complete legal health record.[facility]
--- OUTSIDE RECORDS SUMMARY | 2025-01-05 00:52 | XMS_ITS | Encounter Summary ---
Author Organization [facility] Address [address] [place] [address] Phone Care Team Providers Care Surveillance Officer Name Role Phone Shahab Perkins MD Primary Care Provider [phone] Margaret Chavis MD Unavailable [phone] Gertrude Kendall MD Primary Care Provider + [phone] Reason for Referral * MRI/CAT Scan - Closed Specialty Diagnoses / Procedures Referred By Contac t Referred To Contact Radiology Diagnoses Pre-op exam Atrial fibrillation, unspecified type Coronary artery disease without angina pectoris, unspecified vessel or lesion type, unspecified whether holy cross or transplanted heart Dyspnea, unspecified type Procedures NC Myocardial Perfusion Exercise Multiple NC Myocardial Perfusion Stress Single NC Myocardial Perfusion Exercise Multiple Margaret Chavis MD [address] [address] Phone: tel: fax: Referral ID Status Reason Start Date Expiration Date Visits Re quested Visits Authorized [id number] Closed 12/10/2018 12/10/2019 1 1 * Outpatient Procedure - Closed Specialty Diagnoses / Procedures Referred By Contac t Referred To Contact Diagnoses Coronary artery disease, angina presence unspecified, unspecified vessel or lesion type, unspecified whether holy cross or transplanted heart Pre-op exam Dyspnea, unspecified type Atrial fibrillation, unspecified type Procedures Adult Echo TTE Margaret Chavis MD [address] [address] Phone: tel: fax: Referral ID Status Reason Start Date Expiration Date Visits Re quested Visits Authorized [id number] Closed 12/10/2018 12/10/2019 1 1 Encounter Details Date Type Department Care Team (Latest Contact Info) Description 12/10/2018 Ancillary Orders Virtual Department [address] [place] [address] Margaret Chavis MD [address] [address] Pre-op exam; Atrial fibrillation, unspecified type; Coronary artery disease without angina pectoris, unspecified vessel or lesion type, unspecified whether holy cross or transplanted heart; Dyspnea, unspecified type; Coronary artery disease, angina presence unspecified, unspecified vessel or lesion type, unspecified whether holy cross or transplanted heart Social History Tobacco Use [...] st Contact Info) Description 12/25/2024 Procedure Pass [facility] Echo Lab [address] [place] [address] 01/28/2025 1:30 PM EDT Appointment [facility] Echo Lab [address] [place] [address] Margaret Chavis MD [address] [address] documented as of this encounter Results * [...] unspecified vessel or lesion type, unspecified whether holy cross or transplanted heart Dyspnea, unspecified type Pre-op exam Atrial fibrillation, unspecified type Coronary artery disease without angina pectoris, unspecified vessel or lesion type, unspecified whether holy cross or transplanted heart Dyspnea, unspecified type Coronary artery disease, angina presence unspecified, unspecified vessel or lesion type, unspecified whether holy cross or transplanted heart Pre-op exam Dyspnea, unspecified type Atrial fibrillation, unspecified type documented in this encounter Additional Health Concerns Infection Onset Date Last Indicated Resolved Time CoV-Risk 07/21/2022 07/21/2022 07/23/2022 9:59 AM EDT documented as of this encounter Care Teams Surveillance Officer Relationship Specialty Start Date End Date Shahab Perkins MD [address] [place] [address] [place] [address] [email or web address] PCP - General Family Medicine 08/13/17 04/05/22 Gertrude Kendall MD [address] [place] [address] [email or web address] PCP - General Family Medicine 04/06/22 Margaret Chavis MD [address] [address] Cardiology 01/07/19 documented as of this encounter Additional Source Comments The information contained in this document represents components of the legal health record. It is not the complete legal health record.[facility]
--- OUTSIDE RECORDS SUMMARY | 2025-01-05 00:52 | XMS_ITS | Clinical Summary ---
Author Organization [facility] Address [address] [place] [address] Phone Care Team Providers Care Metal Stud Framer Name Role Phone Margaret Chavis MD Unavailable [phone] Gertrude Kendall MD Primary Care Provider Allergies [...] Active vitamins A,C,E-zinc-jeanne er (PRESERVISION AREDS) [id number] wvej-kd-vvll Cap Take 1 capsule by mouth 2 [...] Description 12/25/2024 Transcribe Orders Virtual Department [address] [place] [address] Margaret Chavis MD Dyspnea, unspecified type (Primary Dx) 12/24/2024 11:40 AM EDT - 12/24/2024 11:59 PM EDT Hospital Encounter [facility], X-Ray - Main Hospital [address] [place] [address] Margaret Chavis MD Discharge Disposition: Home or Self Care 12/24/2024 11:13 AM EDT - 12/24/2024 11:39 AM EDT Hospital Encounter [facility] [address] [place] [address] Margaret Chavis MD Discharge Disposition: Home or Self Care 12/24/2024 Ancillary Orders [address] [address] Margaret Chavis MD H/O shortness of breath (Primary Dx) 12/24/2024 Transcribe Orders [facility] [address] [place] [address] Margaret Chavis MD Shortness of breath (Primary Dx) 10/26/2024 8:22 AM EDT - 10/26/2024 11:59 PM EDT Hospital Encounter [address] [address] Hosea Lao MD Discharge Disposition: Home or Self Care 10/13/2024 Procedure Pass [address] [address] 10/13/2024 Transcribe Orders Virtual Department [address] [place] [address] Hosea Lao MD Other specified disorders of bladder (Primary Dx); Personal history of malignant neoplasm of bladder; Personal history of malignant neoplasm of renal pelvis; Other retention of urine 10/13/2024 Transcribe Orders Virtual Department [address] [place] [address] Hosea Lao MD from Last 3 Months [...] st Contact Info) Description 12/25/2024 Procedure Pass [facility] Echo Lab [address] [place] [address] 01/28/2025 1:30 PM EDT Appointment [facility] Echo Lab [address] [place] [address] Margaret Chavis MD [address] [place] [address] Health Maintenance Due Date Last Done Comments DEPRESSION SCREENING 1952 ZOSTER VACCINES (1 of 2) 06/30/1959 RSV VACCINE (1 - 1-dose 75+ series) 06/30/2015 BLOOD PRESSURE 10/17/2024 04/18/2024 INFLUENZA VACCINE (#1) 2024 2, 01/23/2011, 03/20/2010, Additional history exists COVID-19 VACCINE ( season) 2024 07/05/2020, 06/13/2020 CREATININE LEVEL 12/24/2025 12/24/2024, , 07/23/2022, Additional [...] this topic Medical Devices Implanted Type Area Casing Builder Device Identifier Shelf Expiration Date Model / Serial / Lot Lens Lens Bilateral: Eye Stent Heart Explanted Type Area Casing Builder Device Identifier Shelf Expiration Date Model / Serial / Lot Stent Ureteral 6fr 22 To 30cm Stretch Coated Kiana - [id number] Implanted:Qty: 1 on 11/11/2018 by Hosea Lao MD at [facility] Explanted:Qty: 1 on 01/14/2019 by Blaise Montes MD at [facility] Left: Ureter [employer] MELINDA 06/01/2021 [id number] / / [id number] Description:Out with Left ki dney and ureter [...] IMPRESSION: No evidence of acute cardiopulmonary process. us Margaret Chavis MD IMG XR CHEST Final Result * Comprehensive metabolic panel (12/24/2024 11:29 AM EDT) SODIUM 142 133 - 146 mmol/L [facility] POTASSIUM 4.6 3.3 - 5.1 mmol/L [facility] CHLORIDE 106 96 - 108 mmol/L [facility] CO2 27 21 - 35 mmol/L [facility] BUN 17 6 - 19 mg/dL [facility] CREATININE 0.90 0.5 - 1.5 mg/dL [facility] GLUCOSE 97 70 - 99 mg/dL [facility] ALBUMIN 4.0 3.9 - 4.8 g/dL [facility] TOTAL PROTEIN 7.0 6.5 - 8.0 g/dL [facility] CALCIUM 9.5 8.4 - 10.3 mg/dL [facility] ALKALINE PHOSPHATASE 100 39 - 117 U/L [facility] TOTAL BILIRUBIN 0.5 0.0 - 1.2 mg/dL [facility] AST 19 0 - 37 U/L [facility] ALT 15 0 - 40 U/L [facility] GLOBULIN 3.0 1 - 4.8 g/dL [facility] EGFR 84 >59 mL/min/1.7 3m2 [facility] Comment:Estimated glomerular filtration rate calculated using the CKD-EPI refit equation. ANION GAP 14 10 - 20 mmol/L [facility] Blood 12/24/2024 11:2 9 AM EDT 12/24/2024 11:31 AM EDT us Margaret Chavis MD LAB BLOOD ORDERABLES Final R esult [facility] [address] [place] [address] * (ABNORMAL) CBC and differential (12/24/2024 11:29 AM EDT) WBC 4.87 4.00 - 11.00 K/uL [facility] RBC 4.63 4.50 - 5.90 M/uL [facility] HGB 13.5 13.5 - 17.5 g/dL [facility] HCT 43.9 41.0 - 53.0 % [facility] PLT 144(L) 150 - 450 K/uL [facility] MCV 94.8 80.0 - 100.0 fL [facility] MCH 29.2 27.0 - 31.0 pg [facility] MCHC 30.8(L) 32.0 - 36.0 g/dL [facility] RDW 14.0 11.5 - 14.5 % [facility] MPV 10.4 8.4 - 12.0 fL [facility] NRBC 0.00 0.00 /100 WBCs [facility] ABSOLUTE NRBC 0.00 0.00 K/uL [facility] DIFF METHOD Auto [facility] NEUTS 54.2 48.0 - 76.0 % [facility] LYMPHS 21.4 18.0 - 41.0 % [facility] MONOS 12.9(H) 4.0 - 11.0 % [facility] EOS 10.5(H) 0.0 - 5.0 % [facility] BASOS 0.6 0.0 - 1.5 % [facility] Granulocytes, immature (%) 0.4 0.0 - 0.9 % [facility] ABSOLUTE NEUTS 2.64 1.92 - 7.60 K/uL [facility] ABSOLUTE LYMPHS 1.04 0.72 - 4.10 K/uL [facility] ABSOLUTE MONOS 0.63 0.16 - 1.10 K/uL [facility] ABSOLUTE EOS 0.51(H) 0.00 - 0.50 K/uL [facility] ABSOLUTE BASOS 0.03 0.00 - 0.15 K/uL [facility] Granulocytes, immature 0.02 0.00 - 0.09 K/uL [facility] Blood 12/24/2024 11:2 9 AM EDT 12/24/2024 11:31 AM EDT us Margaret Chavis MD LAB BLOOD ORDERABLES Final R esult Performing Organization Address City/[facility] Co de Phone Number [address] [address] * (ABNORMAL) NT-proBNP (12/24/2024 11:29 AM EDT) NT-PROBNP 867(H) 0 - 450 pg/mL [facility] Blood 12/24/2024 11:2 9 AM EDT 12/24/2024 11:31 AM EDT us Margaret Chavis MD LAB BLOOD ORDERABLES Final R esult Performing Organization Address [facility] de Phone Number [address] [address] * CT ABDOMEN/PELVIS WITHOUT CONTRAST (10/26/2024 8:35 [...] Months Insurance MEDICARE PART A & B Member Subscriber Plan / Payer (Ef fective 2005-Present) Name:Jax Márquez Member ID:[id number] Relation to Subscriber:Self Name:Jax Márquez Subscriber ID:[id number] Payer ID:[id number] Group ID:Not on file Type:Medicare Address: [employer] [address] [place] [phone] [employer] MED[employer] SUPPLEMENT MEDICARE PART A & B [employer] MED[employer] SUPPLEMENT MEDICARE PART A & B [employer] MEDEX SUPPLEMENT MEDICARE PART A & B [employer] SUPPLEMENT MEDICARE PART A & B [employer] SUPPLEMENT MEDICARE PART A & B [employer] SUPPLEMENT MEDICARE PART A & B [employer] SUPPLEMENT MEDICARE PART A & B [employer] MED[employer] SUPPLEMENT MEDICARE PART A & B [employer] SUPPLEMENT Advance Directives For more information, please contact: [phone] (9AM - 5PM [facility], Saturday-Saturday) Documents on File Type Date Recorded Patient Veneer Redrier Expl anation Healthcare Proxy 06/09/2024 12:25 PM * Full Code (Latest Code Status on File) Date Activated Date Inactivated Comments 07/21/2022 7:55 PM Question Answer Comments Code Status Confirmed With: Patient * Full Code (Presumed) Date Activated Date Inactivated Comments 01/14/2019 3:24 PM 01/16/2019 5:36 PM Care Teams Metal Stud Framer Relationship Specialty Start Date End Date Gertrude Kendall MD [address] [place] [address] [email or web address] PCP - General Family Medicine 04/06/22 Margaret Chavis MD [address] [address] Cardiology 01/07/19 Additional Source Comments The information contained in this document represents components of the legal health record. It is not the complete legal health record.[facility]
--- OUTSIDE RECORDS SUMMARY | 2025-01-05 00:52 | XMS_ITS | Encounter Summary ---
Author Organization [facility]ly [facility] Address [address] [facility] [address] [place] [address] Phone Care Team Providers Care Bun Panner Name Role Phone Margaret Chavis MD Unavailable [phone] Gertrude Kendall MD Primary Care Provider [phone] Encounter Details Date Type Department Care Team (Late st Contact Info) Description 06/08/2024 Procedure Pass OR Admitting Dept - Virtual Department [address] [place] [address] Social History Tobacco Use Types Packs/Day Years [...] 12/25/2024 Procedure Pass [facility] Lab [address] [place] [address] 01/28/2025 1:30 PM EDT Appointment [facility] Echo Lab [address] [place] [address] Margaret Chavis MD [address] [place] [address] documented as of this encounter Visit Diagnoses Not on filedocumented in this encounter Care Teams Bun Panner Relationship Specialty Start Date End Date Gertrude Kendall MD [address] [place] [address] PCP - General Family Medicine 04/06/22 Margaret Chavis MD [address] [place] [address] Cardiology 01/07/19 documented as of this encounter Additional Source Comments The information contained in this document represents components of the legal health record. It is not the complete legal health record.[facility]
--- OUTSIDE RECORDS SUMMARY | 2025-01-05 00:52 | XMS_ITS | Encounter Summary ---
Author Organization [facility] Address [address] [place] [address] [place] [address] Phone Care Team Providers Care Content Coordinator Name Role Phone Margaret Chavis MD Unavailable [phone] Gertrude Kendall MD Primary Care Provider [phone] Encounter Details Date Type Department Care Team (Latest Contact Info) Description 05/08/2022 Transcribe Orders Virtual Department [address] [place] [address] Hosea Lao MD [address] [place] [address], [address] [place] [address] [email or web address] Personal history of malignant neoplasm of renal [...] 12/25/2024 Procedure Pass [facility] Echo Lab [address] [place] [address] 01/28/2025 1:30 PM EDT Appointment [facility] Echo Lab [address] [place] [address] Margaret Chavis MD [address] [address] documented as of this encounter Results * [...] upper pole the rightkidney. Hosea Lao MD [facility] Final Result documented in this encounter [...] documented as of this encounter Care Teams Content Coordinator Relationship Specialty Start Date End Date Gertrude Kendall MD [address] [place] [address] PCP - General Family Medicine 04/06/22 Margaret Chavis MD [address] [place] [address] Cardiology 01/07/19 documented as of this encounter Additional Source Comments The information contained in this document represents components of the legal health record. It is not the complete legal health record.[facility]
--- OUTSIDE RECORDS SUMMARY | 2025-01-05 00:52 | XMS_ITS | Clinical Summary ---
Author Organization [address] [facility] Address [address] [place] [address] Phone Care Team Providers Care Supervisor Rice Milling Name Role Phone Physician, Pcp Unknown Primary Care Provider Jennifer vailable Encounters Date Type Department Care Team Description 10/09/2024 Lab Requisition [facility] - Main Lab [address] [facility] [place] [address] Hosea Lao MD Pyuria from [...] Patients (1 - 1-dose 75+ series) 06/30/2015 Depression Screening 04/29/2024 Cholesterol Screening (Lipid Panel) 06/18/2024 Falls Risk Assessment 06/18/2024 Medicare Annual Wellness Visit 06/18/2024 Social Influencers of Health Screening 06/18/2024 Hypertension/CHF/CAD Annual BMP Blood Test 06/25/2024 07/02/2022, 10/25/2020, 11/18/2018 COVID-19 Vaccine ( - 2023-2 5 season) 2024 Influenza Vaccine (#1) 2024 HIB Vaccines Aged [...] URINE Routine 10/09/2024 12:00 AM EDT Pyuria from Last 3 Months Results * (ABNORMAL) Culture urine (10/09/2024 12:00 AM EDT) Culture, Urine >100,000 CFU/mL Klebsiella pneumoniae ssp pneumoniae(A) JAMES 10/13/2024 9:57 AM EDT [facility] Comment: This is an [...] MICROBIOLOGY - GENERAL ORDER SANDIP Final Result [facility] [address] [place] [address], [place] [phone] from Last 3 Months Insurance MEDICARE [facility] Care Teams Supervisor Rice Milling Relationship Specialty Start Date End Date Physician, Pcp Unknown PCP - General 06/18/24
--- OUTSIDE RECORDS SUMMARY | 2025-01-05 00:53 | XMS_ITS | Encounter Summary ---
Author Organization [facility] Address [address] [place] [address] [place] [address] Phone Care Team Providers Care It Sales Representative Name Role Phone Shahab Perkins MD Primary Care Provider [phone] Margaret Chavis MD Unavailable [phone] Gertrude Kendall MD Primary Care Provider [phone] Encounter Details Date Type Department Care Team (Late Contact Info) Description 10/26/2020 Procedure Pass [facility], Ct Scan - [facility] [address] [place] [address] Social History Tobacco Use Types Packs/Day Years [...] 12/25/2024 Procedure Pass [facility] Echo Lab [address] [place] [address] 01/28/2025 1:30 PM EDT Appointment [facility] Echo Lab [address] [place] [address] Margaret Chavis MD [address] [place] [address], [place] [address] documented as of this encounter Visit Diagnoses Not on filedocumented in this encounter Additional Health Concerns Infection Onset Date Last Indicated Resolved Time CoV-Risk 07/21/2022 07/21/2022 07/23/2022 9:59 AM EDT documented as of this encounter Care Teams It Sales Representative Relationship Specialty Start Date End Date Shahab Perkins MD [address] [facility] [address] [place] [address] [email or web address] PCP - General Family Medicine 08/13/17 04/05/22 Gertrude Kendall MD [address] [place] [address] PCP - General Family Medicine 04/06/22 Margaret Chavis MD [address] [address] Cardiology 01/07/19 documented as of this encounter Additional Source Comments The information contained in this document represents components of the legal health record. It is not the complete legal health record.[facility]
[2025-01-05 01:13] VITALS: BP 120/68; PULSE 74; RESP 18; TEMP 36.7; O2SAT 99
== END 2025-01-05 01:14 | disposition home or self-care (01) ==
LOC: HO.ED 01-05 00:49
PROVIDERS: Physician Assistant Medical; Emergency Provider Emergency Medicine Emergency Medical Services
DX: R06.02 Shortness of breath (principal); I25.10 Atherosclerotic heart disease of native coronary artery without angina pectoris; I48.91 Unspecified atrial fibrillation; Z79.899 Other long term (current) drug therapy; Z11.52 Encounter for screening for COVID-19; Z03.818 Encounter for observation for suspected exposure to other biological agents ruled out
CPT/HCPCS: 36415; 71046; 80053; 83735; 83880; 84484; 85025; 87502; 87635; 93005; 99283; 99284

== ENCOUNTER → 2025-01-04 18:59 | Outpatient (BNV) | payer MEDICARE, SELFPAY | PROVIDERS: Visit Provider Radiology Diagnostic Radiology | DX: R06.02 Shortness of breath (principal) | CPT/HCPCS: 71046 ==

== ENCOUNTER → 2025-01-04 19:00 | Outpatient (BNV) | payer MEDICARE, SELFPAY | PROVIDERS: Emergency Provider Emergency Medicine Emergency Medical Services; Visit Provider Internal Medicine Cardiovascular Disease | DX: I48.91 Unspecified atrial fibrillation (principal) | CPT/HCPCS: 93010 ==

== ENCOUNTER 2025-01-08 09:49 | Inpatient (IN) | payer MEDICARE, SELFPAY ==
[2025-01-08] VITALS (8 sets, daily range): BP systolic 105–126; BP diastolic 49–63; PULSE 66–100; RESP 14–67; TEMP 36.1–36.7; O2SAT 96–100; BMI 25.1; BMI 26.0
--- NOTE | ~2025-01-08 | XR_ITS ---
EXAMINATION: XR CHEST CLINICAL INFORMATION: SOB COMPARISON: January 04, 2025 TECHNIQUE: PA and lateral views FINDINGS: Hyperinflated lungs. No consolidation, pleural effusion or pneumothorax. Cardiomediastinal silhouette size is normal. Calcified plaque thoracic aorta. Multilevel spondylosis. XR/XR chest 2V IMPRESSION: Chronic interstitial lung disease without acute airspace disease. Electronically signed by: Marquise Tipton MD 01/08/2025 11:37 AM EDT
--- NOTE | ~2025-01-08 | CT_ITS ---
EXAMINATION: CT HEAD WITHOUT CONTRAST CLINICAL INFORMATION: Left-sided headache, anticoagulated with Eliquis COMPARISON: September 29, 2023 TECHNIQUE: Contiguous axial imaging was performed from the skull base to vertex without intravenous administration of contrast. This CT examination was performed using dose optimization techniques as appropriate, variously including the following: *Automated exposure control *Adjustment of mA and/or kV according to patient size (this includes techniques or standardized protocols for targeted exams where dose is matched to indication/reason for exam; i.e. extremities or head) *Use of iterative reconstruction technique DLP: 666 mGY*cm FINDINGS: There is no acute ischemic change. Periventricular deep white matter hypodensities are present. There is no intracranial hemorrhage. There is no mass-effect or midline shift. Basal cisterns and ventricles are within normal limits for age/cerebral volume. Orbits are symmetrical and unremarkable. Paranasal sinuses and mastoid air cells are pneumatized. There are no bony abnormalities. CT/CT head/brain wo IV con IMPRESSION: No acute intracranial abnormality. Chronic white matter disease. Electronically signed by: Melvin Jacobs MD 01/08/2025 02:02 PM EDT
--- NOTE | 2025-01-08 10:17 | ED.GENADULT ---
HPI - General Adult General Chief complaint: Recheck/Abnormal Lab/Rx Stated complaint: Pseudomonas Time Seen by Provider: 01/08/25 12:22 Source: patient and old records reviewed Mode of arrival: ambulatory Limitations: no limitations History of Present Illness ED Provider: IGNACIO WILSON narrative: 84 yo male with PMH of CAD s/p stent, afib on dilt and eliquis, chronic lynn s/p L nephrectomy for renal cell cancer 2019 on fosfomycin once weekly to prevent infection, HTN, ANGELLA on CPAP, recently admitted here for UTI 12/25 and 12/27 who had neg urine culture, he did complete the 5 day course of cefuroxime and doxy. He took his fosfomycin on Saturday. He returned on 01/04 for feeling weak, short of breath, and lower BPs but sent home and since then has noted he just doesn't feel well. He feels weak and tired. He has dizziness, he has this sharp shooting L sided headache for a day as well no trauma or neuro deficits. He saw his PCP who faxed over prelim urine culture > 100,000 CFU of pseudomas he was referred to ED for further work up. He has no CP. MD complaint: malaise Onset (ago): week(s) (5) Radiation: non-radiation Severity: moderate Relieving factors: rest Exacerbating factors: movement Associated symptoms: loss of appetite, malaise and shortness of breath Treatments prior to arrival: none Related Data Home Medications ?Medication ?Instructions ?Recorded ?Confirmed apixaban 2.5 mg tablet (Eliquis) 2.5 mg PO BID 10/02/23 12/25/24 atorvastatin 40 mg tablet 40 mg PO DAILY 10/02/23 12/25/24 digoxin 125 mcg (0.125 mg) tablet 125 mcg PO SUMOWEFR 10/02/23 12/25/24 diltiazem HCl 240 mg 240 mg PO DAILY 10/02/23 12/25/24 capsule,extended release 24 hr latanoprost 0.005 % eye drops 1 drp ophthalmic (eye) BEDTIME 10/02/23 12/25/24 nitroglycerin 0.4 mg sublingual 0.4 mg sublingual Q5M 10/02/23 12/25/24 tablet fosfomycin tromethamine 3 gram 3 g PO Q7D 12/25/24 12/25/24 oral packet Previous Rx's ?Medication ?Instructions ?Recorded Kneeling Scooter #1 ea 10/02/23 cefuroxime axetil 250 mg tablet 250 mg PO BID #10 tabs 12/27/24 doxycycline hyclate 100 mg tablet 100 mg PO BID 5 days #10 tabs 12/27/24 Allergies Allergy/AdvReac Type Severity Reaction Status Date / Time shellfish derived Allergy Unknown Verified 01/08/25 10:18 Review of Systems Review of Systems: Constitutional : No Fever, No Chills, pos Fatigue ENT/Mouth : No sore throat, No Rhinorrhea Eyes: No Eye Pain, No Swelling, No Redness Cardiovascular : No Chest Pain, No SOB, No Dyspnea on Exertion Respiratory : No Cough, No Sputum Gastrointestinal : No Nausea, No Vomiting, No Diarrhea, No abdominal Pain Genitourinary : No Dysuria, No Urinary Frequency, No Hematuria, Musculoskeletal : No joint pain, No Myalgias, No Joint Swelling Skin : No Skin Lesions, No rash Neuro : No Weakness, No Numbness, No Dizziness, positive Headache Psych : No Anxiety/Panic, No Depression Heme/Lymph: No Bruising, No Bleeding,No Lymphadenopathy Endocrine : No Polyuria, No Polydipsia All other systems reviewed and are negative [facility] Past Medical History Attestation statement: The following information was validated with the patient. Source: old records reviewed Medical History Chronic anemia Bladder cancer Cancer of kidney A-fib High blood pressure Surgical History Stented coronary artery Social History Social History Household Members: Spouse Housing: House Do you presently have visiting nurse or other home services: No Unable to assess alcohol history related to: Unable to respond Alcohol intake: current Alcohol intake frequency: 0-2 drinks per day Alcohol type: wine Patient Tobacco Use Status: Former Tobacco user Advance Directives: No Advance Directives Information Provided: Yes service: Yes Current occupational status: employed 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 Oriented X3. No acute distress. Eyes: Pupils equal, round and reactive to light. ENT: Pharynx normal. Neck: Normal inspection. Neck supple. CVS: irregular heart rate and rhythm. Pulses normal. head: no ttp along L temporal artery Respiratory: No respiratory distress. Breath sounds normal. Abdomen: Soft and nontender. Skin: Skin warm and dry. Normal skin color. Normal skin turgor. Extremities: No lower extremity edema. Neuro: Oriented X 3. No motor deficit. No sensory deficit. CN2-12 intact Course Course Course Narrative: Rapid medical examination performed in triage by Yoly Martinez PA-C. Patient is an 84 year old assigned male at presenting to the emergency department with shortness of breath and dizziness. Patient states that he was recently placed on antibiotics for an infection and he was told that what he is on isn't covering what he may have. Detailed physical exam and review of systems are deferred to the senior research analyst. EKG, labs, imaging, swabs ordered. Patient placed back in the waiting room pending room availability and results. Reevaluation(s) Reevaluation #1: infection suspected at 110pm IGNACIO 01/08/25 Medications Administered Discontinued Medications Generic Name Dose Route Start Last Admin Trade Name Freq PRN Reason Stop Dose Admin Cefepime HCl 2 gm in 50 mls @ 100 mls/hr 01/08/25 12:53 01/08/25 13:40 Maxipime IV 01/08/25 13:22 Infused ONCE ONE Infusion Medical Decision Making Medical Decision Making [facility] Narrative: 84 yo male with PMH of CAD s/p stent, afib on dilt and eliquis, chronic lynn s/p L nephrectomy for renal cell cancer 2019 on fosfomycin once weekly to prevent infection, HTN, ANGELLA on CPAP now here with feeling sick, short of breath, tired and had urine culture + pseudomonas but no sensitivities at this time will obtain basic labs, cultures, UA, CT of head given vague headache but he is on eliquis it sounds like more sharp paroxysmal like trigeminal. He has no CP. His BP is stable now and his HR is in 80s. If work up reasuring and VS remain stable will put on PO abx Differential Diagnosis Differential Diagnoses: The differential diagnosis associated with the presentation includes UTI, headache, viral syndrome Admission/Observation Consideration of admission/observation: Escalation of care including admission/observation considered will admit for recurrent UTI failed outaptient therapy Consult Healthcare Provider Management of the patient was discussed with: Hospitalist (will admit) Lab Data MDM Lab Attestation statement: I reviewed the patient's lab results. 01/08/25 10:40 01/08/25 10:40 Labs: Lab Results 01/08/25 01/08/25 01/08/25 Range/Units 10:40 10:46 13:09 WBC 5.5 (4.8-10.8) X10*3/uL RBC 4.58 L (4.60-5.80) X10*6/uL Hgb 13.5 L (14.0-18.0) g/dl Hct 41.5 L (42.0-52.0) % MCV 90.6 (80.0-98.0) fL MCH 29.5 (27.0-33.0) pg MCHC 32.5 (31.0-36.0) g/dl RDW 13.8 (11.0-16.0) % Plt Count 198 (160-400) X10*3/uL MPV 10.2 (9.4-12.4) fL Immature Gran % (Auto) 0.4 (0.0-0.4) % Neut % (Auto) 68.4 (45-73) % Lymph % (Auto) 14.9 L (20-40) % [place] % (Auto) 7.5 (2-11) % Eos % (Auto) 8.1 H (0-4) % Baso % (Auto) 0.7 (0-2) % Lymph # (Auto) 0.8 L (1.2-4.9) X10*3/uL [place] # (Auto) 0.4 (0.1-1.2) X10*3/uL Eos # (Auto) 0.4 (0.0-0.4) X10*3/uL Baso # (Auto) 0.0 (0.0-0.2) X10*3/uL Abs Immat Gran (auto) 0.02 (0.00-0.03) X10*3/uL Absolute Neuts (auto) 3.7 (2.0-8.3) x10*3/uL Absolute Nucleated RBC 0.000 (0.0-0.012) X10*3/uL Nucleated RBC % (auto) 0.0 (0.0-0.2) /100WBC PT 13.3 H (10.9-12.4) SEC INR 1.2 H (0.9-1.1) VBG pH 7.38 (7.32-7.43) VBG pCO2 47 mmHg VBG pO2 44 mmHg VBG HCO3 28 H (22-26) mmol/L VBG O2 Saturation 67.0 % VBG Base Excess 2.7 mmol/L Sodium 143 (135-145) mmol/L Potassium 4.2 (3.3-5.1) mmol/L Chloride 110 H (96-108) mmol/L Carbon Dioxide 27 (22-29) mmol/L Anion Gap 10 L (12-20) BUN 19 H (9-16) mg/dL Creatinine 1.08 (0.5-1.4) mg/dL Estim Creat Clear Calc 47.6 Estimated GFR > 60 Random Glucose 114 (60-115) mg/dL Lactic Acid 0.8 (0.5-2.0) mmol/L Calcium 8.9 (8.4-10.2) mg/dL Magnesium 2.0 (1.6-2.6) mg/dL Total Bilirubin 0.6 (0.0-1.0) mg/dL AST 22 (5-37) U/L ALT 17 (0-40) U/L Alkaline Phosphatase 88 (39-117) U/L Troponin I High Sens 6.6 (<3.5-35.0) ng/L B-Natriuretic Peptide 256 H (<100) pg/mL Total Protein 6.8 (6.5-8.0) g/dL Albumin 4.0 (3.5-5.0) g/dL Urine Color Urine Appearance Urine pH (5.0-9.0) Ur Specific [place] (1.005-1.025) Urine Protein (Neg-Trace) mg/dL Urine Glucose (UA) (Negative) mg/dL Urine Ketones (Negative) mg/dL Urine Blood (Negative) Urine Nitrite (Negative) Ur Leukocyte Esterase (Negative) Urine RBC (0-2) /HPF Urine WBC (0-5) /HPF Ur Squamous Epith Cells (0-2) /HPF Urine Bacteria (None Seen) Hyaline Casts (0-2) /LPF COVID-19 (ANTONIO) Negative (Negative) COVID-19 Clin Com See Note Influenza Type A (DELLA) Negative (Negative) Influenza Type B (DELLA) Negative (Negative) Influenza A & B Note See Note 01/08/25 Range/Units 14:44 WBC (4.8-10.8) X10*3/uL RBC (4.60-5.80) X10*6/uL Hgb (14.0-18.0) g/dl Hct (42.0-52.0) % MCV (80.0-98.0) fL MCH (27.0-33.0) pg MCHC (31.0-36.0) g/dl RDW (11.0-16.0) % Plt Count (160-400) X10*3/uL MPV (9.4-12.4) fL Immature Gran % (Auto) (0.0-0.4) % Neut % (Auto) (45-73) % Lymph % (Auto) (20-40) % [place] % (Auto) (2-11) % Eos % (Auto) (0-4) % Baso % (Auto) (0-2) % Lymph # (Auto) (1.2-4.9) X10*3/uL [place] # (Auto) (0.1-1.2) X10*3/uL Eos # (Auto) (0.0-0.4) X10*3/uL Baso # (Auto) (0.0-0.2) X10*3/uL Abs Immat Gran (auto) (0.00-0.03) X10*3/uL Absolute Neuts (auto) (2.0-8.3) x10*3/uL Absolute Nucleated RBC (0.0-0.012) X10*3/uL Nucleated RBC % (auto) (0.0-0.2) /100WBC PT (10.9-12.4) SEC INR (0.9-1.1) VBG pH (7.32-7.43) VBG pCO2 mmHg VBG pO2 mmHg VBG HCO3 (22-26) mmol/L VBG O2 Saturation % VBG Base Excess mmol/L Sodium (135-145) mmol/L Potassium (3.3-5.1) mmol/L Chloride (96-108) mmol/L Carbon Dioxide (22-29) mmol/L Anion Gap (12-20) BUN (9-16) mg/dL Creatinine (0.5-1.4) mg/dL Estim Creat Clear Calc Estimated GFR Random Glucose (60-115) mg/dL Lactic Acid (0.5-2.0) mmol/L Calcium (8.4-10.2) mg/dL Magnesium (1.6-2.6) mg/dL Total Bilirubin (0.0-1.0) mg/dL AST (5-37) U/L ALT (0-40) U/L Alkaline Phosphatase (39-117) U/L Troponin I High Sens (<3.5-35.0) ng/L B-Natriuretic Peptide (<100) pg/mL Total Protein (6.5-8.0) g/dL Albumin (3.5-5.0) g/dL Urine Color Yellow Urine Appearance Clear Urine pH 6.5 (5.0-9.0) Ur Specific [place] 1.015 (1.005-1.025) Urine Protein Negative (Neg-Trace) mg/dL Urine Glucose (UA) Negative (Negative) mg/dL Urine Ketones Negative (Negative) mg/dL Urine Blood Trace H (Negative) Urine Nitrite Negative (Negative) Ur Leukocyte Esterase Large (3+) H (Negative) Urine RBC 6-10 H (0-2) /HPF Urine WBC >50 H (0-5) /HPF Ur Squamous Epith Cells 0-2 (0-2) /HPF Urine Bacteria None Seen (None Seen) Hyaline Casts 3-5 (0-2) /LPF COVID-19 (ANTONIO) (Negative) COVID-19 Clin Com Influenza Type A (DELLA) (Negative) Influenza Type B (DELLA) (Negative) Influenza A & B Note Independent Interpretation I performed an independent interpretation of an: EKG and CT Scan (no ICH) Interpretation: Rate: 87 Rhythm: afib Alligator: left Normal QRS complex. ST T wave : no SKYLA, flat t wave II, aVF, inverted t wave III, no SET qTC: 440 prior studies: no acute ischemia The study has been interpreted contemporaneously by me. . Radiology Impression Discussion of test interpretation with radiology: I have reviewed the radiologist's reading. Discharge Plan Discharge Clinical Impression: Acute UTI, Malaise Patient Disposition: Admitted As Inpatient Print Language: German
--- NOTE | 2025-01-08 10:19 | ECG_ITS ---
Test Reason : SOB Blood Pressure : */* mmHG Vent. Rate : 87 BPM Atrial Rate : * BPM P-R Int : * ms QRS Dur : 84 ms QT Int : 366 ms P-R-T Axes : * -22 -13 degrees QTcB Int : 440 ms Atrial fibrillation Low voltage QRS Abnormal ECG When compared with ECG of 04-Jan-2025 19:07, No significant change was found Referred By: Yoly Martinez Electronically Signed By: PAMELA CLEMENTS MD
[2025-01-08 10:48] LABS: MANUAL DIFF FLAG NO
[2025-01-08 10:49] LABS: Hematocrit 41.5 % (42.0-52.0); Hemoglobin 13.5 g/dl (14.0-18.0); Imm Gran Abs Auto 0.02 X10*3/uL (0.00-0.03); Imm Gran Pct Auto 0.4 % (0.0-0.4); Lymphocytes Absolute Auto 0.8 X10*3/uL (1.2-4.9); Mean Corpuscular HGB Conc 32.5 g/dl (31.0-36.0); Mean Corpuscular Hemoglobin 29.5 pg (27.0-33.0); Mean Corpuscular Volume 90.6 fL (80.0-98.0); NRBC Abs Auto 0.000 X10*3/uL (0.0-0.012); NRBC Pct Auto 0.0 /100WBC (0.0-0.2); Platelet Count 198 X10*3/uL (160-400); Red Blood Count 4.58 X10*6/uL (4.60-5.80); White Blood Count 5.5 X10*3/uL (4.8-10.8)
[2025-01-08 10:50] LABS: VBG HCO3 28 mmol/L (22-26); VBG O2 % Saturation 67.0 %
[2025-01-08 10:53] LABS: Venous Blood Gas Refer to POC result
[2025-01-08 11:02] LABS: INTERNATIONAL NORM RATIO 1.2 (0.9-1.1); Prothrombin Time 13.3 SEC (10.9-12.4)
[2025-01-08 11:05] LABS: Alanine Aminotransferase 17 U/L (0-40); Albumin Level 4.0 g/dL (3.5-5.0); Alkaline Phosphatase 88 U/L (39-117); Anion Gap 10 (12-20); Aspartate Amino Transferase 22 U/L (5-37); Blood Urea Nitrogen 19 mg/dL (9-16); Calcium 8.9 mg/dL (8.4-10.2); Carbon Dioxide 27 mmol/L (22-29); Chloride 110 mmol/L (96-108); Creatinine Clr Calc Pharmacy 47.6; Estimated Glomerular Filt Rate > 60; Magnesium 2.0 mg/dL (1.6-2.6); Potassium 4.2 mmol/L (3.3-5.1); Sodium 143 mmol/L (135-145); Total Protein 6.8 g/dL (6.5-8.0)
[2025-01-08 11:09] LABS: B Type Natriuretic Peptide 256 pg/mL (<100); Troponin-I High Sensitivity 6.6 ng/L (<3.5-35.0)
[2025-01-08 11:25] LABS: IDNOW Serial# 55D5AD1C; Influenza B2 Negative (Negative)
[2025-01-08 11:27] LABS: COVID-19 Test Negative (Negative); IDNOW Serial# 58CA691E
[2025-01-08] MEDS: cefEPime HCl/D5W 2 GM/50 ML PIGGYBACK IV (13:10)
--- NOTE | 2025-01-08 14:54 | PC.NURSE ---
16F coude lynn inserted w/o difficulty, patient had approximately 60ccs cloudy yellow urine as initial output. UA sent from [place].
[2025-01-08 14:55] LABS: Appearance Urine Clear; Glucose Urine UA Negative (Negative); PH 6.5 (5.0-9.0); Specific Gravity - Urine 1.015 (1.005-1.025); UMIC TRIGGER UACC YES
[2025-01-08 14:57] LABS: UACC Culture Trigger YES
--- OUTSIDE RECORDS SUMMARY | 2025-01-08 15:00 | XMS_ITS | Encounter Summary ---
Author Organization [facility] Address [address] [place] [address] Phone Care Team Providers Care Animal Shelter Worker Name Role Phone Margaret Chavis MD Unavailable [phone] Gertrude Kendall MD Primary Care Provider + [phone] Reason for Referral * MRI/CAT Scan - Closed Specialty Diagnoses / Procedures Referred By Chidi mac Referred To Contact Radiology Diagnoses Abnormal stress test Dyspnea, unspecified type Atrial fibrillation, unspecified type Procedures NC Stress Result for Nuclear Stress Test Margaret Chavis MD 780 [facility] [address] [place] [address] Phone: tel: fax: Referral ID Status Reason Start Date Expiration Date Visits Re quested Visits Authorized [id number] Closed 06/14/2022 06/14/2023 1 1 Encounter Details Date Type Department Care Team (Late st Contact Info) Description 06/14/2022 Ancillary Orders Non-Invasive Cardiology [address] [place], [place] [phone] Margaret Chavis MD 241 [facility] [address] [place], [place] [phone] Abnormal stress test; Dyspnea, unspecified type; Atrial [...] Info) Description 12/25/2024 Procedure Pass [facility] Echo Lab [address] [place] [address] 01/28/2025 1:30 PM EDT Appointment [facility] Echo Lab [address] [place] [address] Margaret Chavis MD [address] [place] [address] documented as of this encounter Results * [...] predicted heart rate. Rate pressure product was 6[address]46. REPORT- Patient exercised for 4:00 minutes on [...] and will be reported separately. Lydia Oneill SENIOR C SOFTWARE ENGINEER with Dr Bruno . Margaret Chavis MD [...] documented as of this encounter Care Teams Animal Shelter Worker Relationship Specialty Start Date End Date Gertrude Kendall MD [address] [address] [email or web address] PCP - General Family Medicine 04/06/22 Margaret Chavis MD [address] [address] Cardiology 01/07/19 documented as of this encounter Additional Source Comments The information contained in this document represents components of the legal health record. It is not the complete legal health record.[facility]
--- OUTSIDE RECORDS SUMMARY | 2025-01-08 15:00 | XMS_ITS | Clinical Summary ---
Author Organization [address] [facility] Address [address] [place] [address] Phone Care Team Providers Care Machine Bander And Cellophaner Name Role Phone Physician, Pcp Unknown Primary Care Provider Jennifer vailable Encounters Date Type Department Care Team Description 10/09/2024 Lab Requisition [facility] - Main Lab [address] [facility] [place] [address] Hosea Lao MD Pyuria from [...] ssp pneumoniae(A) JAMES 10/13/2024 9:57 AM EDT [facility] Comment: This is an edited result. Previous organism was Gram negative bacilli on 10/11/2024 at 1230 EDT. This is an appended report. These results have been appended to a previously final verified report. Culture, Urine >100,000 CFU/mL Klebsiella pneumoniae ssp pneumoniae(A) JAMES 10/13/2024 9:57 AM EDT [facility] Comment: The organism value for this result has been updated. These results have been appended to the previously preliminary verified report. This is an edited result. Previous organism was Gram negative bacilli on 10/12/2024 at 0946 EDT. Culture, Urine 50,000-100,000 CFU/mL Pseudomonas aeruginosa(A) JAMES 10/13/2024 9:57 AM EDT [facility] Comment: The organism value [...] - GENERAL ORDER SANDIP Final Result [facility] LAB [address] [place] [address], [place] [phone] from Last 3 Months Insurance MEDICARE [facility] Care Teams Machine Bander And Cellophaner Relationship Specialty Start Date End Date Physician, Pcp Unknown PCP - General 06/18/24
--- OUTSIDE RECORDS SUMMARY | 2025-01-08 15:00 | XMS_ITS | Encounter Summary ---
Author Organization [facility] Address [address] [place] [address] Phone Care Team Providers Care Bioinformatics Support Specialist Name Role Phone Shahab Perkins MD Primary Care Provider [phone] Margaret Chavis MD Unavailable [phone] Gertrude Kendall MD Primary Care Provider + [phone] Encounter Details Date Type Department Care Team (Latest Contact Info) Description 11/28/2020 Transcribe Orders Virtual Department [address] [place], [place] [phone] Shahab Perkins MD 230 [facility] [address] [place] [phone] [email or web address] Mass of pancreas (Primary Dx) Social History [...] 12/25/2024 Procedure Pass [facility] Echo Lab [address] [place] [address] 01/28/2025 1:30 PM EDT Appointment [facility] Echo Lab [address] [place] [address] Margaret Chavis MD 241 [facility] [address] [place] [address] documented as of this encounter Visit Diagnoses Diagnosis Mass of pancreas- Primary documented in this encounter Additional Health Concerns Infection Onset Date Last Indicated Resolved Time CoV-Risk 07/21/2022 07/21/2022 07/23/2022 9:59 AM EDT documented as of this encounter Care Teams Bioinformatics Support Specialist Relationship Specialty Start Date End Date Shahab Perkins MD 230 [facility] [address] [place] [address] [email or web address] PCP - General Family Medicine 08/13/17 04/05/22 Gertrude Kendall MD [address] [place] [address] PCP - General Family Medicine 04/06/22 Margaret Chavis MD [address] [place] [address] Cardiology 01/07/19 documented as of this encounter Additional Source Comments The information contained in this document represents components of the legal health record. It is not the complete legal health record.[facility]
--- OUTSIDE RECORDS SUMMARY | 2025-01-08 15:00 | XMS_ITS | Encounter Summary ---
Author Organization [facility] Address [address] [place] [address] Care Team Providers Care Saw Maker Name Role Phone Physician, Pcp Unknown Primary Care Provider Jennifer vailable Encounter Details Date Type Department Care Team (Late st Contact Info) Description 06/18/2024 Lab Requisition [facility] [address] [place] [address] Gael Minor PA 3640 [facility] [address] [place] [address] Gross hematuria; Dysuria Social History Tobacco Use [...] reflex microscopic (06/18/2024 11:10 AM EST) Specific [place] Urine 1.017 1.003 - 1.030 LAB URINALYSIS - AUTOMATED METHOD 06/18/2024 3:01 PM EST [facility] pH, Urine 6.0 5.0 - 8.0 pH LAB URINALYSIS - AUTOMATED METHOD 06/18/2024 3:01 PM [facility] Leukocytes, Urine Large(A) Negative LAB URINALYSIS - AUTOMATED METHOD 06/18/2024 3:01 PM [facility] Nitrite, Urine Negative Negative LAB URINALYSIS - AUTOMATED METHOD 06/18/2024 3:01 PM [facility] Protein, Urine 300(A) <=Trace mg/dL LAB URINALYSIS - AUTOMATED METHOD 06/18/2024 3:01 PM [facility] Glucose, Urine Negative Negative mg/dL LAB URINALYSIS - AUTOMATED METHOD 06/18/2024 3:01 PM [facility] Ketones, Urine Negative Negative mg/dL LAB URINALYSIS - AUTOMATED METHOD 06/18/2024 3:01 PM [facility] Urobilinogen , Urine 0.2 0.2 - 1.0 mg/dL LAB URINALYSIS - AUTOMATED METHOD 06/18/2024 3:01 PM [facility] Bilirubin, Urine Negative Negative LAB URINALYSIS - AUTOMATED METHOD 06/18/2024 3:01 PM [facility] Blood, Urine Large(A) Negative LAB URINALYSIS - AUTOMATED METHOD 06/18/2024 3:01 PM [facility] RBC, Urine 3,958.6(H) 0 - 4 /HPF LAB URINALYSIS - AUTOMATED METHOD 06/18/2024 3:01 PM [facility] WBC, Urine 629.1(H) 0 - 4 /HPF LAB URINALYSIS - AUTOMATED METHOD 06/18/2024 3:01 PM [facility] Squamous Epithelial, Urine 0 0 - 60 /LPF LAB URINALYSIS - AUTOMATED METHOD 06/18/2024 3:01 PM [facility] Bacteria, Urine Negative Negative [...] ORDERABLES Final Resul t Performing Organization Address [facility]/State/ZIP Co de Phone Number [facility] [address] [place] [address], [place] [phone] * (ABNORMAL) Culture urine (06/18/2024 11:10 AM [...] MICROBIOLOGY - GENERAL ORDER SANDIP Final Result [facility] [address] [place] [address], documented in this encounter Visit Diagnoses Diagnosis Gross hematuria Dysuria documented in this encounter Care Teams Saw Maker Relationship Specialty Start Date End Date Physician, Pcp Unknown PCP - General 06/18/24 documented as of this encounter
--- OUTSIDE RECORDS SUMMARY | 2025-01-08 15:00 | XMS_ITS | Encounter Summary ---
Author Organization [facility] Address [address] [facility] [address] [place] [address] Phone Care Team Providers Care Visiting Professor Name Role Phone Margaret Chavis MD Unavailable [phone] Gertrude Kendall MD Primary Care Provider + [phone] Encounter Details Date Type Department Care Team (Late st Contact Info) Description 06/08/2024 Procedure Pass OR Admitting Dept - Virtual Department [address] [place] [address] Social History Tobacco Use Types Packs/Day Years [...] 12/25/2024 Procedure Pass [facility] Echo Lab [address] [place] [address] 01/28/2025 1:30 PM EDT Appointment [facility] Echo Lab [address] [place] [address] Margraet Chavis MD [address] [place] [address] documented as of this encounter Visit Diagnoses Not on filedocumented in this encounter Care Teams Visiting Professor Relationship Specialty Start Date End Date Gertrude Kendall MD [address] [place] [address] PCP - General Family Medicine 04/06/22 Margaret Chavis MD [address] [place] [address] Cardiology 01/07/19 documented as of this encounter Additional Source Comments The information contained in this document represents components of the legal health record. It is not the complete legal health record.[facility]
--- OUTSIDE RECORDS SUMMARY | 2025-01-08 15:01 | XMS_ITS | Encounter Summary ---
Author Organization [facility] Address [address] [place] [address] [place] [address] Phone Care Team Providers Care Ekg Monitor Name Role Phone Margaret Chavis MD Unavailable Gertrude Kendall MD Primary Care Provider [phone] Encounter Details Date Type Department Care Team (Latest Contact Info) Description 05/08/2022 Transcribe Orders Virtual Department 30 [place] [address] Hosea Lao MD [address] [place] [address], [address] [place] [address] [email or web address] Personal history of malignant neoplasm of renal [...] 12/25/2024 Procedure Pass [facility] 30 [place] [address] 01/28/2025 1:30 PM EDT Appointment [facility] [address] [place] [address] Margaret Chavis MD [address] [address] documented as of this encounter Results * [...] upper pole the rightkidney. Hosea Lao MD [facility] Final Result documented in this encounter [...] documented as of this encounter Care Teams Ekg Monitor Relationship Specialty Start Date End Date Gertrude Kendall MD [address] [place] [address] PCP - General Family Medicine 04/06/22 Margaret Chavis MD [address] [place] [address] Cardiology 01/07/19 documented as of this encounter Additional Source Comments The information contained in this document represents components of the legal health record. It is not the complete legal health record.[facility]
--- OUTSIDE RECORDS SUMMARY | 2025-01-08 15:01 | XMS_ITS | Encounter Summary ---
Author Organization [facility] Address [address] [place] [address] Care Team Providers Care Face Boss Name Role Phone Physician, Pcp Unknown Primary Care Provider Jennifer vailable Encounter Details Date Type Department Care Team (Late st Contact Info) Description 09/25/2024 Lab Requisition [facility] 299 [facility] [place] [address] Hosea Lao MD 3640 [facility] 103 [place] [phone] Pyuria Social History Tobacco Use Types Packs/Day [...] Pseudomonas aeruginosa(A) JAMES 09/28/2024 7:50 AM EDT [facility] Comment: This is an edited result. Previous organism was Gram negative bacilli on 09/26/2024 at 1050 EDT. Culture, Bacterial ID and Sensitivity Enterococcus faecalis(A) JAMSE 09/28/2024 7:50 AM EDT [facility] Comment: The organism value [...] - GENERAL ORDER SANDIP Final Result [facility] ([facility]) [facility] [address] [place] [address], [place] [phone] documented in this encounter Visit Diagnoses Diagnosis Pyuria Other nonspecific finding on examination of urine documented in this encounter Care Teams Face Boss Relationship Specialty Start Date End Date Physician, Pcp Unknown PCP - General 06/18/24 documented as of this encounter
--- OUTSIDE RECORDS SUMMARY | 2025-01-08 15:01 | XMS_ITS | Encounter Summary ---
Author Organization [facility] Address [address] [place] [address] Phone Care Team Providers Care Hop Trainer Name Role Phone Shahab Perkins MD Primary Care Provider [phone] Margaret Chavis MD Unavailable [phone] Gertrude Kendall MD Primary Care Provider + [phone] Encounter Details Date Type Department Care Team (Late Contact Info) Description 11/16/2019 Ancillary Orders Virtual Department 30 [place] [address] Hosea Lao MD [address] [place] [address], [address] [address] [email or web address] Personal history of malignant neoplasm [...] 12/25/2024 Procedure Pass [facility] 30 [place] [address] 01/28/2025 1:30 PM EDT Appointment [facility] [address] [place] [address] Margaret Chavis MD 241 [facility] 219 [place] [address] documented as of this encounter Results * [...] documented as of this encounter Care Teams Hop Trainer Relationship Specialty Start Date End Date Shahab Perkins MD 230 [facility] [address] [place] [address] [email or web address] PCP - General Family Medicine 08/13/17 04/05/22 Gertrude Kendall MD [address] [place] [address] PCP - General Family Medicine 04/06/22 Margaret Chavis MD [address] [place] [address] Cardiology 01/07/19 documented as of this encounter Additional Source Comments The information contained in this document represents components of the legal health record. It is not the complete legal health record.[facility]
--- OUTSIDE RECORDS SUMMARY | 2025-01-08 15:01 | XMS_ITS | Encounter Summary ---
Author Organization [facility] Address [address] [place] [address] Care Team Providers Care Chemistry Department Chair Name Role Phone Physician, Pcp Unknown Primary Care Provider Jennifer vailable Encounter Details Date Type Department Care Team (Late st Contact Info) Description 10/09/2024 Lab Requisition [facility] 299 [facility] [place] [address] Hosea Lao MD 3640 [facility] 103 [place] [phone] Pyuria Social History Tobacco Use Types Packs/Day [...] ssp pneumoniae(A) JAMES 10/13/2024 9:57 AM EDT [facility] ([facility] Comment: This is an edited result. Previous organism was Gram negative bacilli on 10/11/2024 at 1230 EDT. This is an appended report. These results have been appended to a previously final verified report. Culture, Urine >100,000 CFU/mL Klebsiella pneumoniae ssp pneumoniae(A) JAMES 10/13/2024 9:57 AM EDT [facility] Comment: The organism value for this result has been updated. These results have been appended to the previously preliminary verified report. This is an edited result. Previous organism was Gram negative bacilli on 10/12/2024 at 0946 EDT. Culture, Urine 50,000-100,000 CFU/mL Pseudomonas aeruginosa(A) JAMES 10/13/2024 9:57 AM EDT [facility] Comment: The organism value for [...] MICROBIOLOGY - GENERAL ORDER SANDIP Final Result [facility] ([facility]) [facility] 299 [place] [address], documented in this encounter Visit Diagnoses Diagnosis Pyuria Other nonspecific finding on examination of urine documented in this encounter Care Teams Chemistry Department Chair Relationship Specialty Start Date End Date Physician, Pcp Unknown PCP - General 06/18/24 documented as of this encounter
--- OUTSIDE RECORDS SUMMARY | 2025-01-08 15:01 | XMS_ITS | Encounter Summary ---
Author Organization [facility] Address [address] [place] [address] Care Team Providers Care Lead Presser Name Role Phone Physician, Pcp Unknown Primary Care Provider Jennifer vailable Encounter Details Date Type Department Care Team (Late st Contact Info) Description 07/16/2024 Lab Requisition [facility] 299 [facility] [place] [address] Yudy Lock PA 3640 [facility] 103 [place] [address] Feeling of incomplete bladder emptying Social History [...] ssp pneumoniae(A) JAMES 07/17/2024 11:07 AM EDT [facility] Comment: This is an edited [...] GENERAL ORDER SANDIP Final Result [facility] ([facility]) [facility] [address] [place] [address], documented in this encounter Visit Diagnoses Diagnosis Feeling of incomplete bladder emptying documented in this encounter Care Teams Lead Presser Relationship Specialty Start Date End Date Physician, Pcp Unknown PCP - General 06/18/24 documented as of this encounter
--- OUTSIDE RECORDS SUMMARY | 2025-01-08 15:01 | XMS_ITS | Encounter Summary ---
Author Organization [facility] Address [address] [place] [address] Phone Care Team Providers Care Sap Bobj Developer Name Role Phone Margaret Chavis MD Unavailable [phone] Gertrude Kendall MD Primary Care Provider + [phone] Reason for Referral * MRI/CAT Scan - Closed Specialty Diagnoses / Procedures Referred By Chidi mac Referred To Contact Radiology Diagnoses Abnormal stress test Dyspnea, unspecified type Atrial fibrillation, unspecified type Procedures NC Myocardial Perfusion Exercise Multiple Margaret Chavis MD [address] [place] [address] Phone: tel: fax: Referral ID Status Reason Start Date Expiration Date Visits Re quested Visits Authorized [id number] Closed 04/25/2022 04/25/2023 4 4 Encounter Details Date Type Department Care Team (Latest Contact Info) Description 04/25/2022 Transcribe Orders Virtual Department 30 [place] [address] Margaret Chavis MD [address] [phone] Abnormal stress test (Primary Dx); Dyspnea, unspecified [...] Contact Info) Description 12/25/2024 Procedure Pass [facility] Echo Lab 30 [place] [address] 01/28/2025 1:30 PM EDT Appointment [facility] Echo Lab 30 [place] [address] Margaret Chavis MD [address] [address] documented as of this encounter Results * NC Myocardial Perfusion Exercise Multiple (06/14/2022 11:44 AM EST) Anatomical Region Laterality Modality Heart, Vascular Nuclear Medicine 06/14/2022 12:2 5 PM EST Impressions 06/14/2022 12:34 PM EST 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 No new ischemic foci detected. The LVEF was calculated at approximately 51%. POS [id number] Narrative 06/14/2022 12:34 PM EST COMPARISON: 12/18/2018 [...] LVEF was calculated at approximately 51%. POS [id number] Margaret Chavis MD CV NM CARDIAC Final [...] documented as of this encounter Care Teams Sap Bobj Developer Relationship Specialty Start Date End Date Gertrude Kendall MD [address] [address] [email or web address] PCP - General Family Medicine 04/06/22 Margaret Chavis MD [address] [address] Cardiology 01/07/19 documented as of this encounter Additional Source Comments The information contained in this document represents components of the legal health record. It is not the complete legal health record.[facility]
--- OUTSIDE RECORDS SUMMARY | 2025-01-08 15:01 | XMS_ITS | Encounter Summary ---
Author Organization [facility] Address [address] [place] [address] [place] [address] Phone Care Team Providers Care Refractory Repairer Name Role Phone Shahab Perkins MD Primary Care Provider [phone] Margaret Chavis MD Unavailable [phone] Gertrude Kendall MD Primary Care Provider + [phone] Encounter Details Date Type Department Care Team (Late Contact Info) Description 12/01/2019 Procedure Pass OR Admitting Dept - Virtual Department [address] [place] [address] Social History Tobacco Use Types Packs/Day Years [...] (Late Contact Info) Description 12/25/2024 Procedure Pass [facility] Echo Lab [address] [place] [address] 01/28/2025 1:30 PM EDT Appointment [facility] Echo Lab [address] [place] [address] Margaret Chavis MD [address] [place] [address], [place] [address] documented as of this encounter Visit Diagnoses Not on filedocumented in this encounter Additional Health Concerns Infection Onset Date Last Indicated Resolved Time CoV-Risk 07/21/2022 07/21/2022 07/23/2022 9:59 AM EDT documented as of this encounter Care Teams Refractory Repairer Relationship Specialty Start Date End Date Shahab Perkins MD 230 [facility] [address] [place] [address] [email or web address] PCP - General Family Medicine 08/13/17 04/05/22 Gertrude Kendall MD [address] [place] [address] PCP - General Family Medicine 04/06/22 Margaret Chavis MD [address] [address] Cardiology 01/07/19 documented as of this encounter Additional Source Comments The information contained in this document represents components of the legal health record. It is not the complete legal health record.[facility]
--- OUTSIDE RECORDS SUMMARY | 2025-01-08 15:01 | XMS_ITS | Encounter Summary ---
Author Organization [facility] Address [address] [place] [address] [place] [address] Phone Care Team Providers Care Pourer Name Role Phone Shahab Perkins MD Primary Care Provider [phone] Margaret Chavis MD Unavailable [phone] Gertrude Kendall MD Primary Care Provider + [phone] Encounter Details Date Type Department Care Team (Late Contact Info) Description 12/26/2020 Procedure Pass [facility] [address] [place] [phone] Social History Tobacco Use Types Packs/Day [...] 12/25/2024 Procedure Pass [facility] 30 [place] [address] 01/28/2025 1:30 PM EDT Appointment [facility] Echo Lab 30 [place] [address] Margaret Chavis MD [address] [place] [address] documented as of this encounter Visit Diagnoses Not on filedocumented in this encounter Additional Health Concerns Infection Onset Date Last Indicated Resolved Time CoV-Risk 07/21/2022 07/21/2022 07/23/2022 9:59 AM EDT documented as of this encounter Care Teams Pourer Relationship Specialty Start Date End Date Shahab Perkins MD 230 [facility] [address] [place] [address] [email or web address] PCP - General Family Medicine 08/13/17 04/05/22 Gertrude Kendall MD [address] [address] [email or web address] PCP - General Family Medicine 04/06/22 Margaret Chavis MD [address] [address] Cardiology 01/07/19 documented as of this encounter Additional Source Comments The information contained in this document represents components of the legal health record. It is not the complete legal health record.[facility]
--- OUTSIDE RECORDS SUMMARY | 2025-01-08 15:01 | XMS_ITS | Encounter Summary ---
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 Procedures CT Abdomen/Pelvis Hosea Lao MD Phone: tel: fax: [email or web address] Referral ID Status Reason Start Date Expiration Date Visits Re quested Visits Authorized [id number] Closed 10/26/2020 10/26/2021 1 1 Encounter Details Date Type Department Care Team (Latest Contact Info) Description 10/26/2020 Transcribe Orders Virtual Department 30 [place] [address] Hosea Lao MD [facility], [address] [phone] [email or web address] Neoplasm of uncertain behavior of bladder (Primary [...] st Contact Info) Description 12/25/2024 Procedure Pass [facility] Echo Lab [address] [place] [address] 01/28/2025 1:30 PM EDT Appointment [facility] Echo Lab [address] [place] [address] Margaret Chavis MD [address] [place] [address] documented as of this encounter Results * [...] documented as of this encounter Care Teams Safety Administrator Relationship Specialty Start Date End Date Shahab Perkins MD 230 [facility] [address] [place] [address] [email or web address] PCP - General Family Medicine 08/13/17 04/05/22 Gertrude Kendall MD [address] [address] [email or web address] PCP - General Family Medicine 04/06/22 Margaret Chavis MD [address] [address] Cardiology 01/07/19 documented as of this encounter Additional Source Comments The information contained in this document represents components of the legal health record. It is not the complete legal health record.[facility]
--- OUTSIDE RECORDS SUMMARY | 2025-01-08 15:01 | XMS_ITS | Encounter Summary ---
Author Organization [facility] Address [address] [place] [address] Care Team Providers Care Retail Advertising Executive Name Role Phone Physician, Pcp Unknown Primary Care Provider Jennifer vailable Encounter Details Date Type Department Care Team (Late st Contact Info) Description 08/04/2024 Lab Requisition [facility] 299 [facility] [place] [address] Cleo Griffin NP 3640 [facility] 103 [place], [place] [phone] Frequency of micturition Social History Tobacco Use [...] ssp pneumoniae(A) JAMES 08/05/2024 8:05 AM EDT [facility] Comment: This is an edited result. [...] JAMES <=20 ug/ml: Susceptible us Cleo Griffin STRETCHING PRESS OPERATOR LAB MICROBIOLOGY - GENERA L ORDERABLES Final Result [facility] ([facility]) [facility] [address] [place] [address], documented in this encounter Visit Diagnoses Diagnosis Frequency of micturition Urinary frequency documented in this encounter Care Teams Retail Advertising Executive Relationship Specialty Start Date End Date Physician, Pcp Unknown PCP - General 06/18/24 documented as of this encounter
--- OUTSIDE RECORDS SUMMARY | 2025-01-08 15:01 | XMS_ITS | Encounter Summary ---
Author Organization [facility] Address [address] [place] [address] Phone Care Team Providers Care Junior Electrical Engineer Name Role Phone Shahab Perkins MD Primary Care Provider [phone] Margaret Chavis MD Unavailable [phone] Gertrude Kendall MD Primary Care Provider + [phone] Reason for Referral * MRI/CAT Scan - Closed Specialty Diagnoses / Procedures Referred By Contmaxim mac Referred To Contact Radiology Diagnoses LLQ pain Procedures CT Abdomen/Pelvis Shahab Perkins MD Phone: tel: fax: [email or web address]:[email or web address] Referral ID Status Reason Start Date Expiration Date Visits Re quested Visits Authorized [id number] Closed 09/23/2019 09/22/2020 1 1 Encounter Details Date Type Department Care Team (Latest Contact Info) Description 09/23/2019 Transcribe Orders Virtual Department 30 [place] [address] Shahab Perkins MD 230 [facility] [address] [place] [phone] [email or web address] LLQ pain (Primary Dx) Social History Tobacco [...] st Contact Info) Description 12/25/[address] [facility] Echo Lab [address] [place] [address] 01/28/2025 1:[address] [facility] Echo Lab [address] [place] [address] Margaret Chavis MD [address] [place] [address] documented as of this encounter Results * CT ABDOMEN/PELVIS WITH CONTRAST (09/25/2019 4:15 PM EDT) Anatomical Region Laterality Modality Abdomen, Pelvis Computed Tomogra phy 09/25/2019 5:21 PM EDT Impressions 09/25/2019 5:36 PM EDT 1. No acute findings in the abdomen/pelvis. 2. Additional chronic findings as described above. TOTAL CTDIvol: 6.5 mGy POS - [id number] Narrative 09/25/2019 5:36 PM EDT EXAM: CT [...] above. TOTAL CTDIvol: 6.5 mGy POS - [id number] Shahab Perkins MD IM CT ABD/PELVIS Final Result documented in this encounter Visit Diagnoses Diagnosis LLQ pain- Primary Abdominal pain, left lower quadrant LLQ pain Abdominal pain, left lower quadrant documented in this encounter Additional Health Concerns Infection Onset Date Last Indicated Resolved Time CoV-Risk 07/21/2022 07/21/2022 07/23/2022 9:59 AM EDT documented as of this encounter Care Teams Junior Electrical Engineer Relationship Specialty Start Date End Date Shahab Perkins MD 230 [facility] [address] [place] [phone] [email or web address] PCP - General Family Medicine 08/13/17 04/05/22 Gertrude Kendall MD [address] [place] [address] PCP - General Family Medicine 04/06/22 Margaret Chavis MD [address] [place] [address] Cardiology 01/07/19 documented as of this encounter Additional Source Comments The information contained in this document represents components of the legal health record. It is not the complete legal health record.[facility]
--- OUTSIDE RECORDS SUMMARY | 2025-01-08 15:01 | XMS_ITS | Encounter Summary ---
Author Organization [facility] Address [address] [place] [address] Phone Care Team Providers Care Data Steward Name Role Phone Shahab Perkins MD Primary Care Provider [phone] Margaret Chavis MD Unavailable [phone] Gertrude Kendall MD Primary Care Provider + [phone] Reason for Referral * Outpatient Procedure - Closed Specialty Diagnoses / Procedures Referred By Contac t Referred To Contact Diagnoses Coronary artery disease, unspecified vessel or lesion type, unspecified whether angina present, unspecified whether confederated sal[place] or transplanted heart Procedures Stress Test Exercise Margaret Chavis MD [address] [place] [address] Phone: tel: fax: Referral ID Status Reason Start Date Expiration Date Visits Re quested Visits Authorized [id number] Closed 04/02/2022 04/02/2023 1 1 Encounter Details Date Type Department Care Team (Latest Contact Info) Description 04/02/2022 Transcribe Orders Virtual Department [address] [place] [address] Margaret Chavis MD [address] [place] [address] Coronary artery disease, unspecified vessel or lesion type, unspecified whether angina present, unspecified whether confederated salish or transplanted heart (Primary Dx) Social History [...] st Contact Info) Description 12/25/2024 Procedure Pass [facility] Echo Lab [address] [place] [address] 01/28/2025 1:30 PM EDT Appointment [facility] Echo Lab [address] [place] [address] Margaret Chavis MD [address] [place] [address] documented as of this encounter Results * Stress Test Exercise (04/06/2022 9:28 AM EST) Max BP Systolic 158 mmHg [facility] Max BP Diastolic 68 mmHg [facility] Max HR 153 BPM [facility] Resting HR 81 BPM [facility] Resting BP Systolic 118 mmHg [facility] Resting BP Diastolic 68 mmHg [facility] Peak METS 7.0 METS [facility] Peak HR 153 BPM [facility] Peak BP Systolic 158 mmHg [facility] Peak BP Diastolic 68 mmHg [facility] Anatomical Region Laterality Modality Heart Other 04/06/2022 [...] predicted heart rate. Rate pressure product was [address]. REPORT- Patient exercised for 4:51 minutes on [...] type, unspecified whether angina present, unspecified whether confederated salish or transplanted heart- Primary Coronary artery disease, unspecified vessel or lesion type, unspecified whether angina present, unspecified whether confederated salish or transplanted heart documented in this encounter Additional Health Concerns Infection Onset Date Last Indicated Resolved Time CoV-Risk 07/21/2022 07/21/2022 07/23/2022 9:59 AM EDT documented as of this encounter Care Teams Data Steward Relationship Specialty Start Date End Date Shahab Perkins MD [address] [place] [address] [address] [place] [phone] [email or web address] PCP - General Family Medicine 08/13/17 04/05/22 Gertrude Kendall MD [address] [place] [address] [email or web address] PCP - General Family Medicine 04/06/22 Margaret Chavis MD [address] [place] [address] Cardiology 01/07/19 documented as of this encounter Additional Source Comments The information contained in this document represents components of the legal health record. It is not the complete legal health record.[facility]
--- OUTSIDE RECORDS SUMMARY | 2025-01-08 15:01 | XMS_ITS | Clinical Summary ---
Author Organization [facility] Address [address] [place] [address] Care Team Providers Care Rope Cleaner Name Role Phone Unavailable Primary Care Provider [...] Annual Screen 04/29/2024 Hypertension Screening (#1) 08/25/2024 [id number] (3 - 2024- season) 2024 021, 06/13/2020 Imm-Influenza (#1) 2024 04/04/2012, 0 01/23/2011, 03/20/2010, Additional history exists Imm-DTaP/Tdap/Td (2 - Td or Tdap) 10/11/2032 10/11/2022, 04/10/2021, 08/06/2017, Additional history exists Imm-Pneumococcal 50+ Completed 07/19/2015, 03/31/20 10 Insurance MEDICARE - [place] [facility]
--- OUTSIDE RECORDS SUMMARY | 2025-01-08 15:01 | XMS_ITS | Encounter Summary ---
Author Organization [facility] Address [address] [place] [address] Phone Care Team Providers Care Production Scheduler Name Role Phone Shahab Perkins MD Primary Care Provider [phone] Margaret Chavis MD Unavailable [phone] Gertrude Kendall MD Primary Care Provider + [phone] Encounter Details Date Type Department Care Team (Late st Contact Info) Description 12/26/2021 Procedure Pass Non-Invasive Cardiology 30 [place] [address] Social History Tobacco Use Types Packs/Day Years [...] 12/25/2024 Procedure Pass [facility] Echo Lab [address] [place] [address] 01/28/2025 1:30 PM EDT Appointment [facility] Echo Lab [address] [place] [address] Margaret Chavis MD [address] [place] [address] documented as of this encounter Visit Diagnoses Not on filedocumented in this encounter Additional Health Concerns Infection Onset Date Last Indicated Resolved Time CoV-Risk 07/21/2022 07/21/2022 07/23/2022 9:59 AM EDT documented as of this encounter Care Teams Production Scheduler Relationship Specialty Start Date End Date Shahab Perkins MD [address] [facility] [address] [place] [address] [email or web address] PCP - General Family Medicine 08/13/17 04/05/22 Gertrude Kendall MD [address] [place] [address] [email or web address] PCP - General Family Medicine 04/06/22 Margaret Chavis MD [address] [address] Cardiology 01/07/19 documented as of this encounter Additional Source Comments The information contained in this document represents components of the legal health record. It is not the complete legal health record.[facility]
--- OUTSIDE RECORDS SUMMARY | 2025-01-08 15:01 | XMS_ITS | Encounter Summary ---
Author Organization [facility] Address [address] [place] [address] Phone Care Team Providers Care Sales Attendant Name Role Phone Shahab Perkins MD Primary Care Provider [phone] Margaret Chavis MD Unavailable [phone] Gertrude Kendall MD Primary Care Provider + [phone] Reason for Referral * MRI/CAT Scan - Closed Specialty Diagnoses / Procedures Referred By Contac t Referred To Contact Radiology Diagnoses Pre-op exam Atrial fibrillation, unspecified type Coronary artery disease without angina pectoris, unspecified vessel or lesion type, unspecified whether buck[place] or transplanted heart Dyspnea, unspecified type Procedures NC Myocardial Perfusion Exercise Multiple NC Myocardial Perfusion Stress Single NC Myocardial Perfusion Exercise Multiple Margaret Chavis MD [address] [address] Phone: tel: fax: Referral ID Status Reason Start Date Expiration Date Visits Re quested Visits Authorized [id number] Closed 12/10/2018 12/10/2019 1 1 * Outpatient Procedure - Closed Specialty Diagnoses / Procedures Referred By Contac t Referred To Contact Diagnoses Coronary artery disease, angina presence unspecified, unspecified vessel or lesion type, unspecified whether buck[place] or transplanted heart Pre-op exam Dyspnea, unspecified type Atrial fibrillation, unspecified type Procedures Adult Echo TTE Margaret Chavis MD [address] [address] Phone: tel: fax: Referral ID Status Reason Start Date Expiration Date Visits Re quested Visits Authorized [id number] Closed 12/10/2018 12/10/2019 1 1 Encounter Details Date Type Department Care Team (Latest Contact Info) Description 12/10/2018 Ancillary Orders Virtual Department 30 [place] [address] Margaret Chavis MD [address] [address] Pre-op exam; Atrial fibrillation, unspecified type; Coronary artery disease without angina pectoris, unspecified vessel or lesion type, unspecified whether buck[place] or transplanted heart; Dyspnea, unspecified type; Coronary artery disease, angina presence unspecified, unspecified vessel or lesion type, unspecified whether buck[place] or transplanted heart Social History Tobacco Use [...] Info) Description 12/25/2024 Procedure Pass [facility] Echo Lab [address] [place] [address] 01/28/2025 1:30 PM EDT Appointment [facility] Echo Lab [address] [place] [address] Margaret Chavis MD [address] [address] documented as of this encounter Results * [...] unspecified vessel or lesion type, unspecified whether buck[place] or transplanted heart Dyspnea, unspecified type Pre-op exam Atrial fibrillation, unspecified type Coronary artery disease without angina pectoris, unspecified vessel or lesion type, unspecified whether buck[place] or transplanted heart Dyspnea, unspecified type Coronary artery disease, angina presence unspecified, unspecified vessel or lesion type, unspecified whether buck[place] or transplanted heart Pre-op exam Dyspnea, unspecified type Atrial fibrillation, unspecified type documented in this encounter Additional Health Concerns Infection Onset Date Last Indicated Resolved Time CoV-Risk 07/21/2022 07/21/2022 07/23/2022 9:59 AM EDT documented as of this encounter Care Teams Sales Attendant Relationship Specialty Start Date End Date Shahab Perkins MD [address] [place] [address] [place] [address] [email or web address] PCP - General Family Medicine 08/13/17 04/05/22 Gertrude Kendall MD [address] [place] [address] [email or web address] PCP - General Family Medicine 04/06/22 Margaret Chavis MD [address] [address] Cardiology 01/07/19 documented as of this encounter Additional Source Comments The information contained in this document represents components of the legal health record. It is not the complete legal health record.[facility]
--- OUTSIDE RECORDS SUMMARY | 2025-01-08 15:02 | XMS_ITS | Encounter Summary ---
Author Organization [facility] Address [address] [place] [address] Phone Care Team Providers Care Supervisor Long Goods Name Role Phone Margaret Chavis MD Unavailable [phone] Gertrude Kendall MD Primary Care Provider [phone] Encounter Details Date Type Department Care Team (Late st Contact Info) Description 10/13/2024 Procedure Pass [facility], Ct Scan - [facility] 30 [place] [address] Social History Tobacco Use Types Packs/Day Years [...] 12/25/2024 Procedure Pass [facility] Echo Lab [address] [place] [address] 01/28/2025 1:30 PM EDT Appointment [facility] Echo Lab [address] [place] [address] Margaret Chavis MD [address] [place] [address] documented as of this encounter Visit Diagnoses Not on filedocumented in this encounter Care Teams Supervisor Long Goods Relationship Specialty Start Date End Date Gertrude Kendall MD [address] [place] [address] PCP - General Family Medicine 04/06/22 Margaret Chavis MD [address] [place] [address] Cardiology 01/07/19 documented as of this encounter Additional Source Comments The information contained in this document represents components of the legal health record. It is not the complete legal health record.[facility]
--- OUTSIDE RECORDS SUMMARY | 2025-01-08 15:02 | XMS_ITS | Encounter Summary ---
Author Organization [facility] Address [address] [facility] [address] [place] [address] Phone Care Team Providers Care Adult Basic Education Teacher Name Role Phone Shahab Perkins MD Primary Care Provider [phone] Margaret Chavis MD Unavailable [phone] Gertrude Kendall MD Primary Care Provider + [phone] Reason for Visit * Reason Onset Date Comments Appointment 11/19/2018 spoke to pt abou t CT Chest, he will have done at [facility] (Pt will schedule) . Also discussed Cardiac Clearance. Will maoil prep instructions.l Encounter Details Date Type Department Care Team (Late st Contact Info) Description 11/19/2018 Telephone Department of Urology [address] [address] Blaise Montes MD [address] [place] [address] [place] [address] [email or web address] Appointment (spoke to pt about CT Chest, he will have done at [facility] (Pt will schedule) . Also discussed [...] 12/25/2024 Procedure Pass [facility] Echo Lab 30 [place] [address] 01/28/2025 1:30 PM EDT Appointment [facility] Echo Lab [address] [place] [address] Margaret Chavis MD [address] [facility] [address] [place] [address] documented as of this encounter Visit Diagnoses Not on filedocumented in this encounter Additional Health Concerns Infection Onset Date Last Indicated Resolved Time CoV-Risk 07/21/2022 07/21/2022 07/23/2022 9:59 AM EDT documented as of this encounter Care Teams Adult Basic Education Teacher Relationship Specialty Start Date End Date Shahab Perkins MD [address] [facility] [address] [place] [address] [email or web address] PCP - General Family Medicine 08/13/17 04/05/22 Gertrude Kendall MD [address] [place] [address] PCP - General Family Medicine 04/06/22 Margaret Chavis MD [address] [address] Cardiology 01/07/19 documented as of this encounter Additional Source Comments The information contained in this document represents components of the legal health record. It is not the complete legal health record.[facility]
--- OUTSIDE RECORDS SUMMARY | 2025-01-08 15:02 | XMS_ITS | Encounter Summary ---
Author Organization [facility] Address [address] [facility] [address] [place] [address] Phone Care Team Providers Care Recreation Engineer Name Role Phone Shahab Perkins MD Primary Care Provider [phone] Margaret Chavis MD Unavailable [phone] Gertrude Kendall MD Primary Care Provider + [phone] Encounter Details Date Type Department Care Team (Late Contact Info) Description 01/14/2019 Procedure Pass [facility]PT [address] [place] [phone] Social History Tobacco Use Types Packs/Day Years [...] (Late Contact Info) Description 12/25/2024 Procedure Pass [facility] Echo Lab [address] [place] [address] 01/28/2025 1:30 PM EDT Appointment [facility] Echo Lab [address] [place] [address] Margaret Chavis MD [address] [place] [address] documented as of this encounter Visit Diagnoses Not on filedocumented in this encounter Additional Health Concerns Infection Onset Date Last Indicated Resolved Time CoV-Risk 07/21/2022 07/21/2022 07/23/2022 9:59 AM EDT documented as of this encounter Care Teams Recreation Engineer Relationship Specialty Start Date End Date Shahab Perkins MD [address] [facility] [address] [place] [address] [email or web address] PCP - General Family Medicine 08/13/17 04/05/22 Gertrude Kendall MD [address] [place] [address] PCP - General Family Medicine 04/06/22 Margaret Chavis MD [address] [place] [address] Cardiology 01/07/19 documented as of this encounter Additional Source Comments The information contained in this document represents components of the legal health record. It is not the complete legal health record.[facility]
--- OUTSIDE RECORDS SUMMARY | 2025-01-08 15:02 | XMS_ITS | Encounter Summary ---
Author Organization [facility] Address [address] [place] [address] Phone Care Team Providers Care Puller Machine Name Role Phone Shahab Perkins MD Primary Care Provider [phone] Margaret Chavis MD Unavailable [phone] Gertrude Kendall MD Primary Care Provider + [phone] Encounter Details Date Type Department Care Team (Latest Contact Info) Description 12/18/2018 Ancillary Orders Non-Invasive Cardiology [address] [place] [address] Margaret Chavis MD [address] [place] [address] Pre-op exam; Atrial fibrillation, unspecified type; Coronary artery disease without angina pectoris, unspecified vessel or lesion type, unspecified whether elem or transplanted heart; Dyspnea, unspecified type Social [...] Info) Description 12/25/2024 Procedure Pass [facility] Echo Lab [address] [place] [address] 01/28/2025 1:30 PM EDT Appointment [facility] Echo Lab [address] [place] [address] Margaret Chavis MD [address] [address] documented as of this encounter Results * NC Stress Result for Nuclear Stress Test (12/18/2018 10:32 AM EDT) Max BP Systolic 166 mmHg [facility] Max BP Diastolic 44 mmHg [facility] Max HR 148 BPM [facility] Resting HR 71 BPM [facility] Resting BP Systolic 102 mmHg [facility] Resting BP Diastolic 50 mmHg [facility] Peak METS 10.1 METS [facility] Peak HR 142 BPM [facility] Anatomical Region Laterality Modality Heart Other 12/18/2018 [...] unspecified vessel or lesion type, unspecified whether elem or transplanted heart Dyspnea, unspecified type Pre-op exam Atrial fibrillation, unspecified type Coronary artery disease without angina pectoris, unspecified vessel or lesion type, unspecified whether elem or transplanted heart Dyspnea, unspecified type documented in this encounter Additional Health Concerns Infection Onset Date Last Indicated Resolved Time CoV-Risk 07/21/2022 07/21/2022 07/23/2022 9:59 AM EDT documented as of this encounter Care Teams Puller Machine Relationship Specialty Start Date End Date Shahab Perkins MD [address] [place] [address] [address] [place] [address] [email or web address] PCP - General Family Medicine 08/13/17 04/05/22 Gertrude Kendall MD [address] [address] [email or web address] PCP - General Family Medicine 04/06/22 Margaret Chavis MD [address] [address] Cardiology 01/07/19 documented as of this encounter Additional Source Comments The information contained in this document represents components of the legal health record. It is not the complete legal health record.[facility]
--- OUTSIDE RECORDS SUMMARY | 2025-01-08 15:02 | XMS_ITS | Encounter Summary ---
Author Organization [facility] Address [address] [place] [address] [place] [address] Phone Care Team Providers Care Physics Technical Officer Name Role Phone Shahab Perkins MD Primary Care Provider [phone] Margaret Chavis MD Unavailable [phone] Gertrude Kendall MD Primary Care Provider + [phone] Encounter Details Date Type Department Care Team (Late Contact Info) Description 10/26/2020 Procedure Pass [facility], Ct Scan - [facility] [address] [place] [address] Social History Tobacco Use Types Packs/Day Years [...] 12/25/2024 Procedure Pass [facility] Echo Lab [address] [place] [address] 01/28/2025 1:30 PM EDT Appointment [facility] Echo Lab [address] [place] [address] Margaret Chavis MD [address] [place] [address], [place] [address] documented as of this encounter Visit Diagnoses Not on filedocumented in this encounter Additional Health Concerns Infection Onset Date Last Indicated Resolved Time CoV-Risk 07/21/2022 07/21/2022 07/23/2022 9:59 AM EDT documented as of this encounter Care Teams Physics Technical Officer Relationship Specialty Start Date End Date Shahab Perkins MD 230 [facility] [address] [place] [address] [email or web address] PCP - General Family Medicine 08/13/17 04/05/22 Gertrude Kendall MD [address] [place] [address] PCP - General Family Medicine 04/06/22 Margaret Chavis MD [address] [address] Cardiology 01/07/19 documented as of this encounter Additional Source Comments The information contained in this document represents components of the legal health record. It is not the complete legal health record.[facility]
--- OUTSIDE RECORDS SUMMARY | 2025-01-08 15:02 | XMS_ITS | Encounter Summary ---
Author Organization [facility] Address [address] [place] [address] [place] [address] Phone Care Team Providers Care Mixing Machine Attendant Name Role Phone Shahab Perkins MD Primary Care Provider [phone] Margaret Chavis MD Unavailable [phone] Gertrude Kendall MD Primary Care Provider + [phone] Encounter Details Date Type Department Care Team (Late Contact Info) Description 11/15/2020 Procedure Pass [facility] Admitting Dept - Virtual Department 30 [place] [address] Social History Tobacco Use Types Packs/Day Years [...] 12/25/2024 Procedure Pass [facility] Echo Lab [address] [place] [address] 01/28/2025 1:30 PM EDT Appointment [facility] Echo Lab [address] [place] [address] Margaret Chavis MD [address] [place] [address] documented as of this encounter Visit Diagnoses Not on filedocumented in this encounter Additional Health Concerns Infection Onset Date Last Indicated Resolved Time CoV-Risk 07/21/2022 07/21/2022 07/23/2022 9:59 AM EDT documented as of this encounter Care Teams Mixing Machine Attendant Relationship Specialty Start Date End Date Shahab Perkins MD 230 [facility] [address] [place] [address] [email or web address] PCP - General Family Medicine 08/13/17 04/05/22 Gertrude Kendall MD [address] [place] [address] PCP - General Family Medicine 04/06/22 Margaret Chavis MD [address] [address] Cardiology 01/07/19 documented as of this encounter Additional Source Comments The information contained in this document represents components of the legal health record. It is not the complete legal health record.[facility]
--- OUTSIDE RECORDS SUMMARY | 2025-01-08 15:02 | XMS_ITS | Clinical Summary ---
Author Organization [facility] Address [address] [place] [address] Phone Care Team Providers Care Human Resources Clerk Name Role Phone Margaret Chavis MD Unavailable [phone] Gertrude Kendall MD Primary Care Provider Allergies [...] Active vitamins A,C,E-zinc-jeanne er (PRESERVISION AREDS) 14,320-226-200 ednk-fz-ciar Cap Take 1 capsule by mouth 2 [...] EDT): New redness, warmth and pain left lraa Appearance is concerning for cellulitis though he [...] Description 12/25/2024 Transcribe Orders Virtual Department [address] [place] [address] Margaret Chavis MD Dyspnea, unspecified type (Primary Dx) 12/24/2024 11:40 AM EDT - 12/24/2024 11:59 PM EDT Hospital Encounter [facility], X-Ray - Main Hospital [address] [place] [address] Margaret Chavis MD Discharge Disposition: Home or Self Care 12/24/2024 11:13 AM EDT - 12/24/2024 11:39 AM EDT Hospital Encounter [facility] [address] [place] [address] Margaret Chavis MD Discharge Disposition: Home or Self Care 12/24/2024 Ancillary Orders [address] [address] Margaret Chavis MD H/O shortness of breath (Primary Dx) 12/24/2024 Transcribe Orders [facility] [address] [place] [address] Margaret Chavis MD Shortness of breath (Primary Dx) 10/26/2024 8:22 AM EDT - 10/26/2024 11:59 PM EDT Hospital Encounter [address] [address] Hosea Lao MD Discharge Disposition: Home or Self Care 10/13/2024 Procedure Pass [address] [address] 10/13/2024 Transcribe Orders Virtual Department [address] [place] [address] Hosea Lao MD Other specified disorders of bladder (Primary Dx); Personal history of malignant neoplasm of bladder; Personal history of malignant neoplasm of renal pelvis; Other retention of urine 10/13/2024 Transcribe Orders Virtual Department [address] [place] [address] Hosea Lao MD from Last 3 Months [...] Info) Description 12/25/2024 Procedure Pass [facility] Echo Lab [address] [place] [address] 01/28/2025 1:30 PM EDT Appointment [facility] Echo Lab [address] [place] [address] Margaret Chavis MD [address] [place] [address] Health Maintenance Due Date Last Done Comments [...] this topic Medical Devices Implanted Type Area Chemical Dependency Professional Device Identifier Shelf Expiration Date Model / Serial / Lot Lens Lens Bilateral: Eye Stent Heart Explanted Type Area Chemical Dependency Professional Device Identifier Shelf Expiration Date Model / Serial / Lot Stent Ureteral 6fr 22 To 30cm Stretch Coated Kiana - [id number] Implanted:Qty: 1 on 11/11/2018 by Hosea Lao MD at [facility] Explanted:Qty: 1 on 01/14/2019 by Blaise Montes MD at [facility] Left: Ureter Celoxica MELINDA 06/01/2021 [id number] / / [id number] Description:Out with Left ki dney and ureter [...] clinician's provided indication for this examination in [facility]: Dyspnea (Shortness of Breath) COMPARISON: 07/08/2023, [...] clinician's provided indication for this examination in [facility]:Dyspnea (Shortness of Breath) COMPARISON: 07/08/2023, 07/21/2022 [...] EDT) SODIUM 142 133 - 146 mmol/L [facility] POTASSIUM 4.6 3.3 - 5.1 mmol/L [facility] CHLORIDE 106 96 - 108 mmol/L [facility] CO2 27 21 - 35 mmol/L [facility] BUN 17 6 - 19 mg/dL [facility] CREATININE 0.90 0.5 - 1.5 mg/dL [facility] GLUCOSE 97 70 - 99 mg/dL [facility] ALBUMIN 4.0 3.9 - 4.8 g/dL [facility] TOTAL PROTEIN 7.0 6.5 - 8.0 g/dL [facility] CALCIUM 9.5 8.4 - 10.3 mg/dL [facility] ALKALINE PHOSPHATASE 100 39 - 117 U/L [facility] TOTAL BILIRUBIN 0.5 0.0 - 1.2 mg/dL [facility] AST 19 0 - 37 U/L [facility] ALT 15 0 - 40 U/L [facility] GLOBULIN 3.0 1 - 4.8 g/dL [facility] EGFR 84 >59 mL/min/1.7 3m2 [facility] Comment:Estimated glomerular filtration rate calculated using the CKD-EPI refit equation. ANION GAP 14 10 - 20 mmol/L [facility] Blood 12/24/2024 11:2 9 AM EDT 12/24/2024 11:31 AM EDT us Margaret Chavis MD LAB BLOOD ORDERABLES Final R esult [facility] [address] [place] [address] * (ABNORMAL) CBC and differential (12/24/2024 11:29 AM EDT) WBC 4.87 4.00 - 11.00 K/uL [facility] RBC 4.63 4.50 - 5.90 M/uL [facility] HGB 13.5 13.5 - 17.5 g/dL [facility] HCT 43.9 41.0 - 53.0 % [facility] PLT 144(L) 150 - 450 K/uL [facility] MCV 94.8 80.0 - 100.0 fL [facility] MCH 29.2 27.0 - 31.0 pg [facility] MCHC 30.8(L) 32.0 - 36.0 g/dL [facility] RDW 14.0 11.5 - 14.5 % [facility] MPV 10.4 8.4 - 12.0 fL [facility] NRBC 0.00 0.00 /100 WBCs [facility] ABSOLUTE NRBC 0.00 0.00 K/uL [facility] DIFF METHOD Auto [facility] NEUTS 54.2 48.0 - 76.0 % [facility] LYMPHS 21.4 18.0 - 41.0 % [facility] MONOS 12.9(H) 4.0 - 11.0 % [facility] EOS 10.5(H) 0.0 - 5.0 % [facility] BASOS 0.6 0.0 - 1.5 % [facility] Granulocytes, immature (%) 0.4 0.0 - 0.9 % [facility] ABSOLUTE NEUTS 2.64 1.92 - 7.60 K/uL [facility] ABSOLUTE LYMPHS 1.04 0.72 - 4.10 K/uL [facility] ABSOLUTE MONOS 0.63 0.16 - 1.10 K/uL [facility] ABSOLUTE EOS 0.51(H) 0.00 - 0.50 K/uL [facility] ABSOLUTE BASOS 0.03 0.00 - 0.15 K/uL [facility] Granulocytes, immature 0.02 0.00 - 0.09 K/uL [facility] Blood 12/24/2024 11:2 9 AM EDT 12/24/2024 11:31 AM EDT us Margaret Chavis MD LAB BLOOD ORDERABLES Final R esult Performing Organization Address City/[facility] Co de Phone Number [address] [address] * (ABNORMAL) NT-proBNP (12/24/2024 11:29 AM EDT) NT-PROBNP 867(H) 0 - 450 pg/mL [facility] Blood 12/24/2024 11:2 9 AM EDT 12/24/2024 11:31 AM EDT us Margaret Chavis MD LAB BLOOD ORDERABLES Final R esult Performing Organization Address [facility] de Phone Number [address] [address] * CT ABDOMEN/PELVIS WITHOUT CONTRAST (10/26/2024 8:35 [...] Payer (Ef fective 2005-Present) Name:Jax Márquez Member ID:[id number] Relation to Subscriber:Self Name:Jax Márquez Subscriber ID:[id number] Payer ID:[id number] Group ID:Not on file Type:Medicare Address: [employer] [address] [place] [phone] [employer] MEDEX SUPPLEMENT MEDICARE PART A & B [employer] MEDEX SUPPLEMENT MEDICARE PART A & B [employer] MEDEX SUPPLEMENT MEDICARE PART A & B [employer] MEDEX SUPPLEMENT MEDICARE PART A & B [employer] MED[employer] SUPPLEMENT MEDICARE PART A & B [employer] MEDEX SUPPLEMENT MEDICARE PART A & B [employer] MEDEX SUPPLEMENT MEDICARE PART A & B [employer] MED[employer] SUPPLEMENT MEDICARE PART A & B [employer] MED[employer] SUPPLEMENT Advance Directives For more information, please contact: [phone] (9AM - 5PM [facility], Saturday-Saturday) Documents on File Type Date Recorded Patient Stock Speculator Expl anation Healthcare Proxy 06/09/2024 12:25 PM * Full Code (Latest Code Status on File) Date Activated Date Inactivated Comments 07/21/2022 7:55 PM Question Answer Comments Code Status Confirmed With: Patient * Full Code (Presumed) Date Activated Date Inactivated Comments 01/14/2019 3:24 PM 01/16/2019 5:36 PM Care Teams Human Resources Clerk Relationship Specialty Start Date End Date Gertrude Kendall MD [address] [place] [address] [email or web address] PCP - General Family Medicine 04/06/22 Margaret Chavis MD [address] [address] Cardiology 01/07/19 Additional Source Comments The information contained in this document represents components of the legal health record. It is not the complete legal health record.[facility]
--- OUTSIDE RECORDS SUMMARY | 2025-01-08 15:02 | XMS_ITS | Encounter Summary ---
Author Organization [facility] Address [address] [place] [address] [place] [address] Phone Care Team Providers Care Superintendent Distribution Name Role Phone Shahab Perkins MD Primary Care Provider [phone] Margaret Chavis MD Unavailable [phone] Gertrude Kendall MD Primary Care Provider [phone] Encounter Details Date Type Department Care Team (Late Contact Info) Description 11/11/2018 Procedure Pass OR Admitting Dept - Virtual Department [address] [place] [address] Social History Tobacco Use Types Packs/Day Years [...] (Late Contact Info) Description 12/25/2024 Procedure Pass [facility] Echo Lab [address] [place] [address] 01/28/2025 1:30 PM EDT Appointment [facility] Echo Lab [address] [place] [address] Margaret Chavis MD [address] [place] [address], [place] [address] documented as of this encounter Visit Diagnoses Not on filedocumented in this encounter Additional Health Concerns Infection Onset Date Last Indicated Resolved Time CoV-Risk 07/21/2022 07/21/2022 07/23/2022 9:59 AM EDT documented as of this encounter Care Teams Superintendent Distribution Relationship Specialty Start Date End Date Shahab Perkins MD [address] [facility] [address] [place] [address] [email or web address] PCP - General Family Medicine 08/13/17 04/05/22 Gertrude Kendall MD [address] [place] [address] PCP - General Family Medicine 04/06/22 Margaret Chavis MD [address] [address] Cardiology 01/07/19 documented as of this encounter Additional Source Comments The information contained in this document represents components of the legal health record. It is not the complete legal health record.[facility]
--- OUTSIDE RECORDS SUMMARY | 2025-01-08 15:02 | XMS_ITS | Encounter Summary ---
Author Organization [facility] Address [address] [facility] [address] [place] [address] Phone Care Team Providers Care Granite Polisher Machine Name Role Phone Margaret Chavis MD Unavailable [phone] Gertrude Kendall MD Primary Care Provider [phone] Reason for Referral * Outpatient Procedure - Authorized Specialty Diagnoses / Procedures Referred By Chidi mac Referred To Contact Diagnoses Dyspnea, unspecified type Procedures Adult Echo TTE Margaret Chavis MD [address] [place] [address] Phone: tel: fax: Referral ID Status Reason Start Date Expiration Date V isits Requested Visits Authorized [id number] Authorized 12/25/2024 1 1 Encounter Details Date Type Department Care Team (Latest Contact Info) Description 12/25/2024 Transcribe Orders Virtual Department [address] [place] [address] Margaret Chavis MD [address] [phone] Dyspnea, unspecified type (Primary Dx) Social History [...] 12/25/2024 Procedure Pass [facility] Echo Lab [address] [place] [address] 01/28/2025 1:30 PM EDT Appointment [facility] Echo Lab [address] [place] [address] Margaret Chavis MD [address] [place] [address] Scheduled Orders Name Type Priority Associated Diagnoses Orde r Schedule Adult Echo TTE Echocardiography Routine Dyspnea, unspecified type Expected: 12/25/2024, Expires: 12/25/2025 documented as of this encounter Visit Diagnoses Diagnosis Dyspnea, unspecified type- Primary documented in this encounter Care Teams Granite Polisher Machine Relationship Specialty Start Date End Date Gertrude Kendall MD [address] [place] [address] [email or web address] PCP - General Family Medicine 04/06/22 Margaret Chavis MD [address] [place] [address] Cardiology 01/07/19 documented as of this encounter Additional Source Comments The information contained in this document represents components of the legal health record. It is not the complete legal health record.[facility]
--- OUTSIDE RECORDS SUMMARY | 2025-01-08 15:02 | XMS_ITS | Encounter Summary ---
Author Organization [facility] Address [address] [place] [address] Phone Care Team Providers Care Power Hammer Operator Name Role Phone Margaret Chavis MD Unavailable [phone] Gertrude Kendall MD Primary Care Provider [phone] Encounter Details Date Type Department Care Team (Late st Contact Info) Description 12/24/2024 Ancillary Orders [facility] [place] [address] [place] [address] Margaret Chavis MD [address] [phone] H/O shortness of breath (Primary Dx) Social [...] 12/25/2024 Procedure Pass [facility] Echo Lab [address] [place] [address] 01/28/2025 1:30 PM EDT Appointment [facility] Echo Lab [address] [place] [address] Margaret Chavis MD [address] [address] documented as of this encounter Results * [...] breath documented in this encounter Care Teams Power Hammer Operator Relationship Specialty Start Date End Date Gertrude Kendall MD [address] [place] [phone] PCP - General Family Medicine 04/06/22 Margaret Chavis MD [address] [place] [phone] Cardiology 01/07/19 documented as of this encounter Additional Source Comments The information contained in this document represents components of the legal health record. It is not the complete legal health record.[facility]
--- NOTE | 2025-01-08 16:23 | P.HPHOSP_ITS ---
History of Present Illness Date of Service: 01/08/25 Chief Complaint: Sob and dizziness Patient is an 84-year-old male with a past medical history significant for CAD s/p stents, AFib on Eliquis and diltiazem, HFrEF (echo 10/02/2024 EF 49%) s/p left nephrectomy for renal cancer followed by Urology, chronic Lynn catheter due to BPH and difficulties with intermittent catheterization, chronic UTIs on fosfomycin once weekly for supression. He was recently admitted for UTI sepsis from 12/25 to 12/27. Urine cultures were negative. Sepsis resolved and was discharged home with ceftin and Doxycyline for an additional 5 days and continued on Fosfomycin. He was seen in the ED on 01/04 with sob, low BPss and was discharged home. He comes back today c/o sob, dizziness, weakness and worship area sharp intermittent pain. He recently had an outpatient UA with culture growing Pseudomonas, no fever but blood pressure is marginally low. UA is grossly positive for UTI Review of Systems 2 Review of Systems: Gen: no fever Resp: no sob, no cough CV: no chest, no KENNEDY, no leg edema GI: No n/v, no abd pain Neuro: No confusion, feels dizzy weak, headache. Yes all other systems are reviewed and are negative [facility] Medical History Chronic anemia Bladder cancer Cancer of kidney A-fib High blood pressure Surgical History Stented coronary artery Social History Household Members: Spouse Housing: House Do you presently have visiting nurse or other home services: No Unable to assess alcohol history related to: Unable to respond Alcohol intake: current Alcohol intake frequency: 0-2 drinks per day Alcohol type: wine Patient Tobacco Use Status: Former Tobacco user Advance Directives: No Advance Directives Information Provided: Yes service: Yes Current occupational status: employed 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 Meds Allergies Allergy/AdvReac Type Severity Reaction Status Date / Time shellfish derived Allergy Unknown Verified 01/08/25 10:18 Home Medications ?Medication ?Instructions ?Recorded ?Confirmed ?Last Taken ?Type apixaban 2.5 mg tablet (Eliquis) 2.5 mg PO BID 4 01/08/25 01/08/25 History atorvastatin 40 mg tablet 40 mg PO DAILY 10/02/2311/2812/25/24 History digoxin 125 mcg (0.125 mg) tablet 125 mcg PO SUMOWEFR 10/02/23 12/25/24 12/25/24 History latanoprost 0.005 % eye drops 1 drp ophthalmic (eye) B EDTIME 10/02/23 12/25/24 12/24/24 History nitroglycerin 0.4 mg sublingual 0.4 mg sublingual Q5M 10/02/23 12/25/24 12/25/24 History tablet fosfomycin tromethamine 3 gram 3 g PO Q7D 12/25/2412/20/24 History oral packet diltiazem HCl 180 mg 180 mg PO DAILY 01/08/25 Un known History capsule,extended release 24 hr Physical Exam 2 Vital Signs and Narrative: Vital Signs: Last Vital Signs Temp 97.8 F 01/08/25 14:18 Pulse 78 01/08/25 14:22 Resp 14 01/08/25 14:18 BP 105/49 L 01/08/25 14:22 Pulse Ox 97 01/08/25 14:18 O2 Del Method Room Air 01/08/25 14:18 BMI result Body Mass Index 25.1 Constitutional: Alert, in no distress, Mental Status: Oriented to person, place and time. Eyes: Pupils are equal, round and reactive to light. Ear, Nose and Throat: Oropharynx clear, mucous membranes moist. Ears and nose without deformities. Trachea midline. Respiratory: Clear to auscultation. No wheezing, rales or rhonchi. Cardiovascular: S1 S2 regular. No murmurs, rubs or gallops. Gastrointestinal: Abdomen soft, non-tender, non-distended. Normal bowel sound. : Has lynn with clear urine? Neurologic: Cranial nerves II-XII grossly intact. No focal neurological deficits. Moves all extremities spontaneously.? Skin: No rashes or lesions.? Musculoskeletal: No cyanosis or clubbing. Psychiatric: Normal mood and affect? Results Labs 01/08/25 10:40 01/08/25 10:40 Labs: Laboratory Results - last 24 hr 01/08/25 01/08/25 01/08/25 10:40 10:46 13:09 MCV 90.6 MCH 29.5 MCHC 32.5 RDW 13.8 Plt Count 198 MPV 10.2 Immature Gran % (Auto) 0.4 Neut % (Auto) 68.4 Lymph % (Auto) 14.9 L [place] % (Auto) 7.5 Eos % (Auto) 8.1 H Baso % (Auto) 0.7 Lymph # (Auto) 0.8 L [place] # (Auto) 0.4 Eos # (Auto) 0.4 Baso # (Auto) 0.0 Abs Immat Gran (auto) 0.02 Absolute Neuts (auto) 3.7 Absolute Nucleated RBC 0.000 Nucleated RBC % (auto) 0.0 PT 13.3 H INR 1.2 H VBG pH 7.38 VBG pCO2 47 VBG pO2 44 VBG HCO3 28 H VBG O2 Saturation 67.0 VBG Base Excess 2.7 Anion Gap 10 L Estim Creat Clear Calc 47.6 Estimated GFR > 60 Random Glucose 114 Lactic Acid 0.8 Calcium 8.9 Magnesium 2.0 Total Bilirubin 0.6 AST 22 ALT 17 Alkaline Phosphatase 88 B-Natriuretic Peptide 256 H Total Protein 6.8 Albumin 4.0 Urine Color Urine Appearance Urine pH Ur Specific [place] Urine Protein Urine Glucose (UA) Urine Ketones Urine Blood Urine Nitrite Ur Leukocyte Esterase Urine RBC Urine WBC Ur Squamous Epith Cells Urine Bacteria Hyaline Casts COVID-19 (ANTONIO) Negative COVID-19 Clin Com See Note Influenza Type A (DELLA) Negative Influenza Type B (DELLA) Negative Influenza A & B Note See Note 01/08/25 14:44 MCV MCH MCHC RDW Plt Count MPV Immature Gran % (Auto) Neut % (Auto) Lymph % (Auto) [place] % (Auto) Eos % (Auto) Baso % (Auto) Lymph # (Auto) [place] # (Auto) Eos # (Auto) Baso # (Auto) Abs Immat Gran (auto) Absolute Neuts (auto) Absolute Nucleated RBC Nucleated RBC % (auto) PT INR VBG pH VBG pCO2 VBG pO2 VBG HCO3 VBG O2 Saturation VBG Base Excess Anion Gap Estim Creat Clear Calc Estimated GFR Random Glucose Lactic Acid Calcium Magnesium Total Bilirubin AST ALT Alkaline Phosphatase B-Natriuretic Peptide Total Protein Albumin Urine Color Yellow Urine Appearance Clear Urine pH 6.5 Ur Specific [place] 1.015 Urine Protein Negative Urine Glucose (UA) Negative Urine Ketones Negative Urine Blood Trace H Urine Nitrite Negative Ur Leukocyte Esterase Large (3+) H Urine RBC 6-10 H Urine WBC >50 H Ur Squamous Epith Cells 0-2 Urine Bacteria None Seen Hyaline Casts 3-5 COVID-19 (ANTONIO) COVID-19 Clin Com Influenza Type A (DELLA) Influenza Type B (DELLA) Influenza A & B Note Imaging Radiologist's Impressions: Impressions Chest X-Ray 01/08/25 11:25 IMPRESSION: Chronic interstitial lung disease without acute airspace disease. Electronically signed by: Marquise Tipton MD 01/08/2025 11:37 AM EDT RP Head CT 01/08/25 13:43 IMPRESSION: No acute intracranial abnormality. Chronic white matter disease. Electronically signed by: Melvin Jacobs MD 01/08/2025 02:02 PM EDT RP Assessment and Plan (1) Acute UTI: Status: Acute Plan Patient is an 84-year-old male with a past medical history significant for CAD s/p stents, AFib on Eliquis and diltiazem, HFrEF (echo 10/02/2024 EF 49%), s/p left nephrectomy for renal cancer followed by Urology, chronic Lynn ca here with weakness, sob associated with Pseudomonas UTI Symptomatic UTI with Pseudomonas, no sepsis Continue Cefepime Get culture sensitivity Chronic anemia, stable CAD s/p stents - continue statin Paroxysmal AFib continue Eliquis, continue digoxin, and hold diltiazem due to low BP, resume when appropriate Chronic HFrEF, no acute exacerbation Recent echo from [facility] on 10/02/2024 with EF of 49% History renal cancer followed by Urology, s/p left nephrectomy Chronic urinary retnetion/BPH has lynn, urine is clear Full code VTE prophylaxis: Eliquis plan discusse with and patient at bedside Quality Stroke Does the patient have a stroke diagnosis?: No VTE Prior VTE?: No VTE Risk Level:: Medical - moderate - high VTE Device Contraindication: Treatment Not Indicated VTE Drug Contraindication: N/A - Med Ordered
[2025-01-08] MEDS: Lactated Ringers 500 ML 999 ML IV (16:36)
[2025-01-08] MEDS: Lactated Ringers 1,000 ML 100 ML IVCONT (17:50)
--- NOTE | 2025-01-08 18:25 | PHA.MEDREC ---
Addendum entered by Sha Callahan PharmD 01/08/25 18:29: reviewed Original Note: Pharmacy Consult ? Medication Reconciliation Pharmacy has completed the medication reconciliation. Patient was able to name all of his medications. Patient states he is no longer taking Cefuroxime 250 mg and Doxycycline Hyc 100 mg. Patient confirmed Fosfomycin 3 g every Saturday, last dose was 01/03/25, Digoxin 125 mcg Saturday, Saturday, Saturday, Saturday. Patient had all his morning medication today.
--- NOTE | 2025-01-08 20:16 | PC.NURSE ---
Patient states that he uses nasal CPAP at night for sleep apnea. Spoke with Dr. Velázquez via [employer] regarding this. RT notified about CPAP request. Awaiting orders, CPAP to be applied for sleep upon arrival to the floor. Report entered, awaiting transport to admit the patient to med/surg, 3rd floor.
[2025-01-09 03:18] VITALS: BP 128/79; PULSE 75; RESP 18; TEMP 36; O2SAT 97
[2025-01-09] MEDS: Lactated Ringers 1,000 ML 100 ML IVCONT ×2 (04:05→14:20)
[2025-01-09 07:12] LABS: Alanine Aminotransferase 12 U/L (0-40); Albumin Level 3.4 g/dL (3.5-5.0); Alkaline Phosphatase 82 U/L (39-117); Anion Gap 9 (12-20); Aspartate Amino Transferase 19 U/L (5-37); Blood Urea Nitrogen 17 mg/dL (9-16); Calcium 8.4 mg/dL (8.4-10.2); Carbon Dioxide 28 mmol/L (22-29); Chloride 110 mmol/L (96-108); Creatinine Clr Calc Pharmacy 53.5; Estimated Glomerular Filt Rate > 60; Potassium 4.0 mmol/L (3.3-5.1); Sodium 143 mmol/L (135-145); Total Protein 6.0 g/dL (6.5-8.0)
[2025-01-09 07:25] VITALS: BP 123/86; PULSE 91; RESP 16; TEMP 36.5; O2SAT 98
[2025-01-09] MEDS: dilTIAZem HCL CD 180 MG CAP.ER.24H PO (08:01)
[2025-01-09] MEDS: cefEPime HCl/D5W 2 GM/50 ML PIGGYBACK IV ×2 (08:02→19:51)
--- NOTE | 2025-01-09 10:02 | P.PNIM_ITS ---
Subjective Subjective Date of Service: 01/09/25 Interval History: F/u on UTI afebrile, nl wbl, no hypotension, no confusion Review of Systems Gen: no fever Resp: no sob, no cough CV: no chest, no KENNEDY, no leg edema GI: No n/v, no abd pain Neuro: No confusion, feels dizzy weak, headache. Physical Exam 2 Vital Signs: Vital Signs: Last Vital Signs Temp 97.7 F 01/09/25 07:25 Pulse 91 01/09/25 07:25 Resp 16 01/09/25 07:25 BP 123/86 01/09/25 07:25 Pulse Ox 98 01/09/25 07:25 O2 Del Method Room Air 01/09/25 07:25 BMI result Body Mass Index 26.0 Const: Other: General: AO X 3, no acute distress Resp: CTA bilateral CVS: S1,S2,RRR GI: +BS, NT, no distention Skin: No rash Neuro: motor grossly intact Psych: appropriate affect Objective Data Active Medications Acetaminophen (Acetaminophen 325 Mg Tablet) 650 mg PO Q6H PRN PRN Reason: Pain, Mild 1-3,fever,headache Apixaban (Apixaban 2.5 Mg Tablet) 2.5 mg PO BID [facility] Last Admin: 01/09/25 08:01 Dose: 2.5 mg Documented By: PINEDA Atorvastatin Calcium (Atorvastatin Calcium 40 Mg Tablet) 40 mg PO DAILY [facility] Last Admin: 01/09/25 08:01 Dose: 40 mg Documented By: PINEDA Calcium Carbonate (Calcium Carbonate 750 Mg Tab.Chew) 750 mg PO Q4H PRN PRN Reason: Heartburn Digoxin (Digoxin 0.125 Mg Tablet) 0.125 mg PO SuMoWeFr@0900 [facility]; Protocol Diltiazem HCl (Diltiazem Hcl Cd 180 Mg Cap.Er.24h) 180 mg PO DAILY [facility]; Protocol Last Admin: 01/09/25 08:01 Dose: 180 mg Documented By: PINEDA Docusate Sodium (Docusate Sodium 100 Mg Capsule) 100 mg PO BID [facility] Last Admin: 01/09/25 08:01 Dose: 100 mg Documented By: PINEDA Lactated Ringer's (Lr) 1,000 mls @ 100 mls/hr IVCONT .Q10H [facility] Last Admin: 01/09/25 04:05 Dose: 100 mls/hr Documented By: FELTON Cefepime HCl (Maxipime) 2 gm in 50 mls @ 100 mls/hr IV Q12H [facility] Last Infusion: 01/09/25 08:34 Dose: Infused Documented By: PINEDA Latanoprost (Latanoprost 0.005 % Ophth Sis 2.5 Ml Drops) 1 drop EYE-BOTH BEDTIME [facility] Magnesium Hydroxide (Milk Of Magnesia 30 Ml Oral.Susp) 30 ml PO DAILY PRN PRN Reason: Constipation Melatonin (Melatonin 3 Mg Tablet) 6 mg PO BEDTIME PRN PRN Reason: Insomnia Nitroglycerin (Nitroglycerin 0.4 Mg Tab.Subl) 0.4 mg SUBLINGUAL Q5M PRN PRN Reason: Chest Pain Polyethylene Glycol (Polyethylene Glycol 3350 17 Gm Powd.Pack) 17 gm PO DAILY PRN PRN Reason: Constipation Sodium Chloride (0.9 % Sodium Chloride Flush 3 Ml Syringe) 3 ml IVFLUSH QSHIFT [facility] Last Admin: 01/09/25 07:26 Dose: Not Given Documented By: PINEDA Non-Admin Reason: IV Running Labs 01/08/25 10:40 01/09/25 05:40 Labs: Laboratory Results - last 24 hr 01/08/25 01/08/25 01/08/25 10:40 10:46 13:09 MCV 90.6 MCH 29.5 MCHC 32.5 RDW 13.8 Plt Count 198 MPV 10.2 Immature Gran % (Auto) 0.4 Neut % (Auto) 68.4 Lymph % (Auto) 14.9 L [place] % (Auto) 7.5 Eos % (Auto) 8.1 H Baso % (Auto) 0.7 Lymph # (Auto) 0.8 L [place] # (Auto) 0.4 Eos # (Auto) 0.4 Baso # (Auto) 0.0 Abs Immat Gran (auto) 0.02 Absolute Neuts (auto) 3.7 Absolute Nucleated RBC 0.000 Nucleated RBC % (auto) 0.0 Hold Purple Top PT 13.3 H INR 1.2 H VBG pH 7.38 VBG pCO2 47 VBG pO2 44 VBG HCO3 28 H VBG O2 Saturation 67.0 VBG Base Excess 2.7 Anion Gap 10 L Estim Creat Clear Calc 47.6 Estimated GFR > 60 Random Glucose 114 Lactic Acid 0.8 Calcium 8.9 Magnesium 2.0 Total Bilirubin 0.6 AST 22 ALT 17 Alkaline Phosphatase 88 B-Natriuretic Peptide 256 H Total Protein 6.8 Albumin 4.0 Urine Color Urine Appearance Urine pH Ur Specific [place] Urine Protein Urine Glucose (UA) Urine Ketones Urine Blood Urine Nitrite Ur Leukocyte Esterase Urine RBC Urine WBC Ur Squamous Epith Cells Urine Bacteria Hyaline Casts COVID-19 (ANTONIO) Negative COVID-19 Clin Com See Note Influenza Type A (DELLA) Negative Influenza Type B (DELLA) Negative Influenza A & B Note See Note 01/08/25 01/09/25 14:44 05:40 MCV MCH MCHC RDW Plt Count MPV Immature Gran % (Auto) Neut % (Auto) Lymph % (Auto) [place] % (Auto) Eos % (Auto) Baso % (Auto) Lymph # (Auto) [place] # (Auto) Eos # (Auto) Baso # (Auto) Abs Immat Gran (auto) Absolute Neuts (auto) Absolute Nucleated RBC Nucleated RBC % (auto) Hold Purple Top SEE NOTE PT INR VBG pH VBG pCO2 VBG pO2 VBG HCO3 VBG O2 Saturation VBG Base Excess Anion Gap 9 L Estim Creat Clear Calc 53.5 Estimated GFR > 60 Random Glucose 89 Lactic Acid Calcium 8.4 Magnesium Total Bilirubin 0.3 AST 19 ALT 12 Alkaline Phosphatase 82 B-Natriuretic Peptide Total Protein 6.0 L Albumin 3.4 L Urine Color Yellow Urine Appearance Clear Urine pH 6.5 Ur Specific [place] 1.015 Urine Protein Negative Urine Glucose (UA) Negative Urine Ketones Negative Urine Blood Trace H Urine Nitrite Negative Ur Leukocyte Esterase Large (3+) H Urine RBC 6-10 H Urine WBC >50 H Ur Squamous Epith Cells 0-2 Urine Bacteria None Seen Hyaline Casts 3-5 COVID-19 (ANTONIO) COVID-19 Clin Com Influenza Type A (DELLA) Influenza Type B (DELLA) Influenza A & B Note Assessment and Plan (1) Acute UTI: Status: Acute (2) Chronic anemia: Status: Acute Plan Patient is an 84-year-old male with a past medical history significant for CAD s/p stents, AFib on Eliquis and diltiazem, HFrEF (echo 10/02/2024 EF 49%), s/p left nephrectomy for renal cancer followed by Urology, chronic Lynn ca here with weakness, sob associated with Pseudomonas UTI Symptomatic UTI with Pseudomonas, no sepsis Continue Cefepime Get culture sensitivity Chronic anemia, stable CAD s/p stents - continue statin Paroxysmal AFib continue Eliquis, continue digoxin, and hold diltiazem due to low BP, resume when appropriate Chronic HFrEF, no acute exacerbation Recent echo from [facility] on 10/02/2024 with EF of 49% History renal cancer followed by Urology, s/p left nephrectomy Chronic urinary retnetion/BPH has lynn, urine is clear Full code VTE prophylaxis: Eliquis plan discusse with and patient at bedside Quality Stroke Does the patient have a stroke diagnosis?: No VTE Prior VTE?: No VTE Risk Level:: Medical - moderate - high VTE Device Contraindication: N/A - Device Ordered VTE Drug Contraindication: N/A - Med Ordered
--- NOTE | 2025-01-09 12:22 | MHC.CM.PN ---
PT LIVES WITH HIS THEY ARE INDEPENDENT HAVING NO PREVIOUS SERVICES PT HAS OWN RIDE HOME DC PLAN HOME N/S
[2025-01-09 15:40] VITALS: BP 127/58; PULSE 83; RESP 16; TEMP 36; O2SAT 99
[2025-01-09 19:13] VITALS: BP 138/64; PULSE 67; RESP 16; TEMP 36.4; O2SAT 96
[2025-01-09] MEDS: Latanoprost 0.005 % Ophth Sol 2.5 ML DROPS 1 DROP EYE-BOTH (22:22)
[2025-01-09 22:45] VITALS: PULSE 80; RESP 16; O2SAT 97
[2025-01-10 03:45] VITALS: BP 132/71; PULSE 85; RESP 18; TEMP 36.4; O2SAT 97
[2025-01-10] MEDS: Lactated Ringers 1,000 ML 100 ML IVCONT ×2 (06:04→20:32)
[2025-01-10 07:41] VITALS: BP 121/74; PULSE 80; RESP 18; TEMP 36.4; O2SAT 98
[2025-01-10] MEDS: dilTIAZem HCL CD 180 MG CAP.ER.24H PO (07:42)
[2025-01-10] MEDS: cefEPime HCl/D5W 2 GM/50 ML PIGGYBACK IV ×2 (07:43→19:55)
--- NOTE | 2025-01-10 08:52 | P.PNIM_ITS ---
Subjective Subjective Date of Service: 01/10/25 Interval History: F/u on UTI afebrile, nl wbl, no hypotension, no confusion urine culture here is negative. I don't have record of outside UA and culture reportedly growing Pseudomonas, he's not able tell me where lab was sent other than he sees a PCP at [facility] Review of Systems Gen: no fever Resp: no sob, no cough CV: no chest, no KENNEDY, no leg edema GI: No n/v, no abd pain Neuro: No confusion, feels dizzy weak, headache. Physical Exam 2 Vital Signs: Vital Signs: Last Vital Signs Temp 97.6 F 01/10/25 07:41 Pulse 80 01/10/25 07:41 Resp 18 01/10/25 07:41 BP 121/74 01/10/25 07:41 Pulse Ox 98 01/10/25 07:41 O2 Del Method Room Air 01/10/25 07:41 BMI result Body Mass Index 26.0 Const: Other: General: AO X 3, no acute distress Resp: CTA bilateral CVS: S1,S2,RRR GI: +BS, NT, no distention Skin: No rash Neuro: motor grossly intact Psych: appropriate affect Objective Data Active Medications Acetaminophen (Acetaminophen 325 Mg Tablet) 650 mg PO Q6H PRN PRN Reason: Pain, Mild 1-3,fever,headache Apixaban (Apixaban 2.5 Mg Tablet) 2.5 mg PO BID [facility]PL[facility] Last Admin: 01/10/25 07:42 Dose: 2.5 mg Documented By: PINEDA Atorvastatin Calcium (Atorvastatin Calcium 40 Mg Tablet) 40 mg PO DAILY [facility]PL[facility] BY [facility] Last Admin: 01/10/25 07:42 Dose: 40 mg Documented By: PINEDA Calcium Carbonate (Calcium Carbonate 750 Mg Tab.Chew) 750 mg PO Q4H PRN PRN Reason: Heartburn Digoxin (Digoxin 0.125 Mg Tablet) 0.125 mg PO SuMoWeFr@0900 REPLACED BY [facility]; Protocol Last Admin: 01/10/25 07:43 Dose: 0.125 mg Documented By: PINEDA Diltiazem HCl (Diltiazem Hcl Cd 180 Mg Cap.Er.24h) 180 mg PO DAILY [facility]; Protocol Last Admin: 01/10/25 07:42 Dose: 180 mg Documented By: PINEDA Docusate Sodium (Docusate Sodium 100 Mg Capsule) 100 mg PO BID [facility]PL[facility]ED BY [facility] Last Admin: 01/10/25 07:42 Dose: 100 mg Documented By: PINEDA Lactated Ringer's (Lr) 1,000 mls @ 100 mls/hr IVCONT .Q10H REPLACED BY [facility] Last Admin: 01/10/25 06:04 Dose: 100 mls/hr Documented By: MARINA Cefepime HCl (Maxipime) 2 gm in 50 mls @ 100 mls/hr IV Q12H REPLACED BY [facility] Last Infusion: 01/10/25 08:20 Dose: Infused Documented By: PINEDA Latanoprost (Latanoprost 0.005 % Ophth Sis 2.5 Ml Drops) 1 drop EYE-BOTH BEDTIME REPLACED BY [facility] Last Admin: 01/09/25 22:22 Dose: 1 drop Documented By: MARINA Magnesium Hydroxide (Milk Of Magnesia 30 Ml Oral.Susp) 30 ml PO DAILY PRN PRN Reason: Constipation Melatonin (Melatonin 3 Mg Tablet) 6 mg PO BEDTIME PRN PRN Reason: Insomnia Nitroglycerin (Nitroglycerin 0.4 Mg Tab.Subl) 0.4 mg SUBLINGUAL Q5M PRN PRN Reason: Chest Pain Polyethylene Glycol (Polyethylene Glycol 3350 17 Gm Powd.Pack) 17 gm PO DAILY PRN PRN Reason: Constipation Sodium Chloride (0.9 % Sodium Chloride Flush 3 Ml Syringe) 3 ml IVFLUSH QSHIFT REPLACED BY [facility] Last Admin: 01/10/25 07:50 Dose: Not Given Documented By: PINEDA Non-Admin Reason: IV Running Labs 01/08/25 10:40 01/09/25 05:40 Labs: Laboratory Results - last 24 hr 01/08/25 01/08/25 01/08/25 10:40 10:46 13:09 MCV 90.6 MCH 29.5 MCHC 32.5 RDW 13.8 Plt Count 198 MPV 10.2 Immature Gran % (Auto) 0.4 Neut % (Auto) 68.4 Lymph % (Auto) 14.9 L [place] % (Auto) 7.5 Eos % (Auto) 8.1 H Baso % (Auto) 0.7 Lymph # (Auto) 0.8 L [place] # (Auto) 0.4 Eos # (Auto) 0.4 Baso # (Auto) 0.0 Abs Immat Gran (auto) 0.02 Absolute Neuts (auto) 3.7 Absolute Nucleated RBC 0.000 Nucleated RBC % (auto) 0.0 Hold Purple Top PT 13.3 H INR 1.2 H VBG pH 7.38 VBG pCO2 47 VBG pO2 44 VBG HCO3 28 H VBG O2 Saturation 67.0 VBG Base Excess 2.7 Anion Gap 10 L Estim Creat Clear Calc 47.6 Estimated GFR > 60 Random Glucose 114 Lactic Acid 0.8 Calcium 8.9 Magnesium 2.0 Total Bilirubin 0.6 AST 22 ALT 17 Alkaline Phosphatase 88 B-Natriuretic Peptide 256 H Total Protein 6.8 Albumin 4.0 Urine Color Urine Appearance Urine pH Ur Specific [place] Urine Protein Urine Glucose (UA) Urine Ketones Urine Blood Urine Nitrite Ur Leukocyte Esterase Urine RBC Urine WBC Ur Squamous Epith Cells Urine Bacteria Hyaline Casts COVID-19 (ANTONIO) Negative COVID-19 Clin Com See Note Influenza Type A (DELLA) Negative Influenza Type B (DELLA) Negative Influenza A & B Note See Note 01/08/25 01/09/25 14:44 05:40 MCV MCH MCHC RDW Plt Count MPV Immature Gran % (Auto) Neut % (Auto) Lymph % (Auto) [place] % (Auto) Eos % (Auto) Baso % (Auto) Lymph # (Auto) [place] # (Auto) Eos # (Auto) Baso # (Auto) Abs Immat Gran (auto) Absolute Neuts (auto) Absolute Nucleated RBC Nucleated RBC % (auto) Hold Purple Top SEE NOTE PT INR VBG pH VBG pCO2 VBG pO2 VBG HCO3 VBG O2 Saturation VBG Base Excess Anion Gap 9 L Estim Creat Clear Calc 53.5 Estimated GFR > 60 Random Glucose 89 Lactic Acid Calcium 8.4 Magnesium Total Bilirubin 0.3 AST 19 ALT 12 Alkaline Phosphatase 82 B-Natriuretic Peptide Total Protein 6.0 L Albumin 3.4 L Urine Color Yellow Urine Appearance Clear Urine pH 6.5 Ur Specific [place] 1.015 Urine Protein Negative Urine Glucose (UA) Negative Urine Ketones Negative Urine Blood Trace H Urine Nitrite Negative Ur Leukocyte Esterase Large (3+) H Urine RBC 6-10 H Urine WBC >50 H Ur Squamous Epith Cells 0-2 Urine Bacteria None Seen Hyaline Casts 3-5 COVID-19 (ANTONIO) COVID-19 Clin Com Influenza Type A (DELLA) Influenza Type B (DELLA) Influenza A & B Note Microbiology Microbiology Results: Microbiology 01/08/25 13:09 Blood Culture - Preliminary Blood - Venous No growth after 24 hours. 01/08/25 13:09 Blood Culture - Preliminary Blood - Venous No growth after 24 hours. 01/08/25 Unknown Urine Culture - Final Urine Catheterized - Lynn Catheter Assessment and Plan (1) Acute UTI: Status: Acute (2) Chronic anemia: Status: Acute Plan Patient is an 84-year-old male with a past medical history significant for CAD s/p stents, AFib on Eliquis and diltiazem, HFrEF (echo 10/02/2024 EF 49%), s/p left nephrectomy for renal cancer followed by Urology, chronic Lynn ca here with weakness, sob associated with Pseudomonas UTI Symptomatic UTI with Pseudomonas, no sepsis Urine culture is negative, final Blood culture negative at 24 hours Continue Cefepime to cover Pseudomonas Trying to figure out where the outpatient UA and culture was sent and get record-- sees PCP at [facility] Chronic anemia, stable CAD s/p stents - continue statin Paroxysmal AFib continue Eliquis, continue digoxin, and hold diltiazem due to low BP, resume when appropriate Chronic HFrEF, no acute exacerbation Recent echo from [facility] on 10/02/2024 with EF of 49% History renal cancer followed by Urology, s/p left nephrectomy Chronic urinary retnetion/BPH has lynn, urine is clear Full code VTE prophylaxis: Eliquis Discussed with patient and over the phone, disposition to be determined once culture sensitivity is available. Quality Stroke Does the patient have a stroke diagnosis?: No VTE Prior VTE?: No VTE Risk Level:: Medical - moderate - high VTE Device Contraindication: N/A - Device Ordered VTE Drug Contraindication: N/A - Med Ordered
[2025-01-10 15:32] VITALS: BP 122/66; PULSE 83; RESP 18; TEMP 36.3; O2SAT 98
[2025-01-10 19:24] VITALS: BP 130/73; PULSE 75; RESP 18; TEMP 36.9; O2SAT 96
[2025-01-10] MEDS: Latanoprost 0.005 % Ophth Sol 2.5 ML DROPS 1 DROP EYE-BOTH (19:56)
[2025-01-11 03:47] VITALS: BP 134/56; PULSE 86; RESP 18; TEMP 36.2; O2SAT 99
[2025-01-11 07:24] VITALS: BP 127/70; PULSE 87; RESP 18; TEMP 36.2; O2SAT 98
[2025-01-11] MEDS: dilTIAZem HCL CD 180 MG CAP.ER.24H PO (07:52)
[2025-01-11] MEDS: cefEPime HCl/D5W 2 GM/50 ML PIGGYBACK IV (07:52)
[2025-01-11] MEDS: 0.9 % Sodium Chloride Flush 3 ML SYRINGE IVFLUSH (07:53)
--- NOTE | 2025-01-11 08:28 | P.DS_ITS ---
DS: Providers Provider Date of Service: 01/11/25 Date of admission: 01/08/25 16:41 Date of discharge: 01/11/25 Primary care physician: Gertrude Kendall MD DS: Diagnosis Discharge Diagnosis (1) Acute UTI: Status: Acute (2) Chronic anemia: Status: Acute DS: Summary Hospital Course Hospital Course: admission hpi Chief Complaint: Sob and dizziness Patient is an 84-year-old male with a past medical history significant for CAD s/p stents, AFib on Eliquis and diltiazem, HFrEF (echo 10/02/2024 EF 49%) s/p left nephrectomy for renal cancer followed by Urology, chronic Lynn catheter due to BPH and difficulties with intermittent catheterization, chronic UTIs on fosfomycin once weekly for supression. He was recently admitted for UTI sepsis from 12/25 to 12/27. Urine cultures were negative. Sepsis resolved and was discharged home with ceftin and Doxycyline for an additional 5 days and continued on Fosfomycin. He was seen in the ED on 01/04 with sob, low BPss and was discharged home. He comes back today c/o sob, dizziness, weakness and taoism area sharp intermittent pain. He recently had an outpatient UA with culture growing Pseudomonas, no fever but blood pressure is marginally low. UA is grossly positive for UTI Hospital course: Patient is an 84-year-old male with a past medical history significant for CAD s/p stents, AFib on Eliquis and diltiazem, HFrEF (echo 10/02/2024 EF 49%), s/p left nephrectomy for renal cancer followed by Urology, chronic Lynn ca here with weakness, sob associated with Pseudomonas UTI Symptomatic UTI with Pseudomonas, no sepsis in setting of chronic indwelling lynn cath. He has been previously admitted for UTI with negative culture and treaeted with Ceftin and Doxy.. He had outpatient UA that is growing Pseudomonas this time, but hospital culture is negative along with blood culture. He has been on Cefepime and will discharge with IV Cefepime via midline for a total of 10 days. To continue other meds for chronic stable medical issues with no change at this time. Time Attestation Discharge Coordination Time (in mins): 45 Quality: Safe Use of Opioids Does Pt have an Active Cancer Diagnosis on the Problem List?: No Quality: Stroke Does the patient have a stroke diagnosis?: No Physical Exam Vital Signs: Vital Signs: Last Vital Signs Temp 97.2 F 01/11/25 07:24 Pulse 87 01/11/25 07:24 Resp 18 01/11/25 07:24 BP 127/70 01/11/25 07:24 Pulse Ox 98 01/11/25 07:24 O2 Del Method Room Air 01/11/25 07:24 BMI result Body Mass Index 26.0 DS: Data Data Completed and Pending Labs on day of discharge: Preliminary micro results at discharge 01/08/25 13:09 Blood Culture - Preliminary Blood - Venous No growth after 48 hours. 01/08/25 13:09 Blood Culture - Preliminary Blood - Venous No growth after 48 hours. Discharge Plan Discharge Anticipated Discharge Date/Time: 01/11/25 08:26 Patient Disposition: Home Health Service Discharge Diagnosis: Pseudomonas UTI Referrals: Gertrude Kendall MD [Primary Care Provider, [facility]] - 1 Week Discharge Medications: Continued fosfomycin tromethamine 3 gram packet 3 g PO NAVARRO diltiazem HCl 180 mg capsule,extended release 24hr 180 mg PO DAILY latanoprost 0.005 % drops 1 drp ophthalmic (eye) BEDTIME Rx Instructions: Both eyes atorvastatin 40 mg tablet 40 mg PO DAILY digoxin 125 mcg (0.125 mg) tablet 125 mcg PO SUMOWEFR Eliquis 2.5 mg tablet 2.5 mg PO BID nitroglycerin 0.4 mg tablet, sublingual 0.4 mg sublingual Q5M PRN (Reason: Chest Pain) (DME) Kneeling Scooter See Rx Instructions .ROUTE .MEDSUPPLY Qty: 1 0RF Rx Instructions: As directed Diet: Advance to usual diet Activity on Discharge: As tolerated Stand Alone Forms: Patient Portal Discharge page Print Language: Danish Care Plan Goals: Recovery from a UTI Health Concerns: Recurrent UTI Plan of Treatment: Take cefepime as directed Follow-up with your primary care doctor Hold taking fosfomycin until you complete a course of cefepime Assessment: See above
--- NOTE | 2025-01-11 08:40 | P.PNIM_ITS ---
Subjective Subjective Date of Service: 01/11/25 Interval History: F/u on UTI afebrile, nl wbl, no hypotension, no confusion urine culture here is negative. UA from outside of the hospital is showing Pseudomonas that is sensitive to cefepime. Resistant to fluoroquinolones Review of Systems Gen: no fever Resp: no sob, no cough CV: no chest, no KENNEDY, no leg edema GI: No n/v, no abd pain Neuro: No confusion, feels dizzy weak, headache. Physical Exam 2 Vital Signs: Vital Signs: Last Vital Signs Temp 97.2 F 01/11/25 07:24 Pulse 87 01/11/25 07:24 Resp 18 01/11/25 07:24 BP 127/70 01/11/25 07:24 Pulse Ox 98 01/11/25 07:24 O2 Del Method Room Air 01/11/25 07:24 BMI result Body Mass Index 26.0 Const: Other: General: AO X 3, no acute distress Resp: CTA bilateral CVS: S1,S2,RRR GI: +BS, NT, no distention Skin: No rash Neuro: motor grossly intact Psych: appropriate affect Objective Data Active Medications Acetaminophen (Acetaminophen 325 Mg Tablet) 650 mg PO Q6H PRN PRN Reason: Pain, Mild 1-3,fever,headache Apixaban (Apixaban 2.5 Mg Tablet) 2.5 mg PO BID FORMERLY [facility], [facility]1983 Last Admin: 01/11/25 07:53 Dose: 2.5 mg Documented By: KAYCEE Atorvastatin Calcium (Atorvastatin Calcium 40 Mg Tablet) 40 mg PO DAILY FOR[facility]LY [facility], [facility]1983 Last Admin: 01/11/25 07:53 Dose: 40 mg Documented By: KAYCEE Calcium Carbonate (Calcium Carbonate 750 Mg Tab.Chew) 750 mg PO Q4H PRN PRN Reason: Heartburn Digoxin (Digoxin 0.125 Mg Tablet) 0.125 mg PO SuMoWeFr@0900 FORMERLY [facility], [facility]1983; Protocol Last Admin: 01/11/25 07:52 Dose: 0.125 mg Documented By: KAYCEE Diltiazem HCl (Diltiazem Hcl Cd 180 Mg Cap.Er.24h) 180 mg PO DAILY FORMERLY [facility], [facility]1983; Protocol Last Admin: 01/11/25 07:52 Dose: 180 mg Documented By: KAYCEE Docusate Sodium (Docusate Sodium 100 Mg Capsule) 100 mg PO BID FOR[facility]LY [facility], [facility] Last Admin: 01/11/25 07:53 Dose: Not Given Documented By: KAYCEE Non-Admin Reason: Patient Refused Cefepime HCl (Maxipime) 2 gm in 50 mls @ 100 mls/hr IV Q12H [facility], [facility]1983 Last Infusion: 01/11/25 08:38 Dose: Infused Documented By: KAYCEE Latanoprost (Latanoprost 0.005 % Ophth Sis 2.5 Ml Drops) 1 drop EYE-BOTH BEDTIME FORMERLY [facility], [facility]1983 Last Admin: 01/10/25 19:56 Dose: 1 drop Documented By: MARINA Magnesium Hydroxide (Milk Of Magnesia 30 Ml Oral.Susp) 30 ml PO DAILY PRN PRN Reason: Constipation Melatonin (Melatonin 3 Mg Tablet) 6 mg PO BEDTIME PRN PRN Reason: Insomnia Nitroglycerin (Nitroglycerin 0.4 Mg Tab.Subl) 0.4 mg SUBLINGUAL Q5M PRN PRN Reason: Chest Pain Polyethylene Glycol (Polyethylene Glycol 3350 17 Gm Powd.Pack) 17 gm PO DAILY PRN PRN Reason: Constipation Sodium Chloride (0.9 % Sodium Chloride Flush 3 Ml Syringe) 3 ml IVFLUSH QSHIFT FOR[facility], [facility] Last Admin: 01/11/25 07:53 Dose: 3 ml Documented By: KAYCEE Labs 01/08/25 10:40 01/09/25 05:40 Labs: Laboratory Results - last 24 hr 01/08/25 01/08/25 01/08/25 10:40 10:46 13:09 MCV 90.6 MCH 29.5 MCHC 32.5 RDW 13.8 Plt Count 198 MPV 10.2 Immature Gran % (Auto) 0.4 Neut % (Auto) 68.4 Lymph % (Auto) 14.9 L [place] % (Auto) 7.5 Eos % (Auto) 8.1 H Baso % (Auto) 0.7 Lymph # (Auto) 0.8 L [place] # (Auto) 0.4 Eos # (Auto) 0.4 Baso # (Auto) 0.0 Abs Immat Gran (auto) 0.02 Absolute Neuts (auto) 3.7 Absolute Nucleated RBC 0.000 Nucleated RBC % (auto) 0.0 Hold Purple Top PT 13.3 H INR 1.2 H VBG pH 7.38 VBG pCO2 47 VBG pO2 44 VBG HCO3 28 H VBG O2 Saturation 67.0 VBG Base Excess 2.7 Anion Gap 10 L Estim Creat Clear Calc 47.6 Estimated GFR > 60 Random Glucose 114 Lactic Acid 0.8 Calcium 8.9 Magnesium 2.0 Total Bilirubin 0.6 AST 22 ALT 17 Alkaline Phosphatase 88 B-Natriuretic Peptide 256 H Total Protein 6.8 Albumin 4.0 Urine Color Urine Appearance Urine pH Ur Specific [place] Urine Protein Urine Glucose (UA) Urine Ketones Urine Blood Urine Nitrite Ur Leukocyte Esterase Urine RBC Urine WBC Ur Squamous Epith Cells Urine Bacteria Hyaline Casts COVID-19 (ANTONIO) Negative COVID-19 Clin Com See Note Influenza Type A (DELLA) Negative Influenza Type B (DELLA) Negative Influenza A & B Note See Note 01/08/25 01/09/25 14:44 05:40 MCV MCH MCHC RDW Plt Count MPV Immature Gran % (Auto) Neut % (Auto) Lymph % (Auto) [place] % (Auto) Eos % (Auto) Baso % (Auto) Lymph # (Auto) [place] # (Auto) Eos # (Auto) Baso # (Auto) Abs Immat Gran (auto) Absolute Neuts (auto) Absolute Nucleated RBC Nucleated RBC % (auto) Hold Purple Top SEE NOTE PT INR VBG pH VBG pCO2 VBG pO2 VBG HCO3 VBG O2 Saturation VBG Base Excess Anion Gap 9 L Estim Creat Clear Calc 53.5 Estimated GFR > 60 Random Glucose 89 Lactic Acid Calcium 8.4 Magnesium Total Bilirubin 0.3 AST 19 ALT 12 Alkaline Phosphatase 82 B-Natriuretic Peptide Total Protein 6.0 L Albumin 3.4 L Urine Color Yellow Urine Appearance Clear Urine pH 6.5 Ur Specific [place] 1.015 Urine Protein Negative Urine Glucose (UA) Negative Urine Ketones Negative Urine Blood Trace H Urine Nitrite Negative Ur Leukocyte Esterase Large (3+) H Urine RBC 6-10 H Urine WBC >50 H Ur Squamous Epith Cells 0-2 Urine Bacteria None Seen Hyaline Casts 3-5 COVID-19 (ANTONIO) COVID-19 Clin Com Influenza Type A (DELLA) Influenza Type B (DELLA) Influenza A & B Note Microbiology Microbiology Results: Microbiology 01/08/25 13:09 Blood Culture - Preliminary Blood - Venous No growth after 48 hours. 01/08/25 13:09 Blood Culture - Preliminary Blood - Venous No growth after 48 hours. Assessment and Plan (1) Acute UTI: Status: Acute (2) Chronic anemia: Status: Acute Plan Patient is an 84-year-old male with a past medical history significant for CAD s/p stents, AFib on Eliquis and diltiazem, HFrEF (echo 10/02/2024 EF 49%), s/p left nephrectomy for renal cancer followed by Urology, chronic Lynn ca here with weakness, sob associated with Pseudomonas UTI Symptomatic UTI with Pseudomonas from UA from the outside of the hospital, no sepsis Urine culture is negative here in the hospital, final Blood culture negative at 48 hours Continue Cefepime to cover Pseudomonas for total of 10 days, we will get a midline and discharged home to finish course of the antibiotic Chronic anemia, stable CAD s/p stents - continue statin Paroxysmal AFib continue Eliquis, continue digoxin, and hold diltiazem due to low BP, resume when appropriate Chronic HFrEF, no acute exacerbation Recent echo from [facility] on 10/02/2024 with EF of 49% History renal cancer followed by Urology, s/p left nephrectomy Chronic urinary retnetion/BPH has lynn, urine is clear Full code VTE prophylaxis: Eliquis Discussed with patient and over the phone, disposition to be determined once culture sensitivity is available. Disposition: Home today if we are able to arrange for home infusion for cefepime. Quality Stroke Does the patient have a stroke diagnosis?: No VTE Prior VTE?: No VTE Risk Level:: Medical - moderate - high VTE Device Contraindication: N/A - Device Ordered VTE Drug Contraindication: N/A - Med Ordered
--- NOTE | 2025-01-11 11:06 | HO.MIDLINE_ITS ---
Midline Insertion MIDLINE INSERTION Diagnosis: UTI Indication: 10 days ABT Pertinent Labs: Reviewed Technique: Using sterile technique including cap and mask, glove and drape, the right arm was prepped and draped in the usual sterile fashion of full barrier technique with CHG. Using ultrasound guidance, right basilic vein access was obtained . 20G x 8cm powerglide ST was positioned. The procedure was performed in RM 272. Ultrasound was used to document vein patency and for needle entry. A formal ultrasound picture was recorded. Vascular Obstetrical Anesthesiologist has released the line for use and it is currently dressed with a StatLock, Tegaderm, and CHG disc. Verification has been performed for blood return and line patency. Arm Circumference: 29cm Equipment: BARD PowerGlide ST Catheter Type: 20G x 8CM catheter Lot #: [id number]
--- NOTE | 2025-01-11 11:51 | MHC.CM.PN ---
Addendum entered by Mame Perry RN 01/11/25 14:39: Per Dr. Velázquez, will dc on cefepime 1g BID (changed from 2g). OK to skip dose tonight, as already rec'd 2g this morning. [facility] RN aware. Addendum entered by Mame Perry RN 01/11/25 11:52: Med is ordered q12. Patient is aware [facility] is not able to come for first dose this evening, but will arrange a visit for tomorrow. Original Note: Per MD rounds patient medically cleared for dc home w/ 10 days IV abx. will assist. [facility] will provide teach today prior to dc and deliver IV abx to patient's home. [facility] will provide SN services, patient preference. Patient and are comfortable with plan. will transport home.
--- NOTE | 2025-01-11 12:32 | P.F2F_ITS ---
Service Date Service Date: 01/11/25 Encounter Date of encounter: 01/11/25 Reasons for Services Signs and symptoms assessed: resitant pseudomonas bacteremia Reason for long term: medication management and medication treatment Homebound: Leaving the home is medically contraindicated at this time without the asist of a device and/or another person due th the listed conditions above and below. Reason homebound: weakness related to hospital stay and unable to drive Homebound supporting statement: homebound due to resitant pseudomonas uti, causing weakness with indwelling lynn cath, doesn't drive and therefore needs the assisance of another person Certification: Based on the above findings, I certify that this patient is confined to the home and needs intermittent long term care, physical therapy and/or speech therapy, or continues to need occupational therapy. The patient is under my care, and I have initiated the establishment of the plan of care. The patient will be followed by a physician who will periodically review the plan of care. Time Spent With Patient Time: Total time managing care of this patient today ____ minutes.
[2025-01-11 13:27] LABS: Anion Gap 12 (12-20); Blood Urea Nitrogen 17 mg/dL (9-16); Calcium 9.1 mg/dL (8.4-10.2); Carbon Dioxide 28 mmol/L (22-29); Chloride 108 mmol/L (96-108); Creatinine Clr Calc Pharmacy 44.7; Estimated Glomerular Filt Rate > 60; Potassium 4.4 mmol/L (3.3-5.1); Sodium 144 mmol/L (135-145)
[2025-01-11 14:41] VITALS: BP 116/58; PULSE 73; RESP 18; O2SAT 98
== END 2025-01-11 15:36 | disposition home health service (06) | DRG 690 ==
LOC: HO.ED 16:00 → HO.EDOVER 16:49 → HO.S3 19:32
PROVIDERS: Physician Assistant Medical; Admitting Provider Internal Medicine; Emergency Provider Emergency Medicine; PCP Family Medicine; Visit Provider Internal Medicine
DX: N39.0 Urinary tract infection, site not specified (principal); I50.22 Chronic systolic (congestive) heart failure; Z16.23 Resistance to quinolones and fluoroquinolones; I25.10 Atherosclerotic heart disease of native coronary artery without angina pectoris; I48.0 Paroxysmal atrial fibrillation; N40.1 Benign prostatic hyperplasia with lower urinary tract symptoms; B96.5 Pseudomonas (aeruginosa) (mallei) (pseudomallei) as the cause of diseases classified elsewhere; D64.9 Anemia, unspecified; R33.8 Other retention of urine; Z95.5 Presence of coronary angioplasty implant and graft; Z96.0 Presence of urogenital implants; Z20.822 Contact with and (suspected) exposure to COVID-19; Z85.51 Personal history of malignant neoplasm of bladder; Z85.528 Personal history of other malignant neoplasm of kidney; Z90.5 Acquired absence of kidney; Z87.440 Personal history of urinary (tract) infections; Z79.2 Long term (current) use of antibiotics; Z79.01 Long term (current) use of anticoagulants; Z79.899 Other long term (current) drug therapy
CPT/HCPCS: 36410; 36415; 70450; 71046; 80048; 80053; 81001; 82803; 83605; 83735; 83880; 84484; 85025; 85610; 87040; 87086; 87502; 87635; 93005; 94660; 99285; J0692; J7120

== ENCOUNTER → 2025-01-08 10:19 | Outpatient (BNV) | payer MEDICARE, SELFPAY | PROVIDERS: Visit Provider Radiology Diagnostic Radiology | DX: J84.9 Interstitial pulmonary disease, unspecified (principal) | CPT/HCPCS: 71046 ==

== ENCOUNTER → 2025-01-08 10:19 | Outpatient (BNV) | payer MEDICARE, SELFPAY | PROVIDERS: Emergency Provider Emergency Medicine; PCP Family Medicine; Visit Provider Internal Medicine Cardiovascular Disease | DX: I48.91 Unspecified atrial fibrillation (principal) | CPT/HCPCS: 93010 ==

== ENCOUNTER → 2025-01-08 12:36 | Outpatient (BNV) | payer MEDICARE, SELFPAY | PROVIDERS: Emergency Provider Emergency Medicine; PCP Family Medicine; Visit Provider Internal Medicine | DX: N39.0 Urinary tract infection, site not specified (principal); D64.9 Anemia, unspecified | CPT/HCPCS: 99223; 99232; G0180 ==